=== PATIENT | female | born 1925 | race African-American/Black ===

== ENCOUNTER 2016-04-11 13:47 | Inpatient (IN) | payer OTHER, BC ==
--- NOTE | 2016-04-11 14:33 | PDOC ---
History of Present Illness <Sherif Mtz - Last Filed: 04/11/16 17:20> - History of Present Illness Initial Comments: 04/11/16 15:14 Patient is an 89 year old female with significant medical hx of dementia, HTN, HLD, COPD, atrial fibrillation (on Eliquis) who is presenting to the ED for lethargy from today. Patient was recently discharged for pneumonia and septic shock (04/02/16). She was brought in today by grandchildren because she was straying from her normal baseline. According to the family, the patient hasnt been eating, drinking and today she refused to leave the bathroom. Family members also note the patient has had increased swelling in her ankles. They report that the patient is fairly unreliable due to dementia and the patient needs to be taken care of around the clock. The patient has an appointment tomorrow with a doctor to be considered for senior living rehab. <Estelle Adler - Last Filed: 04/11/16 17:23> - General Chief Complaint: Weakness Stated Complaint: FAIL TO THRIVE Past History - Past Medical History Cardiac Disorders: Yes (deloris, GALE) COPD: Yes HTN: Yes Hypercholesterolemia: Yes Suicide Attempt (Hx): No - Surgical History Orthopedic Surgery: (foot surgery 30 years ago) - Immunization History Immunization Up to Date: Yes - Psycho/Social/Smoking Cessation Hx Anxiety: No Suicidal Ideation: No Smoking Status: No Smoking History: Former smoker Have you smoked in the past 12 months: No Number of Cigarettes Smoked Daily: 0 If you are a former smoker, when did you quit?: 1980s Information on smoking cessation initiated: No Hx Alcohol Use: No Drug/Substance Use Hx: No Substance Use Type: None <Sherif Mtz - Last Filed: 04/11/16 17:20> <Estelle Adler - Last Filed: 04/11/16 17:23> - Past Medical History Allergies/Adverse Reactions: Allergies Allergy/AdvReac Type Severity Reaction Status Date / Time pineapple AdvReac headache Verified 04/11/16 16:42 Home Medications: Ambulatory Orders Salmeterol/Fluticasone [Advair 250Mcg/50Mcg -] 1 inh PO BID 03/13/14 Apixaban [Eliquis] 2.5 mg PO BID #0 04/23/14 Acetaminophen [Tylenol .Regular Strength -] 650 mg PO Q4H PRN #0 tablet Albuterol 0.083% Nebulizer Dara [Ventolin 0.083% Nebulizer Soln -] 1 amp NEB Q4H PRN #0 amp 02/26/16 Simvastatin [Zocor -] 10 mg PO HS 03/21/16 Furosemide [Lasix -] 20 mg PO DAILY #30 tablet 04/02/16 Metoprolol Succinate [Toprol XL -] 50 mg PO BID #60 tab.sr.24h 04/02/16 Prednisone [Deltasone -] 5 mg PO ASDIR #78 tab 04/02/16 Tiotropium [place] [Spiriva] 1 inh PO DAILY #1 inh 04/02/16 Review of Systems - Review of Systems Comments:: 04/11/16 15:14 CONSTITUTIONAL: Present: decreased PO intake, lethargic Absent: fever, chills, diaphoresis HEENT: Absent: rhinorrhea, nasal congestion, throat pain, throat swelling, difficulty swallowing, mouth swelling, ear pain, eye pain, visual changes CARDIOVASCULAR: Absent: chest pain, syncope, palpitations, irregular heart rate, lightheadedness , peripheral edema RESPIRATORY: Absent: cough, shortness of breath, dyspnea with exertion, orthopnea, wheezing, stridor, hemoptysis GASTROINTESTINAL: Absent: abdominal pain, abdominal distension, nausea, vomiting, diarrhea, constipation, melena, hematochezia GENITOURINARY: Absent: dysuria, frequency, urgency, hesitancy, hematuria, flank pain, genital pain MUSCULOSKELETAL: Present: ankle swelling Absent: myalgia, arthralgia, joint swelling SKIN: Absent: rash, itching, pallor HEMATOLOGIC/IMMUNOLOGIC: Absent: easy bleeding, easy bruising, lymphadenopathy, frequent infections ENDOCRINE: Absent: unexplained weight gain, unexplained weight loss, heat intolerance, cold intolerance NEUROLOGIC: Absent: headache, focal weakness or paresthesia, dizziness, unsteady gait, seizure, mental status changes, bladder or bowel incontinence. PSYCHIATRIC: Absent: anxiety, depression, suicidal or homicidal ideation, hallucinations <Estelle Adler - Last Filed: 04/11/16 17:23> *Physical Exam - Vital Signs Last Vital Signs Temp Pulse Resp BP Pulse Ox 106 H 24 119/86 95 04/11/16 14:04 04/11/16 14:04 04/11/16 14:04 04/11/16 14:04 <Sherif Mtz - Last Filed: 04/11/16 17:20> - Vital Signs Last Vital Signs Temp Pulse Resp BP Pulse Ox 106 H 24 119/86 95 04/11/16 14:04 04/11/16 14:04 04/11/16 14:04 04/11/16 14:04 - Physical Exam Comments: 04/11/16 15:15 GENERAL: Well developed, well nourished. Dehydrated. Awake and alert. No acute distress. HEENT: Normocephalic, atraumatic. PERRLA, EOMI. No conjunctival pallor. Sclera are non- icteric. Slightly dry mucous membranes. Oropharynx is clear. NECK: Supple. Full ROM. No JVD. Carotid pulses 2+ and symmetric, without bruits. No thyromegaly. No lymphadenopathy. CARDIOVASCULAR: Regular rate and rhythm. No murmurs, rubs, or gallops. Distal pulses are 2+ and symmetric. PULMONARY: No evidence of respiratory distress. Lungs clear to auscultation bilaterally. No wheezing, rales or rhonchi. ABDOMINAL: Soft. Non-tender. Non-distended. No rebound or guarding. No organomegaly. Normoactive bowel sounds. MUSCULOSKELETAL: Normal range of motion at all joints. No bony deformities or tenderness. No CVA tenderness. EXTREMITIES: No cyanosis. No clubbing. No edema. No calf tenderness. SKIN: Warm and dry. Normal capillary refill. No rashes. No jaundice. NEUROLOGICAL: Alert, awake, dementia. Cranial nerves 2-12 intact. Normal speech. PSYCHIATRIC: Cooperative. Good eye contact. Appropriate mood and affect. <Estelle Adler - Last Filed: 04/11/16 17:23> Heart Score/ECG Review #1 04/11/16 15:37 Atrial fibrillation with rapid ventricular response at 150 bpm Pulmonary disease pattern Incomplete right bundle branch block Left anterior fascicular block Marked ST abnormality, possible lateral subendocardial injury Abnormal ECG <Estelle Adler - Last Filed: 04/11/16 17:23> ED Treatment Course - LABORATORY CBC & Chemistry Diagram: 04/11/16 14:50 01/08/17 15:20 <Sherif Mtz - Last Filed: 04/11/16 17:20> - LABORATORY CBC & Chemistry Diagram: 04/11/16 14:50 04/11/16 15:20 - RADIOLOGY Radiograph Interpretation: 04/11/16 15:38 Chest X-Ray Impression: No acute pathology. No significant change. Reported By: Ciro Correa MD - Consult/PCP Time Called: 17:00 ([facility]on will admit under Dr. Layne.) Case discussed with personal care physician: Edwin Colón <Estelle Adler - Last Filed: 04/11/16 17:23> *DC/Admit/Observation/Transfer - Discharge Dispostion Admit: Yes <Sherif Mtz - Last Filed: 04/11/16 17:20> - Attestations Scribe Attestion: 04/11/16 15:16 Documentation prepared by Estelle Adler, acting as remote medical coder for Sherif Mtz MD. <Estelle Adler - Last Filed: 04/11/16 17:23> Diagnosis at time of Disposition: Atrial fibrillation with rapid ventricular response, Dehydration, Failure to thrive in adult - Referrals Referrals: Sergo Ruvalcaba MD [Primary Care Provider] -
[2016-04-11] MEDS ORDERED: SODIUM CHLORIDE 1,000 ML IV SCH (15:00)
[2016-04-11 15:34] LABS: BASOPHIL 0.1 % (0-2.0); MCH 30.2 pg (25.7-33.7); MCHC 31.1 g/dl (32.0-36.0); MEAN PLT VOLUME 9.2 fl (7.5-11.1); NEUTROPHILS 91.2 % (42.8-82.8); PLATELET COUNT 239 K/MM3 (134-434); RDW 16.6 % (11.6-15.6); WHITE BLOOD COUNT 10.8 K/mm3 (4.0-10.0)
[2016-04-11] MEDS ORDERED: dilTIAZem HCL 50 MG/10 ML - 10 ML VIAL IVPUSH ONE (15:36)
[2016-04-11] MEDS ORDERED: dilTIAZem HCL 125 MG/25 ML - 25 ML VIAL ONE (15:52)
[2016-04-11 15:57] LABS: ALBUMIN 3.3 g/dl (3.4-5.0); BILIRUBIN,TOTAL 3.1 mg/dL (0.2-1.0); CREATININE 1.9 mg/dL (0.55-1.02); TOT PROT 6.2 g/dl (6.4-8.2)
[2016-04-11 16:00] LABS: TROPONIN I 0.05 ng/ml (0.00-0.05)
[2016-04-11] MEDS ORDERED: SODIUM CHLORIDE 500 ML IV STA ×2 (16:16→17:42)
[2016-04-11] MEDS ORDERED: ONDANSETRON 4 MG/2 ML VIAL IVPUSH ONE (16:16)
[2016-04-11] MEDS ORDERED: ONDANSETRON 4 MG/2 ML VIAL ONE ×2 (16:16→17:07)
[2016-04-11] MEDS ORDERED: SODIUM CHLORIDE 500 ML IV ONE (17:25)
[2016-04-11] MEDS ORDERED: CALCIUM GLUCONATE 10% - 1,000 MG/10 ML VIAL IVPUSH ONE (17:41)
[2016-04-11] MEDS ORDERED: CALCIUM GLUCONATE 10% - 1,000 MG/10 ML VIAL ONE (18:07)
--- NOTE | 2016-04-11 23:55 | EKG ---
Test Reason : Blood Pressure : / mmHG Vent. Rate : 150 BPM Atrial Rate : 174 BPM P-R Int : 000 ms QRS Dur : 106 ms QT Int : 252 ms P-R-T Axes : 000 -70 136 degrees QTc Int : 398 ms ATRIAL FIBRILLATION WITH RAPID VENTRICULAR RESPONSE PULMONARY DISEASE PATTERN INCOMPLETE RIGHT BUNDLE BRANCH BLOCK LEFT ANTERIOR FASCICULAR BLOCK MARKED ST ABNORMALITY, POSSIBLE LATERAL SUBENDOCARDIAL INJURY ABNORMAL ECG WHEN COMPARED WITH ECG OF 22-MAR-2016 12:14, SIGNIFICANT CHANGES HAVE OCCURRED Confirmed by ALEXI QUICK MD ([id number]) on 04/11/2016 11:54:33 PM Referred By: Confirmed By:ALEXI QUICK MD
[2016-04-12] MEDS ORDERED: DIGOXIN 0.125 MG TABLET (FP) PO ONE (00:27)
[2016-04-12 00:28] LABS: TROPONIN I 0.09 ng/ml (0.00-0.05)
[2016-04-12] MEDS ORDERED: DIGOXIN 0.125 MG TABLET (FP) ONE (00:57)
[2016-04-12] MEDS ORDERED: ALBUTEROL SO4 0.083% IH SOL 2.5 MG/3 ML VIAL.NEB. NEB PRN (01:15)
[2016-04-12] MEDS ORDERED: ACETAMINOPHEN 325 MG TABLET (FP) PO PRN (01:16)
[2016-04-12] MEDS ORDERED: METOPROLOL TARTRATE 25 MG TABLET (FP) ONE (03:52)
[2016-04-12] MEDS ORDERED: METOPROLOL SUCCINATE 50 MG TAB.SR.24H (FP) ONE (03:52)
[2016-04-12] MEDS ORDERED: METOPROLOL TARTRATE 50 MG TABLET (FP) PO ONE (04:00)
[2016-04-12] MEDS: DILTIAZEM INJECTION 125 MG in SODIUM CHLORIDE 100 ML IVPB SCH (05:50)
[2016-04-12] MEDS ORDERED: dilTIAZem HCL 125 MG/25 ML - 25 ML VIAL ONE (05:51)
[2016-04-12] MEDS ORDERED: DIGOXIN 0.5 MG/2 ML AMPUL ONE (05:55)
[2016-04-12] MEDS ORDERED: DIGOXIN 0.5 MG/2 ML AMPUL IVPUSH ONE (06:30)
[2016-04-12] MEDS ORDERED: dilTIAZem HCL 50 MG/10 ML - 10 ML VIAL IVPUSH ONE (06:30)
[2016-04-12 08:35] LABS: MCH 31.3 pg (25.7-33.7); MCHC 31.1 g/dl (32.0-36.0); MEAN CELL VOLUME 100.5 fl (80-96); MEAN PLT VOLUME 9.4 fl (7.5-11.1); NEUTROPHILS 89.8 % (42.8-82.8); PLATELET COUNT 260 K/MM3 (134-434); RDW 16.8 % (11.6-15.6); WHITE BLOOD COUNT 15.6 K/mm3 (4.0-10.0)
--- NOTE | 2016-04-12 08:42 | CONSULT ---
Cardiology Consult (text) - Consultation Consultation Note: Cardiology 89 year old female with significant medical hx of dementia, HTN, HLD, COPD, atrial fibrillation (on Eliquis) who is presenting to the ED for lethargy from today. Patient was recently discharged for pneumonia and septic shock (04/02/16) . She was brought in today by grandchildren because she was straying from her normal baseline. According to the family, the patient hasnt been eating, drinking and today she refused to leave the bathroom. Family members also note the patient has had increased swelling in her ankles. They report that the patient is fairly unreliable due to dementia and the patient needs to be taken care of around the clock. The patient has an appointment tomorrow with a doctor to be considered for [facility]. PE: vitals stable normal cardio-pulmonary exam abdomen soft no leg edema Impression: afib, RVR on cardizem 10 mg/hour stable no CHF Rec: rate control meds need to be optimized. cardiac follow-up to continue Echocardiogram TSH
[2016-04-12 08:54] LABS: INR 2.5 (0.82-1.09)
[2016-04-12 08:57] LABS: ACTIVATED PTT 25.2 SECONDS (26.9-34.4)
[2016-04-12 09:10] LABS: ALBUMIN 3.7 g/dl (3.4-5.0); BILIRUBIN,TOTAL 7.4 mg/dL (0.2-1.0); CALCIUM 9.9 mg/dL (8.5-10.1); CREATININE 2.8 mg/dL (0.55-1.02)
[2016-04-12 09:13] LABS: TROPONIN I 0.13 ng/ml (0.00-0.05)
[2016-04-12] MEDS ORDERED: DEXTROSE 50%-WATER 50 ML DISP.SYRIN ONE ×2 (09:20→10:42)
[2016-04-12] MEDS ORDERED: DEXTROSE 50%-WATER 50 ML VIAL IVPUSH ONE (09:47)
[2016-04-12] MEDS ORDERED: FUROSEMIDE 20 MG TABLET (FP) PO SCH (10:00)
[2016-04-12] MEDS ORDERED: APIXABAN 2.5 MG TABLET PO SCH (10:00)
[2016-04-12] MEDS ORDERED: METOPROLOL TARTRATE 25 MG TABLET (FP) PO SCH (10:00)
[2016-04-12] MEDS ORDERED: CEFEPIME HCL 2 GM VIAL (RESTRICTED TO ID) IVPB ONE (10:22)
[2016-04-12] MEDS ORDERED: VANCOMYCIN 1 GRAM (PRE-DOCKED) 250 ML IVPB ONE ×2 (10:22→11:02)
[2016-04-12] MEDS ORDERED: SODIUM CHLORIDE 1,000 ML IV SCH ×2 (10:30→15:30)
[2016-04-12 10:33] LABS: URINE APPEARANCE CLOUDY; URINE BILIRUBIN NEGATIVE (NEGATIVE); URINE COLOR AMBER; URINE GLUCOSE (UA) NEGATIVE (NEGATIVE); URINE KETONE NEGATIVE (NEGATIVE); URINE LEUK ESTERASE NEGATIVE (NEGATIVE); URINE NITRITE NEGATIVE (NEGATIVE); URINE UROBILINOGEN 2.0 E.U/dl E.U./dl (0.2-1.0)
--- NOTE | 2016-04-12 10:34 | HP ---
Admitting History and Physical - Primary Care Physician PCP: Sergo Ruvalcaba - Admission Chief Complaint: I don't know how I feel History of Present Illness: Ms Granado is an 89 year old female who was brought in by her daughter for altered mental status. Ms Granado is very lethargic but able to answer some questions. She says that she has not been feeling well for the past 2-3 days. She says she was having chest and abdominal pain but this has currently resolved. She does not remember having fevers but says she has been shaking. She defers further questions by saying "I don't know how I feel". Daughter was also at bedside and she says that Ms Granado was doing well after discharge when she was staying with the daughter, but recently went home where she began to worsen. She notes the patient has not seemed herself. She was more lethargic and was eating less. She was urinating once a day. She did not note the patient having specific complaints, but Ms Granado began to look very sick and she was brought in for further evaluation and treatment. Daughter does not note any sick contacts. History Source: Patient, Family Member Limitations to Obtaining History: Clinical Condition - Past Medical History Cardiovascular: Yes: AFIB, HTN, Hyperlipdemia. No: CAD, CHF Pulmonary: Yes: COPD - Past Surgical History Past Surgical History: Yes: None - Smoking History Smoking history: Former smoker Have you smoked in the past 12 months: No Aproximately how many cigarettes per day: 0 If you are a former smoker, when did you quit?: 1980s - Alcohol/Substance Use Hx Alcohol Use: No History of Substance Use: reports: None - Social History Usual Living Arrangement: Yes: Alone ADL: Family Assistance History of Recent Travel: No Home Medications - Allergies Allergies/Adverse Reactions: Allergies Allergy/AdvReac Type Severity Reaction Status Date / Time pineapple AdvReac headache Verified 04/11/16 16:42 - Home Medications Home Medications: Ambulatory Orders Salmeterol/Fluticasone [Advair 250Mcg/50Mcg -] 1 inh PO BID 03/13/14 Apixaban [Eliquis] 2.5 mg PO BID #0 04/23/14 Acetaminophen [Tylenol .Regular Strength -] 650 mg PO Q4H PRN #0 tablet Albuterol 0.083% Nebulizer Dara [Ventolin 0.083% Nebulizer Soln -] 1 amp NEB Q4H PRN #0 amp 02/26/16 Simvastatin [Zocor -] 10 mg PO HS 03/21/16 Furosemide [Lasix -] 20 mg PO DAILY #30 tablet 04/02/16 Metoprolol Succinate [Toprol XL -] 50 mg PO BID #60 tab.sr.24h 04/02/16 Prednisone [Deltasone -] 5 mg PO ASDIR #78 tab 04/02/16 Tiotropium [place] [Spiriva] 1 inh PO DAILY #1 inh 04/02/16 Family Disease History - Family Disease History Family Disease History: Other: Sister (COPD) Review of Systems Findings/Remarks: Full review of systems attempted to obtain but decreased secondary to patient's clinical condition. Physical Examination Vital Signs: Vital Signs Temperature 97.7 F 04/12/16 04:05 Pulse Rate 80 04/12/16 06:13 Respiratory Rate 18 04/12/16 06:13 Blood Pressure 117/78 04/12/16 06:13 O2 Sat by Pulse Oximetry (%) 100 04/12/16 08:25 Constitutional: Yes: Other (lethargic) Eyes: Yes: PERRL, Sclera Icterus HENT: Yes: Atraumatic, Normocephalic Cardiovascular: Yes: Pulse Irregular. No: Tachycardia, Gallop, Murmur, Rub Respiratory: Yes: On Nasal O2, Tachypnea. No: Rales, Rhonchi, Wheezes Gastrointestinal: Yes: Soft, Hypoactive Bowel Sounds. No: Distention, Tenderness Extremities: Yes: WNL Edema: No Labs: CBC, BMP 04/12/16 08:10 04/12/16 08:10 Imaging - Results Chest X-ray: Report Reviewed, Image Reviewed EKG: Image Reviewed Problem List - Problems (1) Septic shock Assessment/Plan: -patient presents with signs of septic shock -tentative diagnosis currently -checking blood and urine cultures -empiric vancomycin and rocephin, consider meningitis since with AMS -consult ID, will make aware directly -hydrate with IVF -check lactic acid -look for source Code(s): A41.9 - SEPSIS, UNSPECIFIED ORGANISM R65.21 - SEVERE SEPSIS WITH SEPTIC SHOCK (2) Atrial fibrillation with rapid ventricular response Assessment/Plan: -patient presents with RVR, has history of atrial fibrillation -cardiology consulted and following -currently on diltiazem gtt -hold anticoagulation Code(s): I48.91 - UNSPECIFIED ATRIAL FIBRILLATION (3) NAYAN (acute kidney injury) Assessment/Plan: -patient with ARF on CKD -progressively worsening -abdominal/renal ultrasound -nephrology made aware, will see urgently -hydrate with IVF currently Code(s): N17.9 - ACUTE KIDNEY FAILURE, UNSPECIFIED (4) Shock liver Assessment/Plan: -worsening -? if septic shock or episode of hypotension with rvr -hydrate with IVF to maintain blood pressure -ICU monitoring -empiric antibiotics -abdominal ultrasound Code(s): K75.9 - INFLAMMATORY LIVER DISEASE, UNSPECIFIED (5) Hyperkalemia Assessment/Plan: -worsening hyperkalemia -secondary to renal failure -nephrology consulted and will see Code(s): E87.5 - HYPERKALEMIA (6) Hypoglycemia Assessment/Plan: -with severely depressed glucose -consistent with sepsis -received amp of glucose, came up to 55 -give another amp of glucose D50 and start on D5 1/2NS Code(s): E16.2 - HYPOGLYCEMIA, UNSPECIFIED (7) Acidosis Assessment/Plan: -bicarb has acutely dropped to 16 in under 24 hours -check lactic acid -check abg -nephrology seeing, give amp of bicarb Code(s): E87.2 - ACIDOSIS (8) CHF (congestive heart failure) Assessment/Plan: -not in exacerbation and dehydrated -hold all diuretics -aggressive hydration Code(s): I50.9 - HEART FAILURE, UNSPECIFIED (9) COPD (chronic obstructive pulmonary disease) Assessment/Plan: -continue inhalers Code(s): J44.9 - CHRONIC OBSTRUCTIVE PULMONARY DISEASE, UNSPECIFIED (10) Elevated troponin Assessment/Plan: -suspect stress induced -follow up ECHO -continue to monitor Code(s): R79.89 - OTHER SPECIFIED ABNORMAL FINDINGS OF BLOOD CHEMISTRY (11) GI bleed Assessment/Plan: -place on protonix gtt -urgent GI consult -holding eliquis -? FFP or vitamin K -ICU admission -lower suspicion for varices since acute but will d/w GI about octreotide Code(s): K92.2 - GASTROINTESTINAL HEMORRHAGE, UNSPECIFIED Assessment/Plan 65 minutes spent in critical care time spent with this patient
[2016-04-12] MEDS ORDERED: DEXTROSE 5%-0.45% SALINE 1,000 ML IV SCH (10:45)
[2016-04-12] MEDS ORDERED: SODIUM CHLORIDE 1,000 ML IV STA ×3 (10:49→15:24)
--- NOTE | 2016-04-12 10:57 | CONSULT ---
Consult Consult Specialty:: Nephrology Reason for Consultation:: NAYAN and hyperkalemia - History of Present Illness Chief Complaint: brought in for altered mental status History of Present Illness: Pt is an 89 year old female with pmhx of HTN, hyperlipidemia, a-fibo n eliquis, and COPD who was brought to the ER by her family for altered mental status. She was recently treated for PNA and sepsis. She has decreased PO intake. Pt is lethargic and unable to give history. She was found to be hypoglycemic and hypothermic. I was called to evaluate her for hyperkalemia and renal failure. She is making urine. She did have an episode of bloody vomiting. - History Source History Provided By: Medical Record - Past Medical History Cardio/Vascular: Yes: AFIB, HTN, Hyperlipdemia Pulmonary: Yes: COPD - Past Surgical History Past Surgical History: Yes: None - Alcohol/Substance Use Hx Alcohol Use: No History of Substance Use: reports: None - Smoking History Smoking history: Former smoker Have you smoked in the past 12 months: No Aproximately how many cigarettes per day: 0 If you are a former smoker, when did you quit?: 1980s - Social History Usual Living Arrangement: Alone ADL: Family Assistance History of Recent Travel: No Home Medications - Allergies Allergies/Adverse Reactions: Allergies Allergy/AdvReac Type Severity Reaction Status Date / Time No Known Allergies Allergy Verified 04/12/16 11:04 - Home Medications Home Medications: Ambulatory Orders Salmeterol/Fluticasone [Advair 250Mcg/50Mcg -] 1 inh PO BID 03/13/14 Apixaban [Eliquis] 2.5 mg PO BID #0 04/23/14 Acetaminophen [Tylenol .Regular Strength -] 650 mg PO Q4H PRN #0 tablet Albuterol 0.083% Nebulizer Dara [Ventolin 0.083% Nebulizer Soln -] 1 amp NEB Q4H PRN #0 amp 02/26/16 Simvastatin [Zocor -] 10 mg PO HS 03/21/16 Furosemide [Lasix -] 20 mg PO DAILY #30 tablet 04/02/16 Metoprolol Succinate [Toprol XL -] 50 mg PO BID #60 tab.sr.24h 04/02/16 Prednisone [Deltasone -] 5 mg PO ASDIR #78 tab 04/02/16 Tiotropium [place] [Spiriva] 1 inh PO DAILY #1 inh 04/02/16 Family Disease History - Family Disease History Family Disease History: Other: Sister (COPD) Review of Systems Unable to obtain ROS, reason: pt is lethargic Physical Exam Vital Signs: Vital Signs Temperature 97.7 F 04/12/16 04:05 Pulse Rate 80 04/12/16 06:13 Respiratory Rate 18 04/12/16 06:13 Blood Pressure 117/78 04/12/16 06:13 O2 Sat by Pulse Oximetry (%) 100 04/12/16 08:25 Constitutional: Yes: Calm Eyes: Yes: Conjunctiva Clear Neck: Yes: Supple Cardiovascular: Yes: Pulse Irregular, S1, S2 Respiratory: Yes: Diminished Gastrointestinal: Yes: Soft, Other (bloody vomiting) Renal/: Yes: Lilly Present Musculoskeletal: Yes: Muscle Weakness Edema: Yes Edema: LLE: 1+, RLE: 1+ Neurological: Yes: Lethargy Labs: CBC, BMP 04/12/16 08:10 04/12/16 08:10 Laboratory Tests 03/27/16 03/28/16 03/29/16 06:32 05:50 06:30 Sodium Potassium Chloride Carbon Dioxide Anion Gap BUN Creatinine 1.1 H 1.1 H 1.1 H Creat Clearance w eGFR Random Glucose Urine Color Urine Appearance Urine pH Ur Specific [place] Urine Protein Urine Glucose (UA) Urine Ketones Urine Blood Urine Nitrite Urine Bilirubin Urine Urobilinogen 04/01/16 04/02/16 04/11/16 05:35 07:15 15:20 Sodium 140 Potassium Chloride 104 Carbon Dioxide Anion Gap BUN 59 H D Creatinine 1.5 H D 1.6 H 1.9 H Creat Clearance w eGFR Random Glucose Urine Color Urine Appearance Urine pH Ur Specific [place] Urine Protein Urine Glucose (UA) Urine Ketones Urine Blood Urine Nitrite Urine Bilirubin Urine Urobilinogen 04/12/16 04/12/16 08:10 10:00 Sodium 139 Potassium 6.2 H* D Chloride 101 Carbon Dioxide 16 L D Anion Gap 22 H BUN 71 H D Creatinine 2.8 H D Creat Clearance w eGFR 15.95 Random Glucose 28 L* D Urine Color [place] Urine Appearance Cloudy Urine pH 5.0 Ur Specific [place] 1.015 Urine Protein 2+ H Urine Glucose (UA) Negative Urine Ketones Negative Urine Blood 1+ H Urine Nitrite Negative Urine Bilirubin Negative Urine Urobilinogen 2.0 e.u/dl H Imaging - Results Chest X-ray: Report Reviewed Assessment/Plan Current Medications Generic Name Dose Route Start Last Admin Trade Name Freq PRN Reason Stop Dose Admin Aclidinium [place] 1 puff 04/12/16 10:00 Tudorza - IH BID WHITNEY Albuterol Sulfate 1 amp 04/12/16 01:15 Ventolin 0.083% Nebulizer Soln - NEB Q4H PRN SHORT OF BREATH/WHEEZING Albuterol Sulfate 1 amp 04/12/16 10:50 Ventolin 0.083% Nebulizer Soln - NEB Q1H PRN SHORT OF BREATH/WHEEZING Budesonide/Formoterol Fumarate 2 puff 04/12/16 10:00 Symbicort 80/4.5mcg - IH BID WHITNEY Sodium Chloride 1,000 mls @ 125 mls/hr 04/11/16 15:00 04/11/16 15:59 Normal Saline - IV 125 mls/hr ASDIR WHITNEY Administration Diltiazem HCl 125 mg/ Sodium 125 mls @ 10 mls/hr 04/12/16 06:30 04/12/16 10:59 Chloride IVPB 0 mg/hr TITR WHITNEY Titration Protocol 10 MG/HR Vancomycin HCl 1,000 mg/ 250 mls @ 200 mls/hr 04/12/16 10:22 Dextrose IVPB 04/12/16 11:36 ONCE ONE Pantoprazole Sodium 80 mg/ 100 mls @ 10 mls/hr 04/12/16 10:30 Sodium Chloride IVPB Q10H WHITNEY 8 MG/HR Dextrose/Sodium Chloride 1,000 mls @ 125 mls/hr 04/12/16 10:45 D5-1/2ns - IV ASDIR WHITNEY Ceftriaxone Sodium 2 gm/ 100 mls @ 200 mls/hr 04/12/16 10:45 Dextrose IVPB 04/12/16 11:14 ONCE ONE Sodium Chloride 1,000 mls @ 1,000 mls/hr 04/12/16 10:49 04/12/16 10:58 Normal Saline - IV 04/12/16 11:48 1,000 mls/hr ASDIR STA Administration Sodium Bicarbonate 50 meq 04/12/16 10:49 Sodium Bicarbonate 8.4% - IV 04/12/16 10:50 ONCE ONE Impression 1. NAYAN 2. hyperkalemia 3. sepsis with hypothremia 4. a-fib 5. GI bleed 6. metabolic acidosis - check abg and lactic acid level 7. COPD 8. hyperlipidemia Plan - will give another liter of fluid, pt has received one liter so far - will give an amp of bicarb - repeat labs after bolus - will need to volume expand the pt - pressors if no responce to saline boluses - will give albuterol neb - unable to give kayexylate secondary to GI bleed - fluids should help with hyperkalemia - pt is also hypoglycemic, start d5 after giving the amp of dextrose. Will not be able to give insulin at this point - keep on a tele monitor - check lactic acid level - check ABG - admit to ICU - check cortisol level - daughter is bringing in meds - pt was on prednisone taper, may need steroids - discussed with medical attending - prognosis guarded Dr Rogers -
[2016-04-12 10:58] LABS: URINE BLOOD 1+ (NEGATIVE); URINE PROTEIN 2+ (NEGATIVE)
[2016-04-12 11:00] LABS: URINE BACTERIA FEW /hpf (NONE SEEN); URINE HYALINE CAST 75 /lpf; URINE MUCUS RARE; URINE RBC 8 /hpf (0-3); URINE WBC 5 /hpf (3-5)
[2016-04-12] MEDS ORDERED: CEFTRIAXONE 100 ML IVPB ONE (11:02)
[2016-04-12] MEDS: SODIUM BICARBONATE 8.4% 50 MEQ/50 ML VIAL IV ONE ×2 (11:10→11:32)
[2016-04-12] MEDS ORDERED: CEFTRIAXONE 2G/100 ML IVPB ONE (11:15)
[2016-04-12] MEDS: ALBUTEROL SO4 0.083% IH SOL 2.5 MG/3 ML VIAL.NEB. NEB PRN ×2 (11:21→11:44)
[2016-04-12] MEDS ORDERED: SODIUM BICARBONATE 8.4% 50 MEQ/50 ML VIAL ONE (11:24)
[2016-04-12] MEDS ORDERED: PANTOPRAZOLE SODIUM 40 MG VIAL ONE (11:25)
[2016-04-12] MEDS: BUDESONIDE/FORMETEROL FUMARATE 80/4.5 mcg INHALER IH SCH ×3 (11:43→21:55)
--- NOTE | 2016-04-12 11:43 | CONSULT ---
Consultation: REQUESTING PROVIDER: CONSULT REQUEST: We have been asked to medically evaluate this patient for septic shock. HISTORY OF PRESENT ILLNESS: 89 year old female was brought in to the ED accompanied by her daughter after noticing change in her mental status and lethargy. A/c to her daughter, Patient was unwell since few days, has decreased oral intake, passing urine twice a day. Patient was admitted on 03/22/2016 and treated for Sepsis secondary to HCAP. On presentation in the ED, she was afebrile, BP: 108/81mmHg, HR 148bpm, progressively patients BP dropped to 73/48mmHg, Temp:93.8. Patient also had Hemetemesis. Central line was placed in the ED and transferred in the ICU. Past Medical Hx: HTN, HLD, A-fib on elliquis, COPD Allergies: NKDA Hospitalization: Multiple admissions, Last admitted for Sepsis secondary to HCAP Social Hx: Stopped smoking in . Lives at home alone, was being taken care by her daughter, grand daughter and health aid. REVIEW OF SYSTEMS: CONSTITUTIONAL: Present: loss of appetite Absent: fever, chills, diaphoresis, generalized weakness, malaise, weight change HEENT: Absent: rhinorrhea, nasal congestion, throat pain, throat swelling, difficulty swallowing, mouth swelling, ear pain, eye pain, visual changes CARDIOVASCULAR: Absent: chest pain, syncope, palpitations, irregular heart rate, lightheadedness , peripheral edema RESPIRATORY: Absent: cough, shortness of breath, dyspnea with exertion, orthopnea, wheezing, stridor, hemoptysis GASTROINTESTINAL: Absent: abdominal pain, abdominal distension, nausea, vomiting, diarrhea, constipation, melena, hematochezia GENITOURINARY: Absent: dysuria, frequency, urgency, hesitancy, hematuria, flank pain, genital pain MUSCULOSKELETAL: Absent: myalgia, arthralgia, joint swelling, back pain, neck pain SKIN: Absent: rash, itching, pallor HEMATOLOGIC/IMMUNOLOGIC: Absent: easy bleeding, easy bruising, lymphadenopathy, frequent infections ENDOCRINE: Absent: unexplained weight gain, unexplained weight loss, heat intolerance, cold intolerance NEUROLOGIC: Absent: headache, focal weakness or paresthesias, dizziness, unsteady gait, seizure, mental status changes, bladder or bowel incontinence PSYCHIATRIC: Absent: anxiety, depression, suicidal or homicidal ideation, hallucinations. PHYSICAL EXAMINATION Vital Signs - 24 hr 04/11/16 04/11/16 04/12/16 23:27 23:30 00:10 Temperature Pulse Rate Pulse Rate [ 112 H 110 H Apical] Respiratory 24 18 18 Rate Blood Pressure 109/75 123/70 [Left Arm] O2 Sat by Pulse 98 100 100 Oximetry (%) 04/12/16 04/12/16 04/12/16 03:20 03:45 04:05 Temperature 97.7 F Pulse Rate Pulse Rate [ 121 H 150 H Apical] Respiratory 19 Rate Blood Pressure 161/81 [Left Arm] O2 Sat by Pulse 100 Oximetry (%) 04/12/16 04/12/16 04/12/16 05:50 06:13 08:25 Temperature Pulse Rate 150 H Pulse Rate [ 80 Apical] Respiratory 18 Rate Blood Pressure 117/78 [Left Arm] O2 Sat by Pulse 100 100 Oximetry (%) 04/12/16 04/12/16 10:57 11:22 Temperature 93.8 F L Pulse Rate Pulse Rate [ 50 L 88 Apical] Respiratory 16 16 Rate Blood Pressure 73/48 92/55 [Left Arm] O2 Sat by Pulse 100 97 Oximetry (%) GENERAL: Patient lying in bed, Arousable and disoriented x 3. HEAD: Normal with no signs of trauma. EYES:EOM intact, no pallor or icterus. EARS, NOSE, THROAT: Ears normal, dried blood in the mouth. NECK: Supple, no JVD or mass LUNGS: Decreased breath sound on the right lung base, fine crackles on the right , occasional wheeze + HEART: Regular rate and rhythm, normal S1 and S2 without murmur. ABDOMEN: Soft, nontender, not distended, normoactive bowel sounds, no guarding, no rebound, no masses. No hepatomegaly or splenomegaly. MUSCULOSKELETAL: Normal range of motion at all joints. No bony deformities or tenderness. No CVA tenderness. UPPER EXTREMITIES: 2+ pulses, warm, well-perfused. No cyanosis. No clubbing. No peripheral edema. LOWER EXTREMITIES: 2+ pulses, warm, well-perfused. No calf tenderness. B/L pitting edema NEUROLOGICAL: Cranial nerves II-XII intact. Normal speech. Normal gait. PSYCHIATRIC: Cooperative. Good eye contact. Appropriate mood and affect. SKIN: Warm, dry scaly skin over lower extremities, normal turgor, no rashes or lesions noted. Laboratory Results - last 24 hr 04/11/16 04/12/16 04/12/16 23:41 08:10 08:10 WBC 15.6 H D RBC 4.82 Hgb 15.1 D Hct 48.5 H MCV 100.5 H MCHC 31.1 L RDW 16.8 H Plt Count 260 MPV 9.4 Neutrophils % 89.8 H Lymphocytes % 3.4 L D Monocytes % 6.8 Eosinophils % 0.0 Basophils % 0.0 INR 2.50 H D PTT (Actin FS) 25.2 L Sodium Potassium Chloride Carbon Dioxide Anion Gap BUN Creatinine Creat Clearance w eGFR Random Glucose Calcium Total Bilirubin AST ALT Alkaline Phosphatase Creatine Kinase 79 Troponin I 0.09 H Total Protein Albumin Urine Color Urine Appearance Urine pH Ur Specific [place] Urine Protein Urine Glucose (UA) Urine Ketones Urine Blood Urine Nitrite Urine Bilirubin Urine Urobilinogen Ur Leukocyte Esterase Urine RBC Urine WBC Ur Epithelial Cells Urine Bacteria Hyaline Casts Urine Mucus 04/12/16 04/12/16 08:10 10:00 WBC RBC Hgb Hct MCV MCHC RDW Plt Count MPV Neutrophils % Lymphocytes % Monocytes % Eosinophils % Basophils % INR PTT (Actin FS) Sodium 139 Potassium 6.2 H* D Chloride 101 Carbon Dioxide 16 L D Anion Gap 22 H BUN 71 H D Creatinine 2.8 H D Creat Clearance w eGFR 15.95 Random Glucose 28 L* D Calcium 9.9 Total Bilirubin 7.4 H D AST 931 H D ALT 864 H D Alkaline Phosphatase 373 H D Creatine Kinase 98 Troponin I 0.13 H Total Protein 7.0 Albumin 3.7 Urine Color [place] Urine Appearance Cloudy Urine pH 5.0 Ur Specific [place] 1.015 Urine Protein 2+ H Urine Glucose (UA) Negative Urine Ketones Negative Urine Blood 1+ H Urine Nitrite Negative Urine Bilirubin Negative Urine Urobilinogen 2.0 e.u/dl H Ur Leukocyte Esterase Negative Urine RBC 8 Urine WBC 5 Ur Epithelial Cells Rare Urine Bacteria Few Hyaline Casts 75 Urine Mucus Rare Active Medications Generic Name Dose Route Start Last Admin Trade Name Freq PRN Reason Stop Dose Admin Aclidinium Townsend 1 puff 04/12/16 10:00 Tudorza - IH BID WHITNEY Albuterol Sulfate 1 amp 04/12/16 01:15 Ventolin 0.083% Nebulizer Soln - NEB Q4H PRN SHORT OF BREATH/WHEEZING Albuterol Sulfate 1 amp 04/12/16 10:50 04/12/16 11:21 Ventolin 0.083% Nebulizer Soln - NEB 1 amp Q1H PRN Administration SHORT OF BREATH/WHEEZING Budesonide/Formoterol Fumarate 2 puff 04/12/16 10:00 Symbicort 80/4.5mcg - IH BID WHITNEY Sodium Chloride 1,000 mls @ 125 mls/hr 04/11/16 15:00 04/11/16 15:59 Normal Saline - IV 125 mls/hr ASDIR WHITNEY Administration Diltiazem HCl 125 mg/ Sodium 125 mls @ 10 mls/hr 04/12/16 06:30 04/12/16 10:59 Chloride IVPB 0 mg/hr TITR WHITNEY Titration Protocol 10 MG/HR Pantoprazole Sodium 80 mg/ 100 mls @ 10 mls/hr 04/12/16 11:30 Sodium Chloride IVPB Q10H WHITNEY 8 MG/HR Ceftriaxone Sodium 100 mls @ 200 mls/hr 04/12/16 11:15 04/12/16 11:10 Rocephin 2gm Ivpb (Pre-Docked) IVPB 04/12/16 11:44 200 mls/hr ONCE ONE Administration Sodium Chloride 1,000 mls @ 1,000 mls/hr 04/12/16 10:49 04/12/16 10:58 Normal Saline - IV 04/12/16 11:48 1,000 mls/hr ASDIR STA Administration Underlying problems: 89 year old female with significant PMH of HTN, HLD, A-fib on elliquis, COPD was brought in to the ED accompanied by her daughter after noticing change in her mental status and lethargy. ASSESSMENT 1. Sepsis unknown source. 2. Multiorgan failure 3. Acute kidney injury with Hyperkalemia 4. Hematemesis 5. Hypoglycemia 6. CHF 7. COPD 8. Increased Troponins 9. GI bleed Plan:- # Sepsis unknown source Differential diagnosis: Meningitis, aspiration pneumonia vs effusion Less likely cholecystitis since USG abdomen is negative Received one dose of Ceftriaxone and Vancomycin in the ED Empiric treatment with Ceftriaxone and Zosyn. Would consider to get CT head, LP, ammonia levels, U. tox # Multiorgan failure- Shock liver, Acute Kidney Injury Transaminitis most likely due to shock liver Avoid hepatotoxic drugs Avoid Nephrotoxic drugs Rest as per primary. Illness, Investigation and Plan of care explained to the patients daughter. She verbalized understanding. Case seen and discussed with Dr. Mcdonough Critical care time 35minutes. <Pat Jin - Last Filed: 04/12/16 18:29> Consultation: REQUESTING PROVIDER: CONSULT REQUEST: We have been asked to medically evaluate this patient for ( specify). HISTORY OF PRESENT ILLNESS: REVIEW OF SYSTEMS: CONSTITUTIONAL: Absent: fever, chills, diaphoresis, generalized weakness, malaise, loss of appetite, weight change HEENT: Absent: rhinorrhea, nasal congestion, throat pain, throat swelling, difficulty swallowing, mouth swelling, ear pain, eye pain, visual changes CARDIOVASCULAR: Absent: chest pain, syncope, palpitations, irregular heart rate, lightheadedness , peripheral edema RESPIRATORY: Absent: cough, shortness of breath, dyspnea with exertion, orthopnea, wheezing, stridor, hemoptysis GASTROINTESTINAL: Absent: abdominal pain, abdominal distension, nausea, vomiting, diarrhea, constipation, melena, hematochezia GENITOURINARY: Absent: dysuria, frequency, urgency, hesitancy, hematuria, flank pain, genital pain MUSCULOSKELETAL: Absent: myalgia, arthralgia, joint swelling, back pain, neck pain SKIN: Absent: rash, itching, pallor HEMATOLOGIC/IMMUNOLOGIC: Absent: easy bleeding, easy bruising, lymphadenopathy, frequent infections ENDOCRINE: Absent: unexplained weight gain, unexplained weight loss, heat intolerance, cold intolerance NEUROLOGIC: Absent: headache, focal weakness or paresthesias, dizziness, unsteady gait, seizure, mental status changes, bladder or bowel incontinence PSYCHIATRIC: Absent: anxiety, depression, suicidal or homicidal ideation, hallucinations. PHYSICAL EXAMINATION Vital Signs - 24 hr 04/12/16 04/12/16 04/12/16 12:44 13:00 13:14 Temperature 92.5 F L 92.9 F L Pulse Rate 60 Pulse Rate [ 88 72 Apical] Respiratory 16 18 18 Rate Blood Pressure 118/70 Blood Pressure 130/60 108/62 [Left Arm] O2 Sat by Pulse 97 97 97 Oximetry (%) 04/12/16 04/12/16 04/12/16 14:00 20:00 22:00 Temperature 92.7 F L 97.9 F 97.8 F Pulse Rate 64 67 72 Pulse Rate [ Apical] Respiratory 18 16 18 Rate Blood Pressure 118/70 114/61 121/95 Blood Pressure [Left Arm] O2 Sat by Pulse 97 Oximetry (%) 04/12/16 04/13/16 04/13/16 23:00 00:00 02:00 Temperature 97.6 F 98 F Pulse Rate 76 77 73 Pulse Rate [ Apical] Respiratory 14 16 15 Rate Blood Pressure 116/64 115/65 109/66 Blood Pressure [Left Arm] O2 Sat by Pulse Oximetry (%) 04/13/16 04/13/16 04/13/16 04:00 06:00 08:00 Temperature 98.6 F 98.2 F Pulse Rate 72 74 106 H Pulse Rate [ Apical] Respiratory 16 18 17 Rate Blood Pressure 107/68 133/90 135/92 Blood Pressure [Left Arm] O2 Sat by Pulse Oximetry (%) 04/13/16 04/13/16 04/13/16 09:00 10:00 12:00 Temperature 98.1 F Pulse Rate 113 H 102 H Pulse Rate [ Apical] Respiratory 17 17 16 Rate Blood Pressure 135/79 128/81 Blood Pressure [Left Arm] O2 Sat by Pulse 99 Oximetry (%) GENERAL: Awake, alert, and fully oriented, in no acute distress. HEAD: Normal with no signs of trauma. EYES: Pupils equal, round and reactive to light, extraocular movements intact, sclera anicteric, conjunctiva clear. No lid lag. EARS, NOSE, THROAT: Ears normal, nares patent, oropharynx clear without exudates. Moist mucous membranes. NECK: Normal range of motion, supple without lymphadenopathy, JVD, or masses. LUNGS: Breath sounds equal, clear to auscultation bilaterally. No wheezes, and no crackles. No accessory muscle use. HEART: Regular rate and rhythm, normal S1 and S2 without murmur, rub or gallop. ABDOMEN: Soft, nontender, not distended, normoactive bowel sounds, no guarding, no rebound, no masses. No hepatomegaly or splenomegaly. MUSCULOSKELETAL: Normal range of motion at all joints. No bony deformities or tenderness. No CVA tenderness. UPPER EXTREMITIES: 2+ pulses, warm, well-perfused. No cyanosis. No clubbing. Cap refill <2 seconds. No peripheral edema. LOWER EXTREMITIES: 2+ pulses, warm, well-perfused. No calf tenderness. No peripheral edema. NEUROLOGICAL: Cranial nerves II-XII intact. Normal speech. Normal gait. PSYCHIATRIC: Cooperative. Good eye contact. Appropriate mood and affect. SKIN: Warm, dry, normal turgor, no rashes or lesions noted. Laboratory Results - last 24 hr 04/12/16 04/12/16 04/12/16 10:30 10:36 12:00 WBC RBC Hgb Hct MCV MCHC RDW Plt Count MPV Neutrophils % Lymphocytes % Monocytes % Eosinophils % Basophils % INR PTT (Actin FS) Sodium Potassium Chloride Carbon Dioxide Anion Gap BUN Creatinine Creat Clearance w eGFR POC Glucometer < 50 51.85448 Random Glucose Lactic Acid Calcium Phosphorus Magnesium Total Bilirubin Direct Bilirubin AST ALT Alkaline Phosphatase Ammonia Creatine Kinase Troponin I Total Protein Albumin Cortisol AM Sample 71.7 Random Vancomycin Digoxin Opiates Screen Methadone Screen Barbiturate Screen Phencyclidine Screen Ur Amphetamines Screen MDMA (Ecstasy) Screen Benzodiazepines Screen Cocaine Screen U Marijuana (THC) Screen 04/12/16 04/12/16 04/12/16 12:57 14:00 14:00 WBC 16.4 H RBC 3.57 L D Hgb 11.2 D Hct 36.4 D MCV 102.0 H MCHC 30.7 L RDW 16.9 H Plt Count 177 D MPV 9.2 Neutrophils % Lymphocytes % Monocytes % Eosinophils % Basophils % INR PTT (Actin FS) Sodium 145 Potassium 5.1 Chloride 107 Carbon Dioxide 13 L Anion Gap 25 H BUN 63 H Creatinine 2.6 H Creat Clearance w eGFR POC Glucometer 149.11613 Random Glucose 232 H D Lactic Acid Calcium 7.8 L D Phosphorus Magnesium Total Bilirubin Direct Bilirubin AST ALT Alkaline Phosphatase Ammonia Creatine Kinase 94 Troponin I 0.20 H Total Protein Albumin Cortisol AM Sample Random Vancomycin Digoxin Opiates Screen Methadone Screen Barbiturate Screen Phencyclidine Screen Ur Amphetamines Screen MDMA (Ecstasy) Screen Benzodiazepines Screen Cocaine Screen U Marijuana (THC) Screen 04/12/16 04/12/16 04/12/16 14:25 14:25 15:15 WBC RBC Hgb Hct MCV MCHC RDW Plt Count MPV Neutrophils % Lymphocytes % Monocytes % Eosinophils % Basophils % INR PTT (Actin FS) Sodium Potassium Chloride Carbon Dioxide Anion Gap BUN Creatinine Creat Clearance w eGFR POC Glucometer 202.18924 Random Glucose Lactic Acid 14.879 H* Calcium Phosphorus Magnesium Total Bilirubin Direct Bilirubin AST ALT Alkaline Phosphatase Ammonia < 11 L Creatine Kinase Troponin I Total Protein Albumin Cortisol AM Sample Random Vancomycin Digoxin Opiates Screen Methadone Screen Barbiturate Screen Phencyclidine Screen Ur Amphetamines Screen MDMA (Ecstasy) Screen Benzodiazepines Screen Cocaine Screen U Marijuana (THC) Screen 04/12/16 04/12/16 04/12/16 17:00 18:00 18:00 WBC 22.5 H D RBC 3.89 Hgb 11.7 Hct 39.6 MCV 101.7 H MCHC 29.4 L RDW 17.1 H Plt Count 207 MPV 9.8 Neutrophils % Lymphocytes % Monocytes % Eosinophils % Basophils % INR PTT (Actin FS) Sodium 143 Potassium 5.3 H Chloride 107 Carbon Dioxide 13 L Anion Gap 23 H BUN 67 H Creatinine 2.7 H Creat Clearance w eGFR 16.63 POC Glucometer Random Glucose 164 H D Lactic Acid Calcium 7.9 L Phosphorus Magnesium Total Bilirubin 5.0 H D Direct Bilirubin AST 1246 H ALT 977 H Alkaline Phosphatase 241 H D Ammonia Creatine Kinase Troponin I Total Protein 4.8 L D Albumin 2.6 L D Cortisol AM Sample Random Vancomycin Digoxin Opiates Screen Negative Methadone Screen Negative Barbiturate Screen Negative Phencyclidine Screen Negative Ur Amphetamines Screen Negative MDMA (Ecstasy) Screen Negative Benzodiazepines Screen Negative Cocaine Screen Negative U Marijuana (THC) Screen Negative 04/13/16 04/13/16 04/13/16 05:00 05:00 05:00 WBC 18.5 H RBC 3.63 Hgb 10.9 Hct 35.1 MCV 96.7 H MCHC 31.2 L RDW 16.3 H Plt Count 190 MPV 9.5 Neutrophils % 95.0 H Lymphocytes % 1.6 L D Monocytes % 3.0 L Eosinophils % 0.0 Basophils % 0.4 D INR PTT (Actin FS) Sodium 145 145 Potassium 4.5 4.5 Chloride 108 H 109 H Carbon Dioxide 25 D 25 Anion Gap 12 11 BUN 66 H 70 H Creatinine 2.4 H 2.5 H Creat Clearance w eGFR 18.18 POC Glucometer Random Glucose 169 H 163 H Lactic Acid Calcium 8.1 L 8.1 L Phosphorus 5.1 H D Magnesium 2.1 Total Bilirubin 2.5 H D 2.4 H Direct Bilirubin 2.1 H AST 1267 H 1255 H ALT 1059 H 1022 H Alkaline Phosphatase 189 H D 186 H Ammonia Creatine Kinase Troponin I Total Protein 4.9 L 4.8 L Albumin 2.7 L 2.6 L Cortisol AM Sample Random Vancomycin 11.876 Digoxin 2.1797 H Opiates Screen Methadone Screen Barbiturate Screen Phencyclidine Screen Ur Amphetamines Screen MDMA (Ecstasy) Screen Benzodiazepines Screen Cocaine Screen U Marijuana (THC) Screen 04/13/16 04/13/16 05:00 05:00 WBC RBC Hgb Hct MCV MCHC RDW Plt Count MPV Neutrophils % Lymphocytes % Monocytes % Eosinophils % Basophils % INR 3.25 H PTT (Actin FS) 30.4 Sodium Potassium Chloride Carbon Dioxide Anion Gap BUN Creatinine Creat Clearance w eGFR POC Glucometer Random Glucose Lactic Acid 3.647 H* Calcium Phosphorus Magnesium Total Bilirubin Direct Bilirubin AST ALT Alkaline Phosphatase [place]monia Creatine Kinase Troponin I Total Protein Albumin Cortisol AM Sample Random Vancomycin Digoxin Opiates Screen Methadone Screen Barbiturate Screen Phencyclidine Screen Ur Amphetamines Screen MDMA (Ecstasy) Screen Benzodiazepines Screen Cocaine Screen U Marijuana (THC) Screen Active Medications Generic Name Dose Route Start Last Admin Trade Name Freq PRN Reason Stop Dose Admin Aclidinium [place] 1 puff 04/12/16 10:00 04/13/16 10:27 Tudorza - IH 1 puff BID WHITNEY Administration Albuterol Sulfate 1 amp 04/12/16 10:50 04/12/16 11:44 Ventolin 0.083% Nebulizer Soln - NEB 1 amp Q1H PRN Administration SHORT OF BREATH/WHEEZING Budesonide/Formoterol Fumarate 2 puff 04/12/16 10:00 04/13/16 10:27 Symbicort 80/4.5mcg - IH 2 puff BID WHITNEY Administration Piperacillin Sod/Tazobactam Sod 50 mls @ 100 mls/hr 04/12/16 18:00 04/13/16 10: 28 Zosyn 2.25gm Ivpb (Pre-Docked) IVPB 100 mls/hr Q8H-IV WHITNEY Administration Pantoprazole Sodium 100 mls @ 200 mls/hr 04/13/16 11:15 Protonix 40mg Ivpb (Pre-Docked) IVPB BID WHITNEY Metoprolol Tartrate 12.5 mg 04/13/16 14:00 Lopressor - PO TID WHITNEY ASSESSMENT/PLAN: Dispo: We will continue to follow the patient. Thank you for this consultative opportunity. Sepsis/ Septic Shock source not clear Multiorgan failure Hepatorenal dysfunction Possible shock liver Await c/s Empiric zosyn + stat dose vancomycin Discussed with family at bedside Critical care time 35min <Sherif Mcdonough - Last Filed: 04/13/16 12:35> Visit type - Emergency Visit Emergency Visit: Yes ED Registration Date: 04/11/16 Care time: The patient presented to the Emergency Department on the above date and was hospitalized for further evaluation of their emergent condition. - New Patient This patient is new to me today: Yes Date on this admission: 04/12/16 - Critical Care Critical Care patient: Yes Total Critical Care Time (in minutes): 35 Critical Care Statement: The care of this patient involved high complexity decision making to prevent further life threatening deterioration of the patient 's condition and/or to evalute & treat vital organ system(s) failure or risk of failure. <Pat Jin - Last Filed: 04/12/16 18:29>
[2016-04-12] MEDS: ACLIDINIUM BROMIDE 400 MCG/INH AERO.POWD IH SCH ×3 (11:44→21:56)
[2016-04-12 11:47] LABS: ARTERIAL BLD GAS O2 SATURATION 98.8 % (90-98.9); ARTERIAL BLOOD GAS BASE EXCESS -12.2 meq/l (-2-2)
[2016-04-12 11:49] LABS: ALLENS TEST POSITIVE; ART PUNCT SITE RIGHT BRACHIAL; LPM/O2% 2LPM; PT. ON O2? YES; TYPE OF O2 NASAL O2
[2016-04-12 11:53] LABS: ARTERIAL BLOOD GAS pH 7.28 (7.35-7.45)
[2016-04-12] MEDS ORDERED: SODIUM CHLORIDE 1,000 ML IV ONE (12:00)
--- NOTE | 2016-04-12 12:08 | CONSULT ---
Consult Consult Specialty:: Gastroenterology Referred by:: Dr Layne Reason for Consultation:: Hematemesis and liver failure - History of Present Illness Chief Complaint: Weakness at home following recent discahrge for sepsis History of Present Illness: 89 W brought in by family c/o lethargy, weakness and refusal to eat for the past few days. Today she apparently refused to leave the bathroom. She has OMS. She was recently hospitalized for sepsis but her blood and urine cultures were unrevealing. Today she is noted to be jaundiced and became hypoglycemic. When given oral intake she developed hematemesis. She has been noted to have transient LFT abnormalitieis in the past and screening for viral hepatitis was unremarkable. She also has VALERIE, episodes of hypotension, renal failure with hyperkalemia and is on Eliquis. Her sonogram reveals no biliary duct dilation or stones. - History Source History Provided By: Family Member - Past Medical History PROJECT ADMIN: Yes: Dementia Cardio/Vascular: Yes: AFIB, HTN, Hyperlipdemia Pulmonary: Yes: COPD Gastrointestinal: Yes: Diverticulosis Renal/: Yes: Renal Calculi - Past Surgical History Past Surgical History: Yes: None - Alcohol/Substance Use Hx Alcohol Use: No History of Substance Use: reports: None - Smoking History Smoking history: Former smoker Have you smoked in the past 12 months: No Aproximately how many cigarettes per day: 0 If you are a former smoker, when did you quit?: 1980s - Social History Usual Living Arrangement: With Child ADL: Family Assistance History of Recent Travel: No Home Medications - Allergies Allergies/Adverse Reactions: Allergies Allergy/AdvReac Type Severity Reaction Status Date / Time No Known Allergies Allergy Verified 04/12/16 11:04 - Home Medications Home Medications: Ambulatory Orders Salmeterol/Fluticasone [Advair 250Mcg/50Mcg -] 1 inh PO BID 03/13/14 Apixaban [Eliquis] 2.5 mg PO BID #0 04/23/14 Acetaminophen [Tylenol .Regular Strength -] 650 mg PO Q4H PRN #0 tablet Albuterol 0.083% Nebulizer Dara [Ventolin 0.083% Nebulizer Soln -] 1 amp NEB Q4H PRN #0 amp 02/26/16 Simvastatin [Zocor -] 10 mg PO HS 03/21/16 Furosemide [Lasix -] 20 mg PO DAILY #30 tablet 04/02/16 Metoprolol Succinate [Toprol XL -] 50 mg PO BID #60 tab.sr.24h 04/02/16 Prednisone [Deltasone -] 5 mg PO ASDIR #78 tab 04/02/16 Tiotropium [place] [Spiriva] 1 inh PO DAILY #1 inh 04/02/16 Family Disease History - Family Disease History Family History: Unable to Obtain (dementia) Family Disease History: Other: Sister (COPD) Review of Systems Unable to obtain ROS, reason: due to dementia Physical Exam-GI Vital Signs: Vital Signs Temperature 93.8 F L 04/12/16 10:57 Pulse Rate 90 04/12/16 11:56 Respiratory Rate 16 04/12/16 11:56 Blood Pressure 129/84 04/12/16 11:56 O2 Sat by Pulse Oximetry (%) 97 04/12/16 11:56 CBC, BMP 04/12/16 08:10 04/12/16 08:10 CBC,CMP WBC 15.6 K/mm3 (4.0-10.0) H D 04/12/16 08:10 RBC 4.82 M/mm3 (3.60-5.2) 04/12/16 08:10 Hgb 15.1 GM/dL (10.7-15.3) D 04/12/16 08:10 Hct 48.5 % (32.4-45.2) H 04/12/16 08:10 MCV 100.5 fl (80-96) H 04/12/16 08:10 MCHC 31.1 g/dl (32.0-36.0) L 04/12/16 08:10 RDW 16.8 % (11.6-15.6) H 04/12/16 08:10 Plt Count 260 K/MM3 (134-434) 04/12/16 08:10 MPV 9.4 fl (7.5-11.1) 04/12/16 08:10 Neutrophils % 89.8 % (42.8-82.8) H 04/12/16 08:10 Lymphocytes % 3.4 % (8-40) L D 04/12/16 08:10 Monocytes % 6.8 % (3.8-10.2) 04/12/16 08:10 Eosinophils % 0.0 % (0-4.5) 04/12/16 08:10 Basophils % 0.0 % (0-2.0) 04/12/16 08:10 Sodium 139 mmol/L (136-145) 04/12/16 08:10 Potassium 6.2 mmol/L (3.5-5.1) H* D 04/12/16 08:10 Chloride 101 mmol/L (98-107) 04/12/16 08:10 Carbon Dioxide 16 mmol/L (21-32) L D 04/12/16 08:10 Anion Gap 22 (8-16) H 04/12/16 08:10 BUN 71 mg/dL (7-18) H D 04/12/16 08:10 Creatinine 2.8 mg/dL (0.55-1.02) H D 04/12/16 08:10 Creat Clearance w eGFR 15.95 (>60) 04/12/16 08:10 Random Glucose 28 mg/dL (74-106) L* D 04/12/16 08:10 Lactic Acid 15.305 mmol/L (0.4-2.0) H* 04/12/16 10:45 Calcium 9.9 mg/dL (8.5-10.1) 04/12/16 08:10 Total Bilirubin 7.4 mg/dL (0.2-1.0) H D 04/12/16 08:10 AST 931 U/L (15-37) H D 04/12/16 08:10 ALT 864 U/L (12-78) H D 04/12/16 08:10 Alkaline Phosphatase 373 U/L (45-117) H D 04/12/16 08:10 Creatine Kinase 98 IU/L (26-192) 04/12/16 08:10 Troponin I 0.13 ng/ml (0.00-0.05) H 04/12/16 08:10 Total Protein 7.0 g/dl (6.4-8.2) 04/12/16 08:10 Albumin 3.7 g/dl (3.4-5.0) 04/12/16 08:10 Current Medications Generic Name Dose Route Start Last Admin Trade Name Freq PRN Reason Stop Dose Admin Aclidinium [place] 1 puff 04/12/16 10:00 04/12/16 11:44 Tudorza - IH 1 puff BID WHITNEY Administration Albuterol Sulfate 1 amp 04/12/16 10:50 04/12/16 11:44 Ventolin 0.083% Nebulizer Soln - NEB 1 amp Q1H PRN Administration SHORT OF BREATH/WHEEZING Budesonide/Formoterol Fumarate 2 puff 04/12/16 10:00 04/12/16 11:43 Symbicort 80/4.5mcg - IH 2 puff BID WHITNEY Administration Sodium Chloride 1,000 mls @ 125 mls/hr 04/11/16 15:00 04/11/16 15:59 Normal Saline - IV 125 mls/hr ASDIR WHITNEY Administration Diltiazem HCl 125 mg/ Sodium 125 mls @ 10 mls/hr 04/12/16 06:30 04/12/16 10:59 Chloride IVPB 0 mg/hr TITR WHITNEY Titration Protocol 10 MG/HR Pantoprazole Sodium 80 mg/ 100 mls @ 10 mls/hr 04/12/16 11:30 Sodium Chloride IVPB Q10H WHITNEY 8 MG/HR Sodium Chloride 1,000 mls @ 1,000 mls/hr 04/12/16 12:00 04/12/16 12:00 Normal Saline - IV 04/12/16 12:59 1,000 mls/hr ASDIR ONE Administration Labs: CBC, BMP 04/12/16 08:10 04/12/16 08:10 INR, PTT INR 2.50 (0.82-1.09) H D 04/12/16 08:10 Assessment/Plan I was not able to examine the patient as she was having CVP line placed in ER. The formal GI consultation will be done by my coworker Dr. Euceda. I spoke with her daughter Ms. Walters I informed her that her mother has GI bleeding in the setting of liver failure which I believe is due to shock liver. We discussed various interventions including endoscopy. I made her aware of the grave prognosis. She would like to invoke DNR status. I directed her to the ER staff who was still caring for [place].
--- NOTE | 2016-04-12 12:44 | PROC ---
Central Line Insertion Indication: CVP Monitoring, Poor Venous Access, Sepsis Risks and Benefits Explained: Yes Consent on Chart: No (emergency ) Central Line: Triple Lumen Catheter Anesthesia: 1% Lidocaine Sterile Technique: Yes Ultrasound Guided Assistance: Yes Position: Right Internal Jugular Post Insertion: Yes: Bilateral Breath Sounds Sterile Dressing Applied: Yes
[2016-04-12 12:49] LABS: CHLORIDE,RANDOM URINE < 10 MMOL/L; SODIUM,RANDOM URINE 11 MMOL/L
[2016-04-12 14:08] LABS: MCH 31.3 pg (25.7-33.7); MCHC 30.7 g/dl (32.0-36.0); MEAN PLT VOLUME 9.2 fl (7.5-11.1); PLATELET COUNT 177 K/MM3 (134-434); RDW 16.9 % (11.6-15.6); WHITE BLOOD COUNT 16.4 K/mm3 (4.0-10.0)
--- NOTE | 2016-04-12 14:24 | CONSULT ---
Consult Consult Specialty:: GI Referred by:: Dr. Jean Pierre Layne Reason for Consultation:: Liver Failure - History of Present Illness Chief Complaint: History per chart and family History of Present Illness: 89 W brought in by family c/o lethargy, weakness and refusal to eat for the past few days. Today she apparently refused to leave the bathroom. She has OMS. She was recently hospitalized for sepsis @ [facility] treatment of PNA but her blood and urine cultures were unrevealing. The family does not recall her being on oral antibiotics at home after the discharge. In the ER today, she was noted to be jaundiced and hypoglycemic. When given oral intake she developed hematemesis which her daughter described as dark contents mixed with red. She has been noted to have transient LFT abnormalitieis in the past and screening for viral hepatitis was unremarkable as was an abdominal US. She also had VALERIE, episodes of hypotension, is hypothermic with temp 92.3 during examination and noted to be in renal failure with hyperkalemia. Her sonogram reveals no biliary duct dilation or stones. She is maintained on eliquis for her a. fib. - History Source History Provided By: Family Member, Medical Record - Past Medical History WORKFORCE CONSULTANT: Yes: Dementia Cardio/Vascular: Yes: AFIB, HTN, Hyperlipdemia Pulmonary: Yes: COPD Gastrointestinal: Yes: Diverticulosis Renal/: Yes: Renal Calculi - Past Surgical History Past Surgical History: Yes: None - Alcohol/Substance Use Hx Alcohol Use: No History of Substance Use: reports: None - Smoking History Smoking history: Former smoker Have you smoked in the past 12 months: No Aproximately how many cigarettes per day: 0 If you are a former smoker, when did you quit?: 1980s - Social History Usual Living Arrangement: With Child ADL: Family Assistance Place of : [facility] History of Recent Travel: No Home Medications - Allergies Allergies/Adverse Reactions: Allergies Allergy/AdvReac Type Severity Reaction Status Date / Time No Known Allergies Allergy Verified 04/12/16 11:04 - Home Medications Home Medications: Ambulatory Orders Salmeterol/Fluticasone [Advair 250Mcg/50Mcg -] 1 inh PO BID 03/13/14 Apixaban [Eliquis] 2.5 mg PO BID #0 04/23/14 Acetaminophen [Tylenol .Regular Strength -] 650 mg PO Q4H PRN #0 tablet Albuterol 0.083% Nebulizer Dara [Ventolin 0.083% Nebulizer Soln -] 1 amp NEB Q4H PRN #0 amp 02/26/16 Simvastatin [Zocor -] 10 mg PO HS 03/21/16 Furosemide [Lasix -] 20 mg PO DAILY #30 tablet 04/02/16 Metoprolol Succinate [Toprol XL -] 50 mg PO BID #60 tab.sr.24h 04/02/16 Prednisone [Deltasone -] 5 mg PO ASDIR #78 tab 04/02/16 Tiotropium [place] [Spiriva] 1 inh PO DAILY #1 inh 04/02/16 Family Disease History - Family Disease History Family Disease History: Other: Sister (COPD) Review of Systems - Review of Systems Constitutional: reports: Chills, Loss of Appetite, Weakness. denies: Fever Cardiovascular: denies: Chest Pain Gastrointestinal: reports: Vomiting. denies: Abdominal Pain Physical Exam-GI Vital Signs: Vital Signs Temperature 92.9 F L 04/12/16 13:14 Pulse Rate 72 04/12/16 13:14 Respiratory Rate 18 04/12/16 13:14 Blood Pressure 108/62 04/12/16 13:14 O2 Sat by Pulse Oximetry (%) 97 04/12/16 13:14 Constitutional: Yes: Calm Eyes: Yes: Sclera Icterus Cardiovascular: Yes: Pulse Irregular Respiratory: Yes: Diminished (at bases b/l. Poor insp. effort) Gastrointestinal Inspection: No: Distention, Scars ...Auscultate: Yes: Normoactive Bowel Sounds ...Palpate: No: Tenderness Edema: No (No LE Edema) Neurological: Yes: Alert Labs: CBC, BMP 04/12/16 14:00 INR, PTT INR 2.50 (0.82-1.09) H D 04/12/16 08:10 Hepatic Panel Total Bilirubin 7.4 mg/dL (0.2-1.0) H D 04/12/16 08:10 AST 931 U/L (15-37) H D 04/12/16 08:10 ALT 864 U/L (12-78) H D 04/12/16 08:10 Alkaline Phosphatase 373 U/L (45-117) H D 01/09/17 08:10 Albumin 3.7 g/dl (3.4-5.0) 04/12/16 08:10 Laboratory Tests 04/11/16 04/11/16 04/12/16 15:20 23:41 08:10 Sodium 139 Potassium 6.2 H* D Chloride 101 Carbon Dioxide 16 L D Anion Gap 22 H BUN 71 H D Creatinine 2.8 H D Troponin I 0.05 0.09 H 0.13 H Imaging - Results Ultrasound: Report Reviewed Problem List - Problems (1) Liver failure Assessment/Plan: Without abdominal pain and no US findings that would be suggestive of a high grade biliary obstruction Multiorgan failure in setting of hypotension:I Ischemic hepatopathy would need to be considered higher in the differential Continue supportive measures Hepatitis A/B/C serologies Code(s): K72.90 - HEPATIC FAILURE, UNSPECIFIED WITHOUT COMA (2) GI bleed Assessment/Plan: Currently no overt GI bleeding and suspect that coagulopathy occurring in the setting of liver dysfunction Stop eliquis Monitor and supporive measures PPI Code(s): K92.2 - GASTROINTESTINAL HEMORRHAGE, UNSPECIFIED (3) Palliative care status Assessment/Plan: After having discussion with Ms. Granado's family, they seemed interested in pursuing conservative meaaures and comfort care if necessary. A palliative care evaluation would be reasonable to discuss things with both the patient and her family. Her daughter and niece are Ms. Granado's health care proxies and states that Ms. Granado has a DNR/DNI wishes on advanced directives, which they brought with them. I have placed a consult Code(s): Z51.5 - ENCOUNTER FOR PALLIATIVE CARE
--- NOTE | 2016-04-12 14:26 | PN ---
Teaching Attending Note Name of Resident: Brendan Amador ATTENDING PHYSICIAN STATEMENT I saw and evaluated the patient. I reviewed the resident's note and discussed the case with the resident. I agree with the resident's findings and plan as documented. SUBJECTIVE: 89 F, with listed medical history. Admitted via the ER due to AMS and poor oral intake for the past few days. Patient has a baseline history of dementia so the history is mostly acquired from the medical record. She is lethargic but answers questions. Reports generalized weakness and fatigue. Oriented to person and that she is in a hospital. Noted to be hypotensive in the ER with minimal UOP. Emergent R IJ TLC was inserted under direct US guidance due to a lack of venous access. Intake & Output 04/09/16 04/10/16 04/11/16 04/12/16 23:59 23:59 23:59 23:59 Output Total 50 Balance -50 Weight 120 lb Last Vital Signs Temp Pulse Resp BP Pulse Ox 92.9 F L 72 18 108/62 97 04/12/16 13:14 04/12/16 13:14 04/12/16 13:14 04/12/16 13:14 04/12/16 13:14 Active Medications Aclidinium [place] (Tudorza -) 1 puff IH BID WHITNEY Last Admin: 04/12/16 11:44 Dose: 1 puff Albuterol Sulfate (Ventolin 0.083% Nebulizer Soln -) 1 amp NEB Q1H PRN PRN Reason: SHORT OF BREATH/WHEEZING Last Admin: 04/12/16 11:44 Dose: 1 amp Budesonide/Formoterol Fumarate (Symbicort 80/4.5mcg -) 2 puff IH BID WHITNEY Last Admin: 04/12/16 11:43 Dose: 2 puff Sodium Chloride (Normal Saline -) 1,000 mls @ 125 mls/hr IV ASDIR WHITNEY Last Admin: 04/11/16 15:59 Dose: 125 mls/hr Diltiazem HCl 125 mg/ Sodium (Chloride) 125 mls @ 10 mls/hr IVPB TITR WHITNEY; 10 MG/HR PRN Reason: Protocol Last Titration: 04/12/16 10:59 Dose: 0 mg/hr Pantoprazole Sodium 80 mg/ (Sodium Chloride) 100 mls @ 10 mls/hr IVPB Q10H WHITNEY PRN Reason: 8 MG/HR Piperacillin Sod/Tazobactam Sod (Zosyn 3.375gm Ivpb (Pre-Docked)) 3.375 gm IVPB NOW ONE Stop: 04/12/16 14:31 Constitutional: Lethargic but arousable Eyes: Yes: PERRL, Sclera Icterus HENT: Yes: Atraumatic, Normocephalic Cardiovascular: Yes: Pulse Irregular. No: Tachycardia, Gallop, Murmur, Rub Respiratory: Yes: On Nasal O2, Tachypnea. No: Rales, Rhonchi, Wheezes Gastrointestinal: Yes: Soft, (+) Bowel Sounds. No: Distention, Tenderness Extremities: Yes: WNL Edema: No Labs: Laboratory Results - last 24 hr 04/11/16 04/11/16 04/11/16 12:15 14:50 15:20 WBC 10.8 H RBC 4.54 Hgb 13.7 D Hct 44.1 D MCV 97.0 H MCHC 31.1 L RDW 16.6 H Plt Count 239 D MPV 9.2 Neutrophils % 91.2 H Lymphocytes % 4.7 L D Monocytes % 4.0 Eosinophils % 0.0 Basophils % 0.1 INR PTT (Actin FS) Puncture Site ABG pH ABG pCO2 at Pt Temp ABG pO2 at Pt Temp ABG HCO3 ABG O2 Sat (Measured) ABG O2 Content ABG Base Excess Kenny Test O2 Delivery Device Oxygen Flow Rate PEEP Sodium 140 Potassium 5.1 Chloride 104 Carbon Dioxide 24 D Anion Gap 12 BUN 59 H D Creatinine 1.9 H Creat Clearance w eGFR 24.95 POC Glucometer Random Glucose 113 H Lactic Acid Calcium 9.0 Total Bilirubin 3.1 H D AST 193 H D ALT 242 H D Alkaline Phosphatase 298 H D Creatine Kinase 48 Troponin I 0.05 Total Protein 6.2 L Albumin 3.3 L D Urine Color Urine Appearance Urine pH Ur Specific [place] Urine Protein Urine Glucose (UA) Urine Ketones Urine Blood Urine Nitrite Urine Bilirubin Urine Urobilinogen Ur Leukocyte Esterase Urine RBC Urine WBC Ur Epithelial Cells Urine Bacteria Hyaline Casts Urine Mucus Ur Random Sodium 11 Ur Random Potassium 60.6 Ur Random Chloride < 10 Urine Creatinine 131.0 Blood Type Antibody Screen 04/11/16 04/12/16 04/12/16 23:41 08:10 08:10 WBC 15.6 H D RBC 4.82 Hgb 15.1 D Hct 48.5 H MCV 100.5 H MCHC 31.1 L RDW 16.8 H Plt Count 260 MPV 9.4 Neutrophils % 89.8 H Lymphocytes % 3.4 L D Monocytes % 6.8 Eosinophils % 0.0 Basophils % 0.0 INR 2.50 H D PTT (Actin FS) 25.2 L Puncture Site ABG pH ABG pCO2 at Pt Temp ABG pO2 at Pt Temp ABG HCO3 ABG O2 Sat (Measured) ABG O2 Content ABG Base Excess Kenny Test O2 Delivery Device Oxygen Flow Rate PEEP Sodium Potassium Chloride Carbon Dioxide Anion Gap BUN Creatinine Creat Clearance w eGFR POC Glucometer Random Glucose Lactic Acid Calcium Total Bilirubin AST ALT Alkaline Phosphatase Creatine Kinase 79 Troponin I 0.09 H Total Protein Albumin Urine Color Urine Appearance Urine pH Ur Specific [place] Urine Protein Urine Glucose (UA) Urine Ketones Urine Blood Urine Nitrite Urine Bilirubin Urine Urobilinogen Ur Leukocyte Esterase Urine RBC Urine WBC Ur Epithelial Cells Urine Bacteria Hyaline Casts Urine Mucus Ur Random Sodium Ur Random Potassium Ur Random Chloride Urine Creatinine Blood Type Antibody Screen 04/12/16 04/12/16 04/12/16 08:10 10:00 10:45 WBC RBC Hgb Hct MCV MCHC RDW Plt Count MPV Neutrophils % Lymphocytes % Monocytes % Eosinophils % Basophils % INR PTT (Actin FS) Puncture Site ABG pH ABG pCO2 at Pt Temp ABG pO2 at Pt Temp ABG HCO3 ABG O2 Sat (Measured) ABG O2 Content ABG Base Excess Kenny Test O2 Delivery Device Oxygen Flow Rate PEEP Sodium 139 Potassium 6.2 H* D Chloride 101 Carbon Dioxide 16 L D Anion Gap 22 H BUN 71 H D Creatinine 2.8 H D Creat Clearance w eGFR 15.95 POC Glucometer Random Glucose 28 L* D Lactic Acid 15.305 H* Calcium 9.9 Total Bilirubin 7.4 H D AST 931 H D ALT 864 H D Alkaline Phosphatase 373 H D Creatine Kinase 98 Troponin I 0.13 H Total Protein 7.0 Albumin 3.7 Urine Color [place] Urine Appearance Cloudy Urine pH 5.0 Ur Specific [place] 1.015 Urine Protein 2+ H Urine Glucose (UA) Negative Urine Ketones Negative Urine Blood 1+ H Urine Nitrite Negative Urine Bilirubin Negative Urine Urobilinogen 2.0 e.u/dl H Ur Leukocyte Esterase Negative Urine RBC 8 Urine WBC 5 Ur Epithelial Cells Rare Urine Bacteria Few Hyaline Casts 75 Urine Mucus Rare Ur Random Sodium Ur Random Potassium Ur Random Chloride Urine Creatinine Blood Type Antibody Screen 04/12/16 04/12/16 04/12/16 10:45 11:00 12:57 WBC RBC Hgb Hct MCV MCHC RDW Plt Count MPV Neutrophils % Lymphocytes % Monocytes % Eosinophils % Basophils % INR PTT (Actin FS) Puncture Site Right brachial ABG pH 7.28 L D ABG pCO2 at Pt Temp 28.3 L D ABG pO2 at Pt Temp 144.0 H D ABG HCO3 13.0 L* ABG O2 Sat (Measured) 98.8 ABG O2 Content 14.9 L ABG Base Excess -12.2 L* Kenny Test Positive O2 Delivery Device Nasal o2 Oxygen Flow Rate 2lpm PEEP 0.0 Sodium Potassium Chloride Carbon Dioxide Anion Gap BUN Creatinine Creat Clearance w eGFR POC Glucometer 149.91995 Random Glucose Lactic Acid Calcium Total Bilirubin AST ALT Alkaline Phosphatase Creatine Kinase Troponin I Total Protein Albumin Urine Color Urine Appearance Urine pH Ur Specific [place] Urine Protein Urine Glucose (UA) Urine Ketones Urine Blood Urine Nitrite Urine Bilirubin Urine Urobilinogen Ur Leukocyte Esterase Urine RBC Urine WBC Ur Epithelial Cells Urine Bacteria Hyaline Casts Urine Mucus Ur Random Sodium Ur Random Potassium Ur Random Chloride Urine Creatinine Blood Type O POSITIVE Antibody Screen Negative 04/12/16 14:00 WBC 16.4 H RBC 3.57 L D Hgb 11.2 D Hct 36.4 D MCV 102.0 H MCHC 30.7 L RDW 16.9 H Plt Count 177 D MPV 9.2 Neutrophils % Lymphocytes % Monocytes % Eosinophils % Basophils % INR PTT (Actin FS) Puncture Site ABG pH ABG pCO2 at Pt Temp ABG pO2 at Pt Temp ABG HCO3 ABG O2 Sat (Measured) ABG O2 Content ABG Base Excess Kenny Test O2 Delivery Device Oxygen Flow Rate PEEP Sodium Potassium Chloride Carbon Dioxide Anion Gap BUN Creatinine Creat Clearance w eGFR POC Glucometer Random Glucose Lactic Acid Calcium Total Bilirubin AST ALT Alkaline Phosphatase Creatine Kinase Troponin I Total Protein Albumin Urine Color Urine Appearance Urine pH Ur Specific [place] Urine Protein Urine Glucose (UA) Urine Ketones Urine Blood Urine Nitrite Urine Bilirubin Urine Urobilinogen Ur Leukocyte Esterase Urine RBC Urine WBC Ur Epithelial Cells Urine Bacteria Hyaline Casts Urine Mucus Ur Random Sodium Ur Random Potassium Ur Random Chloride Urine Creatinine Blood Type Antibody Screen Problem List - Problems (1) Septic shock Assessment/Plan: Code(s): A41.9 - SEPSIS, UNSPECIFIED ORGANISM R65.21 - SEVERE SEPSIS WITH SEPTIC SHOCK (2) Atrial fibrillation with rapid ventricular response Assessment/Plan: Code(s): I48.91 - UNSPECIFIED ATRIAL FIBRILLATION (3) NAYAN (acute kidney injury) Assessment/Plan: Code(s): N17.9 - ACUTE KIDNEY FAILURE, UNSPECIFIED (4) Shock liver Assessment/Plan: Code(s): K75.9 - INFLAMMATORY LIVER DISEASE, UNSPECIFIED (5) Hyperkalemia Assessment/Plan: Code(s): E87.5 - HYPERKALEMIA (6) Hypoglycemia Assessment/Plan: Code(s): E16.2 - HYPOGLYCEMIA, UNSPECIFIED (7) Acidosis Assessment/Plan: Code(s): E87.2 - ACIDOSIS (8) CHF (congestive heart failure) Assessment/Plan: Code(s): I50.9 - HEART FAILURE, UNSPECIFIED (9) COPD (chronic obstructive pulmonary disease) Assessment/Plan: Code(s): J44.9 - CHRONIC OBSTRUCTIVE PULMONARY DISEASE, UNSPECIFIED (10) Elevated troponin Assessment/Plan: Code(s): R79.89 - OTHER SPECIFIED ABNORMAL FINDINGS OF BLOOD CHEMISTRY (11) GI bleed Assessment/Plan: Code(s): K92.2 - GASTROINTESTINAL HEMORRHAGE, UNSPECIFIED Assessment/Plan TLC inserted Check CVP IVF resuscitation O2 as needed Singh-culture ID evaluation Trend lactic acid levels Strict I&O Follow CBC Renal evaluation ICU monitoring Thank you. Dr Davila CCTime 35"
[2016-04-12] MEDS ORDERED: PIPERACILLIN/TAZOB 3.375 GM/50 ML PRE-DOCKED IVPB ONE (14:30)
[2016-04-12 14:34] LABS: CALCIUM 7.8 mg/dL (8.5-10.1); CREATININE 2.6 mg/dL (0.55-1.02)
[2016-04-12 14:36] LABS: TROPONIN I 0.2 ng/ml (0.00-0.05)
--- NOTE | 2016-04-12 15:11 | PN ---
Progress Note (short form) - Note Progress Note: Laboratory Tests 04/12/16 14:00 Sodium 145 Potassium 5.1 Chloride 107 Carbon Dioxide 13 L Anion Gap 25 H BUN 63 H Creatinine 2.6 H Laboratory Tests 04/12/16 10:45 Lactic Acid 15.305 H* Renal Follow Up - potassium is improved and renal function is starting to improve - lactic acid is elevated, follow repeat - pt remains acidotic, give bicarb - discussed with ICU resident
--- NOTE | 2016-04-12 15:14 | CONSULT ---
Consult Consult Specialty:: Pulm/Critical care Referred by:: Xi Reason for Consultation:: ICU care/Severe sepsis - History of Present Illness Chief Complaint: AMS History of Present Illness: 89F who was brought in by her daughter for altered mental status. She states that she has not been feeling well for the past few days. Denies fevers but complains of chills. Also complained of ABD and chest pain in the past few day which has resolved and is currently asymptomatic. Recently discharged for a hospitalization for pneumonia. Daughter states her mom deteriorated after leaving the hospital. She notes the patient has not seemed herself. She was more lethargic and was eating less. She was urinating once a day. She did not note the patient having specific complaints. Noted to have an elevated WBC count and a lactic acid of 15. patient with severe sepsis source unknown at this time UA and CXR. Patient also noted to have coffee ground emesis which was present at home per the daughter. - History Source History Provided By: Patient, Family Member, Medical Record Limitations to Obtaining History: Dementia - Past Medical History QUESTIONED DOCUMENTS EXAMINER: Yes: Dementia Cardio/Vascular: Yes: AFIB, HTN, Hyperlipdemia Pulmonary: Yes: COPD Gastrointestinal: Yes: Diverticulosis Renal/: Yes: Renal Calculi - Past Surgical History Past Surgical History: Yes: None - Alcohol/Substance Use Hx Alcohol Use: No History of Substance Use: reports: None - Smoking History Smoking history: Former smoker Have you smoked in the past 12 months: No Aproximately how many cigarettes per day: 0 If you are a former smoker, when did you quit?: 1980s - Social History Usual Living Arrangement: With Child ADL: Family Assistance History of Recent Travel: No Home Medications - Allergies Allergies/Adverse Reactions: Allergies Allergy/AdvReac Type Severity Reaction Status Date / Time No Known Allergies Allergy Verified 04/12/16 11:04 - Home Medications Home Medications: Ambulatory Orders Salmeterol/Fluticasone [Advair 250Mcg/50Mcg -] 1 inh PO BID 03/13/14 Apixaban [Eliquis] 2.5 mg PO BID #0 04/23/14 Acetaminophen [Tylenol .Regular Strength -] 650 mg PO Q4H PRN #0 tablet Albuterol 0.083% Nebulizer Dara [Ventolin 0.083% Nebulizer Soln -] 1 amp NEB Q4H PRN #0 amp 02/26/16 Simvastatin [Zocor -] 10 mg PO HS 03/21/16 Furosemide [Lasix -] 20 mg PO DAILY #30 tablet 04/02/16 Metoprolol Succinate [Toprol XL -] 50 mg PO BID #60 tab.sr.24h 04/02/16 Prednisone [Deltasone -] 5 mg PO ASDIR #78 tab 04/02/16 Tiotropium [place] [Spiriva] 1 inh PO DAILY #1 inh 04/02/16 Family Disease History - Family Disease History Family Disease History: Other: Sister (COPD) Review of Systems Unable to obtain ROS, reason: Altered Physical Exam Vital Signs: Vital Signs Temperature 92.7 F L 04/12/16 14:00 Pulse Rate 64 04/12/16 14:00 Respiratory Rate 18 04/12/16 14:00 Blood Pressure 118/70 04/12/16 14:00 O2 Sat by Pulse Oximetry (%) 97 04/12/16 13:14 Constitutional: Yes: Anxious Eyes: Yes: Sclera Icterus HENT: Yes: Atraumatic Neck: Yes: Supple Cardiovascular: Yes: Pulse Irregular Respiratory: Yes: Other (diminished breath sounds mostly at bases) Gastrointestinal: Yes: Soft Edema: No Labs: CBC, BMP 04/12/16 14:00 04/12/16 14:00 Imaging - Results Chest X-ray: Report Reviewed, Image Reviewed Ultrasound: Report Reviewed Assessment/Plan 89F with multiple medical problems presents to the hospital with 2-3 days of altered mental status and poor oral intake found to have elevated lactic acid metabolic acidosis and severe sepsis. Patient also with GI bleeding. Severe sepsis: source unknown but strongly suspected UA clean CXR clear ID consult ABx flores culture trend lactic acid Central line CVP monitoring Fluid boluses ECHO GI bleed on protonix gtt f/u GI consult stop eliquis hold FFP for now as eliquis will not be reversed Afib RVR resolved for now cardiology consult appreciated d off diltiazem gtt hold anticoagulation NAYAN on CKD f/u US f/u renal consult IVF hydration Shock liver possible shock liver from hypotension/Afib f/u Liver trend LFTs GI consult Hypoglycemia D50 PRN may need D5% metabolic Acidosis still getting worse Nephrology gave 1AMP bicarb and bicarb gtt recheck BMP CHF Needs hydration at this time not clinically in CHF exacerbation COPD: Bronchodilators FEN: Bicarb gtt hyperkalemia resolved trend BMP NPO for now PPx: no DVT PPx bleeding protonix gtt PT consult when acute issues resolved
[2016-04-12] MEDS ORDERED: SODIUM BICARBONATE 8.4% - 100 ML ONE (15:31)
[2016-04-12] MEDS: SODIUM BICARBONATE 8.4% - 75 MEQ in SODIUM CHLORIDE 0.45% 1,000 ML IVPB SCH (16:26)
[2016-04-12 17:07] VITALS: BMI 25.9
--- NOTE | 2016-04-12 17:17 | EKG ---
Test Reason : Blood Pressure : / mmHG Vent. Rate : 071 BPM Atrial Rate : 084 BPM P-R Int : 000 ms QRS Dur : 124 ms QT Int : 440 ms P-R-T Axes : 000 -74 079 degrees QTc Int : 478 ms ATRIAL FIBRILLATION LEFT AXIS DEVIATION RIGHT BUNDLE BRANCH BLOCK ABNORMAL ECG WHEN COMPARED WITH ECG OF 11-APR-2016 15:34, VENT. RATE HAS DECREASED Confirmed by DOUG BOONE MD ([id number]) on 04/12/2016 5:16:36 PM Referred By: PINEDA LOCKHART Confirmed By:DUOG BOONE MD
[2016-04-12] MEDS: PANTOPRAZOLE SODIUM 80 MG in SODIUM CHLORIDE 100 ML IVPB SCH (18:47)
[2016-04-12] MEDS: PIPERACILLIN/TAZOB 2.25 GM 50 ML IVPB SCH (18:48)
[2016-04-12 19:18] LABS: MCHC 29.4 g/dl (32.0-36.0); MEAN CELL VOLUME 101.7 fl (80-96); MEAN PLT VOLUME 9.8 fl (7.5-11.1); PLATELET COUNT 207 K/MM3 (134-434); RDW 17.1 % (11.6-15.6); WHITE BLOOD COUNT 22.5 K/mm3 (4.0-10.0)
[2016-04-12 20:05] LABS: ALBUMIN 2.6 g/dl (3.4-5.0); CALCIUM 7.9 mg/dL (8.5-10.1); CREATININE 2.7 mg/dL (0.55-1.02)
[2016-04-12 20:11] LABS: TOT PROT 4.8 g/dl (6.4-8.2)
[2016-04-12 21:01] LABS: URINE MARIJUANA THC NEGATIVE ng/ml (CUTOFF=50)
[2016-04-12] MEDS ORDERED: ATORVASTATIN CA 10 MG TABLET (FP) PO SCH (22:00)
[2016-04-13] MEDS: SODIUM BICARBONATE 8.4% - 75 MEQ in SODIUM CHLORIDE 0.45% 1,000 ML IVPB SCH (01:00)
[2016-04-13] MEDS: PIPERACILLIN/TAZOB 2.25 GM 50 ML IVPB SCH ×3 (01:13→18:17)
[2016-04-13] MEDS: PANTOPRAZOLE SODIUM 80 MG in SODIUM CHLORIDE 100 ML IVPB SCH ×2 (04:00→06:50)
[2016-04-13 06:11] LABS: BASOPHIL 0.4 % (0-2.0); MCH 30.1 pg (25.7-33.7); MCHC 31.2 g/dl (32.0-36.0); MEAN CELL VOLUME 96.7 fl (80-96); MEAN PLT VOLUME 9.5 fl (7.5-11.1); PLATELET COUNT 190 K/MM3 (134-434); RDW 16.3 % (11.6-15.6); WHITE BLOOD COUNT 18.5 K/mm3 (4.0-10.0)
[2016-04-13 06:22] LABS: INR 3.25 (0.82-1.09); PROTHROMBIN TIME (PATIENT) 36.6 SEC (9.98-11.88)
[2016-04-13 06:25] LABS: ACTIVATED PTT 30.4 SECONDS (26.9-34.4)
[2016-04-13 06:26] LABS: ALBUMIN 2.6 g/dl (3.4-5.0); CALCIUM 8.1 mg/dL (8.5-10.1); CREATININE 2.5 mg/dL (0.55-1.02)
[2016-04-13 06:29] LABS: ALBUMIN 2.7 g/dl (3.4-5.0); CALCIUM 8.1 mg/dL (8.5-10.1); MAGNESIUM 2.1 mg/dL (1.8-2.4)
[2016-04-13 06:32] LABS: BILIRUBIN,TOTAL 2.4 mg/dL (0.2-1.0); TOT PROT 4.8 g/dl (6.4-8.2)
[2016-04-13 06:38] LABS: BILIRUBIN,DIRECT 2.1 mg/dL (0.0-0.2); BILIRUBIN,TOTAL 2.5 mg/dL (0.2-1.0); CREATININE 2.4 mg/dL (0.55-1.02); PHOSPHOROUS 5.1 mg/dL (2.5-4.9); TOT PROT 4.9 g/dl (6.4-8.2)
[2016-04-13] MEDS: DILTIAZEM INJECTION 125 MG in SODIUM CHLORIDE 100 ML IVPB SCH (06:50)
--- NOTE | 2016-04-13 09:46 | PN ---
Progress Note (short form) - Note Progress Note: CC: sepsis S: Blood pressure improving. No discomfort today, no cp, palps, dizziness, sob. Per nursing CVP 12-14 Current Medications Aclidinium [place] (Tudorza -) 1 puff IH BID WHITNEY Last Admin: 04/12/16 21:56 Dose: Not Given Albuterol Sulfate (Ventolin 0.083% Nebulizer Soln -) 1 amp NEB Q1H PRN PRN Reason: SHORT OF BREATH/WHEEZING Last Admin: 04/12/16 11:44 Dose: 1 amp Budesonide/Formoterol Fumarate (Symbicort 80/4.5mcg -) 2 puff IH BID WHITNEY Last Admin: 04/12/16 21:55 Dose: Not Given Diltiazem HCl 125 mg/ Sodium (Chloride) 125 mls @ 10 mls/hr IVPB TITR WHITNEY; 10 MG/HR PRN Reason: Protocol (ON HOLD) Last Admin: 04/13/16 06:50 Dose: Not Given Pantoprazole Sodium 80 mg/ (Sodium Chloride) 100 mls @ 10 mls/hr IVPB Q10H WHITNEY PRN Reason: 8 MG/HR Last Admin: 04/13/16 06:50 Dose: Not Given Piperacillin Sod/Tazobactam Sod (Zosyn 2.25gm Ivpb (Pre-Docked)) 50 mls @ 100 mls/hr IVPB Q8H-IV WHITNEY Last Admin: 04/13/16 01:13 Dose: 100 mls/hr Sodium Bicarbonate 75 meq/ (Sodium Chloride) 1,075 mls @ 100 mls/hr IVPB Q10H WHITNEY Last Admin: 04/13/16 01:00 Dose: 100 mls/hr Vital Signs Period Temp Pulse Resp BP Sys/Ravi Pulse Ox Last 24 Hr 92.5 F-98.6 F 50-106 14-18 73-135/48-95 97-100 Intake & Output 04/11/16 04/12/16 04/13/16 04/14/16 07:59 07:59 07:59 07:59 Intake Total 4569 Output Total 470 Balance 4099 Weight 120 lb 139 lb 4 oz Constitutional: NAD, on Nasal cannula Eyes: No: Sclera Icterus Respiratory: Yes: bibasilar dullness, weak eff Gastrointestinal: Yes: Normal Bowel Sounds. No: Distention, Hepatomegaly, Palpable Mass, Tenderness Cardiovascular: Yes: Pulse Irregular JVD: yes vs. prominent v wave Heart Sounds: Yes: S1, S2. No: Gallop Murmur: 2/6 Systolic Murmur at LSB Extremities: No: Cold, Cyanosis Edema: trace dependent edema of thigh and sacrum. Integumentary: No: Jaundice diaphoresis Neurological: Yes: Alert, Oriented (x3) Psychiatric: No: Agitated CBC, BMP 04/13/16 05:00 04/13/16 05:00 Laboratory Tests 04/12/16 04/12/16 04/13/16 14:25 18:00 05:00 INR Creatinine 2.7 H Lactic Acid 14.879 H* Magnesium 2.1 Total Bilirubin 2.5 H D Direct Bilirubin 2.1 H AST 1267 H ALT 1059 H Alkaline Phosphatase 189 H D Albumin 04/13/16 04/13/16 04/13/16 05:00 05:00 05:00 INR 3.25 H Creatinine Lactic Acid 3.647 H* Magnesium Total Bilirubin Direct Bilirubin AST ALT Alkaline Phosphatase Albumin 2.6 L EKG 04/11: afib with RVR, [address]/T wave abnromalities difficult to interpret due to baseline artifact. EKG 04/12: afib. LAD. RBBB. Anterior T wave abnormalities. tele: Overall rate controlled afib. Rates trending up to 100's-110's off diltiazem drip. CXR: No acute infiltrates, but by my review has increased lung markings suggestive of chronic pulmonary disease and blunting of costophrenic angles. head CT: No acute pathology echo 04/12/16: Nl lv/rv, mod GINA. 1+ MAC, mild-mod MR. Severe TR. RVSP 40-50. echo 02/2016: nl lv, rv mod-sev dil, mild-mod dec rv fcn, severe kim, mod mr, dilated ivc, sev tr, mild phtn Echo 2013: nl LV/RV; mod MR/TR; mod pHTN (40-50) MPI 2012: no ischemia, nl EF C 2008 (false + mpi): mild, diffuse dz 89 yo female with afib/flutter, ? MAT, severe copd on chronic steroids, pulm HTN , Mod MR, HTN, venous insufficiency, vertigo here with sepsis c/b GIB, shock liver, NAYAN with hyperkalemia. sepsis - Ongoing IVF resuscitation. BP improving. rapid Afib/flutter (? PSVT prior)/MAT -06/2014 with rapid AF/AFL/MAT requiring uptitration of metopr to 100 bid plus digoxin, then 12/18 incr to 150 bid in office for rapid HRs. On past admits, HR also improved with management of underlying pulmonary disease. Pt has deferred AVN ablation with PPM previously. At risk for amio given advanced copd/pulm HTN - Initially RVR in setting of sepsis. Initiated on diltiazem drip with improved HR control - 04/13: In the past cardizem has worsened LFT abnormalities. Currently diltiazem drip on hold, and rate reasonably controlled given clinical status. Will add PRN IV metoprolol. Start PO when possible (previously tolerated metoprolol, would start low dose short acting metoprolol tartrate TID and uptitrate). Add on digoxin level to am labs to assess for toxicity (s/p digoxin load yesterday). -on AC (CHADS 2)--eliquis 2.5 bid for age and borderline wt/renal fxn, plus excessive gingival bleeding on higher dose. Currently on hold due to possible GIB and elevated INR 3.25. Resume heparin when INR < 1.8 if and when deemed safe from GI perspective. (would not resume eliquis if Cr > 2.5 or gfr <25) -prior med intolerances: Multaq--sig stomach upset, ? elevated LFTs (though atypical, slightly delayed timing) cardizem--hi LFTs; RV dysfunction - recent echo from February with RV dilation and decreased RV function. (In setting of acute pulmonary disease). - likely developing cor pulmonale--O2 and pulm tx per their recs - currently tolerating volume resuscitation. Would taper off IVF now that bp and acidosis improved. Con't to follow CVP and monitor need for diuresis. presumed cad: -doubt sx's due to rapid AF, at the time of CP HR's were in 90s. Troponins continued to trend down and repeat ekg without ischemic changes. suspect ongoing CP is related to PNA +/- incr'd muscle work of breathing - On last admission, peak troponin 0.2, no ischemic changes on ekg, CP symptoms resolved with treatment of pna. At the time, not a candidate for persantine nuclear stress test (severe copd) or dobutamine (uncontrolled atrial arrhythmias)-- so plan was to consider regadeneson nuclear as outpt if no active wheezing at that time. Troponin here again documented up to 0.2 with nl CK in setting of sepsis. Con't same management with consideration of outpatient ischemic eval as mentioned if prognosis improves. - No asa b/c of GIB. No statin b/c of acute liver injury. copd: -pulm following NAYAN on CKD: - improving with IVF. pulm HTN (mild, moderate): -? 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 Hyperlipidemia -holding statin as above. Hypertension -home regimen hydral 50 tid, toprol 100 bid, Holding while hypotensive. chronic venous ins'y: -was on lasix 20 qd at home, holding while needing resuscitation for sepsis/ hypotension. cct: 35 min
[2016-04-13] MEDS: ACLIDINIUM BROMIDE 400 MCG/INH AERO.POWD IH SCH ×2 (10:27→21:19)
[2016-04-13] MEDS: BUDESONIDE/FORMETEROL FUMARATE 80/4.5 mcg INHALER IH SCH ×2 (10:27→21:19)
--- NOTE | 2016-04-13 10:36 | PN ---
Progress Note, Physician Chief Complaint: Ms Granado says she is feeling better today. Says she is thirsty and wants fruit juice. No cp, sob, n/v. Still lethargic but much improved - Current Medication List Current Medications: Active Medications Aclidinium [place] (Tudorza -) 1 puff IH BID WHITNEY Last Admin: 04/13/16 10:27 Dose: 1 puff Albuterol Sulfate (Ventolin 0.083% Nebulizer Soln -) 1 amp NEB Q1H PRN PRN Reason: SHORT OF BREATH/WHEEZING Last Admin: 04/12/16 11:44 Dose: 1 amp Budesonide/Formoterol Fumarate (Symbicort 80/4.5mcg -) 2 puff IH BID WHITNEY Last Admin: 04/13/16 10:27 Dose: 2 puff Diltiazem HCl 125 mg/ Sodium (Chloride) 125 mls @ 10 mls/hr IVPB TITR WHITNEY; 10 MG/HR PRN Reason: Protocol Last Admin: 04/13/16 06:50 Dose: Not Given Pantoprazole Sodium 80 mg/ (Sodium Chloride) 100 mls @ 10 mls/hr IVPB Q10H WHITNEY PRN Reason: 8 MG/HR Last Admin: 04/13/16 06:50 Dose: Not Given Piperacillin Sod/Tazobactam Sod (Zosyn 2.25gm Ivpb (Pre-Docked)) 50 mls @ 100 mls/hr IVPB Q8H-IV WHITNEY Last Admin: 04/13/16 10:28 Dose: 100 mls/hr Sodium Bicarbonate 75 meq/ (Sodium Chloride) 1,075 mls @ 100 mls/hr IVPB Q10H WHITNEY Last Admin: 04/13/16 01:00 Dose: 100 mls/hr - Objective Vital Signs: Vital Signs Temperature 98.2 F 04/13/16 08:00 Pulse Rate 106 H 04/13/16 08:00 Respiratory Rate 17 04/13/16 09:00 Blood Pressure 135/92 04/13/16 08:00 O2 Sat by Pulse Oximetry (%) 99 04/13/16 09:00 Constitutional: Yes: No Distress, Calm, Other (lethargic, but much improved) Cardiovascular: Yes: Tachycardia, Pulse Irregular. No: Gallop, Murmur, Rub Respiratory: Yes: Regular, CTA Bilaterally. No: Rales, Rhonchi, Wheezes Gastrointestinal: Yes: Normal Bowel Sounds, Soft. No: Distention, Tenderness Extremities: Yes: WNL Edema: No Labs: CBC, BMP 04/13/16 05:00 04/13/16 05:00 INR, PTT INR 3.25 (0.82-1.09) H 04/13/16 05:00 Problem List - Problems (1) Septic shock Code(s): A41.9 - SEPSIS, UNSPECIFIED ORGANISM R65.21 - SEVERE SEPSIS WITH SEPTIC SHOCK (2) Atrial fibrillation with rapid ventricular response Code(s): I48.91 - UNSPECIFIED ATRIAL FIBRILLATION (3) NAYAN (acute kidney injury) Code(s): N17.9 - ACUTE KIDNEY FAILURE, UNSPECIFIED (4) Shock liver Code(s): K75.9 - INFLAMMATORY LIVER DISEASE, UNSPECIFIED (5) Hyperkalemia Code(s): E87.5 - HYPERKALEMIA (6) Hypoglycemia Code(s): E16.2 - HYPOGLYCEMIA, UNSPECIFIED (7) Acidosis Code(s): E87.2 - ACIDOSIS (8) CHF (congestive heart failure) Code(s): I50.9 - HEART FAILURE, UNSPECIFIED (9) COPD (chronic obstructive pulmonary disease) Code(s): J44.9 - CHRONIC OBSTRUCTIVE PULMONARY DISEASE, UNSPECIFIED (10) Elevated troponin Code(s): R79.89 - OTHER SPECIFIED ABNORMAL FINDINGS OF BLOOD CHEMISTRY (11) GI bleed Code(s): K92.2 - GASTROINTESTINAL HEMORRHAGE, UNSPECIFIED Assessment/Plan (1) Septic shock Assessment/Plan: -presentation most consistent with septic shock, however source unclear -much improved -continue empiric antibiotics per ID -continue IVF -lactic acid and leukocytosis improved -hypothermia resolved Code(s): A41.9 - SEPSIS, UNSPECIFIED ORGANISM R65.21 - SEVERE SEPSIS WITH SEPTIC SHOCK (2) Atrial fibrillation with rapid ventricular response Assessment/Plan: -appreciate cardiology assistance -continue diltiazem gtt currently -holding anticoagulation Code(s): I48.91 - UNSPECIFIED ATRIAL FIBRILLATION (3) NAYAN (acute kidney injury) Assessment/Plan: -nephrology following -continue IVF -? when can change from bicarb gtt to NS, defer to nephrology Code(s): N17.9 - ACUTE KIDNEY FAILURE, UNSPECIFIED (4) Shock liver Assessment/Plan: -appreciate GI assistance -continue treatment of sepsis -improving Code(s): K75.9 - INFLAMMATORY LIVER DISEASE, UNSPECIFIED (5) Hyperkalemia Assessment/Plan: -resolved Code(s): E87.5 - HYPERKALEMIA (6) Hypoglycemia Assessment/Plan: -resolved, bicarb is a D5W gtt -continue to monitor Code(s): E16.2 - HYPOGLYCEMIA, UNSPECIFIED (7) Acidosis Assessment/Plan: -lactic acid decreasing -bicarb normalized -continue bicarb gtt currently, nephrology to see and change IVF if appropriate Code(s): E87.2 - ACIDOSIS (8) CHF (congestive heart failure) Assessment/Plan: -not in exacerbation and dehydrated -hold all diuretics -continue hydration Code(s): I50.9 - HEART FAILURE, UNSPECIFIED (9) COPD (chronic obstructive pulmonary disease) Assessment/Plan: -continue inhalers Code(s): J44.9 - CHRONIC OBSTRUCTIVE PULMONARY DISEASE, UNSPECIFIED (10) Elevated troponin Assessment/Plan: -suspect stress induced -ECHO reviewed -cardiology following Code(s): R79.89 - OTHER SPECIFIED ABNORMAL FINDINGS OF BLOOD CHEMISTRY (11) GI bleed Assessment/Plan: -continue protonix gtt per GI -received FFP -still with high INR secondary to shock liver -resolved currently, ? gastritis -GI to see and decide if endoscopy is appropriate Code(s): K92.2 - GASTROINTESTINAL HEMORRHAGE, UNSPECIFIED Assessment/Plan 35 minutes spent in critical care time spent with this patient
--- NOTE | 2016-04-13 10:40 | PN ---
Physical Exam: SUBJECTIVE: Patient seen and examined OBJECTIVE: Vital Signs Period Temp Pulse Resp BP Sys/Ravi Pulse Ox Last 24 Hr 92.5 F-98.6 F 50-106 14-18 73-135/48-95 97-100 GENERAL: The patient is awake, alert, and fully oriented, in no acute distress. HEAD: Normal with no signs of trauma. EYES: PERRL, extraocular movements intact, sclera anicteric, conjunctiva clear. No ptosis. ENT: Ears normal, nares patent, oropharynx clear without exudates, moist mucous membranes. NECK: Trachea midline, full range of motion, supple. LUNGS: Breath sounds equal, clear to auscultation bilaterally, no wheezes, no crackles, no accessory muscle use. HEART: Regular rate and rhythm, S1, S2 without murmur, rub or gallop. ABDOMEN: Soft, nontender, nondistended, normoactive bowel sounds, no guarding, no rebound, no hepatosplenomegaly, no masses. EXTREMITIES: 2+ pulses, warm, well-perfused, no edema. NEUROLOGICAL: Cranial nerves II through XII grossly intact. Normal speech, gait not observed. PSYCH: Normal mood, normal affect. SKIN: Warm, dry, normal turgor, no rashes or lesions noted Laboratory Results - last 24 hr 04/12/16 04/12/16 04/12/16 10:00 10:30 10:36 WBC RBC Hgb Hct MCV MCHC RDW Plt Count MPV Neutrophils % Lymphocytes % Monocytes % Eosinophils % Basophils % INR PTT (Actin FS) Puncture Site ABG pH ABG pCO2 at Pt Temp ABG pO2 at Pt Temp ABG HCO3 ABG O2 Sat (Measured) ABG O2 Content ABG Base Excess Kenny Test O2 Delivery Device Oxygen Flow Rate PEEP Sodium Potassium Chloride Carbon Dioxide Anion Gap BUN Creatinine Creat Clearance w eGFR POC Glucometer < 50 51.10144 Random Glucose Lactic Acid Calcium Phosphorus Magnesium Total Bilirubin Direct Bilirubin AST ALT Alkaline Phosphatase Ammonia Creatine Kinase Troponin I Total Protein Albumin Cortisol AM Sample Urine Color Zoë Urine Appearance Cloudy Urine pH 5.0 Ur Specific [place] 1.015 Urine Protein 2+ H Urine Glucose (UA) Negative Urine Ketones Negative Urine Blood 1+ H Urine Nitrite Negative Urine Bilirubin Negative Urine Urobilinogen 2.0 e.u/dl H Ur Leukocyte Esterase Negative Urine RBC 8 Urine WBC 5 Ur Epithelial Cells Rare Urine Bacteria Few Hyaline Casts 75 Urine Mucus Rare Random Vancomycin Opiates Screen Methadone Screen Barbiturate Screen Phencyclidine Screen Ur Amphetamines Screen MDMA (Ecstasy) Screen Benzodiazepines Screen Cocaine Screen U Marijuana (THC) Screen Blood Type Antibody Screen 04/12/16 04/12/16 04/12/16 10:45 10:45 11:00 WBC RBC Hgb Hct MCV MCHC RDW Plt Count MPV Neutrophils % Lymphocytes % Monocytes % Eosinophils % Basophils % INR PTT (Actin FS) Puncture Site Right brachial ABG pH 7.28 L D ABG pCO2 at Pt Temp 28.3 L D ABG pO2 at Pt Temp 144.0 H D ABG HCO3 13.0 L* ABG O2 Sat (Measured) 98.8 ABG O2 Content 14.9 L ABG Base Excess -12.2 L* Kenny Test Positive O2 Delivery Device Nasal o2 Oxygen Flow Rate 2lpm PEEP 0.0 Sodium Potassium Chloride Carbon Dioxide Anion Gap BUN Creatinine Creat Clearance w eGFR POC Glucometer Random Glucose Lactic Acid 15.305 H* Calcium Phosphorus Magnesium Total Bilirubin Direct Bilirubin AST ALT Alkaline Phosphatase Ammonia Creatine Kinase Troponin I Total Protein Albumin Cortisol AM Sample Urine Color Urine Appearance Urine pH Ur Specific [place] Urine Protein Urine Glucose (UA) Urine Ketones Urine Blood Urine Nitrite Urine Bilirubin Urine Urobilinogen Ur Leukocyte Esterase Urine RBC Urine WBC Ur Epithelial Cells Urine Bacteria Hyaline Casts Urine Mucus Random Vancomycin Opiates Screen Methadone Screen Barbiturate Screen Phencyclidine Screen Ur Amphetamines Screen MDMA (Ecstasy) Screen Benzodiazepines Screen Cocaine Screen U Marijuana (THC) Screen Blood Type O POSITIVE Antibody Screen Negative 04/12/16 04/12/16 04/12/16 12:00 12:57 14:00 WBC 16.4 H RBC 3.57 L D Hgb 11.2 D Hct 36.4 D MCV 102.0 H MCHC 30.7 L RDW 16.9 H Plt Count 177 D MPV 9.2 Neutrophils % Lymphocytes % Monocytes % Eosinophils % Basophils % INR PTT (Actin FS) Puncture Site ABG pH ABG pCO2 at Pt Temp ABG pO2 at Pt Temp ABG HCO3 ABG O2 Sat (Measured) ABG O2 Content ABG Base Excess Kenny Test O2 Delivery Device Oxygen Flow Rate PEEP Sodium Potassium Chloride Carbon Dioxide Anion Gap BUN Creatinine Creat Clearance w eGFR POC Glucometer 149.79150 Random Glucose Lactic Acid Calcium Phosphorus Magnesium Total Bilirubin Direct Bilirubin AST ALT Alkaline Phosphatase Ammonia Creatine Kinase Troponin I Total Protein Albumin Cortisol AM Sample 71.7 Urine Color Urine Appearance Urine pH Ur Specific [place] Urine Protein Urine Glucose (UA) Urine Ketones Urine Blood Urine Nitrite Urine Bilirubin Urine Urobilinogen Ur Leukocyte Esterase Urine RBC Urine WBC Ur Epithelial Cells Urine Bacteria Hyaline Casts Urine Mucus Random Vancomycin Opiates Screen Methadone Screen Barbiturate Screen Phencyclidine Screen Ur Amphetamines Screen MDMA (Ecstasy) Screen Benzodiazepines Screen Cocaine Screen U Marijuana (THC) Screen Blood Type Antibody Screen 04/12/16 04/12/16 04/12/16 14:00 14:25 14:25 WBC RBC Hgb Hct MCV MCHC RDW Plt Count MPV Neutrophils % Lymphocytes % Monocytes % Eosinophils % Basophils % INR PTT (Actin FS) Puncture Site ABG pH ABG pCO2 at Pt Temp ABG pO2 at Pt Temp ABG HCO3 ABG O2 Sat (Measured) ABG O2 Content ABG Base Excess Kenny Test O2 Delivery Device Oxygen Flow Rate PEEP Sodium 145 Potassium 5.1 Chloride 107 Carbon Dioxide 13 L Anion Gap 25 H BUN 63 H Creatinine 2.6 H Creat Clearance w eGFR POC Glucometer Random Glucose 232 H D Lactic Acid 14.879 H* Calcium 7.8 L D Phosphorus Magnesium Total Bilirubin Direct Bilirubin AST ALT Alkaline Phosphatase Ammonia < 11 L Creatine Kinase 94 Troponin I 0.20 H Total Protein Albumin Cortisol AM Sample Urine Color Urine Appearance Urine pH Ur Specific [place] Urine Protein Urine Glucose (UA) Urine Ketones Urine Blood Urine Nitrite Urine Bilirubin Urine Urobilinogen Ur Leukocyte Esterase Urine RBC Urine WBC Ur Epithelial Cells Urine Bacteria Hyaline Casts Urine Mucus Random Vancomycin Opiates Screen Methadone Screen Barbiturate Screen Phencyclidine Screen Ur Amphetamines Screen MDMA (Ecstasy) Screen Benzodiazepines Screen Cocaine Screen U Marijuana (THC) Screen Blood Type Antibody Screen 04/12/16 04/12/16 04/12/16 15:15 17:00 18:00 WBC 22.5 H D RBC 3.89 Hgb 11.7 Hct 39.6 MCV 101.7 H MCHC 29.4 L RDW 17.1 H Plt Count 207 MPV 9.8 Neutrophils % Lymphocytes % Monocytes % Eosinophils % Basophils % INR PTT (Actin FS) Puncture Site ABG pH ABG pCO2 at Pt Temp ABG pO2 at Pt Temp ABG HCO3 ABG O2 Sat (Measured) ABG O2 Content ABG Base Excess Kenny Test O2 Delivery Device Oxygen Flow Rate PEEP Sodium Potassium Chloride Carbon Dioxide Anion Gap BUN Creatinine Creat Clearance w eGFR POC Glucometer 202.64011 Random Glucose Lactic Acid Calcium Phosphorus Magnesium Total Bilirubin Direct Bilirubin AST ALT Alkaline Phosphatase Ammonia Creatine Kinase Troponin I Total Protein Albumin Cortisol AM Sample Urine Color Urine Appearance Urine pH Ur Specific [place] Urine Protein Urine Glucose (UA) Urine Ketones Urine Blood Urine Nitrite Urine Bilirubin Urine Urobilinogen Ur Leukocyte Esterase Urine RBC Urine WBC Ur Epithelial Cells Urine Bacteria Hyaline Casts Urine Mucus Random Vancomycin Opiates Screen Negative Methadone Screen Negative Barbiturate Screen Negative Phencyclidine Screen Negative Ur Amphetamines Screen Negative MDMA (Ecstasy) Screen Negative Benzodiazepines Screen Negative Cocaine Screen Negative U Marijuana (THC) Screen Negative Blood Type Antibody Screen 04/12/16 04/13/16 04/13/16 18:00 05:00 05:00 WBC 18.5 H RBC 3.63 Hgb 10.9 Hct 35.1 MCV 96.7 H MCHC 31.2 L RDW 16.3 H Plt Count 190 MPV 9.5 Neutrophils % 95.0 H Lymphocytes % 1.6 L D Monocytes % 3.0 L Eosinophils % 0.0 Basophils % 0.4 D INR PTT (Actin FS) Puncture Site ABG pH ABG pCO2 at Pt Temp ABG pO2 at Pt Temp ABG HCO3 ABG O2 Sat (Measured) ABG O2 Content ABG Base Excess Kenny Test O2 Delivery Device Oxygen Flow Rate PEEP Sodium 143 145 Potassium 5.3 H 4.5 Chloride 107 108 H Carbon Dioxide 13 L 25 D Anion Gap 23 H 12 BUN 67 H 66 H Creatinine 2.7 H 2.4 H Creat Clearance w eGFR 16.63 POC Glucometer Random Glucose 164 H D 169 H Lactic Acid Calcium 7.9 L 8.1 L Phosphorus 5.1 H D Magnesium 2.1 Total Bilirubin 5.0 H D 2.5 H D Direct Bilirubin 2.1 H AST 1246 H 1267 H ALT 977 H 1059 H Alkaline Phosphatase 241 H D 189 H D Ammonia Creatine Kinase Troponin I Total Protein 4.8 L D 4.9 L Albumin 2.6 L D 2.7 L Cortisol AM Sample Urine Color Urine Appearance Urine pH Ur Specific [place] Urine Protein Urine Glucose (UA) Urine Ketones Urine Blood Urine Nitrite Urine Bilirubin Urine Urobilinogen Ur Leukocyte Esterase Urine RBC Urine WBC Ur Epithelial Cells Urine Bacteria Hyaline Casts Urine Mucus Random Vancomycin Opiates Screen Methadone Screen Barbiturate Screen Phencyclidine Screen Ur Amphetamines Screen MDMA (Ecstasy) Screen Benzodiazepines Screen Cocaine Screen U Marijuana (THC) Screen Blood Type Antibody Screen 04/13/16 04/13/16 04/13/16 05:00 05:00 05:00 WBC RBC Hgb Hct MCV MCHC RDW Plt Count MPV Neutrophils % Lymphocytes % Monocytes % Eosinophils % Basophils % INR 3.25 H PTT (Actin FS) 30.4 Puncture Site ABG pH ABG pCO2 at Pt Temp ABG pO2 at Pt Temp ABG HCO3 ABG O2 Sat (Measured) ABG O2 Content ABG Base Excess Kenny Test O2 Delivery Device Oxygen Flow Rate PEEP Sodium 145 Potassium 4.5 Chloride 109 H Carbon Dioxide 25 Anion Gap 11 BUN 70 H Creatinine 2.5 H Creat Clearance w eGFR 18.18 POC Glucometer Random Glucose 163 H Lactic Acid 3.647 H* Calcium 8.1 L Phosphorus Magnesium Total Bilirubin 2.4 H Direct Bilirubin AST 1255 H ALT 1022 H Alkaline Phosphatase 186 H Ammonia Creatine Kinase Troponin I Total Protein 4.8 L Albumin 2.6 L Cortisol AM Sample Urine Color Urine Appearance Urine pH Ur Specific [place] Urine Protein Urine Glucose (UA) Urine Ketones Urine Blood Urine Nitrite Urine Bilirubin Urine Urobilinogen Ur Leukocyte Esterase Urine RBC Urine WBC Ur Epithelial Cells Urine Bacteria Hyaline Casts Urine Mucus Random Vancomycin 11.876 Opiates Screen Methadone Screen Barbiturate Screen Phencyclidine Screen Ur Amphetamines Screen MDMA (Ecstasy) Screen Benzodiazepines Screen Cocaine Screen U Marijuana (THC) Screen Blood Type Antibody Screen Active Medications Generic Name Dose Route Start Last Admin Trade Name Freq PRN Reason Stop Dose Admin Aclidinium [place] 1 puff 04/12/16 10:00 04/13/16 10:27 Tudorza - I[facility] 1 puff BID WH[facility] Administration Albuterol Sulfate 1 amp 04/12/16 10:50 04/12/16 11:44 Ventolin 0.083% Nebulizer Soln - NEB 1 amp Q1H PRN Administration SHORT OF BREATH/WHEEZING Budesonide/Formoterol Fumarate 2 puff 04/12/16 10:00 04/13/16 10:27 Symbicort 80/4.5mcg - IH 2 puff BID WHITNEY Administration Diltiazem HCl 125 mg/ Sodium 125 mls @ 10 mls/hr 04/12/16 06:30 04/13/16 06:50 Chloride IVPB Not Given TITR WHITNEY Protocol 10 MG/HR Pantoprazole Sodium 80 mg/ 100 mls @ 10 mls/hr 04/12/16 11:30 04/13/16 06:50 Sodium Chloride IVPB Not Given Q10H WHITNEY 8 MG/HR Piperacillin Sod/Tazobactam Sod 50 mls @ 100 mls/hr 04/12/16 18:00 04/13/16 10: 28 Zosyn 2.25gm Ivpb (Pre-Docked) IVPB 100 mls/hr Q8H-IV WHITNEY Administration Sodium Bicarbonate 75 meq/ 1,075 mls @ 100 mls/hr 04/12/16 16:00 04/13/16 01:00 Sodium Chloride IVPB 100 mls/hr Q10H WHITNEY Administration ASSESSMENT/PLAN:
[2016-04-13] MEDS ORDERED: SODIUM CHLORIDE 1,000 ML IV SCH (11:00)
[2016-04-13 11:05] LABS: DIGOXIN LEVEL 2.1797 ng/ml (0.8-2.0)
[2016-04-13] MEDS: PANTOPRAZOLE SODIUM 100 ML IVPB SCH ×2 (12:00→21:18)
--- NOTE | 2016-04-13 12:06 | PN ---
Teaching Attending Note Name of Resident: Brendan Amador ATTENDING PHYSICIAN STATEMENT I saw and evaluated the patient. I reviewed the resident's note and discussed the case with the resident. I agree with the resident's findings and plan as documented. SUBJECTIVE: Patient seen and examined in the ICU. Slightly more awake and conversant today , but remains confused. No pressors. Denies CP or SOB. Reports that she is thirsty. Intake & Output 04/10/16 04/11/16 04/12/16 04/13/16 23:59 23:59 23:59 23:59 Intake Total 3100 1801 Output Total 170 300 Balance 2930 1501 Weight 120 lb 141 lb 9.6 oz 139 lb 4 oz Last Vital Signs Temp Pulse Resp BP Pulse Ox 98.2 F 106 H 17 135/92 99 04/13/16 08:00 04/13/16 08:00 04/13/16 09:00 04/13/16 08:00 04/13/16 09:00 Active Medications Aclidinium [place] (Tudorza -) 1 puff [facility] Last Admin: 04/13/16 10:27 Dose: 1 puff Albuterol Sulfate (Ventolin 0.083% Nebulizer Soln -) 1 amp NEB Q1H PRN PRN Reason: SHORT OF BREATH/WHEEZING Last Admin: 04/12/16 11:44 Dose: 1 amp Budesonide/Formoterol Fumarate (Symbicort 80/4.5mcg -) 2 puff [facility] Last Admin: 04/13/16 10:27 Dose: 2 puff Piperacillin Sod/Tazobactam Sod (Zosyn 2.25gm Ivpb (Pre-Docked)) 50 mls @ 100 mls/hr IVPB Q8H-IV WHITNEY Last Admin: 04/13/16 10:28 Dose: 100 mls/hr Pantoprazole Sodium (Protonix 40mg Ivpb (Pre-Docked)) 100 mls @ 200 mls/hr IVPB BID [facility] Metoprolol Tartrate (Lopressor -) 12.5 mg PO TID [facility] Constitutional: Awake, mildly confused Eyes: Yes: PERRL, Sclera Icterus HENT: Yes: Atraumatic, Normocephalic Cardiovascular: Yes: Pulse Irregular. No: Tachycardia, Gallop, Murmur, Rub Respiratory: Yes: On Nasal O2, Tachypnea. No: Rales, Rhonchi, Wheezes Gastrointestinal: Yes: Soft, (+) Bowel Sounds. No: Distention, Tenderness Extremities: Yes: WNL Edema: No Labs: Laboratory Results - last 24 hr 04/11/16 04/12/16 04/12/16 12:15 10:30 10:36 WBC RBC Hgb Hct MCV MCHC RDW Plt Count MPV Neutrophils % Lymphocytes % Monocytes % Eosinophils % Basophils % INR PTT (Actin FS) Sodium Potassium Chloride Carbon Dioxide Anion Gap BUN Creatinine Creat Clearance w eGFR POC Glucometer < 50 51.11666 Random Glucose Lactic Acid Calcium Phosphorus Magnesium Total Bilirubin Direct Bilirubin AST ALT Alkaline Phosphatase Ammonia Creatine Kinase Troponin I Total Protein Albumin Cortisol AM Sample Ur Random Sodium 11 Ur Random Potassium 60.6 Ur Random Chloride < 10 Urine Creatinine 131.0 Random Vancomycin Digoxin Opiates Screen Methadone Screen Barbiturate Screen Phencyclidine Screen Ur Amphetamines Screen MDMA (Ecstasy) Screen Benzodiazepines Screen Cocaine Screen U Marijuana (THC) Screen Blood Type Antibody Screen 04/12/16 04/12/16 04/12/16 10:45 12:00 12:57 WBC RBC Hgb Hct MCV MCHC RDW Plt Count MPV Neutrophils % Lymphocytes % Monocytes % Eosinophils % Basophils % INR PTT (Actin FS) Sodium Potassium Chloride Carbon Dioxide Anion Gap BUN Creatinine Creat Clearance w eGFR POC Glucometer 149.28807 Random Glucose Lactic Acid Calcium Phosphorus Magnesium Total Bilirubin Direct Bilirubin AST ALT Alkaline Phosphatase Ammonia Creatine Kinase Troponin I Total Protein Albumin Cortisol AM Sample 71.7 Ur Random Sodium Ur Random Potassium Ur Random Chloride Urine Creatinine Random Vancomycin Digoxin Opiates Screen Methadone Screen Barbiturate Screen Phencyclidine Screen Ur Amphetamines Screen MDMA (Ecstasy) Screen Benzodiazepines Screen Cocaine Screen U Marijuana (THC) Screen Blood Type O POSITIVE Antibody Screen Negative 04/12/16 04/12/16 04/12/16 14:00 14:00 14:25 WBC 16.4 H RBC 3.57 L D Hgb 11.2 D Hct 36.4 D MCV 102.0 H MCHC 30.7 L RDW 16.9 H Plt Count 177 D MPV 9.2 Neutrophils % Lymphocytes % Monocytes % Eosinophils % Basophils % INR PTT (Actin FS) Sodium 145 Potassium 5.1 Chloride 107 Carbon Dioxide 13 L Anion Gap 25 H BUN 63 H Creatinine 2.6 H Creat Clearance w eGFR POC Glucometer Random Glucose 232 H D Lactic Acid Calcium 7.8 L D Phosphorus Magnesium Total Bilirubin Direct Bilirubin AST ALT Alkaline Phosphatase Ammonia < 11 L Creatine Kinase 94 Troponin I 0.20 H Total Protein Albumin Cortisol AM Sample Ur Random Sodium Ur Random Potassium Ur Random Chloride Urine Creatinine Random Vancomycin Digoxin Opiates Screen Methadone Screen Barbiturate Screen Phencyclidine Screen Ur Amphetamines Screen MDMA (Ecstasy) Screen Benzodiazepines Screen Cocaine Screen U Marijuana (THC) Screen Blood Type Antibody Screen 04/12/16 04/12/16 04/12/16 14:25 15:15 17:00 WBC RBC Hgb Hct MCV MCHC RDW Plt Count MPV Neutrophils % Lymphocytes % Monocytes % Eosinophils % Basophils % INR PTT (Actin FS) Sodium Potassium Chloride Carbon Dioxide Anion Gap BUN Creatinine Creat Clearance w eGFR POC Glucometer 202.86291 Random Glucose Lactic Acid 14.879 H* Calcium Phosphorus Magnesium Total Bilirubin Direct Bilirubin AST ALT Alkaline Phosphatase Ammonia Creatine Kinase Troponin I Total Protein Albumin Cortisol AM Sample Ur Random Sodium Ur Random Potassium Ur Random Chloride Urine Creatinine Random Vancomycin Digoxin Opiates Screen Negative Methadone Screen Negative Barbiturate Screen Negative Phencyclidine Screen Negative Ur Amphetamines Screen Negative MDMA (Ecstasy) Screen Negative Benzodiazepines Screen Negative Cocaine Screen Negative U Marijuana (THC) Screen Negative Blood Type Antibody Screen 04/12/16 04/12/16 04/13/16 18:00 18:00 05:00 WBC 22.5 H D 18.5 H RBC 3.89 3.63 Hgb 11.7 10.9 Hct 39.6 35.1 MCV 101.7 H 96.7 H MCHC 29.4 L 31.2 L RDW 17.1 H 16.3 H Plt Count 207 190 MPV 9.8 9.5 Neutrophils % 95.0 H Lymphocytes % 1.6 L D Monocytes % 3.0 L Eosinophils % 0.0 Basophils % 0.4 D INR PTT (Actin FS) Sodium 143 Potassium 5.3 H Chloride 107 Carbon Dioxide 13 L Anion Gap 23 H BUN 67 H Creatinine 2.7 H Creat Clearance w eGFR 16.63 POC Glucometer Random Glucose 164 H D Lactic Acid Calcium 7.9 L Phosphorus Magnesium Total Bilirubin 5.0 H D Direct Bilirubin AST 1246 H ALT 977 H Alkaline Phosphatase 241 H D Ammonia Creatine Kinase Troponin I Total Protein 4.8 L D Albumin 2.6 L D Cortisol AM Sample Ur Random Sodium Ur Random Potassium Ur Random Chloride Urine Creatinine Random Vancomycin Digoxin Opiates Screen Methadone Screen Barbiturate Screen Phencyclidine Screen Ur Amphetamines Screen MDMA (Ecstasy) Screen Benzodiazepines Screen Cocaine Screen U Marijuana (THC) Screen Blood Type Antibody Screen 04/13/16 04/13/16 04/13/16 05:00 05:00 05:00 WBC RBC Hgb Hct MCV MCHC RDW Plt Count MPV Neutrophils % Lymphocytes % Monocytes % Eosinophils % Basophils % INR PTT (Actin FS) Sodium 145 145 Potassium 4.5 4.5 Chloride 108 H 109 H Carbon Dioxide 25 D 25 Anion Gap 12 11 BUN 66 H 70 H Creatinine 2.4 H 2.5 H Creat Clearance w eGFR 18.18 POC Glucometer Random Glucose 169 H 163 H Lactic Acid 3.647 H* Calcium 8.1 L 8.1 L Phosphorus 5.1 H D Magnesium 2.1 Total Bilirubin 2.5 H D 2.4 H Direct Bilirubin 2.1 H AST 1267 H 1255 H ALT 1059 H 1022 H Alkaline Phosphatase 189 H D 186 H Ammonia Creatine Kinase Troponin I Total Protein 4.9 L 4.8 L Albumin 2.7 L 2.6 L Cortisol AM Sample Ur Random Sodium Ur Random Potassium Ur Random Chloride Urine Creatinine Random Vancomycin 11.876 Digoxin 2.1797 H Opiates Screen Methadone Screen Barbiturate Screen Phencyclidine Screen Ur Amphetamines Screen MDMA (Ecstasy) Screen Benzodiazepines Screen Cocaine Screen U Marijuana (THC) Screen Blood Type Antibody Screen 04/13/16 05:00 WBC RBC Hgb Hct MCV MCHC RDW Plt Count MPV Neutrophils % Lymphocytes % Monocytes % Eosinophils % Basophils % INR 3.25 H PTT (Actin FS) 30.4 Sodium Potassium Chloride Carbon Dioxide Anion Gap BUN Creatinine Creat Clearance w eGFR POC Glucometer Random Glucose Lactic Acid Calcium Phosphorus Magnesium Total Bilirubin Direct Bilirubin AST ALT Alkaline Phosphatase Ammonia Creatine Kinase Troponin I Total Protein Albumin Cortisol AM Sample Ur Random Sodium Ur Random Potassium Ur Random Chloride Urine Creatinine Random Vancomycin Digoxin Opiates Screen Methadone Screen Barbiturate Screen Phencyclidine Screen Ur Amphetamines Screen MDMA (Ecstasy) Screen Benzodiazepines Screen Cocaine Screen U Marijuana (THC) Screen Blood Type Antibody Screen Problem List - Problems (1) Septic shock Assessment/Plan: Code(s): A41.9 - SEPSIS, UNSPECIFIED ORGANISM R65.21 - SEVERE SEPSIS WITH SEPTIC SHOCK (2) Atrial fibrillation with rapid ventricular response Assessment/Plan: Code(s): I48.91 - UNSPECIFIED ATRIAL FIBRILLATION (3) NAYAN (acute kidney injury) Assessment/Plan: Code(s): N17.9 - ACUTE KIDNEY FAILURE, UNSPECIFIED (4) Shock liver Assessment/Plan: Code(s): K75.9 - INFLAMMATORY LIVER DISEASE, UNSPECIFIED (5) Hyperkalemia Assessment/Plan: Code(s): E87.5 - HYPERKALEMIA (6) Hypoglycemia Assessment/Plan: Code(s): E16.2 - HYPOGLYCEMIA, UNSPECIFIED (7) Acidosis Assessment/Plan: Code(s): E87.2 - ACIDOSIS (8) CHF (congestive heart failure) Assessment/Plan: Code(s): I50.9 - HEART FAILURE, UNSPECIFIED (9) COPD (chronic obstructive pulmonary disease) Assessment/Plan: Code(s): J44.9 - CHRONIC OBSTRUCTIVE PULMONARY DISEASE, UNSPECIFIED (10) Elevated troponin Assessment/Plan: Code(s): R79.89 - OTHER SPECIFIED ABNORMAL FINDINGS OF BLOOD CHEMISTRY (11) GI bleed Assessment/Plan: Code(s): K92.2 - GASTROINTESTINAL HEMORRHAGE, UNSPECIFIED Assessment/Plan Continue ABX per ID Decrease/minimize IVF O2 as needed Strict I&O Follow CBC Normal transfusion thresholds PO as tolerated Dr Davila CCTime 35"
--- NOTE | 2016-04-13 12:22 | PN ---
Teaching Attending Note Name of Resident: Pat Jin ATTENDING PHYSICIAN STATEMENT I saw and evaluated the patient. I reviewed the resident's note and discussed the case with the resident. I agree with the resident's findings and plan as documented. SUBJECTIVE: More awake and responsive but confused. Thinks she is in [place] Offers no complaints Temps improved- now normothermic BP improved Cultures thusfar negative LFTs remain elevated OBJECTIVE: Afebrile cor S1S2 decreased BS bilaterally abdomen soft, non tender + edema ASSESSMENT AND PLAN: Altered mental status- improved CT head (-) , tox screen (-) Sepsis / Septic shock source not clear Doubt primary ORDER PROCESSING SPECIALIST infection Hepatic dysfunction possible shock liver Renal failure Leukocytosis Await c/s Continue empiric zosyn Critical care time 35min
--- NOTE | 2016-04-13 13:09 | PN ---
GI Progress Note Subjective: Clinically improving per critical care team Ms. Granado denies any focal complaints - Objective Vital Signs: Vital Signs Temperature 98.1 F 04/13/16 10:00 Pulse Rate 102 H 04/13/16 12:00 Respiratory Rate 16 04/13/16 12:00 Blood Pressure 128/81 04/13/16 12:00 O2 Sat by Pulse Oximetry (%) 99 04/13/16 09:00 Constitutional: Calm Eyes: No: Sclera Icterus Cardiovascular: Yes: Tachycardia, Pulse Irregular Respiratory: Yes: Diminished (at bases with poor inspiratory effort) Gastrointestinal Inspection: No: Distention ...Auscultate: Yes: Normoactive Bowel Sounds ...Palpate: No: Hepatomegaly, Splenomegaly, Tenderness Edema: No (No LE edema) Neurological: Yes: Alert (somewhat lethargic at times), Asterixis (unable to cooperate) Labs: CBC, BMP 04/13/16 05:00 04/13/16 05:00 INR, PTT INR 3.25 (0.82-1.09) H 04/13/16 05:00 Problem List - Problems (1) Liver failure Assessment/Plan: Mixed hepatocellular/cholestatic pattern of injury 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
--- NOTE | 2016-04-13 13:17 | PN ---
Progress Note, Physician History of Present Illness: Pt seen and examined at bedside. She is more awake and interactive today. - Current Medication List Current Medications: Active Medications Aclidinium [place] (Tudorza -) 1 puff IH BID [facility] Last Admin: 04/13/16 10:27 Dose: 1 puff Albuterol Sulfate (Ventolin 0.083% Nebulizer Soln -) 1 amp NEB Q1H PRN PRN Reason: SHORT OF BREATH/WHEEZING Last Admin: 04/12/16 11:44 Dose: 1 amp Budesonide/Formoterol Fumarate (Symbicort 80/4.5mcg -) 2 puff IH BID WHITNEY Last Admin: 04/13/16 10:27 Dose: 2 puff Piperacillin Sod/Tazobactam Sod (Zosyn 2.25gm Ivpb (Pre-Docked)) 50 mls @ 100 mls/hr IVPB Q8H-IV WHITNEY Last Admin: 04/13/16 10:28 Dose: 100 mls/hr Pantoprazole Sodium (Protonix 40mg Ivpb (Pre-Docked)) 100 mls @ 200 mls/hr IVPB BID [facility] Metoprolol Tartrate (Lopressor -) 12.5 mg PO TID [facility] - Objective Vital Signs: Vital Signs Temperature 98.1 F 04/13/16 10:00 Pulse Rate 102 H 04/13/16 12:00 Respiratory Rate 16 04/13/16 12:00 Blood Pressure 128/81 04/13/16 12:00 O2 Sat by Pulse Oximetry (%) 99 04/13/16 09:00 Constitutional: Yes: Calm Eyes: Yes: Conjunctiva Clear HENT: Yes: Atraumatic Neck: Yes: Supple Cardiovascular: Yes: S1, S2 Respiratory: Yes: On Nasal O2 Gastrointestinal: Yes: Soft Genitourinary: Yes: Lilly Present Edema: Yes Edema: LLE: 1+, RLE: 1+ Neurological: Yes: Oriented Labs: CBC, BMP 04/13/16 05:00 04/13/16 05:00 INR, PTT INR 3.25 (0.82-1.09) H 04/13/16 05:00 - ....Imaging Chest X-ray: Report Reviewed Assessment/Plan Current Medications Generic Name Dose Route Start Last Admin Trade Name Freq PRN Reason Stop Dose Admin Aclidinium [place] 1 puff 04/12/16 10:00 04/13/16 10:27 Tudorza - IH 1 puff BID WHITNEY Administration Albuterol Sulfate 1 amp 04/12/16 10:50 04/12/16 11:44 Ventolin 0.083% Nebulizer Soln - NEB 1 amp Q1H PRN Administration SHORT OF BREATH/WHEEZING Budesonide/Formoterol Fumarate 2 puff 04/12/16 10:00 04/13/16 10:27 Symbicort 80/4.5mcg - IH 2 puff BID WHITNEY Administration Piperacillin Sod/Tazobactam Sod 50 mls @ 100 mls/hr 04/12/16 18:00 04/13/16 10: 28 Zosyn 2.25gm Ivpb (Pre-Docked) IVPB 100 mls/hr Q8H-IV WH[facility]NEY Administration Pantoprazole Sodium 100 mls @ 200 mls/hr 04/13/16 11:15 Protonix 40mg Ivpb (Pre-Docked) IVPB BID WHITNEY Metoprolol Tartrate 12.5 mg 04/13/16 14:00 Lopressor - PO TID WHITNEY Laboratory Tests 04/11/16 04/12/16 04/12/16 12:15 12:00 14:25 Lactic Acid 14.879 H* Cortisol AM Sample 71.7 Ur Random Sodium 11 04/13/16 05:00 Lactic Acid 3.647 H* Cortisol AM Sample Ur Random Sodium Impression 1. NAYAN 2. hyperkalemia 3. sepsis with hypothremia 4. a-fib 5. GI bleed 6. metabolic acidosis - check abg and lactic acid level 7. COPD 8. hyperlipidemia Plan - acidosis is improving - lactic acid level improved - monitor urine ouput - can switch fluids to 1/2ns - monitor blood pressure - potassium level is improved - discussed with medical attending - monitor hg Dr Rogers -
--- NOTE | 2016-04-13 14:09 | PN ---
Progress Note, Physician History of Present Illness: Doing well clinically improved no pressor requirement - Current Medication List Current Medications: Active Medications Aclidinium [place] (Tudorza -) 1 puff IH BID [facility] Last Admin: 04/13/16 10:27 Dose: 1 puff Albuterol Sulfate (Ventolin 0.083% Nebulizer Soln -) 1 amp NEB Q1H PRN PRN Reason: SHORT OF BREATH/WHEEZING Last Admin: 04/12/16 11:44 Dose: 1 amp Budesonide/Formoterol Fumarate (Symbicort 80/4.5mcg -) 2 puff IH BID [facility] Last Admin: 04/13/16 10:27 Dose: 2 puff Piperacillin Sod/Tazobactam Sod (Zosyn 2.25gm Ivpb (Pre-Docked)) 50 mls @ 100 mls/hr IVPB Q8H-IV [facility] Last Admin: 04/13/16 10:28 Dose: 100 mls/hr Pantoprazole Sodium (Protonix 40mg Ivpb (Pre-Docked)) 100 mls @ 200 mls/hr IVPB BID [facility] Metoprolol Tartrate (Lopressor -) 12.5 mg PO TID [facility] - Objective Vital Signs: Vital Signs Temperature 98.1 F 04/13/16 10:00 Pulse Rate 102 H 04/13/16 12:00 Respiratory Rate 16 04/13/16 12:00 Blood Pressure 128/81 04/13/16 12:00 O2 Sat by Pulse Oximetry (%) 99 04/13/16 09:00 Constitutional: Yes: alert awake Eyes: No: Sclera Icterus HENT: Yes: Atraumatic Neck: Yes: Supple Cardiovascular: Yes: Pulse Irregular Respiratory: Yes: Other (diminished breath sounds mostly at bases) Gastrointestinal: Yes: Soft Edema: No Labs: CBC, BMP 04/13/16 05:00 04/13/16 05:00 INR, PTT INR 3.25 (0.82-1.09) H 04/13/16 05:00 Assessment/Plan 89F with multiple medical problems presents to the hospital with 2-3 days of altered mental status and poor oral intake found to have elevated lactic acid metabolic acidosis and severe sepsis. Patient also with GI bleeding. Severe sepsis: source unknown but strongly suspected UA clean CXR clear ID consult appreciated ABx flores culture Negative so far trend lactic acid improving significantly Central line day 2 CVP monitoring ECHO reviewed GI bleed - got FFP overnight stop protonix gtt change to 40mg IVP BID f/u GI consult-recs noted advance to CLD hold eliquis Afib RVR resolved for now cardiology consult appreciated hold anticoagulation Started oon metoprolol 12.5mg po TID NAYAN on CKD renal consult appreciated Shock liver possible shock liver from hypotension/Afib Liver US noted f/u doppler liver trend LFTs GI consult appreciated INR elevated metabolic Acidosis-resolved Stop bicarb gtt CHF Needs hydration at this time not clinically in CHF exacerbation COPD: Bronchodilators FEN: stop IVF no electrolyte issues CLD PPx: no DVT PPx bleeding protonix gtt PT consult
[2016-04-13] MEDS: METOPROLOL TARTRATE 25 MG TABLET (FP) PO SCH ×2 (14:29→21:18)
[2016-04-14] MEDS: PIPERACILLIN/TAZOB 2.25 GM 50 ML IVPB SCH ×3 (01:27→18:03)
[2016-04-14] MEDS: METOPROLOL TARTRATE 25 MG TABLET (FP) PO SCH ×3 (05:36→22:11)
[2016-04-14 06:23] LABS: MCH 29.7 pg (25.7-33.7); MCHC 30.9 g/dl (32.0-36.0); MEAN CELL VOLUME 96.2 fl (80-96); MEAN PLT VOLUME 9.3 fl (7.5-11.1); PLATELET COUNT 160 K/MM3 (134-434); WHITE BLOOD COUNT 15.4 K/mm3 (4.0-10.0)
[2016-04-14 06:32] LABS: INR 2.23 (0.82-1.09); PROTHROMBIN TIME (PATIENT) 24.9 SEC (9.98-11.88)
[2016-04-14 07:13] LABS: ALBUMIN 2.3 g/dl (3.4-5.0); BILIRUBIN,DIRECT 1.4 mg/dL (0.0-0.2)
[2016-04-14 07:15] LABS: TOT PROT 4.4 g/dl (6.4-8.2)
[2016-04-14] MEDS: PANTOPRAZOLE SODIUM 100 ML IVPB SCH (09:41)
[2016-04-14] MEDS ORDERED: PT OWN MED DRAWER 7, Y5N ONE ×2 (10:07→22:00)
[2016-04-14] MEDS: BUDESONIDE/FORMETEROL FUMARATE 80/4.5 mcg INHALER IH SCH ×2 (10:08→22:11)
[2016-04-14] MEDS: ACLIDINIUM BROMIDE 400 MCG/INH AERO.POWD IH SCH (10:08)
--- NOTE | 2016-04-14 10:17 | PN ---
Teaching Attending Note Name of Resident: Pat Jin ATTENDING PHYSICIAN STATEMENT I saw and evaluated the patient. I reviewed the resident's note and discussed the case with the resident. I agree with the resident's findings and plan as documented. SUBJECTIVE: no complaints quite alert reports having had abdominal pain that is now resolved OBJECTIVE: Vital Signs Period Temp Pulse Resp BP Sys/Ravi Pulse Ox Last 24 Hr 97.1 F-98.7 F 96-106 12-17 108-131/67-90 99 cor-rrr lungs clear abd soft,nt ext no edema CBC, BMP 04/14/16 05:15 04/14/16 05:15 Laboratory Tests 04/14/16 05:15 Total Bilirubin 2.0 H Direct Bilirubin 1.4 H D AST 592 H D ALT 732 H D Alkaline Phosphatase 161 H Microbiology 04/12/16 10:51 Blood - Peripheral Venous Blood Culture - Preliminary NO GROWTH OBTAINED AFTER 24 HOURS, INCUBATION TO CONTINUE FOR 4 DAYS. 04/12/16 10:45 Blood - Peripheral Venous Blood Culture - Preliminary NO GROWTH OBTAINED AFTER 24 HOURS, INCUBATION TO CONTINUE FOR 4 DAYS. 04/12/16 10:00 Urine - Urine Clean Catch Urine Culture - Final NO GROWTH OBTAINED ASSESSMENT AND PLAN: sepsis- abnl lfts- unclear source continue zosyn cultures negative
--- NOTE | 2016-04-14 10:50 | PN ---
Physical Exam: SUBJECTIVE: Patient seen and examined at bed side this morning. Says feels better. She mentioned that she had severe abdominal pain on presentation but now it resolved. OBJECTIVE: Vital Signs Period Temp Pulse Resp BP Sys/Ravi Pulse Ox Last 24 Hr 97.1 F-98.7 F 96-108 12-17 108-131/67-90 99-99 GENERAL: The patient is awake, alert, and confused, said she was in [facility], in no acute distress. HEAD: Normal with no signs of trauma. EYES:EOM intact, no pallor or icterus. EARS, NOSE, THROAT: Ears normal. NECK: Supple, no JVD or mass LUNGS: Decreased breath sound on the right lung base, fine crackles at the bases , no wheeze. HEART: Regular rate and rhythm, normal S1 and S2 without murmur. ABDOMEN: Soft, nontender, not distended, normoactive bowel sounds, no guarding, no rebound, no masses. No hepatomegaly or splenomegaly. MUSCULOSKELETAL: Normal range of motion at all joints. No bony deformities or tenderness. No CVA tenderness. UPPER EXTREMITIES: 2+ pulses, warm, well-perfused. No cyanosis. No clubbing. No peripheral edema. LOWER EXTREMITIES: 2+ pulses, warm, well-perfused. No calf tenderness. B/L pitting edema NEUROLOGICAL: Cranial nerves II-XII intact. Normal speech. Normal gait. PSYCHIATRIC: Cooperative. Good eye contact. Appropriate mood and affect. SKIN: Warm, dry scaly skin over lower extremities, normal turgor, no rashes or lesions noted. Laboratory Results - last 24 hr 04/13/16 04/13/16 04/14/16 05:00 05:00 05:15 WBC RBC Hgb Hct MCV MCHC RDW Plt Count MPV INR 2.23 H D Sodium Potassium Chloride Carbon Dioxide Anion Gap BUN Creatinine Random Glucose Lactic Acid Calcium Total Bilirubin Direct Bilirubin AST ALT Alkaline Phosphatase Total Protein Albumin Digoxin 2.1797 H Hepatitis A Ab Total Positive Hep Bs Antigen Negative Hep Bs Antibody Non reactive Hep B Core Total Ab Negative Hepatitis C Antibody 0.1 04/14/16 04/14/16 04/14/16 05:15 05:15 05:15 WBC 15.4 H RBC 3.50 L Hgb 10.4 L Hct 33.6 MCV 96.2 H MCHC 30.9 L RDW 16.0 H Plt Count 160 MPV 9.3 INR Sodium Potassium Chloride Carbon Dioxide Anion Gap BUN Creatinine Random Glucose Lactic Acid 1.289 Calcium Total Bilirubin Direct Bilirubin AST ALT Alkaline Phosphatase Total Protein Albumin Digoxin 1.7119 Hepatitis A Ab Total Hep Bs Antigen Hep Bs Antibody Hep B Core Total Ab Hepatitis C Antibody 04/14/16 05:15 WBC RBC Hgb Hct MCV MCHC RDW Plt Count MPV INR Sodium 149 H Potassium 3.6 Chloride 109 H Carbon Dioxide 30 Anion Gap 10 BUN 58 H Creatinine 2.0 H Random Glucose 115 H D Lactic Acid Calcium 8.0 L Total Bilirubin 2.0 H Direct Bilirubin 1.4 H D AST 592 H D ALT 732 H D Alkaline Phosphatase 161 H Total Protein 4.4 L Albumin 2.3 L Digoxin Hepatitis A Ab Total Hep Bs Antigen Hep Bs Antibody Hep B Core Total Ab Hepatitis C Antibody Active Medications Generic Name Dose Route Start Last Admin Trade Name Freq PRN Reason Stop Dose Admin Aclidinium [place] 1 puff 04/12/16 10:00 04/14/16 10:08 Tudorza - IH 1 puff BID WH[facility]NEY Administration Albuterol Sulfate 1 amp 04/12/16 10:50 04/12/16 11:44 Ventolin 0.083% Nebulizer Soln - NEB 1 amp Q1H PRN Administration SHORT OF BREATH/WHEEZING Budesonide/Formoterol Fumarate 2 puff 04/12/16 10:00 04/14/16 10:08 Symbicort 80/4.5mcg - IH 2 puff BID WH[facility]NEY Administration Piperacillin Sod/Tazobactam Sod 50 mls @ 100 mls/hr 04/12/16 18:00 04/14/16 09: 43 Zosyn 2.25gm Ivpb (Pre-Docked) IVPB 100 mls/hr Q8H-IV WH[facility]NEY Administration Pantoprazole Sodium 100 mls @ 200 mls/hr 04/13/16 11:15 04/14/16 09:41 Protonix 40mg Ivpb (Pre-Docked) IVPB 200 mls/hr BID WH[facility]NEY Administration Metoprolol Tartrate 12.5 mg 04/13/16 14:00 04/14/16 05:36 Lopressor - PO 12.5 mg TID WHITNEY Administration Underlying problems: 89 year old female with significant PMH of HTN, HLD, A-fib on elliquis, COPD was brought in to the ED accompanied by her daughter after noticing change in her mental status and lethargy. ASSESSMENT 1. Sepsis unknown source. 2. Multiorgan failure 3. Acute kidney injury with Hyperkalemia 4. Hematemesis 5. Hypoglycemia 6. CHF 7. COPD 8. Increased Troponins 9. GI bleed Plan:- # Sepsis unknown source Differential diagnosis: Meningitis, aspiration pneumonia vs effusion Less likely cholecystitis since USG abdomen is negative Received one dose of Ceftriaxone and Vancomycin in the ED Stefan 04/12/2016 to be continued Ceftriaxone stopped LP not done Lactic acid trending down Urine/ Blood culture No growth # Multiorgan failure- Shock liver, Acute Kidney Injury Transaminitis most likely due to shock liver now trending down. Avoid hepatotoxic drugs Avoid Nephrotoxic drugs Rest as per primary. Illness, Investigation and Plan of care explained to the patients daughter on admission. She verbalized understanding. Case seen and discussed with Dr. Steel. Critical care time 35minutes. Visit type - Emergency Visit Emergency Visit: Yes ED Registration Date: 04/11/16 Care time: The patient presented to the Emergency Department on the above date and was hospitalized for further evaluation of their emergent condition. - New Patient This patient is new to me today: No - Critical Care Critical Care patient: Yes Total Critical Care Time (in minutes): 35 Critical Care Statement: The care of this patient involved high complexity decision making to prevent further life threatening deterioration of the patient 's condition and/or to evalute & treat vital organ system(s) failure or risk of failure.
--- NOTE | 2016-04-14 10:50 | PN ---
Progress Note, Physician Chief Complaint: Ms Granado says she is feeling much better today. Says she is not having stomach pain currently. No shortness of breath or chest pain. States drinking a lot of fluids. - Current Medication List Current Medications: Active Medications Aclidinium [place] (Tudorza -) 1 puff IH BID [facility] Last Admin: 04/14/16 10:08 Dose: 1 puff Albuterol Sulfate (Ventolin 0.083% Nebulizer Soln -) 1 amp NEB Q1H PRN PRN Reason: SHORT OF BREATH/WHEEZING Last Admin: 04/12/16 11:44 Dose: 1 amp Budesonide/Formoterol Fumarate (Symbicort 80/4.5mcg -) 2 puff IH BID [facility] Last Admin: 04/14/16 10:08 Dose: 2 puff Piperacillin Sod/Tazobactam Sod (Zosyn 2.25gm Ivpb (Pre-Docked)) 50 mls @ 100 mls/hr IVPB Q8H-IV [facility] Last Admin: 04/14/16 09:43 Dose: 100 mls/hr Pantoprazole Sodium (Protonix 40mg Ivpb (Pre-Docked)) 100 mls @ 200 mls/hr IVPB BID [facility] Last Admin: 04/14/16 09:41 Dose: 200 mls/hr Metoprolol Tartrate (Lopressor -) 12.5 mg PO TID [facility] Last Admin: 04/14/16 05:36 Dose: 12.5 mg - Objective Vital Signs: Vital Signs Temperature 97.3 F L 04/14/16 10:00 Pulse Rate 108 H 04/14/16 10:00 Respiratory Rate 16 04/14/16 10:00 Blood Pressure 117/71 04/14/16 10:00 O2 Sat by Pulse Oximetry (%) 99 04/14/16 09:00 Constitutional: Yes: No Distress, Calm, Other (slightly lethargic but much improved) Cardiovascular: Yes: Pulse Irregular. No: Tachycardia, Gallop, Murmur, Rub Respiratory: Yes: Regular, CTA Bilaterally. No: Rales, Rhonchi, Wheezes Gastrointestinal: Yes: Normal Bowel Sounds, Soft. No: Distention, Tenderness Extremities: Yes: WNL Edema: No Labs: CBC, BMP 04/14/16 05:15 04/14/16 05:15 INR, PTT INR 2.23 (0.82-1.09) H D 04/14/16 05:15 Problem List - Problems (1) Septic shock Code(s): A41.9 - SEPSIS, UNSPECIFIED ORGANISM R65.21 - SEVERE SEPSIS WITH SEPTIC SHOCK (2) Atrial fibrillation with rapid ventricular response Code(s): I48.91 - UNSPECIFIED ATRIAL FIBRILLATION (3) NAYAN (acute kidney injury) Code(s): N17.9 - ACUTE KIDNEY FAILURE, UNSPECIFIED (4) Shock liver Code(s): K75.9 - INFLAMMATORY LIVER DISEASE, UNSPECIFIED (5) Hyperkalemia Code(s): E87.5 - HYPERKALEMIA (6) Hypoglycemia Code(s): E16.2 - HYPOGLYCEMIA, UNSPECIFIED (7) Acidosis Code(s): E87.2 - ACIDOSIS (8) CHF (congestive heart failure) Code(s): I50.9 - HEART FAILURE, UNSPECIFIED (9) COPD (chronic obstructive pulmonary disease) Code(s): J44.9 - CHRONIC OBSTRUCTIVE PULMONARY DISEASE, UNSPECIFIED (10) Elevated troponin Code(s): R79.89 - OTHER SPECIFIED ABNORMAL FINDINGS OF BLOOD CHEMISTRY (11) GI bleed Code(s): K92.2 - GASTROINTESTINAL HEMORRHAGE, UNSPECIFIED Assessment/Plan (1) Septic shock Assessment/Plan: -resolved -unclear source -? transient ischemic colitis since had abdominal pain prior to admission -continue empiric antibiotics per ID -IVF stopped Code(s): A41.9 - SEPSIS, UNSPECIFIED ORGANISM R65.21 - SEVERE SEPSIS WITH SEPTIC SHOCK (2) Atrial fibrillation with rapid ventricular response Assessment/Plan: -appreciate cardiology assistance -rate controlled with diltiazem -holding anticoagulation secondary to auto anticoagulated and with GI bleed on admission Code(s): I48.91 - UNSPECIFIED ATRIAL FIBRILLATION (3) NAYAN (acute kidney injury) Assessment/Plan: -continues to improve -almost at baseline -currently off IVF but drinking -monitor -nephrology continues to follow Code(s): N17.9 - ACUTE KIDNEY FAILURE, UNSPECIFIED (4) Shock liver Assessment/Plan: -much improved -appreciate GI assistance -ultrasound with dopplers flows reviewed -hepatitis A antibody positive, but otherwise hepatitis panel negative Code(s): K75.9 - INFLAMMATORY LIVER DISEASE, UNSPECIFIED (5) Hyperkalemia Assessment/Plan: -resolved Code(s): E87.5 - HYPERKALEMIA (6) Hypoglycemia Assessment/Plan: -resolved -continue diet per GI Code(s): E16.2 - HYPOGLYCEMIA, UNSPECIFIED (7) Acidosis Assessment/Plan: -resolved Code(s): E87.2 - ACIDOSIS (8) CHF (congestive heart failure) Assessment/Plan: -not in exacerbation and dehydrated -hold all diuretics -continue hydration Code(s): I50.9 - HEART FAILURE, UNSPECIFIED (9) COPD (chronic obstructive pulmonary disease) Assessment/Plan: -continue inhalers Code(s): J44.9 - CHRONIC OBSTRUCTIVE PULMONARY DISEASE, UNSPECIFIED (10) Elevated troponin Assessment/Plan: -stress induced -ECHO reviewed -cardiology following Code(s): R79.89 - OTHER SPECIFIED ABNORMAL FINDINGS OF BLOOD CHEMISTRY (11) GI bleed Assessment/Plan: -continue protonix gtt per GI, defer decrease to GI -received FFP -INR improving -tolerating diet, possible advancement per GI recommendations Code(s): K92.2 - GASTROINTESTINAL HEMORRHAGE, UNSPECIFIED Assessment/Plan 35 minutes spent in critical care time spent with this patient
--- NOTE | 2016-04-14 11:03 | PN ---
Progress Note, Physician History of Present Illness: Pt seen and examined at bedside. She is awake and more alert than yesterday. She says she feels better today. - Current Medication List Current Medications: Active Medications Aclidinium [place] (Tudorza -) 1 puff IH BID [facility] Last Admin: 04/14/16 10:08 Dose: 1 puff Albuterol Sulfate (Ventolin 0.083% Nebulizer Soln -) 1 amp NEB Q1H PRN PRN Reason: SHORT OF BREATH/WHEEZING Last Admin: 04/12/16 11:44 Dose: 1 amp Budesonide/Formoterol Fumarate (Symbicort 80/4.5mcg -) 2 puff IH BID [facility] Last Admin: 04/14/16 10:08 Dose: 2 puff Piperacillin Sod/Tazobactam Sod (Zosyn 2.25gm Ivpb (Pre-Docked)) 50 mls @ 100 mls/hr IVPB Q8H-IV [facility] Last Admin: 04/14/16 09:43 Dose: 100 mls/hr Pantoprazole Sodium (Protonix 40mg Ivpb (Pre-Docked)) 100 mls @ 200 mls/hr IVPB BID [facility] Last Admin: 04/14/16 09:41 Dose: 200 mls/hr Metoprolol Tartrate (Lopressor -) 12.5 mg PO TID [facility] Last Admin: 04/14/16 05:36 Dose: 12.5 mg - Objective Vital Signs: Vital Signs Temperature 97.3 F L 04/14/16 10:00 Pulse Rate 108 H 04/14/16 10:00 Respiratory Rate 16 04/14/16 10:00 Blood Pressure 117/71 04/14/16 10:00 O2 Sat by Pulse Oximetry (%) 99 04/14/16 09:00 Constitutional: Yes: Calm Eyes: Yes: Conjunctiva Clear HENT: Yes: Atraumatic Cardiovascular: Yes: S1, S2 Respiratory: Yes: On Nasal O2 Gastrointestinal: Yes: Soft Genitourinary: Yes: Lilly Present Musculoskeletal: Yes: Muscle Weakness Edema: Yes Edema: LLE: 1+, RLE: 1+ Neurological: Yes: Oriented Psychiatric: Yes: Oriented Labs: CBC, BMP 04/14/16 05:15 04/14/16 05:15 INR, PTT INR 2.23 (0.82-1.09) H D 04/14/16 05:15 Assessment/Plan Current Medications Generic Name Dose Route Start Last Admin Trade Name Freq PRN Reason Stop Dose Admin Aclidinium [place] 1 puff 04/12/16 10:00 04/14/16 10:08 Tudorza - IH 1 puff BID WHITNEY Administration Albuterol Sulfate 1 amp 04/12/16 10:50 04/12/16 11:44 Ventolin 0.083% Nebulizer Soln - NEB 1 amp Q1H PRN Administration SHORT OF BREATH/WHEEZING Budesonide/Formoterol Fumarate 2 puff 04/12/16 10:00 04/14/16 10:08 Symbicort 80/4.5mcg - IH 2 puff BID WHITNEY Administration Piperacillin Sod/Tazobactam Sod 50 mls @ 100 mls/hr 04/12/16 18:00 04/14/16 09: 43 Zosyn 2.25gm Ivpb (Pre-Docked) IVPB 100 mls/hr Q8H-IV [facility]NEY Administration Pantoprazole Sodium 100 mls @ 200 mls/hr 04/13/16 11:15 04/14/16 09:41 Protonix 40mg Ivpb (Pre-Docked) IVPB 200 mls/hr BID WHITNEY Administration Metoprolol Tartrate 12.5 mg 04/13/16 14:00 04/14/16 05:36 Lopressor - PO 12.5 mg TID WHITNEY Administration Impression 1. NAYAN 2. hyperkalemia 3. sepsis with hypothremia 4. a-fib 5. GI bleed 6. metabolic acidosis - check abg and lactic acid level 7. COPD 8. hyperlipidemia Plan - renal function is improving - acidosis is improving - will change fluids to a hypotonic solution - PO intake remains poor - repeat labs in am - bp is improving - pt clinically appears better today - monitor hg Dr Rogers -
[2016-04-14] MEDS: SODIUM CHLORIDE 0.45% 1,000 ML IV SCH (11:11)
--- NOTE | 2016-04-14 11:43 | PN ---
Progress Note (short form) - Note Progress Note: S: no cp, palps, dizziness, sob. feeling a little better today o: Vital Signs Period Temp Pulse Resp BP Sys/Ravi Pulse Ox Last 24 Hr 97.1 F-98.7 F 96-108 03-20 108-131/67-90 99-99 Vital Signs Temp 97.3 F L 04/14/16 10:00 Pulse 108 H 04/14/16 10:00 Resp 16 04/14/16 10:00 BP 117/71 04/14/16 10:00 Pulse Ox 99 04/14/16 09:00 Intake & Output 04/13/16 04/13/16 04/14/16 11:59 23:59 11:59 Intake Total 1801 330 200 Output Total 300 780 400 Balance 1501 -450 -200 Weight 139 lb 4 oz 140 lb 3 oz Intake: IV 1402 Normal Saline - 1,000 ml 42 @ 42 mls/hr IV ASDIR WHITNEY Rx#:[id number] 1/2NS 1000 ML+75 MEQ 1200 NAHCO3 PROTONIX DRIP 160 IVPB 100 150 150 Oral 0 180 50 Fresh Frozen Plasma 299 Output: Urine 300 780 400 Lilly 300 780 400 Other: Voiding Method Indwelling Catheter Indwelling Catheter Indwelling Catheter Weight Measurement Method Built in [facility] Built in [facility] Constitutional: NAD, on Nasal cannula Eyes: No: Sclera Icterus Respiratory: Yes: bibasilar dullness, weak eff Gastrointestinal: Yes: Normal Bowel Sounds. No: Distention, Hepatomegaly, Palpable Mass, Tenderness Cardiovascular: Yes: Pulse Irregular JVD: no Heart Sounds: Yes: S1, S2. No: Gallop Murmur: 2/6 Systolic Murmur at LSB Extremities: No: Cold, Cyanosis Edema: trace le edema bl Integumentary: No: Jaundice diaphoresis Neurological: Yes: Alert, Oriented (x3) Psychiatric: No: Agitated Laboratory Last Values WBC 15.4 K/mm3 (4.0-10.0) H 04/14/16 05:15 RBC 3.50 M/mm3 (3.60-5.2) L 04/14/16 05:15 Hgb 10.4 GM/dL (10.7-15.3) L 04/14/16 05:15 Hct 33.6 % (32.4-45.2) 04/14/16 05:15 MCV 96.2 fl (80-96) H 04/14/16 05:15 MCHC 30.9 g/dl (32.0-36.0) L 04/14/16 05:15 RDW 16.0 % (11.6-15.6) H 04/14/16 05:15 Plt Count 160 K/MM3 (134-434) 04/14/16 05:15 MPV 9.3 fl (7.5-11.1) 04/14/16 05:15 Neutrophils % 95.0 % (42.8-82.8) H 04/13/16 05:00 Lymphocytes % 1.6 % (8-40) L D 04/13/16 05:00 Monocytes % 3.0 % (3.8-10.2) L 04/13/16 05:00 Eosinophils % 0.0 % (0-4.5) 04/13/16 05:00 Basophils % 0.4 % (0-2.0) D 04/13/16 05:00 INR 2.23 (0.82-1.09) H D 04/14/16 05:15 PTT (Actin FS) 30.4 SECONDS (26.9-34.4) 04/13/16 05:00 Puncture Site Right brachial 04/12/16 11:00 ABG pH 7.28 (7.35-7.45) L D 04/12/16 11:00 ABG pCO2 at Pt Temp 28.3 mmHg (35-45) L D 04/12/16 11:00 ABG pO2 at Pt Temp 144.0 mmHg (68-100) H D 04/12/16 11:00 ABG HCO3 13.0 meq/L (22-26) L* 04/12/16 11:00 ABG O2 Sat (Measured) 98.8 % (90-98.9) 04/12/16 11:00 ABG O2 Content 14.9 % vol (15-22) L 04/12/16 11:00 ABG Base Excess -12.2 meq/l (-2-2) L* 04/12/16 11:00 Kenny Test Positive 04/12/16 11:00 O2 Delivery Device Nasal o2 04/12/16 11:00 Oxygen Flow Rate 2lpm 04/12/16 11:00 PEEP 0.0 cmH2O 04/12/16 11:00 Sodium 149 mmol/L (136-145) H 04/14/16 05:15 Potassium 3.6 mmol/L (3.5-5.1) 04/14/16 05:15 Chloride 109 mmol/L (98-107) H 04/14/16 05:15 Carbon Dioxide 30 mmol/L (21-32) 04/14/16 05:15 Anion Gap 10 (8-16) 04/14/16 05:15 BUN 58 mg/dL (7-18) H 04/14/16 05:15 Creatinine 2.0 mg/dL (0.55-1.02) H 04/14/16 05:15 Creat Clearance w eGFR 18.18 (>60) 04/13/16 05:00 POC Glucometer 202.27594 UNITS (()) 04/12/16 15:15 Random Glucose 115 mg/dL (74-106) H D 04/14/16 05:15 Lactic Acid 1.289 mmol/L (0.4-2.0) 04/14/16 05:15 Calcium 8.0 mg/dL (8.5-10.1) L 04/14/16 05:15 Phosphorus 5.1 mg/dL (2.5-4.9) H D 04/13/16 05:00 Magnesium 2.1 mg/dL (1.8-2.4) 04/13/16 05:00 Total Bilirubin 2.0 mg/dL (0.2-1.0) H 04/14/16 05:15 Direct Bilirubin 1.4 mg/dL (0.0-0.2) H D 04/14/16 05:15 AST 592 U/L (15-37) H D 04/14/16 05:15 ALT 732 U/L (12-78) H D 04/14/16 05:15 Alkaline Phosphatase 161 U/L (45-117) H 04/14/16 05:15 Ammonia < 11 umol/L (11-32) L 04/12/16 14:25 Creatine Kinase 94 IU/L (26-192) 04/12/16 14:00 Troponin I 0.20 ng/ml (0.00-0.05) H 04/12/16 14:00 Total Protein 4.4 g/dl (6.4-8.2) L 04/14/16 05:15 Albumin 2.3 g/dl (3.4-5.0) L 04/14/16 05:15 Cortisol AM Sample 71.7 ug/dL (.) 04/12/16 12:00 Urine Color Zoë 04/12/16 10:00 Urine Appearance Cloudy 04/12/16 10:00 Urine pH 5.0 (5.0-8.0) 04/12/16 10:00 Ur Specific [place] 1.015 (1.001-1.035) 04/12/16 10:00 Urine Protein 2+ (NEGATIVE) H 04/12/16 10:00 Urine Glucose (UA) Negative (NEGATIVE) 04/12/16 10:00 Urine Ketones Negative (NEGATIVE) 04/12/16 10:00 Urine Blood 1+ (NEGATIVE) H 04/12/16 10:00 Urine Nitrite Negative (NEGATIVE) 04/12/16 10:00 Urine Bilirubin Negative (NEGATIVE) 04/12/16 10:00 Urine Urobilinogen 2.0 e.u/dl E.U./dl (0.2-1.0) H 04/12/16 10:00 Ur Leukocyte Esterase Negative (NEGATIVE) 04/12/16 10:00 Urine RBC 8 /hpf (0-3) 04/12/16 10:00 Urine WBC 5 /hpf (3-5) 04/12/16 10:00 Ur Epithelial Cells Rare /hpf (FEW) 04/12/16 10:00 Urine Bacteria Few /hpf (NONE SEEN) 04/12/16 10:00 Hyaline Casts 75 /lpf 04/12/16 10:00 Urine Mucus Rare 04/12/16 10:00 Ur Random Sodium 11 MMOL/L 04/11/16 12:15 Ur Random Potassium 60.6 MMOL/L 04/11/16 12:15 Ur Random Chloride < 10 MMOL/L 04/11/16 12:15 Urine Creatinine 131.0 mg/dL 04/11/16 12:15 Random Vancomycin 11.876 ug/ml 04/13/16 05:00 Digoxin 1.7119 ng/ml (0.8-2.0) 04/14/16 05:15 Opiates Screen Negative ng/ml (IPRVQQ=166) 04/12/16 17:00 Methadone Screen Negative ng/ml (HCXXIS=140) 04/12/16 17:00 Barbiturate Screen Negative ng/ml (KVVYPF=518) 04/12/16 17:00 Phencyclidine Screen Negative ng/ml (CUTOFF=25) 04/12/16 17:00 Ur Amphetamines Screen Negative ng/ml (PJOWIQ=542) 04/12/16 17:00 MDMA (Ecstasy) Screen Negative ng/ml (VJSLCR=151) 04/12/16 17:00 Benzodiazepines Screen Negative ng/ml (LYZIDW=269) 04/12/16 17:00 Cocaine Screen Negative ng/ml (QYSSXQ=712) 04/12/16 17:00 U Marijuana (THC) Screen Negative ng/ml (CUTOFF=50) 04/12/16 17:00 Hepatitis A Ab Total Positive 04/13/16 05:00 Hep Bs Antigen Negative 04/13/16 05:00 Hep Bs Antibody Non reactive 04/13/16 05:00 Hep B Core Total Ab Negative 04/13/16 05:00 Hepatitis C Antibody 0.1 s/co ratio (0.0-0.9) 04/13/16 05:00 Blood Type O POSITIVE 04/12/16 10:45 Antibody Screen Negative 04/12/16 10:45 EKG 04/11: afib with RVR, [address]/T wave abnromalities difficult to interpret due to baseline artifact. EKG 04/12: afib. LAD. RBBB. Anterior T wave abnormalities. tele: afib, rate 100s-120s CXR: No acute infiltrates, but by my review has increased lung markings suggestive of chronic pulmonary disease and blunting of costophrenic angles. head CT: No acute pathology echo 04/12/16: Nl lv/rv, mod GINA. 1+ MAC, mild-mod MR. Severe TR. RVSP 40-50. echo 02/2016: nl lv, rv mod-sev dil, mild-mod dec rv fcn, severe kim, mod mr, dilated ivc, sev tr, mild phtn Echo 2013: nl LV/RV; mod MR/TR; mod pHTN (40-50) MPI 2012: no ischemia, nl EF C 2008 (false + mpi): mild, diffuse dz est cct 33 mins a/p: 89 yo female with afib/flutter, ? MAT, severe copd on chronic steroids, pulm HTN, Mod MR, HTN, venous insufficiency, vertigo here with sepsis c/b GIB, shock liver, NAYAN with hyperkalemia. sepsis - BP improving with ivfs and abx - source unclear presently, cont abx per ID rapid Afib/flutter (possible PSVT prior)/MAT -06/2014 with rapid AF/AFL/MAT requiring uptitration of metopr to 100 bid plus digoxin, then 12/18 incr to 150 bid in office for rapid HRs. On past admits, HR also improved with management of underlying pulmonary disease. Pt has deferred AVN ablation with PPM previously. At risk for amio given advanced copd/pulm HTN - Initially RVR in setting of sepsis. Initiated on diltiazem drip with improved HR control - 04/13: In the past cardizem has worsened LFT abnormalities. Currently diltiazem drip on hold, and rate reasonably controlled given clinical status. Will add PRN IV metoprolol. Start PO when possible (previously tolerated metoprolol, would start low dose short acting metoprolol tartrate TID and uptitrate). -04/14: bp improving so now on po bb. rate improved on tele, cont same bb and titrate up as bp allows -on AC (CHADS 2)--eliquis 2.5 bid for age and borderline wt/renal fxn, plus excessive gingival bleeding on higher dose. Currently on hold due to possible GIB. Resume heparin when INR < 1.8 if and when deemed safe from GI perspective. -prior med intolerances: Multaq--sig stomach upset, ? elevated LFTs (though atypical, slightly delayed timing) cardizem--hi LFTs; RV dysfunction - recent echo from February with RV dilation and decreased RV function. (In setting of acute pulmonary disease). - likely developing cor pulmonale--O2 and pulm tx per their recs - currently tolerating volume resuscitation. Con't to follow CVP and monitor need for diuresis, so far no gross vol overload. presumed cad: -doubt sx's due to rapid AF, at the time of CP HR's were in 90s. Troponins continued to trend down and repeat ekg without ischemic changes. suspect ongoing CP is related to PNA +/- incr'd muscle work of breathing - On last admission, peak troponin 0.2, no ischemic changes on ekg, CP symptoms resolved with treatment of pna. At the time, not a candidate for persantine nuclear stress test (severe copd) or dobutamine (uncontrolled atrial arrhythmias)-- so plan was to consider regadeneson nuclear as outpt if no active wheezing at that time. Troponin here again documented up to 0.2 with nl CK in setting of sepsis. Con't same management with consideration of outpatient ischemic eval as mentioned if prognosis improves. - No asa b/c of GIB. No statin b/c of acute liver injury. copd: -pulm following NAYAN on CKD: - improving with IVF. pulm HTN (mild, moderate): -? 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 elevated lfts: -likely due to septic shock, lfts improving with ivfs/abx Hyperlipidemia -holding statin as above due to elevated lfts Hypertension -home regimen hydral 50 tid, toprol 100 bid, Holding while hypotensive. chronic venous ins'y: -was on lasix 20 qd at home, holding while needing resuscitation for sepsis/ hypotension.
[2016-04-14] MEDS ORDERED: ALBUTEROL SO4 0.083% IH SOL 2.5 MG/3 ML VIAL.NEB. NEB PRN (11:59)
--- NOTE | 2016-04-14 12:17 | PN ---
Teaching Attending Note Name of Resident: Brendan Amador ATTENDING PHYSICIAN STATEMENT I saw and evaluated the patient. I reviewed the resident's note and discussed the case with the resident. I agree with the resident's findings and plan as documented. SUBJECTIVE: Pt seen and examined in the ICU. No fevers recorded. BP stable. Denies cough, abdominal pain, diarrhea, dysuria. OBJECTIVE: Last Vital Signs Temp Pulse Resp BP Pulse Ox 97.3 F L 108 H 16 117/71 99 04/14/16 10:00 04/14/16 10:00 04/14/16 10:00 04/14/16 10:00 04/14/16 09:00 Intake & Output 04/11/16 04/12/16 04/13/16 04/14/16 23:59 23:59 23:59 23:59 Intake Total 3100 2131 200 Output Total 170 1080 400 Balance 2930 1051 -200 Weight 120 lb 141 lb 9.6 oz 139 lb 4 oz 140 lb 3 oz Gen: NAD at rest Heart: tachycardic, irregular Lung: scattered basilar rhonchi Abd: soft, nontender Ext: + edema CBC, BMP 04/14/16 05:15 04/14/16 05:15 Active Medications Albuterol Sulfate (Ventolin 0.083% Nebulizer Soln -) 1 amp NEB Q4H PRN PRN Reason: SHORT OF BREATH/WHEEZING Albuterol/Ipratropium (Duoneb -) 1 amp NEB QIDR WHITNEY Budesonide/Formoterol Fumarate (Symbicort 80/4.5mcg -) 2 puff IH BID WHITNEY Last Admin: 04/14/16 10:08 Dose: 2 puff Piperacillin Sod/Tazobactam Sod (Zosyn 2.25gm Ivpb (Pre-Docked)) 50 mls @ 100 mls/hr IVPB Q8H-IV WHITNEY Last Admin: 04/14/16 09:43 Dose: 100 mls/hr Sodium Chloride (1/2 Normal Saline) 1,000 mls @ 75 mls/hr IV ASDIR WHITNEY Last Admin: 04/14/16 11:11 Dose: 75 mls/hr Pantoprazole Sodium (Protonix 40mg Ivpb (Pre-Docked)) 100 mls @ 200 mls/hr IVPB DAILY [facility] Metoprolol Tartrate (Lopressor -) 12.5 mg PO TID [facility] Last Admin: 04/14/16 05:36 Dose: 12.5 mg ASSESSMENT AND PLAN: Septic Shock of unclear etiology r/o Pneumonia Atrial Fibrillation with RVR Acute on Chronic Renal Failure Lactic Acidosis Elevated LFTs likely ischemic injury +Troponins r/o GI Bleed Hypernatremia COPD - continue empiric antibiotics - IVF, increase free water - monitor urine output, creatinine - lactic acidosis resolving - PO as tolerated - aspiration precautions - inhaled bronchodilators - protonix - monitor H/H - DVT/GI prophylaxis - can monitor on telemetry
[2016-04-14] MEDS: ALBUTEROL SO4 2.5/IPRATROPIUM 0.5 INH SOL 3 ML VIAL.NEB. NEB SCH ×2 (13:30→18:19)
--- NOTE | 2016-04-14 14:08 | PN ---
Progress Note, Physician History of Present Illness: patient seen and examined no events overnight HD stable HR better controlled - Current Medication List Current Medications: Active Medications Albuterol Sulfate (Ventolin 0.083% Nebulizer Soln -) 1 amp NEB Q4H PRN PRN Reason: SHORT OF BREATH/WHEEZING Albuterol/Ipratropium (Duoneb -) 1 amp NEB QIDR [facility] Last Admin: 04/14/16 13:30 Dose: 1 amp Budesonide/Formoterol Fumarate (Symbicort 80/4.5mcg -) 2 puff IH BID [facility] Last Admin: 04/14/16 10:08 Dose: 2 puff Piperacillin Sod/Tazobactam Sod (Zosyn 2.25gm Ivpb (Pre-Docked)) 50 mls @ 100 mls/hr IVPB Q8H-IV [facility] Last Admin: 04/14/16 09:43 Dose: 100 mls/hr Sodium Chloride (1/2 Normal Saline) 1,000 mls @ 75 mls/hr IV ASDIR [facility] Last Admin: 04/14/16 11:11 Dose: 75 mls/hr Pantoprazole Sodium (Protonix 40mg Ivpb (Pre-Docked)) 100 mls @ 200 mls/hr IVPB DAILY [facility] Metoprolol Tartrate (Lopressor -) 12.5 mg PO TID [facility] Last Admin: 04/14/16 05:36 Dose: 12.5 mg - Objective Vital Signs: Vital Signs Temperature 97.3 F L 04/14/16 10:00 Pulse Rate 79 04/14/16 13:25 Respiratory Rate 16 04/14/16 12:00 Blood Pressure 133/96 04/14/16 12:00 O2 Sat by Pulse Oximetry (%) 99 04/14/16 13:25 Constitutional: Yes: alert awake Eyes: No: Sclera Icterus HENT: Yes: Atraumatic Neck: Yes: Supple Cardiovascular: Yes: Pulse Irregular no murmurs Respiratory: Yes: Other (diminished breath sounds mostly at bases otherwise clear to auscultation) Gastrointestinal: Yes: Soft Edema: No Labs: CBC, BMP 04/14/16 05:15 04/14/16 05:15 INR, PTT INR 2.23 (0.82-1.09) H D 04/14/16 05:15 Assessment/Plan 89F with multiple medical problems presents to the hospital with 2-3 days of altered mental status and poor oral intake found to have elevated lactic acid metabolic acidosis and severe sepsis. Patient also with GI bleeding. Severe sepsis: source unknown but strongly suspected UA clean CXR clear ID consult appreciated ABx cultures Negative so far [facility] day 3 ECHO reviewed GI bleed - got FFP overnight stop protonix gtt change to 40mg IVP BID f/u GI consult-recs noted advance to reg diet hold eliquis for now Afib RVR resolved for now improved on metoprolol cardiology consult appreciated hold anticoagulation continue metoprolol 12.5mg po TID titrate up as BP tolerates NAYAN on CKD renal consult appreciated improved Shock liver -improved possible shock liver from hypotension/Afib Liver US noted f/u doppler liver trend LFTs-significantly improved GI consult appreciated INR elevated metabolic Acidosis-resolved Stop bicarb gtt CHF not clinically in CHF exacerbation COPD: Bronchodilators FEN: off IVF replete potassium for hypokalemia sodium controlled diet PPx: no DVT PPx bleeding PO protonix PT consult transfer to telemetry
[2016-04-15] MEDS: ALBUTEROL SO4 2.5/IPRATROPIUM 0.5 INH SOL 3 ML VIAL.NEB. NEB SCH ×5 (00:02→23:10)
[2016-04-15 00:07] LABS: HEP B SURFACE AB Non Reactive (.)
[2016-04-15] MEDS: PIPERACILLIN/TAZOB 2.25 GM 50 ML IVPB SCH ×3 (04:00→17:21)
[2016-04-15] MEDS: METOPROLOL TARTRATE 25 MG TABLET (FP) PO SCH ×2 (06:29→14:15)
[2016-04-15 07:41] LABS: MCHC 31.9 g/dl (32.0-36.0); MEAN CELL VOLUME 97.2 fl (80-96); MEAN PLT VOLUME 8.8 fl (7.5-11.1); PLATELET COUNT 124 K/MM3 (134-434); RDW 16.4 % (11.6-15.6); WHITE BLOOD COUNT 11.5 K/mm3 (4.0-10.0)
[2016-04-15 08:23] LABS: ALBUMIN 2.2 g/dl (3.4-5.0)
[2016-04-15 08:35] LABS: BILIRUBIN,TOTAL 1.5 mg/dL (0.2-1.0); CALCIUM 7.7 mg/dL (8.5-10.1); CREATININE 1.6 mg/dL (0.55-1.02); TOT PROT 4.4 g/dl (6.4-8.2)
[2016-04-15] MEDS: PANTOPRAZOLE SODIUM 100 ML IVPB SCH (10:05)
[2016-04-15] MEDS: BUDESONIDE/FORMETEROL FUMARATE 80/4.5 mcg INHALER IH SCH ×2 (10:06→21:06)
--- NOTE | 2016-04-15 10:17 | PN ---
Progress Note (short form) - Note Progress Note: S: no cp, palps, dizziness, sob. feeling better today o: Vital Signs Period Temp Pulse Resp BP Sys/Ravi Pulse Ox Last 24 Hr 97.4 F-97.8 F 79-118 16-22 123-154/86-99 97-99 Constitutional: NAD, on Nasal cannula Eyes: No: Sclera Icterus Respiratory: Yes: bibasilar dullness, weak eff Gastrointestinal: Yes: Normal Bowel Sounds. No: Distention, Hepatomegaly, Palpable Mass, Tenderness Cardiovascular: Yes: Pulse Irregular JVD: no Heart Sounds: Yes: S1, S2. No: Gallop Murmur: 2/6 Systolic Murmur at LSB Extremities: No: Cold, Cyanosis Edema: trace le edema bl Integumentary: No: Jaundice diaphoresis Neurological: Yes: Alert, Oriented (x3) Psychiatric: No: Agitated Current Medications Generic Name Dose Route Start Last Admin Trade Name Freq PRN Reason Stop Dose Admin Albuterol Sulfate 1 amp 04/14/16 11:59 Ventolin 0.083% Nebulizer Soln - NEB Q4H PRN SHORT OF BREATH/WHEEZING Albuterol/Ipratropium 1 amp 04/14/16 12:00 04/15/16 06:35 Duoneb - NEB Not Given QIDR WHITNEY Budesonide/Formoterol Fumarate 2 puff 04/12/16 10:00 04/15/16 10:06 Symbicort 80/4.5mcg - IH 2 puff BID WHITNEY Administration Piperacillin Sod/Tazobactam Sod 50 mls @ 100 mls/hr 04/12/16 18:00 04/15/16 10: 05 Zosyn 2.25gm Ivpb (Pre-Docked) IVPB 100 mls/hr Q8H-IV WHITNEY Administration Sodium Chloride 1,000 mls @ 75 mls/hr 04/14/16 11:15 04/14/16 11:11 1/2 Normal Saline IV 75 mls/hr ASDIR WHITNEY Administration Pantoprazole Sodium 100 mls @ 200 mls/hr 04/15/16 10:00 04/15/16 10:05 Protonix 40mg Ivpb (Pre-Docked) IVPB 200 mls/hr DAILY WHITNEY Administration Metoprolol Succinate 50 mg 04/15/16 22:00 Toprol Xl - PO BID WHITNEY Metoprolol Tartrate 12.5 mg 04/13/16 14:00 04/15/16 06:29 Lopressor - PO 04/15/16 18:00 12.5 mg TID WHITNEY Administration CBC, BMP 04/15/16 05:35 04/15/16 05:35 EKG 04/11: afib with RVR, [address]/T wave abnromalities difficult to interpret due to baseline artifact. EKG 04/12: afib. LAD. RBBB. Anterior T wave abnormalities. tele: afib, rate 100s-120s head CT: No acute pathology echo 04/12/16: Nl lv/rv, mod GINA. 1+ MAC, mild-mod MR. Severe TR. RVSP 40-50. echo 02/2016: nl lv, rv mod-sev dil, mild-mod dec rv fcn, severe kim, mod mr, dilated ivc, sev tr, mild phtn Echo 2013: nl LV/RV; mod MR/TR; mod pHTN (40-50) MPI 2012: no ischemia, nl EF C 2008 (false + mpi): mild, diffuse dz a/p: 89 yo female with afib/flutter, ? MAT, severe copd on chronic steroids, pulm HTN, Mod MR, HTN, venous insufficiency, vertigo here with sepsis c/b GIB, shock liver, NAYAN with hyperkalemia. sepsis, resolving: - BP improved with ivfs and abx - source unclear presently, cont abx per ID rapid Afib/flutter (possible PSVT prior)/MAT -06/2014 with rapid AF/AFL/MAT requiring uptitration of metopr to 100 bid plus digoxin, then 12/18 incr to 150 bid in office for rapid HRs. On past admits, HR also improved with management of underlying pulmonary disease. Pt has deferred AVN ablation with PPM previously. At risk for amio given advanced copd/pulm HTN - Initially RVR in setting of sepsis. Initiated on diltiazem drip with improved HR control - 04/13: In the past cardizem has worsened LFT abnormalities. Currently diltiazem drip on hold, and rate reasonably controlled given clinical status. Will add PRN IV metoprolol. Start PO when possible (previously tolerated metoprolol, would start low dose short acting metoprolol tartrate TID and uptitrate). -04/14: bp improving so now on po bb. rate improved on tele, cont same bb and titrate up as bp allows -04/15: bp improved now so will change back to home dose toprol 50 bid which has controlled HR in past -on AC (CHADS 2)--eliquis 2.5 bid for age and borderline wt/renal fxn, plus excessive gingival bleeding on higher dose. Currently on hold due to possible GIB. Resume eliquis if ok from GI perspective. -prior med intolerances: Multaq--sig stomach upset, ? elevated LFTs (though atypical, slightly delayed timing) cardizem--hi LFTs; RV dysfunction - recent echo from February with RV dilation and decreased RV function. (In setting of acute pulmonary disease). - likely developing cor pulmonale--O2 and pulm tx per their recs - currently tolerating volume resuscitation. Con't to follow CVP and monitor need for diuresis, so far no gross vol overload. presumed cad: -doubt sx's due to rapid AF, at the time of CP HR's were in 90s. Troponins continued to trend down and repeat ekg without ischemic changes. suspect ongoing CP is related to PNA +/- incr'd muscle work of breathing - On last admission, peak troponin 0.2, no ischemic changes on ekg, CP symptoms resolved with treatment of pna. At the time, not a candidate for persantine nuclear stress test (severe copd) or dobutamine (uncontrolled atrial arrhythmias)-- so plan was to consider regadeneson nuclear as outpt if no active wheezing at that time. Troponin here again documented up to 0.2 with nl CK in setting of sepsis. Con't same management with consideration of outpatient ischemic eval as mentioned if prognosis improves. - No asa b/c of GIB. No statin b/c of acute liver injury. copd: -pulm following NAYAN on CKD: - improving with IVF. pulm HTN (mild, moderate): -? 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 elevated lfts: -likely due to septic shock, lfts improving with ivfs/abx Hyperlipidemia -holding statin as above due to elevated lfts Hypertension -stable, cont bb for now chronic venous ins'y: -was on lasix 20 qd at home, holding while needing resuscitation for sepsis/ hypotension.
--- NOTE | 2016-04-15 11:09 | EKG ---
Test Reason : Blood Pressure : / mmHG Vent. Rate : 140 BPM Atrial Rate : 147 BPM P-R Int : 000 ms QRS Dur : 126 ms QT Int : 346 ms P-R-T Axes : 000 -79 073 degrees QTc Int : 528 ms ATRIAL FIBRILLATION WITH RAPID VENTRICULAR RESPONSE LEFT AXIS DEVIATION RIGHT BUNDLE BRANCH BLOCK ABNORMAL ECG WHEN COMPARED WITH ECG OF 11-APR-2016 15:34, RIGHT BUNDLE BRANCH BLOCK HAS REPLACED INCOMPLETE RIGHT BUNDLE BRANCH BLOCK Confirmed by ABDELRAHMAN MARTIN, ALEXI ([id number]) on 04/15/2016 11:08:57 AM Referred By: Confirmed By:ALEXI QUICK MD
--- NOTE | 2016-04-15 12:53 | PN ---
Progress Note, Physician Chief Complaint: Ms Granado says she is feeling well today. Denies cp, sob, n/v. - Current Medication List Current Medications: Active Medications Albuterol Sulfate (Ventolin 0.083% Nebulizer Soln -) 1 amp NEB Q4H PRN PRN Reason: SHORT OF BREATH/WHEEZING Albuterol/Ipratropium (Duoneb -) 1 amp NEB QIDR COUNTS INCLUDE 234 BEDS AT THE [facility] Last Admin: 04/15/16 11:53 Dose: 1 amp Budesonide/Formoterol Fumarate (Symbicort 80/4.5mcg -) 2 puff IH BID COUNTS INCLUDE 234 BEDS AT THE [facility] Last Admin: 04/15/16 10:06 Dose: 2 puff Piperacillin Sod/Tazobactam Sod (Zosyn 2.25gm Ivpb (Pre-Docked)) 50 mls @ 100 mls/hr IVPB Q8H-IV COUNTS INCLUDE 234 BEDS AT THE [facility] Last Admin: 04/15/16 10:05 Dose: 100 mls/hr Sodium Chloride (1/2 Normal Saline) 1,000 mls @ 75 mls/hr IV ASDIR COUNTS INCLUDE 234 BEDS AT THE [facility] Last Admin: 04/14/16 11:11 Dose: 75 mls/hr Pantoprazole Sodium (Protonix 40mg Ivpb (Pre-Docked)) 100 mls @ 200 mls/hr IVPB DAILY COUNTS INCLUDE 234 BEDS AT THE [facility] Last Admin: 04/15/16 10:05 Dose: 200 mls/hr Metoprolol Succinate (Toprol Xl -) 50 mg PO BID COUNTS INCLUDE 234 BEDS AT THE [facility] Metoprolol Tartrate (Lopressor -) 12.5 mg PO TID COUNTS INCLUDE 234 BEDS AT THE [facility] Stop: 04/15/16 18:00 Last Admin: 04/15/16 06:29 Dose: 12.5 mg - Objective Vital Signs: Vital Signs Temperature 97.8 F 04/15/16 10:00 Pulse Rate 106 H 04/15/16 10:00 Respiratory Rate 18 04/15/16 10:00 Blood Pressure 131/89 04/15/16 10:00 O2 Sat by Pulse Oximetry (%) 97 04/14/16 21:00 Constitutional: Yes: Well Nourished, No Distress, Calm Cardiovascular: Yes: Pulse Irregular. No: Gallop, Murmur, Rub Respiratory: Yes: Regular, CTA Bilaterally. No: Rales, Rhonchi, Wheezes Gastrointestinal: Yes: Normal Bowel Sounds, Soft. No: Distention, Tenderness Extremities: Yes: WNL Edema: No Labs: CBC, BMP 04/15/16 05:35 04/15/16 05:35 INR, PTT INR 2.23 (0.82-1.09) H D 04/14/16 05:15 Problem List - Problems (1) Septic shock Code(s): A41.9 - SEPSIS, UNSPECIFIED ORGANISM R65.21 - SEVERE SEPSIS WITH SEPTIC SHOCK (2) Atrial fibrillation with rapid ventricular response Code(s): I48.91 - UNSPECIFIED ATRIAL FIBRILLATION (3) NAYAN (acute kidney injury) Code(s): N17.9 - ACUTE KIDNEY FAILURE, UNSPECIFIED (4) Shock liver Code(s): K75.9 - INFLAMMATORY LIVER DISEASE, UNSPECIFIED (5) Hyperkalemia Code(s): E87.5 - HYPERKALEMIA (6) Hypoglycemia Code(s): E16.2 - HYPOGLYCEMIA, UNSPECIFIED (7) Acidosis Code(s): E87.2 - ACIDOSIS (8) CHF (congestive heart failure) Code(s): I50.9 - HEART FAILURE, UNSPECIFIED (9) COPD (chronic obstructive pulmonary disease) Code(s): J44.9 - CHRONIC OBSTRUCTIVE PULMONARY DISEASE, UNSPECIFIED (10) Elevated troponin Code(s): R79.89 - OTHER SPECIFIED ABNORMAL FINDINGS OF BLOOD CHEMISTRY (11) GI bleed Code(s): K92.2 - GASTROINTESTINAL HEMORRHAGE, UNSPECIFIED Assessment/Plan (1) Septic shock Assessment/Plan: -resolved -unclear source -continue empiric antibiotics per ID Code(s): A41.9 - SEPSIS, UNSPECIFIED ORGANISM R65.21 - SEVERE SEPSIS WITH SEPTIC SHOCK (2) Atrial fibrillation with rapid ventricular response Assessment/Plan: -appreciate cardiology assistance -cardiology changed to outpatient toprol -holding anticoagulation secondary to auto anticoagulated and with GI bleed on admission -follow INR Code(s): I48.91 - UNSPECIFIED ATRIAL FIBRILLATION (3) NAYAN (acute kidney injury) Assessment/Plan: -much improved -at baseline -monitor -nephrology continues to follow Code(s): N17.9 - ACUTE KIDNEY FAILURE, UNSPECIFIED (4) Shock liver Assessment/Plan: -continues to improve with supportive care -GI following Code(s): K75.9 - INFLAMMATORY LIVER DISEASE, UNSPECIFIED (5) Hyperkalemia Assessment/Plan: -resolved Code(s): E87.5 - HYPERKALEMIA (6) Hypoglycemia Assessment/Plan: -resolved Code(s): E16.2 - HYPOGLYCEMIA, UNSPECIFIED (7) Acidosis Assessment/Plan: -resolved Code(s): E87.2 - ACIDOSIS (8) CHF (congestive heart failure) Assessment/Plan: -not in exacerbation and dehydrated -hold all diuretics -continue hydration -restart diuretics when safe Code(s): I50.9 - HEART FAILURE, UNSPECIFIED (9) COPD (chronic obstructive pulmonary disease) Assessment/Plan: -continue inhalers Code(s): J44.9 - CHRONIC OBSTRUCTIVE PULMONARY DISEASE, UNSPECIFIED (10) Elevated troponin Assessment/Plan: -stress induced -ECHO reviewed -cardiology following Code(s): R79.89 - OTHER SPECIFIED ABNORMAL FINDINGS OF BLOOD CHEMISTRY (11) GI bleed Assessment/Plan: -continue protonix gtt per GI, defer decrease to GI -INR improving -on regular diet Code(s): K92.2 - GASTROINTESTINAL HEMORRHAGE, UNSPECIFIED
--- NOTE | 2016-04-15 12:57 | PN ---
Progress Note, Physician History of Present Illness: Pt seen and examined at bedside. She is more awake and alert today. She denies shortness of breath. - Current Medication List Current Medications: Active Medications Albuterol Sulfate (Ventolin 0.083% Nebulizer Soln -) 1 amp NEB Q4H PRN PRN Reason: SHORT OF BREATH/WHEEZING Albuterol/Ipratropium (Duoneb -) 1 amp NEB QIDR [facility] Last Admin: 04/15/16 11:53 Dose: 1 amp Budesonide/Formoterol Fumarate (Symbicort 80/4.5mcg -) 2 puff IH BID [facility] Last Admin: 04/15/16 10:06 Dose: 2 puff Piperacillin Sod/Tazobactam Sod (Zosyn 2.25gm Ivpb (Pre-Docked)) 50 mls @ 100 mls/hr IVPB Q8H-IV [facility] Last Admin: 04/15/16 10:05 Dose: 100 mls/hr Sodium Chloride (1/2 Normal Saline) 1,000 mls @ 75 mls/hr IV ASDIR [facility] Last Admin: 04/14/16 11:11 Dose: 75 mls/hr Pantoprazole Sodium (Protonix 40mg Ivpb (Pre-Docked)) 100 mls @ 200 mls/hr IVPB DAILY [facility] Last Admin: 04/15/16 10:05 Dose: 200 mls/hr Metoprolol Succinate (Toprol Xl -) 50 mg PO BID [facility] Metoprolol Tartrate (Lopressor -) 12.5 mg PO TID [facility] Stop: 04/15/16 18:00 Last Admin: 04/15/16 06:29 Dose: 12.5 mg - Objective Vital Signs: Vital Signs Temperature 97.8 F 04/15/16 10:00 Pulse Rate 106 H 04/15/16 10:00 Respiratory Rate 18 04/15/16 10:00 Blood Pressure 131/89 04/15/16 10:00 O2 Sat by Pulse Oximetry (%) 97 04/14/16 21:00 Constitutional: Yes: Calm Eyes: Yes: Conjunctiva Clear HENT: Yes: Atraumatic Cardiovascular: Yes: S1, S2 Respiratory: Yes: On Nasal O2 Gastrointestinal: Yes: Soft Genitourinary: Yes: Lilly Present Musculoskeletal: Yes: Muscle Weakness Edema: Yes Edema: LLE: 2+, RLE: 2+ Neurological: Yes: Oriented Psychiatric: Yes: Oriented Labs: CBC, BMP 04/15/16 05:35 04/15/16 05:35 INR, PTT INR 2.23 (0.82-1.09) H D 04/14/16 05:15 Assessment/Plan Current Medications Generic Name Dose Route Start Last Admin Trade Name Freq PRN Reason Stop Dose Admin Albuterol Sulfate 1 amp 04/14/16 11:59 Ventolin 0.083% Nebulizer Soln - NEB Q4H PRN SHORT OF BREATH/WHEEZING Albuterol/Ipratropium 1 amp 04/14/16 12:00 04/15/16 11:53 Duoneb - NEB 1 amp QIDR [facility] Administration Budesonide/Formoterol Fumarate 2 puff 04/12/16 10:00 04/15/16 10:06 Symbicort 80/4.5mcg - IH 2 puff BID [facility] Administration Piperacillin Sod/Tazobactam Sod 50 mls @ 100 mls/hr 04/12/16 18:00 04/15/16 10: 05 Zosyn 2.25gm Ivpb (Pre-Docked) IVPB 100 mls/hr Q8H-IV [facility] Administration Sodium Chloride 1,000 mls @ 75 mls/hr 04/14/16 11:15 04/14/16 11:11 1/2 Normal Saline IV 75 mls/hr ASDIR [facility] Administration Pantoprazole Sodium 100 mls @ 200 mls/hr 04/15/16 10:00 04/15/16 10:05 Protonix 40mg Ivpb (Pre-Docked) IVPB 200 mls/hr DAILY [facility] Administration Metoprolol Succinate 50 mg 04/15/16 22:00 Toprol Xl - PO BID [facility] Metoprolol Tartrate 12.5 mg 04/13/16 14:00 04/15/16 06:29 Lopressor - PO 04/15/16 18:00 12.5 mg TID [facility] Administration Impression 1. NAYAN 2. hyperkalemia 3. sepsis with hypothremia 4. a-fib 5. GI bleed 6. metabolic acidosis - check abg and lactic acid level 7. COPD 8. hyperlipidemia 9. hypernatremia Plan - mental status is improved - will change fluids to d5w with potassium - encourage PO intake - repeat labs in am - cont current meds - PO intake remains poor - repeat labs in am - bp is improving - monitor hg Dr Rogers -
--- NOTE | 2016-04-15 13:20 | PN ---
GI Progress Note Subjective: Patient awake Denies abdominal pain Somewhat somnolent - Objective Vital Signs: Vital Signs Temperature 97.8 F 04/15/16 10:00 Pulse Rate 106 H 04/15/16 10:00 Respiratory Rate 18 04/15/16 10:00 Blood Pressure 131/89 04/15/16 10:00 O2 Sat by Pulse Oximetry (%) 98 04/15/16 09:00 Constitutional: Calm Eyes: Yes: Sclera Icterus Cardiovascular: Yes: Tachycardia, Pulse Irregular Respiratory: Yes: Diminished (at bases, poor inspiratory effort) Gastrointestinal Inspection: No: Distention ...Auscultate: Yes: Normoactive Bowel Sounds ...Palpate: No: Tenderness Edema: Yes (trace b/l LE) Neurological: Yes: Alert, Oriented (x person) Labs: CBC, BMP 04/15/16 05:35 04/15/16 05:35 INR, PTT INR 2.23 (0.82-1.09) H D 04/14/16 05:15 Hepatic Panel Total Bilirubin 1.5 mg/dL (0.2-1.0) H D 04/15/16 05:35 Direct Bilirubin 1.4 mg/dL (0.0-0.2) H D 04/14/16 05:15 AST 333 U/L (15-37) H D 04/15/16 05:35 ALT 559 U/L (12-78) H D 04/15/16 05:35 Alkaline Phosphatase 183 U/L (45-117) H 04/15/16 05:35 Albumin 2.2 g/dl (3.4-5.0) L 04/15/16 05:35 Laboratory Tests 04/13/16 05:00 Hepatitis A IgM Ab Negative Hepatitis A Ab Total Positive H Hep Bs Antigen Negative Hep Bs Antibody Non reactive Hep B Core Total Ab Negative Hepatitis C Antibody 0.1 - ....Imaging Ultrasound: Other (Doppler: No evidence of PVT) Problem List - Problems (1) Liver failure Assessment/Plan: Mixed hepatocellular/cholestatic pattern of injury suspected to be secondary to ischemic hepatopathy. Improving liver chemistries / coagulopathy Monitor coags Monitor LFTs Supportive measures Clear liquids Aspiration precautions Non contrast mri/mrcp of the abdomen could be obtained to further evaluate hepatobiliary anatomy if Ms. Granado can cooperate Code(s): K72.90 - HEPATIC FAILURE, UNSPECIFIED WITHOUT COMA Qualifiers: Liver failure chronicity: acute
--- NOTE | 2016-04-15 13:57 | PN ---
Progress Note (short form) - Note Progress Note: PULMONARY Denies shortness of breath or chest pain. Mental status improved. Last Vital Signs Temp Pulse Resp BP Pulse Ox 97.8 F 106 H 18 131/89 98 04/15/16 10:00 04/15/16 10:00 04/15/16 10:00 04/15/16 10:00 04/15/16 09:00 Gen: NAD at rest Heart: RRR Lung: decreased breath sounds at the bases Abd: soft, nontender Ext: no edema CBC, BMP 04/15/16 05:35 04/15/16 05:35 Active Medications Albuterol Sulfate (Ventolin 0.083% Nebulizer Soln -) 1 amp NEB Q4H PRN PRN Reason: SHORT OF BREATH/WHEEZING Albuterol/Ipratropium (Duoneb -) 1 amp NEB QIDR [facility] Last Admin: 04/15/16 11:53 Dose: 1 amp Budesonide/Formoterol Fumarate (Symbicort 80/4.5mcg -) 2 puff IH BID [facility] Last Admin: 04/15/16 10:06 Dose: 2 puff Piperacillin Sod/Tazobactam Sod (Zosyn 2.25gm Ivpb (Pre-Docked)) 50 mls @ 100 mls/hr IVPB Q8H-IV [facility] Last Admin: 04/15/16 10:05 Dose: 100 mls/hr Pantoprazole Sodium (Protonix 40mg Ivpb (Pre-Docked)) 100 mls @ 200 mls/hr IVPB DAILY [facility] Last Admin: 04/15/16 10:05 Dose: 200 mls/hr Potassium Chloride 10 meq/ (Dextrose) 1,005 mls @ 55 mls/hr IVPB Q18H [facility] Metoprolol Succinate (Toprol Xl -) 50 mg PO BID [facility] Metoprolol Tartrate (Lopressor -) 12.5 mg PO TID [facility] Stop: 04/15/16 18:00 Last Admin: 04/15/16 06:29 Dose: 12.5 mg A/P Septic Shock of unclear etiology r/o Pneumonia Atrial Fibrillation with RVR Acute on Chronic Renal Failure Lactic Acidosis Elevated LFTs likely ischemic injury +Troponins r/o GI Bleed Hypernatremia COPD - continue empiric antibiotics - IVF, increase free water - monitor urine output, creatinine - PO as tolerated - aspiration precautions - inhaled bronchodilators - protonix - monitor H/H - DVT/GI prophylaxis
[2016-04-15] MEDS ORDERED: POTASSIUM CHLORIDE 10 MEQ in DEXTROSE 5%-WATER - 1,000 ML IVPB SCH (14:00)
--- NOTE | 2016-04-15 15:48 | PN ---
Physical Exam: SUBJECTIVE: Patient seen and examined at bed side this morning. Says feels better. No complaints. Denies fever, headache, chest pain, palpitations, cough, sob, abdominal pain, nausea or vomiting. OBJECTIVE: Vital Signs Period Temp Pulse Resp BP Sys/Ravi Pulse Ox Last 24 Hr 97.4 F-97.8 F 96-118 18-22 123-154/87-99 97-98 GENERAL: The patient is awake, alert, and oriented x 3, in no acute distress. HEAD: Normal with no signs of trauma. EYES:EOM intact, no pallor or icterus. EARS, NOSE, THROAT: Ears normal. NECK: Supple, no JVD or mass LUNGS: Decreased breath sound on the right lung base, fine crackles at the bases , no wheeze. HEART: Regular rate and rhythm, normal S1 and S2 without murmur. ABDOMEN: Soft, nontender, not distended, normoactive bowel sounds, no guarding, no rebound, no masses. No hepatomegaly or splenomegaly. MUSCULOSKELETAL: Normal range of motion at all joints. No bony deformities or tenderness. No CVA tenderness. UPPER EXTREMITIES: 2+ pulses, warm, well-perfused. No cyanosis. No clubbing. No peripheral edema. LOWER EXTREMITIES: 2+ pulses, warm, well-perfused. No calf tenderness. B/L pitting edema NEUROLOGICAL: Cranial nerves II-XII intact. Normal speech. Gait not observed. PSYCHIATRIC: Cooperative. Good eye contact. Appropriate mood and affect. SKIN: Warm, dry scaly skin over lower extremities, normal turgor, no rashes or lesions noted. Laboratory Results - last 24 hr 04/13/16 04/15/16 04/15/16 05:00 05:35 05:35 WBC 11.5 H RBC 3.52 L Hgb 10.9 Hct 34.2 MCV 97.2 H MCHC 31.9 L RDW 16.4 H Plt Count 124 L D MPV 8.8 Sodium 147 H Potassium 3.4 L Chloride 108 H Carbon Dioxide 31 Anion Gap 8 BUN 45 H D Creatinine 1.6 H Creat Clearance w eGFR 30.42 Random Glucose 129 H Calcium 7.7 L Total Bilirubin 1.5 H D AST 333 H D ALT 559 H D Alkaline Phosphatase 183 H Total Protein 4.4 L Albumin 2.2 L Hepatitis A IgM Ab Negative Hepatitis A Ab Total Positive H Hep Bs Antigen Negative Hep Bs Antibody Non reactive Hep B Core Total Ab Negative Active Medications Generic Name Dose Route Start Last Admin Trade Name Freq PRN Reason Stop Dose Admin Albuterol Sulfate 1 amp 04/14/16 11:59 Ventolin 0.083% Nebulizer Soln - NEB Q4H PRN SHORT OF BREATH/WHEEZING Albuterol/Ipratropium 1 amp 04/14/16 12:00 04/15/16 11:53 Duoneb - NEB 1 amp QIDR [facility] Administration Budesonide/Formoterol Fumarate 2 puff 04/12/16 10:00 04/15/16 10:06 Symbicort 80/4.5mcg - IH 2 puff BID [facility] Administration Piperacillin Sod/Tazobactam Sod 50 mls @ 100 mls/hr 04/12/16 18:00 04/15/16 10: 05 Zosyn 2.25gm Ivpb (Pre-Docked) IVPB 100 mls/hr Q8H-IV [facility] Administration Pantoprazole Sodium 100 mls @ 200 mls/hr 04/15/16 10:00 04/15/16 10:05 Protonix 40mg Ivpb (Pre-Docked) IVPB 200 mls/hr DAILY [facility] Administration Potassium Chloride 10 meq/ 1,005 mls @ 55 mls/hr 04/15/16 14:00 Dextrose IVPB Q18H [facility] Metoprolol Succinate 50 mg 04/15/16 22:00 Toprol Xl - PO BID [facility] Metoprolol Tartrate 12.5 mg 04/13/16 14:00 04/15/16 14:15 Lopressor - PO 04/15/16 18:00 12.5 mg TID [facility] Administration Underlying problems: 89 year old female with significant PMH of HTN, HLD, A-fib on elliquis, COPD was brought in to the ED accompanied by her daughter after noticing change in her mental status and lethargy. ASSESSMENT 1. Sepsis unknown source. 2. Multiorgan failure 3. Acute kidney injury with Hyperkalemia 4. Hematemesis 5. Hypoglycemia 6. CHF 7. COPD 8. Increased Troponins 9. GI bleed 10. Hypokalemia Plan:- # Sepsis unknown source Differential diagnosis:Aspiration pneumonia vs effusion Less likely meningitis, afebrile since more than 24 hours, no meningeal signs. Less likely cholecystitis since USG abdomen is negative Received one dose of Ceftriaxone and Vancomycin in the ED Stefan 04/12/2016 to be continued Ceftriaxone stopped LP not done Lactic acid trending down Urine/ Blood culture No growth # Multiorgan failure- Shock liver, Acute Kidney Injury- Improving Transaminitis most likely due to shock liver now trending down. Avoid hepatotoxic drugs Avoid Nephrotoxic drugs Rest as per primary. Illness, Investigation and Plan of care explained to the patients daughter on admission. She verbalized understanding. Case seen and discussed with Dr. Mcdonough. Thank you for the consultative opportunity. Visit type - Emergency Visit Emergency Visit: Yes ED Registration Date: 04/11/16 Care time: The patient presented to the Emergency Department on the above date and was hospitalized for further evaluation of their emergent condition. - New Patient This patient is new to me today: No - Critical Care Critical Care patient: No
--- NOTE | 2016-04-15 19:39 | PN ---
Teaching Attending Note Name of Resident: Pat Jin ATTENDING PHYSICIAN STATEMENT I saw and evaluated the patient. I reviewed the resident's note and discussed the case with the resident. I agree with the resident's findings and plan as documented. SUBJECTIVE: OBJECTIVE: ASSESSMENT AND PLAN: Sepsis improved Toxic metabolic encephalopathy- improved Leukocytosis improved Elevated LFTs improving Continue zosyn additional 48h
[2016-04-15] MEDS: SODIUM CHLORIDE 0.45% 1,000 ML IV SCH (19:52)
[2016-04-15] MEDS ORDERED: PT OWN MED DRAWER 7, Y5N ONE (20:58)
[2016-04-15] MEDS: METOPROLOL SUCCINATE 50 MG TAB.SR.24H (FP) PO SCH (21:06)
[2016-04-16] MEDS: PIPERACILLIN/TAZOB 2.25 GM 50 ML IVPB SCH ×3 (03:00→17:00)
[2016-04-16] MEDS: ALBUTEROL SO4 2.5/IPRATROPIUM 0.5 INH SOL 3 ML VIAL.NEB. NEB SCH ×4 (06:24→23:05)
[2016-04-16 07:01] LABS: BASOPHIL 0.4 % (0-2.0); EOSINOPHIL 0.6 % (0-4.5); MCH 31.1 pg (25.7-33.7); MEAN CELL VOLUME 97.2 fl (80-96); NEUTROPHILS 86.2 % (42.8-82.8); PLATELET COUNT 108 K/MM3 (134-434); RDW 16.3 % (11.6-15.6); WHITE BLOOD COUNT 9.9 K/mm3 (4.0-10.0)
[2016-04-16 07:32] LABS: INR 1.37 (0.82-1.09); PROTHROMBIN TIME (PATIENT) 15.2 SEC (9.98-11.88)
[2016-04-16 07:48] LABS: ALBUMIN 2.3 g/dl (3.4-5.0); CALCIUM 7.8 mg/dL (8.5-10.1)
[2016-04-16 07:51] LABS: BILIRUBIN,DIRECT 0.9 mg/dL (0.0-0.2); BILIRUBIN,TOTAL 1.3 mg/dL (0.2-1.0); CREATININE 1.4 mg/dL (0.55-1.02); PHOSPHOROUS 2.4 mg/dL (2.5-4.9); TOT PROT 4.5 g/dl (6.4-8.2)
[2016-04-16] MEDS: METOPROLOL SUCCINATE 50 MG TAB.SR.24H (FP) PO SCH (09:19)
[2016-04-16] MEDS: PANTOPRAZOLE SODIUM 100 ML IVPB SCH (09:19)
[2016-04-16] MEDS: BUDESONIDE/FORMETEROL FUMARATE 80/4.5 mcg INHALER IH SCH ×2 (09:19→22:07)
--- NOTE | 2016-04-16 11:37 | PN ---
Progress Note (short form) - Note Progress Note: S: no cp, palps, dizziness, sob. feeling better again today o: Vital Signs Period Temp Pulse Resp BP Sys/Ravi Pulse Ox Last 24 Hr 96.4 F-98.3 F 79-112 18-20 120-143/58-92 98-99 Constitutional: NAD, on Nasal cannula Eyes: No: Sclera Icterus Respiratory: Yes: bibasilar dullness, weak eff Gastrointestinal: Yes: Normal Bowel Sounds. No: Distention, Hepatomegaly, Palpable Mass, Tenderness Cardiovascular: Yes: Pulse Irregular JVD: no Heart Sounds: Yes: S1, S2. No: Gallop Murmur: 2/6 Systolic Murmur at LSB Extremities: No: Cold, Cyanosis Edema: trace le edema bl Integumentary: No: Jaundice diaphoresis Neurological: Yes: Alert, Oriented (x3) Psychiatric: No: Agitated Current Medications Generic Name Dose Route Start Last Admin Trade Name Freq PRN Reason Stop Dose Admin Albuterol Sulfate 1 amp 04/14/16 11:59 Ventolin 0.083% Nebulizer Soln - NEB Q4H PRN SHORT OF BREATH/WHEEZING Albuterol/Ipratropium 1 amp 04/14/16 12:00 04/16/16 06:24 Duoneb - NEB 1 amp QIDR [facility] Administration Budesonide/Formoterol Fumarate 2 puff 04/12/16 10:00 04/16/16 09:19 Symbicort 80/4.5mcg - IH 2 puff BID [facility] Administration Piperacillin Sod/Tazobactam Sod 50 mls @ 100 mls/hr 04/12/16 18:00 04/16/16 09: 19 Zosyn 2.25gm Ivpb (Pre-Docked) IVPB 100 mls/hr Q8H-IV [facility] Administration Pantoprazole Sodium 100 mls @ 200 mls/hr 04/15/16 10:00 04/16/16 09:19 Protonix 40mg Ivpb (Pre-Docked) IVPB 200 mls/hr DAILY [facility] Administration Potassium Chloride 10 meq/ 1,005 mls @ 55 mls/hr 04/15/16 14:00 04/15/16 15:00 Dextrose IVPB 55 mls/hr Q18H [facility] Administration Metoprolol Succinate 100 mg 04/16/16 11:34 Toprol Xl - PO BID [facility] CBC, BMP 04/16/16 06:00 04/16/16 06:00 EKG 04/11: afib with RVR, [address]/T wave abnromalities difficult to interpret due to baseline artifact. EKG 04/12: afib. LAD. RBBB. Anterior T wave abnormalities. tele: afib, rate 100s-120s head CT: No acute pathology echo 04/12/16: Nl lv/rv, mod GINA. 1+ MAC, mild-mod MR. Severe TR. RVSP 40-50. echo 02/2016: nl lv, rv mod-sev dil, mild-mod dec rv fcn, severe kim, mod mr, dilated ivc, sev tr, mild phtn Echo 2013: nl LV/RV; mod MR/TR; mod pHTN (40-50) MPI 2012: no ischemia, nl EF LHC 2008 (false + mpi): mild, diffuse dz a/p: 89 yo female with afib/flutter, ? MAT, severe copd on chronic steroids, pulm HTN, Mod MR, HTN, venous insufficiency, vertigo here with sepsis c/b GIB, shock liver, NAYAN with hyperkalemia. sepsis, resolving: - BP improved with ivfs and abx - source unclear presently, cont abx per ID rapid Afib/flutter (possible PSVT prior)/MAT -06/2014 with rapid AF/AFL/MAT requiring uptitration of metopr to 100 bid plus digoxin, then 12/18 incr to 150 bid in office for rapid HRs. On past admits, HR also improved with management of underlying pulmonary disease. Pt has deferred AVN ablation with PPM previously. At risk for amio given advanced copd/pulm HTN - Initially RVR in setting of sepsis. Initiated on diltiazem drip with improved HR control - 04/13: In the past cardizem has worsened LFT abnormalities. Currently diltiazem drip on hold, and rate reasonably controlled given clinical status. Will add PRN IV metoprolol. Start PO when possible (previously tolerated metoprolol, would start low dose short acting metoprolol tartrate TID and uptitrate). -04/14: bp improving so now on po bb. rate improved on tele, cont same bb and titrate up as bp allows -04/15: bp improved now so will change back to home toprol which has controlled HR in past -04/16: still with rvr at times, will increase toprol to 100 bid -on AC (CHADS 2)--eliquis 2.5 bid for age and borderline wt/renal fxn, plus excessive gingival bleeding on higher dose. Currently has been on hold due to possible GIB. Hgb stable and GI notes not mentioning further testing planned so would resume eliquis if no procedures planned. -prior med intolerances: Multaq--sig stomach upset, ? elevated LFTs (though atypical, slightly delayed timing) cardizem--hi LFTs; RV dysfunction - recent echo from February with RV dilation and decreased RV function. (In setting of acute pulmonary disease). - likely developing cor pulmonale--O2 and pulm tx per their recs - currently tolerating volume resuscitation. Con't to follow CVP and monitor need for diuresis, so far no gross vol overload. presumed cad: -doubt sx's due to rapid AF, at the time of CP HR's were in 90s. Troponins continued to trend down and repeat ekg without ischemic changes. suspect ongoing CP is related to PNA +/- incr'd muscle work of breathing - On last admission, peak troponin 0.2, no ischemic changes on ekg, CP symptoms resolved with treatment of pna. At the time, not a candidate for persantine nuclear stress test (severe copd) or dobutamine (uncontrolled atrial arrhythmias)-- so plan was to consider regadeneson nuclear as outpt if no active wheezing at that time. Troponin here again documented up to 0.2 with nl CK in setting of sepsis. Con't same management with consideration of outpatient ischemic eval as mentioned if prognosis improves. - No asa b/c of GIB. No statin b/c of acute liver injury. copd: -pulm following NAYAN on CKD: - improving with IVF. pulm HTN (mild, moderate): -? 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 elevated lfts: -likely due to septic shock, lfts improving with ivfs/abx Hyperlipidemia -holding statin as above due to elevated lfts Hypertension -stable, cont bb for now chronic venous ins'y: -was on lasix 20 qd at home, holding while needing resuscitation for sepsis/ hypotension.
[2016-04-16] MEDS ORDERED: METOPROLOL SUCCINATE 50 MG TAB.SR.24H (FP) PO ONE (12:15)
[2016-04-16] MEDS: guaiFENesin 600 MG TABLET.ER (FP) PO SCH ×2 (12:16→22:07)
--- NOTE | 2016-04-16 12:26 | PN ---
Progress Note, Physician Chief Complaint: Ms Granado says she feels like she did yesterday. No cp, sob, n/v. Still feel tired. Todays complains of coughing and difficulty swallowing. - Current Medication List Current Medications: Active Medications Albuterol Sulfate (Ventolin 0.083% Nebulizer Soln -) 1 amp NEB Q4H PRN PRN Reason: SHORT OF BREATH/WHEEZING Albuterol/Ipratropium (Duoneb -) 1 amp NEB QIDR [facility] Last Admin: 04/16/16 06:24 Dose: 1 amp Budesonide/Formoterol Fumarate (Symbicort 80/4.5mcg -) 2 puff IH BID [facility] Last Admin: 04/16/16 09:19 Dose: 2 puff Guaifenesin (Mucinex -) 1,200 mg PO BID [facility] Last Admin: 04/16/16 12:16 Dose: 1,200 mg Piperacillin Sod/Tazobactam Sod (Zosyn 2.25gm Ivpb (Pre-Docked)) 50 mls @ 100 mls/hr IVPB Q8H-IV [facility] Last Admin: 04/16/16 09:19 Dose: 100 mls/hr Potassium Chloride 10 meq/ (Dextrose) 1,005 mls @ 55 mls/hr IVPB Q18H [facility] Last Admin: 04/15/16 15:00 Dose: 55 mls/hr Metoprolol Succinate (Toprol Xl -) 100 mg PO BID [facility] Nystatin (Nystatin Oral Suspension -) 500,000 units PO Q6HPO [facility] - Objective Vital Signs: Vital Signs Temperature 98.3 F 04/16/16 10:00 Pulse Rate 104 H 04/16/16 10:45 Respiratory Rate 20 04/16/16 10:00 Blood Pressure 134/82 04/16/16 10:00 O2 Sat by Pulse Oximetry (%) 98 04/16/16 10:45 Constitutional: Yes: Well Nourished, No Distress, Calm HENT: Yes: Thrush Cardiovascular: Yes: Pulse Irregular. No: Tachycardia, Gallop, Murmur, Rub Respiratory: Yes: Regular, CTA Bilaterally. No: Rales, Rhonchi, Wheezes Gastrointestinal: Yes: Normal Bowel Sounds, Soft. No: Distention, Tenderness Extremities: Yes: WNL Edema: No Labs: CBC, BMP 04/16/16 06:00 04/16/16 06:00 INR, PTT INR 1.37 (0.82-1.09) H D 04/16/16 06:00 Problem List - Problems (1) Septic shock Code(s): A41.9 - SEPSIS, UNSPECIFIED ORGANISM R65.21 - SEVERE SEPSIS WITH SEPTIC SHOCK (2) Atrial fibrillation with rapid ventricular response Code(s): I48.91 - UNSPECIFIED ATRIAL FIBRILLATION (3) NAAYN (acute kidney injury) Code(s): N17.9 - ACUTE KIDNEY FAILURE, UNSPECIFIED (4) Shock liver Code(s): K75.9 - INFLAMMATORY LIVER DISEASE, UNSPECIFIED (5) Hyperkalemia Code(s): E87.5 - HYPERKALEMIA (6) Hypoglycemia Code(s): E16.2 - HYPOGLYCEMIA, UNSPECIFIED (7) Acidosis Code(s): E87.2 - ACIDOSIS (8) CHF (congestive heart failure) Code(s): I50.9 - HEART FAILURE, UNSPECIFIED (9) COPD (chronic obstructive pulmonary disease) Code(s): J44.9 - CHRONIC OBSTRUCTIVE PULMONARY DISEASE, UNSPECIFIED (10) Elevated troponin Code(s): R79.89 - OTHER SPECIFIED ABNORMAL FINDINGS OF BLOOD CHEMISTRY (11) GI bleed Code(s): K92.2 - GASTROINTESTINAL HEMORRHAGE, UNSPECIFIED Assessment/Plan (1) Septic shock Assessment/Plan: -resolved -unclear source -continue empiric antibiotics per ID Code(s): A41.9 - SEPSIS, UNSPECIFIED ORGANISM R65.21 - SEVERE SEPSIS WITH SEPTIC SHOCK (2) Atrial fibrillation with rapid ventricular response Assessment/Plan: -appreciate cardiology assistance -continue toprol -holding anticoagulation secondary to auto anticoagulated and with GI bleed on admission, restart per GI recommendations -follow INR Code(s): I48.91 - UNSPECIFIED ATRIAL FIBRILLATION (3) NAYAN (acute kidney injury) Assessment/Plan: -resolved -continue IVF per nephrology Code(s): N17.9 - ACUTE KIDNEY FAILURE, UNSPECIFIED (4) Shock liver Assessment/Plan: -continues to improve with supportive care -GI following Code(s): K75.9 - INFLAMMATORY LIVER DISEASE, UNSPECIFIED (5) Hyperkalemia Assessment/Plan: -resolved Code(s): E87.5 - HYPERKALEMIA (6) Hypoglycemia Assessment/Plan: -resolved Code(s): E16.2 - HYPOGLYCEMIA, UNSPECIFIED (7) Acidosis Assessment/Plan: -resolved Code(s): E87.2 - ACIDOSIS (8) CHF (congestive heart failure) Assessment/Plan: -not in exacerbation and dehydrated -hold all diuretics -continue hydration -restart diuretics when safe Code(s): I50.9 - HEART FAILURE, UNSPECIFIED (9) COPD (chronic obstructive pulmonary disease) Assessment/Plan: -continue inhalers Code(s): J44.9 - CHRONIC OBSTRUCTIVE PULMONARY DISEASE, UNSPECIFIED (10) Elevated troponin Assessment/Plan: -stress induced -ECHO reviewed -cardiology following Code(s): R79.89 - OTHER SPECIFIED ABNORMAL FINDINGS OF BLOOD CHEMISTRY (11) GI bleed Assessment/Plan: -change to oral protonix -continue diet Code(s): K92.2 - GASTROINTESTINAL HEMORRHAGE, UNSPECIFIED (12) Thrush -start nystatin swish and swallow -will also add mucinex for expactoration, however suspect this feeling is secondary to thrush
--- NOTE | 2016-04-16 13:15 | PN ---
Progress Note (short form) - Note Progress Note: PULMONARY COUGHING DARK SPUTUM VSS/AFEBRILE ALERT/ORIENTED ANICTERIC DISTANT B/L BREATH SOUNDS S1S2 IRREGULAR BS+ NO EDEMA LABS/MICRO/MEDS/IMAGING NOTES REVIEWED Septic Shock of unclear etiology ? Pneumonia Atrial Fibrillation with RVR Acute on Chronic Renal Failure Lactic Acidosis Elevated LFTs likely ischemic injury +Troponins r/o GI Bleed Hypernatremia COPD - continue empiric antibiotics - IVF, increase free water - monitor urine output, creatinine - PO as tolerated - aspiration precautions - inhaled bronchodilators - protonix - monitor H/H - DVT/GI prophylaxis Chau BERNAL MD
[2016-04-16] MEDS: PANTOPRAZOLE 40 MG TABLET (FP) PO SCH (14:23)
[2016-04-16] MEDS: NYSTATIN 500,000 UNITS/5 ML SUSPENSION PO SCH (17:00)
--- NOTE | 2016-04-16 17:36 | PN ---
Progress Note, Physician History of Present Illness: Pt seen and examined at bedside. She is yet more awake and alert. She complains of fatigue. - Current Medication List Current Medications: Active Medications Albuterol Sulfate (Ventolin 0.083% Nebulizer Soln -) 1 amp NEB Q4H PRN PRN Reason: SHORT OF BREATH/WHEEZING Albuterol/Ipratropium (Duoneb -) 1 amp NEB QIDR [facility] Last Admin: 04/16/16 11:05 Dose: 1 amp Budesonide/Formoterol Fumarate (Symbicort 80/4.5mcg -) 2 puff IH BID [facility] Last Admin: 04/16/16 09:19 Dose: 2 puff Guaifenesin (Mucinex -) 1,200 mg PO BID [facility] Last Admin: 04/16/16 12:16 Dose: 1,200 mg Piperacillin Sod/Tazobactam Sod (Zosyn 2.25gm Ivpb (Pre-Docked)) 50 mls @ 100 mls/hr IVPB Q8H-IV [facility] Last Admin: 04/16/16 17:00 Dose: 100 mls/hr Potassium Chloride 10 meq/ (Dextrose) 1,005 mls @ 55 mls/hr IVPB Q18H [facility] Last Admin: 04/15/16 15:00 Dose: 55 mls/hr Metoprolol Succinate (Toprol Xl -) 100 mg PO BID [facility] Nystatin (Nystatin Oral Suspension -) 500,000 units PO Q6HPO [facility] Last Admin: 04/16/16 17:00 Dose: 500,000 units Pantoprazole Sodium (Protonix -) 40 mg PO DAILY [facility] Last Admin: 04/16/16 14:23 Dose: Not Given - Objective Vital Signs: Vital Signs Temperature 98 F 04/16/16 14:56 Pulse Rate 104 H 04/16/16 14:56 Respiratory Rate 20 04/16/16 14:56 Blood Pressure 131/83 04/16/16 14:56 O2 Sat by Pulse Oximetry (%) 98 04/16/16 10:45 Constitutional: Yes: Calm Eyes: Yes: Conjunctiva Clear HENT: Yes: Atraumatic Neck: Yes: Supple Cardiovascular: Yes: S1, S2 Respiratory: Yes: CTA Bilaterally, On Nasal O2 Gastrointestinal: Yes: Soft Genitourinary: Yes: Lilly Present Musculoskeletal: Yes: Muscle Weakness Edema: Yes Edema: LLE: 2+, RLE: 2+ Neurological: Yes: Oriented Psychiatric: Yes: Oriented Labs: CBC, BMP 04/16/16 06:00 04/16/16 06:00 INR, PTT INR 1.37 (0.82-1.09) H D 04/16/16 06:00 Assessment/Plan Current Medications Generic Name Dose Route Start Last Admin Trade Name Freq PRN Reason Stop Dose Admin Albuterol Sulfate 1 amp 04/14/16 11:59 Ventolin 0.083% Nebulizer Soln - NEB Q4H PRN SHORT OF BREATH/WHEEZING Albuterol/Ipratropium 1 amp 04/14/16 12:00 04/16/16 11:05 Duoneb - NEB 1 amp QIDR [facility] Administration Budesonide/Formoterol Fumarate 2 puff 04/12/16 10:00 04/16/16 09:19 Symbicort 80/4.5mcg - IH 2 puff BID [facility] Administration Guaifenesin 1,200 mg 04/16/16 12:15 04/16/16 12:16 Mucinex - PO 1,200 mg BID [facility] Administration Piperacillin Sod/Tazobactam Sod 50 mls @ 100 mls/hr 04/12/16 18:00 04/16/16 17: 00 Zosyn 2.25gm Ivpb (Pre-Docked) IVPB 100 mls/hr Q8H-IV [facility] Administration Potassium Chloride 10 meq/ 1,005 mls @ 55 mls/hr 04/15/16 14:00 04/15/16 15:00 Dextrose IVPB 55 mls/hr Q18H [facility] Administration Metoprolol Succinate 100 mg 04/16/16 22:00 Toprol Xl - PO BID [facility] Nystatin 500,000 units 04/16/16 18:00 04/16/16 17:00 Nystatin Oral Suspension - PO 500,000 units Q6HPO [facility] Administration Pantoprazole Sodium 40 mg 04/16/16 12:30 04/16/16 14:23 Protonix - PO Not Given DAILY [facility] Impression 1. NAYAN 2. hyperkalemia 3. sepsis with hypothremia 4. a-fib 5. GI bleed 6. metabolic acidosis - check abg and lactic acid level 7. COPD 8. hyperlipidemia 9. hypernatremia Plan - renal function is stabilizing - will hold fluids as she is developing edema - repeat labs in am - cont current meds - encourage PO intake - bp is improving - monitor hg Dr Rogers -
[2016-04-16] MEDS: METOPROLOL SUCCINATE 100 MG TAB.SR.24H (FP) PO SCH (22:07)
[2016-04-17] MEDS: NYSTATIN 500,000 UNITS/5 ML SUSPENSION PO SCH ×4 (00:37→17:15)
[2016-04-17] MEDS: PIPERACILLIN/TAZOB 2.25 GM 50 ML IVPB SCH ×2 (02:49→09:16)
[2016-04-17] MEDS: ALBUTEROL SO4 2.5/IPRATROPIUM 0.5 INH SOL 3 ML VIAL.NEB. NEB SCH ×4 (06:10→23:13)
[2016-04-17] MEDS: guaiFENesin 600 MG TABLET.ER (FP) PO SCH ×2 (09:15→21:35)
[2016-04-17] MEDS: PANTOPRAZOLE 40 MG TABLET (FP) PO SCH (09:15)
[2016-04-17] MEDS: BUDESONIDE/FORMETEROL FUMARATE 80/4.5 mcg INHALER IH SCH ×2 (09:16→21:40)
[2016-04-17] MEDS: METOPROLOL SUCCINATE 100 MG TAB.SR.24H (FP) PO SCH ×2 (09:16→21:35)
[2016-04-17 10:54] LABS: ALBUMIN 2.4 g/dl (3.4-5.0); BILIRUBIN,DIRECT 0.8 mg/dL (0.0-0.2); BILIRUBIN,TOTAL 1.5 mg/dL (0.2-1.0); CREATININE 1.1 mg/dL (0.55-1.02); MAGNESIUM 2.1 mg/dL (1.8-2.4); PHOSPHOROUS 2.6 mg/dL (2.5-4.9); TOT PROT 5.1 g/dl (6.4-8.2)
--- NOTE | 2016-04-17 11:39 | PN ---
Progress Note, Physician Chief Complaint: Ms Granado says she is feeling tired and weak. States coughing is improved today. No cp or sob. No n/v. - Current Medication List Current Medications: Active Medications Albuterol Sulfate (Ventolin 0.083% Nebulizer Soln -) 1 amp NEB Q4H PRN PRN Reason: SHORT OF BREATH/WHEEZING Albuterol/Ipratropium (Duoneb -) 1 amp NEB QIDR [facility] Last Admin: 04/17/16 06:10 Dose: 1 amp Budesonide/Formoterol Fumarate (Symbicort 80/4.5mcg -) 2 puff IH BID [facility] Last Admin: 04/17/16 09:16 Dose: 2 puff Guaifenesin (Mucinex -) 1,200 mg PO BID [facility] Last Admin: 04/17/16 09:15 Dose: 1,200 mg Piperacillin Sod/Tazobactam Sod (Zosyn 2.25gm Ivpb (Pre-Docked)) 50 mls @ 100 mls/hr IVPB Q8H-IV [facility] Last Admin: 04/17/16 09:16 Dose: 100 mls/hr Metoprolol Succinate (Toprol Xl -) 100 mg PO BID [facility] Last Admin: 04/17/16 09:16 Dose: 100 mg Nystatin (Nystatin Oral Suspension -) 500,000 units PO Q6HPO [facility] Last Admin: 04/17/16 07:04 Dose: 500,000 units Pantoprazole Sodium (Protonix -) 40 mg PO DAILY [facility] Last Admin: 04/17/16 09:15 Dose: 40 mg - Objective Vital Signs: Vital Signs Temperature 98.0 F 04/17/16 10:00 Pulse Rate 105 H 04/17/16 10:00 Respiratory Rate 20 04/17/16 10:00 Blood Pressure 132/93 04/17/16 10:00 O2 Sat by Pulse Oximetry (%) 98 04/17/16 10:00 Constitutional: Yes: Well Nourished, No Distress, Calm Cardiovascular: Yes: Pulse Irregular. No: Gallop, Murmur, Rub Respiratory: Yes: Regular, CTA Bilaterally. No: Rales, Rhonchi, Wheezes Gastrointestinal: Yes: Normal Bowel Sounds, Soft. No: Distention, Tenderness Extremities: Yes: WNL Edema: No Labs: CBC, BMP 04/17/16 05:35 INR, PTT INR 1.37 (0.82-1.09) H D 04/16/16 06:00 Problem List - Problems (1) Septic shock Code(s): A41.9 - SEPSIS, UNSPECIFIED ORGANISM R65.21 - SEVERE SEPSIS WITH SEPTIC SHOCK (2) Atrial fibrillation with rapid ventricular response Code(s): I48.91 - UNSPECIFIED ATRIAL FIBRILLATION (3) NAYAN (acute kidney injury) Code(s): N17.9 - ACUTE KIDNEY FAILURE, UNSPECIFIED (4) Shock liver Code(s): K75.9 - INFLAMMATORY LIVER DISEASE, UNSPECIFIED (5) Hyperkalemia Code(s): E87.5 - HYPERKALEMIA (6) Hypoglycemia Code(s): E16.2 - HYPOGLYCEMIA, UNSPECIFIED (7) Acidosis Code(s): E87.2 - ACIDOSIS (8) CHF (congestive heart failure) Code(s): I50.9 - HEART FAILURE, UNSPECIFIED (9) COPD (chronic obstructive pulmonary disease) Code(s): J44.9 - CHRONIC OBSTRUCTIVE PULMONARY DISEASE, UNSPECIFIED (10) Elevated troponin Code(s): R79.89 - OTHER SPECIFIED ABNORMAL FINDINGS OF BLOOD CHEMISTRY (11) GI bleed Code(s): K92.2 - GASTROINTESTINAL HEMORRHAGE, UNSPECIFIED Assessment/Plan (1) Septic shock Assessment/Plan: -resolved -unclear source -trial off of antibiotics Code(s): A41.9 - SEPSIS, UNSPECIFIED ORGANISM R65.21 - SEVERE SEPSIS WITH SEPTIC SHOCK (2) Atrial fibrillation with rapid ventricular response Assessment/Plan: -appreciate cardiology assistance -continue toprol -holding anticoagulation secondary to auto anticoagulated and with GI bleed on admission, restart per GI recommendations -follow INR Code(s): I48.91 - UNSPECIFIED ATRIAL FIBRILLATION (3) NAYAN (acute kidney injury) Assessment/Plan: -resolved -below baseline -IVF stopped by nephrology Code(s): N17.9 - ACUTE KIDNEY FAILURE, UNSPECIFIED (4) Shock liver Assessment/Plan: -continues to improve with supportive care -GI following Code(s): K75.9 - INFLAMMATORY LIVER DISEASE, UNSPECIFIED (5) Hyperkalemia Assessment/Plan: -resolved Code(s): E87.5 - HYPERKALEMIA (6) Hypoglycemia Assessment/Plan: -resolved Code(s): E16.2 - HYPOGLYCEMIA, UNSPECIFIED (7) Acidosis Assessment/Plan: -resolved Code(s): E87.2 - ACIDOSIS (8) CHF (congestive heart failure) Assessment/Plan: -not in exacerbation and dehydrated -hold all diuretics -continue hydration -restart diuretics when safe Code(s): I50.9 - HEART FAILURE, UNSPECIFIED (9) COPD (chronic obstructive pulmonary disease) Assessment/Plan: -continue inhalers Code(s): J44.9 - CHRONIC OBSTRUCTIVE PULMONARY DISEASE, UNSPECIFIED (10) Elevated troponin Assessment/Plan: -stress induced -ECHO reviewed -cardiology following Code(s): R79.89 - OTHER SPECIFIED ABNORMAL FINDINGS OF BLOOD CHEMISTRY (11) GI bleed Assessment/Plan: -change to oral protonix -continue diet Code(s): K92.2 - GASTROINTESTINAL HEMORRHAGE, UNSPECIFIED (12) Thrush -nystatin day 2
--- NOTE | 2016-04-17 11:39 | PN ---
GI Progress Note Subjective: GI NOte: Remarkable recovery from shock liver and ATN. Sitting up and eating. Denies abdominal pain. LFTs continue to improve,. Jaundice resolved. - Objective Vital Signs: Vital Signs Temperature 98.0 F 04/17/16 10:00 Pulse Rate 105 H 04/17/16 10:00 Respiratory Rate 20 04/17/16 10:00 Blood Pressure 132/93 04/17/16 10:00 O2 Sat by Pulse Oximetry (%) 98 04/17/16 10:00 CBC,CMP WBC 9.9 K/mm3 (4.0-10.0) 04/16/16 06:00 RBC 3.50 M/mm3 (3.60-5.2) L 04/16/16 06:00 Hgb 10.9 GM/dL (10.7-15.3) 04/16/16 06:00 Hct 34.1 % (32.4-45.2) 04/16/16 06:00 MCV 97.2 fl (80-96) H 04/16/16 06:00 MCHC 32.0 g/dl (32.0-36.0) 04/16/16 06:00 RDW 16.3 % (11.6-15.6) H 04/16/16 06:00 Plt Count 108 K/MM3 (134-434) L 04/16/16 06:00 MPV 9.0 fl (7.5-11.1) 04/16/16 06:00 Neutrophils % 86.2 % (42.8-82.8) H 04/16/16 06:00 Lymphocytes % 6.0 % (8-40) L D 04/16/16 06:00 Monocytes % 6.8 % (3.8-10.2) D 04/16/16 06:00 Eosinophils % 0.6 % (0-4.5) D 04/16/16 06:00 Basophils % 0.4 % (0-2.0) 04/16/16 06:00 Sodium 143 mmol/L (136-145) 04/17/16 05:35 Potassium 3.8 mmol/L (3.5-5.1) 04/17/16 05:35 Chloride 107 mmol/L (98-107) 04/17/16 05:35 Carbon Dioxide 24 mmol/L (21-32) D 04/17/16 05:35 Anion Gap 12 (8-16) 04/17/16 05:35 BUN 31 mg/dL (7-18) H 04/17/16 05:35 Creatinine 1.1 mg/dL (0.55-1.02) H D 04/17/16 05:35 Creat Clearance w eGFR 30.42 (>60) 04/15/16 05:35 POC Glucometer 202.45292 UNITS (()) 04/12/16 15:15 Random Glucose 91 mg/dL (74-106) D 04/17/16 05:35 Lactic Acid 1.289 mmol/L (0.4-2.0) 04/14/16 05:15 Calcium 8.0 mg/dL (8.5-10.1) L 04/17/16 05:35 Phosphorus 2.6 mg/dL (2.5-4.9) 04/17/16 05:35 Magnesium 2.1 mg/dL (1.8-2.4) 04/17/16 05:35 Total Bilirubin 1.5 mg/dL (0.2-1.0) H 04/17/16 05:35 Direct Bilirubin 0.8 mg/dL (0.0-0.2) H 04/17/16 05:35 AST 130 U/L (15-37) H D 04/17/16 05:35 ALT 352 U/L (12-78) H 04/17/16 05:35 Alkaline Phosphatase 247 U/L (45-117) H 04/17/16 05:35 Ammonia < 11 umol/L (11-32) L 04/12/16 14:25 Creatine Kinase 94 IU/L (26-192) 04/12/16 14:00 Troponin I 0.20 ng/ml (0.00-0.05) H 04/12/16 14:00 Total Protein 5.1 g/dl (6.4-8.2) L 04/17/16 05:35 Albumin 2.4 g/dl (3.4-5.0) L 04/17/16 05:35 Cortisol AM Sample 71.7 ug/dL (.) 04/12/16 12:00 Constitutional: Calm Eyes: Yes: Conjunctiva Clear ...Auscultate: Yes: Normoactive Bowel Sounds ...Palpate: Yes: Soft, Other (nontender) Labs: CBC, BMP 04/17/16 05:35 INR, PTT INR 1.37 (0.82-1.09) H D 04/16/16 06:00 Assessment/Plan Recovering from shock liver. Anticipate normalization of LFTs with time. Discussed case with Dr Layne.
--- NOTE | 2016-04-17 11:53 | PN ---
Progress Note, Physician History of Present Illness: Awake, mildly confused Offers no complaints No c/o chest pain/ dyspnea Afebrile WBC down Cultures no growth - Current Medication List Current Medications: Active Medications Albuterol Sulfate (Ventolin 0.083% Nebulizer Soln -) 1 amp NEB Q4H PRN PRN Reason: SHORT OF BREATH/WHEEZING Albuterol/Ipratropium (Duoneb -) 1 amp NEB QIDR [facility] Last Admin: 04/17/16 11:40 Dose: 1 amp Budesonide/Formoterol Fumarate (Symbicort 80/4.5mcg -) 2 puff IH BID [facility] Last Admin: 04/17/16 09:16 Dose: 2 puff Guaifenesin (Mucinex -) 1,200 mg PO BID [facility] Last Admin: 04/17/16 09:15 Dose: 1,200 mg Piperacillin Sod/Tazobactam Sod (Zosyn 2.25gm Ivpb (Pre-Docked)) 50 mls @ 100 mls/hr IVPB Q8H-IV [facility] Last Admin: 04/17/16 09:16 Dose: 100 mls/hr Metoprolol Succinate (Toprol Xl -) 100 mg PO BID [facility] Last Admin: 04/17/16 09:16 Dose: 100 mg Nystatin (Nystatin Oral Suspension -) 500,000 units PO Q6HPO [facility] Last Admin: 04/17/16 07:04 Dose: 500,000 units Pantoprazole Sodium (Protonix -) 40 mg PO DAILY [facility] Last Admin: 04/17/16 09:15 Dose: 40 mg - Objective Vital Signs: Vital Signs Temperature 98.0 F 04/17/16 10:00 Pulse Rate 90 04/17/16 11:40 Respiratory Rate 20 04/17/16 10:00 Blood Pressure 132/93 04/17/16 10:00 O2 Sat by Pulse Oximetry (%) 98 04/17/16 11:40 Constitutional: Yes: No Distress Eyes: Yes: Conjunctiva Clear Cardiovascular: Yes: Regular Rate and Rhythm Respiratory: Yes: Diminished Gastrointestinal: Yes: Normal Bowel Sounds, Soft. No: Tenderness Edema: Yes Labs: CBC, BMP 04/17/16 05:35 INR, PTT INR 1.37 (0.82-1.09) H D 04/16/16 06:00 Assessment/Plan S/P sepsis- resolved Toxic-metabolic encephalopathy Leukocytosis- resolved Azotemia- improved Day #6 Zosyn Will D/C antibiotics,observe
--- NOTE | 2016-04-17 12:10 | PN ---
Progress Note (short form) - Note Progress Note: PULMONARY COUGHING DARK SPUTUM VSS/AFEBRILE ALERT/ORIENTED ANICTERIC DISTANT B/L BREATH SOUNDS S1S2 IRREGULAR BS+ NO EDEMA LABS/MICRO/MEDS/IMAGING NOTES REVIEWED Septic Shock of unclear etiology ? Pneumonia Atrial Fibrillation with RVR Acute on Chronic Renal Failure Lactic Acidosis Elevated LFTs likely ischemic injury +Troponins r/o GI Bleed Hypernatremia COPD - empiric antibiotics will be discontinued as per ID - monitor urine output, creatinine - PO as tolerated - aspiration precautions - inhaled bronchodilators - protonix - monitor H/H - DVT/GI prophylaxis Chau BERNAL MD
--- NOTE | 2016-04-17 13:01 | PN ---
Progress Note, Physician History of Present Illness: No complaitns Tele: Afib to 120 - Current Medication List Current Medications: Active Medications Albuterol Sulfate (Ventolin 0.083% Nebulizer Soln -) 1 amp NEB Q4H PRN PRN Reason: SHORT OF BREATH/WHEEZING Albuterol/Ipratropium (Duoneb -) 1 amp NEB QIDR [facility] Last Admin: 04/17/16 11:40 Dose: 1 amp Budesonide/Formoterol Fumarate (Symbicort 80/4.5mcg -) 2 puff IH BID [facility] Last Admin: 04/17/16 09:16 Dose: 2 puff Guaifenesin (Mucinex -) 1,200 mg PO BID [facility] Last Admin: 04/17/16 09:15 Dose: 1,200 mg Metoprolol Succinate (Toprol Xl -) 100 mg PO BID [facility] Last Admin: 04/17/16 09:16 Dose: 100 mg Nystatin (Nystatin Oral Suspension -) 500,000 units PO Q6HPO [facility] Last Admin: 04/17/16 11:55 Dose: 500,000 units Pantoprazole Sodium (Protonix -) 40 mg PO DAILY [facility] Last Admin: 04/17/16 09:15 Dose: 40 mg - Objective Vital Signs: Vital Signs Temperature 98.0 F 04/17/16 10:00 Pulse Rate 90 04/17/16 11:40 Respiratory Rate 20 04/17/16 10:00 Blood Pressure 132/93 04/17/16 10:00 O2 Sat by Pulse Oximetry (%) 98 04/17/16 11:40 Constitutional: Yes: No Distress Eyes: Yes: WNL HENT: Yes: WNL Neck: Yes: WNL Cardiovascular: Yes: WNL Respiratory: Yes: WNL Gastrointestinal: Yes: WNL Musculoskeletal: Yes: WNL Extremities: Yes: WNL Edema: LLE: Trace, RLE: Trace Labs: CBC, BMP 04/17/16 05:35 INR, PTT INR 1.37 (0.82-1.09) H D 04/16/16 06:00 Assessment/Plan a/p: 89 yo female with afib/flutter, ? MAT, severe copd on chronic steroids, pulm HTN, Mod MR, HTN, venous insufficiency, vertigo here with sepsis c/b GIB, shock liver, NAYAN with hyperkalemia. sepsis, resolving: - BP improved with ivfs and abx - source unclear presently, cont abx per ID rapid Afib/flutter (possible PSVT prior)/MAT -06/2014 with rapid AF/AFL/MAT requiring uptitration of metopr to 100 bid plus digoxin, then 12/18 incr to 150 bid in office for rapid HRs. On past admits, HR also improved with management of underlying pulmonary disease. Pt has deferred AVN ablation with PPM previously. At risk for amio given advanced copd/pulm HTN - Initially RVR in setting of sepsis. Initiated on diltiazem drip with improved HR control - 04/13: In the past cardizem has worsened LFT abnormalities. Currently diltiazem drip on hold, and rate reasonably controlled given clinical status. Will add PRN IV metoprolol. Start PO when possible (previously tolerated metoprolol, would start low dose short acting metoprolol tartrate TID and uptitrate). -04/14: bp improving so now on po bb. rate improved on tele, cont same bb and titrate up as bp allows -04/15: bp improved now so will change back to home toprol which has controlled HR in past -04/16: still with rvr at times, will increase toprol to 100 bid -on AC (CHADS 2)--eliquis 2.5 bid for age and borderline wt/renal fxn, plus excessive gingival bleeding on higher dose. Currently has been on hold due to possible GIB. Hgb stable and GI notes not mentioning further testing planned so would resume eliquis if no procedures planned. -prior med intolerances: Multaq--sig stomach upset, ? elevated LFTs (though atypical, slightly delayed timing) cardizem--hi LFTs; RV dysfunction - recent echo from February with RV dilation and decreased RV function. (In setting of acute pulmonary disease). - likely developing cor pulmonale--O2 and pulm tx per their recs - currently tolerating volume resuscitation. Con't to follow CVP and monitor need for diuresis, so far no gross vol overload. presumed cad: -doubt sx's due to rapid AF, at the time of CP HR's were in 90s. Troponins continued to trend down and repeat ekg without ischemic changes. suspect ongoing CP is related to PNA +/- incr'd muscle work of breathing - On last admission, peak troponin 0.2, no ischemic changes on ekg, CP symptoms resolved with treatment of pna. At the time, not a candidate for persantine nuclear stress test (severe copd) or dobutamine (uncontrolled atrial arrhythmias)-- so plan was to consider regadeneson nuclear as outpt if no active wheezing at that time. Troponin here again documented up to 0.2 with nl CK in setting of sepsis. Con't same management with consideration of outpatient ischemic eval as mentioned if prognosis improves. - No asa b/c of GIB. No statin b/c of acute liver injury. copd: -pulm following NAYAN on CKD: - improving with IVF. pulm HTN (mild, moderate): -? 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 elevated lfts: -likely due to septic shock, lfts improving with ivfs/abx Hyperlipidemia -holding statin as above due to elevated lfts
[2016-04-17 13:13] LABS: BASOPHIL 0.3 % (0-2.0); EOSINOPHIL 0.8 % (0-4.5); MCH 30.8 pg (25.7-33.7); MEAN CELL VOLUME 96.4 fl (80-96); MEAN PLT VOLUME 9.3 fl (7.5-11.1); NEUTROPHILS 84.9 % (42.8-82.8); PLATELET COUNT 109 K/MM3 (134-434); RDW 16.5 % (11.6-15.6); WHITE BLOOD COUNT 11.1 K/mm3 (4.0-10.0)
--- NOTE | 2016-04-17 14:54 | PN ---
Progress Note, Physician History of Present Illness: Pt seen and examined at bedside. She is awake and alert. She denies shortness of breath. - Current Medication List Current Medications: Active Medications Albuterol Sulfate (Ventolin 0.083% Nebulizer Soln -) 1 amp NEB Q4H PRN PRN Reason: SHORT OF BREATH/WHEEZING Albuterol/Ipratropium (Duoneb -) 1 amp NEB QIDR [facility] Last Admin: 04/17/16 11:40 Dose: 1 amp Budesonide/Formoterol Fumarate (Symbicort 80/4.5mcg -) 2 puff IH BID [facility] Last Admin: 04/17/16 09:16 Dose: 2 puff Guaifenesin (Mucinex -) 1,200 mg PO BID [facility] Last Admin: 04/17/16 09:15 Dose: 1,200 mg Metoprolol Succinate (Toprol Xl -) 100 mg PO BID [facility] Last Admin: 04/17/16 09:16 Dose: 100 mg Nystatin (Nystatin Oral Suspension -) 500,000 units PO Q6HPO [facility] Last Admin: 04/17/16 11:55 Dose: 500,000 units Pantoprazole Sodium (Protonix -) 40 mg PO DAILY [facility] Last Admin: 04/17/16 09:15 Dose: 40 mg - Objective Vital Signs: Vital Signs Temperature 98.0 F 04/17/16 10:00 Pulse Rate 115 H 04/17/16 14:00 Respiratory Rate 20 04/17/16 14:00 Blood Pressure 123/89 04/17/16 14:00 O2 Sat by Pulse Oximetry (%) 98 04/17/16 11:40 Constitutional: Yes: Calm Eyes: Yes: Conjunctiva Clear Cardiovascular: Yes: S1, S2 Respiratory: Yes: On Nasal O2 Gastrointestinal: Yes: Soft Genitourinary: Yes: Bravo Present Musculoskeletal: Yes: Muscle Weakness Edema: Yes Edema: LLE: 1+, RLE: 1+ Neurological: Yes: Oriented Psychiatric: Yes: Oriented Labs: CBC, BMP 04/17/16 05:35 04/17/16 05:35 INR, PTT INR 1.37 (0.82-1.09) H D 04/16/16 06:00 Assessment/Plan Current Medications Generic Name Dose Route Start Last Admin Trade Name Freq PRN Reason Stop Dose Admin Albuterol Sulfate 1 amp 04/14/16 11:59 Ventolin 0.083% Nebulizer Soln - NEB Q4H PRN SHORT OF BREATH/WHEEZING Albuterol/Ipratropium 1 amp 04/14/16 12:00 04/17/16 11:40 Duoneb - NEB 1 amp QIDR [facility]NEY Administration Budesonide/Formoterol Fumarate 2 puff 04/12/16 10:00 04/17/16 09:16 Symbicort 80/4.5mcg - IH 2 puff BID [facility]NEY Administration Guaifenesin 1,200 mg 04/16/16 12:15 04/17/16 09:15 Mucinex - PO 1,200 mg BID [facility]NEY Administration Metoprolol Succinate 100 mg 04/16/16 22:00 04/17/16 09:16 Toprol Xl - PO 100 mg BID [facility] Administration Nystatin 500,000 units 04/16/16 18:00 04/17/16 11:55 Nystatin Oral Suspension - PO 500,000 units Q6HPO [facility] Administration Pantoprazole Sodium 40 mg 04/16/16 12:30 04/17/16 09:15 Protonix - PO 40 mg DAILY [facility] Administration Impression 1. NAYAN 2. hyperkalemia 3. sepsis with hypothremia 4. a-fib 5. GI bleed 6. metabolic acidosis - check abg and lactic acid level 7. COPD 8. hyperlipidemia 9. hypernatremia Plan - renal function continues to improve - pt is doing well off of fluids - can d/c bravo catheter - lower extremity edema is improving - encourage PO intake - cont current meds - bp is improving - monitor hg - check labs in am Dr Rogers -
[2016-04-17] MEDS ORDERED: PT OWN MED DRAWER 7, Y5N ONE (21:39)
[2016-04-18] MEDS: NYSTATIN 500,000 UNITS/5 ML SUSPENSION PO SCH ×4 (00:51→17:13)
[2016-04-18] MEDS: ALBUTEROL SO4 2.5/IPRATROPIUM 0.5 INH SOL 3 ML VIAL.NEB. NEB SCH ×4 (06:40→23:49)
[2016-04-18 07:58] LABS: BASOPHIL 0.1 % (0-2.0); MCH 31.1 pg (25.7-33.7); MCHC 32.1 g/dl (32.0-36.0); MEAN CELL VOLUME 96.8 fl (80-96); MEAN PLT VOLUME 9.4 fl (7.5-11.1); NEUTROPHILS 85.8 % (42.8-82.8); PLATELET COUNT 114 K/MM3 (134-434); RDW 16.4 % (11.6-15.6); WHITE BLOOD COUNT 11.7 K/mm3 (4.0-10.0)
[2016-04-18 08:21] LABS: CALCIUM 8.3 mg/dL (8.5-10.1); CREATININE 1.4 mg/dL (0.55-1.02); MAGNESIUM 2.2 mg/dL (1.8-2.4); PHOSPHOROUS 3.3 mg/dL (2.5-4.9)
[2016-04-18 08:23] LABS: ALBUMIN 2.4 g/dl (3.4-5.0); BILIRUBIN,DIRECT 0.7 mg/dL (0.0-0.2); BILIRUBIN,TOTAL 1.3 mg/dL (0.2-1.0); TOT PROT 5.4 g/dl (6.4-8.2)
[2016-04-18] MEDS ORDERED: PT OWN MED DRAWER 7, Y5N ONE (08:43)
[2016-04-18] MEDS: METOPROLOL SUCCINATE 100 MG TAB.SR.24H (FP) PO SCH ×2 (09:11→21:55)
[2016-04-18] MEDS: guaiFENesin 600 MG TABLET.ER (FP) PO SCH ×2 (09:11→21:54)
[2016-04-18] MEDS: PANTOPRAZOLE 40 MG TABLET (FP) PO SCH (09:11)
[2016-04-18] MEDS: BUDESONIDE/FORMETEROL FUMARATE 80/4.5 mcg INHALER IH SCH ×2 (09:12→21:56)
--- NOTE | 2016-04-18 11:29 | PN ---
Progress Note, Physician Chief Complaint: No events No complaints Tele: Afib at 110/min - Current Medication List Current Medications: Active Medications Albuterol Sulfate (Ventolin 0.083% Nebulizer Soln -) 1 amp NEB Q4H PRN PRN Reason: SHORT OF BREATH/WHEEZING Albuterol/Ipratropium (Duoneb -) 1 amp NEB QIDR [facility] Last Admin: 04/18/16 06:40 Dose: 1 amp Budesonide/Formoterol Fumarate (Symbicort 80/4.5mcg -) 2 puff IH BID [facility] Last Admin: 04/18/16 09:12 Dose: 2 puff Guaifenesin (Mucinex -) 1,200 mg PO BID [facility] Last Admin: 04/18/16 09:11 Dose: 1,200 mg Metoprolol Succinate (Toprol Xl -) 100 mg PO BID [facility] Last Admin: 04/18/16 09:11 Dose: 100 mg Nystatin (Nystatin Oral Suspension -) 500,000 units PO Q6HPO [facility] Last Admin: 04/18/16 05:37 Dose: 500,000 units Pantoprazole Sodium (Protonix -) 40 mg PO DAILY [facility] Last Admin: 04/18/16 09:11 Dose: 40 mg - Objective Vital Signs: Vital Signs Temperature 98.3 F 04/18/16 10:00 Pulse Rate 108 H 04/18/16 10:00 Respiratory Rate 18 04/18/16 10:00 Blood Pressure 117/62 04/18/16 10:00 O2 Sat by Pulse Oximetry (%) 97 04/18/16 09:00 Constitutional: Yes: No Distress Eyes: Yes: WNL HENT: Yes: WNL Neck: Yes: WNL Cardiovascular: Yes: Pulse Irregular Respiratory: Yes: WNL Gastrointestinal: Yes: WNL Extremities: Yes: WNL Edema: No Labs: CBC, BMP 04/18/16 06:20 04/18/16 06:20 INR, PTT INR 1.37 (0.82-1.09) H D 04/16/16 06:00 Assessment/Plan a/p: 89 yo female with afib/flutter, ? MAT, severe copd on chronic steroids, pulm HTN, Mod MR, HTN, venous insufficiency, vertigo here with sepsis c/b GIB, shock liver, NAYAN with hyperkalemia. sepsis, resolving: - BP improved with ivfs and abx - source unclear presently, cont abx per ID rapid Afib/flutter (possible PSVT prior)/MAT -06/2014 with rapid AF/AFL/MAT requiring uptitration of metopr to 100 bid plus digoxin, then 12/18 incr to 150 bid in office for rapid HRs. On past admits, HR also improved with management of underlying pulmonary disease. Pt has deferred AVN ablation with PPM previously. At risk for amio given advanced copd/pulm HTN - Initially RVR in setting of sepsis. Initiated on diltiazem drip with improved HR control - 04/13: In the past cardizem has worsened LFT abnormalities. Currently diltiazem drip on hold, and rate reasonably controlled given clinical status. Will add PRN IV metoprolol. Start PO when possible (previously tolerated metoprolol, would start low dose short acting metoprolol tartrate TID and uptitrate). -04/14: bp improving so now on po bb. rate improved on tele, cont same bb and titrate up as bp allows -04/15: bp improved now so will change back to home toprol which has controlled HR in past -04/16: still with rvr at times, will increase toprol to 100 bid -on AC (CHADS 2)--eliquis 2.5 bid for age and borderline wt/renal fxn, plus excessive gingival bleeding on higher dose. Currently has been on hold due to possible GIB. Hgb stable and GI notes not mentioning further testing planned so would resume eliquis if no procedures planned. -prior med intolerances: Multaq--sig stomach upset, ? elevated LFTs (though atypical, slightly delayed timing) cardizem--hi LFTs; RV dysfunction - recent echo from February with RV dilation and decreased RV function. (In setting of acute pulmonary disease). - likely developing cor pulmonale--O2 and pulm tx per their recs - currently tolerating volume resuscitation. Con't to follow CVP and monitor need for diuresis, so far no gross vol overload. presumed cad: -doubt sx's due to rapid AF, at the time of CP HR's were in 90s. Troponins continued to trend down and repeat ekg without ischemic changes. suspect ongoing CP is related to PNA +/- incr'd muscle work of breathing - On last admission, peak troponin 0.2, no ischemic changes on ekg, CP symptoms resolved with treatment of pna. At the time, not a candidate for persantine nuclear stress test (severe copd) or dobutamine (uncontrolled atrial arrhythmias)-- so plan was to consider regadeneson nuclear as outpt if no active wheezing at that time. Troponin here again documented up to 0.2 with nl CK in setting of sepsis. Con't same management with consideration of outpatient ischemic eval as mentioned if prognosis improves. - No asa b/c of GIB. No statin b/c of acute liver injury. copd: -pulm following NAYAN on CKD: - improving with IVF. pulm HTN (mild, moderate): -? 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 elevated lfts: -likely due to septic shock, lfts improving with ivfs/abx Hyperlipidemia -holding statin as above due to elevated lfts
--- NOTE | 2016-04-18 12:48 | PN ---
Progress Note, Physician Chief Complaint: Ms Granado continues to complain of weakness and fatigue. No cp, sob, n/v - Current Medication List Current Medications: Active Medications Albuterol Sulfate (Ventolin 0.083% Nebulizer Soln -) 1 amp NEB Q4H PRN PRN Reason: SHORT OF BREATH/WHEEZING Albuterol/Ipratropium (Duoneb -) 1 amp NEB QIDR [facility] Last Admin: 04/18/16 06:40 Dose: 1 amp Budesonide/Formoterol Fumarate (Symbicort 80/4.5mcg -) 2 puff IH BID [facility] Last Admin: 04/18/16 09:12 Dose: 2 puff Guaifenesin (Mucinex -) 1,200 mg PO BID [facility] Last Admin: 04/18/16 09:11 Dose: 1,200 mg Metoprolol Succinate (Toprol Xl -) 100 mg PO BID [facility] Last Admin: 04/18/16 09:11 Dose: 100 mg Nystatin (Nystatin Oral Suspension -) 500,000 units PO Q6HPO [facility] Last Admin: 04/18/16 05:37 Dose: 500,000 units Pantoprazole Sodium (Protonix -) 40 mg PO DAILY [facility] Last Admin: 04/18/16 09:11 Dose: 40 mg - Objective Vital Signs: Vital Signs Temperature 98.3 F 04/18/16 10:00 Pulse Rate 108 H 04/18/16 10:00 Respiratory Rate 18 04/18/16 10:00 Blood Pressure 117/62 04/18/16 10:00 O2 Sat by Pulse Oximetry (%) 97 04/18/16 09:00 Constitutional: Yes: Well Nourished, No Distress, Calm Cardiovascular: Yes: Regular Rate and Rhythm. No: Gallop, Murmur, Rub Respiratory: Yes: Regular, CTA Bilaterally. No: Rales, Rhonchi, Wheezes Gastrointestinal: Yes: Normal Bowel Sounds, Soft. No: Distention, Tenderness Extremities: Yes: WNL Edema: No Labs: CBC, BMP 04/18/16 06:20 04/18/16 06:20 INR, PTT INR 1.37 (0.82-1.09) H D 04/16/16 06:00 Problem List - Problems (1) Septic shock Code(s): A41.9 - SEPSIS, UNSPECIFIED ORGANISM R65.21 - SEVERE SEPSIS WITH SEPTIC SHOCK (2) Atrial fibrillation with rapid ventricular response Code(s): I48.91 - UNSPECIFIED ATRIAL FIBRILLATION (3) NAYAN (acute kidney injury) Code(s): N17.9 - ACUTE KIDNEY FAILURE, UNSPECIFIED (4) Shock liver Code(s): K75.9 - INFLAMMATORY LIVER DISEASE, UNSPECIFIED (5) Hyperkalemia Code(s): E87.5 - HYPERKALEMIA (6) Hypoglycemia Code(s): E16.2 - HYPOGLYCEMIA, UNSPECIFIED (7) Acidosis Code(s): E87.2 - ACIDOSIS (8) CHF (congestive heart failure) Code(s): I50.9 - HEART FAILURE, UNSPECIFIED (9) COPD (chronic obstructive pulmonary disease) Code(s): J44.9 - CHRONIC OBSTRUCTIVE PULMONARY DISEASE, UNSPECIFIED (10) Elevated troponin Code(s): R79.89 - OTHER SPECIFIED ABNORMAL FINDINGS OF BLOOD CHEMISTRY (11) GI bleed Code(s): K92.2 - GASTROINTESTINAL HEMORRHAGE, UNSPECIFIED Assessment/Plan (1) Septic shock Assessment/Plan: -resolved -unclear source -continue to monitor off antibiotics Code(s): A41.9 - SEPSIS, UNSPECIFIED ORGANISM R65.21 - SEVERE SEPSIS WITH SEPTIC SHOCK (2) Atrial fibrillation with rapid ventricular response Assessment/Plan: -appreciate cardiology assistance -continue toprol -holding anticoagulation secondary to auto anticoagulated and with GI bleed on admission, restart per GI recommendations Code(s): I48.91 - UNSPECIFIED ATRIAL FIBRILLATION (3) NAYAN (acute kidney injury) Assessment/Plan: -resolved -nephrology following Code(s): N17.9 - ACUTE KIDNEY FAILURE, UNSPECIFIED (4) Shock liver Assessment/Plan: -continues to improve with supportive care -GI following Code(s): K75.9 - INFLAMMATORY LIVER DISEASE, UNSPECIFIED (5) Hyperkalemia Assessment/Plan: -resolved Code(s): E87.5 - HYPERKALEMIA (6) Hypoglycemia Assessment/Plan: -resolved Code(s): E16.2 - HYPOGLYCEMIA, UNSPECIFIED (7) Acidosis Assessment/Plan: -resolved Code(s): E87.2 - ACIDOSIS (8) CHF (congestive heart failure) Assessment/Plan: -not in exacerbation -hold all diuretics -restart diuretics when safe per cardiology Code(s): I50.9 - HEART FAILURE, UNSPECIFIED (9) COPD (chronic obstructive pulmonary disease) Assessment/Plan: -continue inhalers Code(s): J44.9 - CHRONIC OBSTRUCTIVE PULMONARY DISEASE, UNSPECIFIED (10) Elevated troponin Assessment/Plan: -stress induced -ECHO reviewed -cardiology following Code(s): R79.89 - OTHER SPECIFIED ABNORMAL FINDINGS OF BLOOD CHEMISTRY (11) GI bleed Assessment/Plan: -oral protonix -continue diet Code(s): K92.2 - GASTROINTESTINAL HEMORRHAGE, UNSPECIFIED (12) Thrush -continue nystatin
--- NOTE | 2016-04-18 15:34 | PN ---
Progress Note, Physician History of Present Illness: Pt seen and examined at bedside. She is sleepy today. She has poor PO intake. - Current Medication List Current Medications: Active Medications Albuterol Sulfate (Ventolin 0.083% Nebulizer Soln -) 1 amp NEB Q4H PRN PRN Reason: SHORT OF BREATH/WHEEZING Albuterol/Ipratropium (Duoneb -) 1 amp NEB QIDR [facility] Last Admin: 04/18/16 12:49 Dose: 1 amp Budesonide/Formoterol Fumarate (Symbicort 80/4.5mcg -) 2 puff IH BID [facility] Last Admin: 04/18/16 09:12 Dose: 2 puff Guaifenesin (Mucinex -) 1,200 mg PO BID [facility] Last Admin: 04/18/16 09:11 Dose: 1,200 mg Metoprolol Succinate (Toprol Xl -) 100 mg PO BID [facility] Last Admin: 04/18/16 09:11 Dose: 100 mg Nystatin (Nystatin Oral Suspension -) 500,000 units PO Q6HPO [facility] Last Admin: 04/18/16 12:14 Dose: 500,000 units Pantoprazole Sodium (Protonix -) 40 mg PO DAILY [facility] Last Admin: 04/18/16 09:11 Dose: 40 mg - Objective Vital Signs: Vital Signs Temperature 98.3 F 04/18/16 10:00 Pulse Rate 110 H 04/18/16 14:00 Respiratory Rate 18 04/18/16 14:00 Blood Pressure 124/96 04/18/16 14:00 O2 Sat by Pulse Oximetry (%) 97 04/18/16 09:00 Constitutional: Yes: Calm Eyes: Yes: Conjunctiva Clear HENT: Yes: Atraumatic Cardiovascular: Yes: S1, S2 Respiratory: Yes: CTA Bilaterally, On Nasal O2 Gastrointestinal: Yes: Soft Genitourinary: Yes: Incontinence Musculoskeletal: Yes: Muscle Weakness Extremities: Yes: WNL Edema: Yes Edema: LLE: Trace, RLE: Trace Neurological: Yes: Oriented Psychiatric: Yes: Oriented Labs: CBC, BMP 04/18/16 06:20 04/18/16 06:20 INR, PTT INR 1.37 (0.82-1.09) H D 04/16/16 06:00 Assessment/Plan Current Medications Generic Name Dose Route Start Last Admin Trade Name Freq PRN Reason Stop Dose Admin Albuterol Sulfate 1 amp 04/14/16 11:59 Ventolin 0.083% Nebulizer Soln - NEB Q4H PRN SHORT OF BREATH/WHEEZING Albuterol/Ipratropium 1 amp 04/14/16 12:00 04/18/16 12:49 Duoneb - NEB 1 amp QIDR [facility] Administration Budesonide/Formoterol Fumarate 2 puff 04/12/16 10:00 04/18/16 09:12 Symbicort 80/4.5mcg - IH 2 puff BID [facility] Administration Guaifenesin 1,200 mg 04/16/16 12:15 04/18/16 09:11 Mucinex - PO 1,200 mg BID [facility] Administration Metoprolol Succinate 100 mg 04/16/16 22:00 04/18/16 09:11 Toprol Xl - PO 100 mg BID [facility] Administration Nystatin 500,000 units 04/16/16 18:00 04/18/16 12:14 Nystatin Oral Suspension - PO 500,000 units Q6HPO [facility] Administration Pantoprazole Sodium 40 mg 04/16/16 12:30 04/18/16 09:11 Protonix - PO 40 mg DAILY [facility] Administration Impression 1. NAYAN 2. hyperkalemia 3. sepsis with hypothremia 4. a-fib 5. GI bleed 6. metabolic acidosis - check abg and lactic acid level 7. COPD 8. hyperlipidemia 9. hypernatremia 10. failure to thrive Plan - will restart fluids as she is not eating - repeat labs in am - improved lower extremity edema - monitor BP - cont current meds - creatinine is higher and sodium is trending up Dr Rogers -
[2016-04-18] MEDS ORDERED: DEXTROSE 5%-WATER - 1,000 ML with POTASSIUM CHLORIDE 10 MEQ IV SCH (15:45)
[2016-04-19] MEDS: ALBUTEROL SO4 2.5/IPRATROPIUM 0.5 INH SOL 3 ML VIAL.NEB. NEB SCH ×3 (06:40→18:00)
[2016-04-19 07:44] LABS: BASOPHIL 0.2 % (0-2.0); EOSINOPHIL 1.2 % (0-4.5); MCH 31.5 pg (25.7-33.7); MCHC 32.6 g/dl (32.0-36.0); MEAN CELL VOLUME 96.4 fl (80-96); MEAN PLT VOLUME 8.8 fl (7.5-11.1); NEUTROPHILS 83.7 % (42.8-82.8); PLATELET COUNT 106 K/MM3 (134-434); RDW 16.2 % (11.6-15.6); WHITE BLOOD COUNT 10.2 K/mm3 (4.0-10.0)
[2016-04-19 08:17] LABS: ALBUMIN 2.3 g/dl (3.4-5.0); CALCIUM 8.2 mg/dL (8.5-10.1); MAGNESIUM 2.1 mg/dL (1.8-2.4); PHOSPHOROUS 3.4 mg/dL (2.5-4.9)
[2016-04-19 08:20] LABS: BILIRUBIN,TOTAL 1.1 mg/dL (0.2-1.0); CREATININE 1.4 mg/dL (0.55-1.02); TOT PROT 5.1 g/dl (6.4-8.2)
[2016-04-19] MEDS: METOPROLOL SUCCINATE 100 MG TAB.SR.24H (FP) PO SCH ×2 (09:01→23:38)
[2016-04-19] MEDS: guaiFENesin 600 MG TABLET.ER (FP) PO SCH ×2 (09:01→23:39)
[2016-04-19] MEDS: PANTOPRAZOLE 40 MG TABLET (FP) PO SCH (09:01)
[2016-04-19] MEDS: BUDESONIDE/FORMETEROL FUMARATE 80/4.5 mcg INHALER IH SCH ×2 (09:02→23:45)
--- NOTE | 2016-04-19 10:38 | PN ---
Progress Note, Physician History of Present Illness: PULMONARY ALERT,-RESP DISTRESS,-CP,+COUGH - Current Medication List Current Medications: Active Medications Albuterol Sulfate (Ventolin 0.083% Nebulizer Soln -) 1 amp NEB Q4H PRN PRN Reason: SHORT OF BREATH/WHEEZING Albuterol/Ipratropium (Duoneb -) 1 amp NEB QIDR [facility] Last Admin: 04/19/16 06:40 Dose: 1 amp Budesonide/Formoterol Fumarate (Symbicort 80/4.5mcg -) 2 puff IH BID [facility] Last Admin: 04/19/16 09:02 Dose: 2 puff Guaifenesin (Mucinex -) 1,200 mg PO BID [facility] Last Admin: 04/19/16 09:01 Dose: 1,200 mg Potassium Chloride 10 meq/ (Dextrose) 1,005 mls @ 42 mls/hr IV .[id number] [facility] Last Admin: 04/18/16 17:14 Dose: 42 mls/hr Metoprolol Succinate (Toprol Xl -) 100 mg PO BID [facility] Last Admin: 04/19/16 09:01 Dose: 100 mg Nystatin (Nystatin Oral Suspension -) 500,000 units PO Q6HPO [facility] Last Admin: 04/18/16 17:13 Dose: 500,000 units Pantoprazole Sodium (Protonix -) 40 mg PO DAILY [facility] Last Admin: 04/19/16 09:01 Dose: 40 mg - Objective Vital Signs: Vital Signs Temperature 97.2 F L 04/19/16 05:51 Pulse Rate 110 H 04/19/16 05:51 Respiratory Rate 19 04/19/16 05:51 Blood Pressure 156/89 04/19/16 05:51 O2 Sat by Pulse Oximetry (%) 97 04/19/16 09:00 Constitutional: Yes: Well Nourished, Calm Eyes: Yes: WNL HENT: Yes: WNL Neck: Yes: WNL Cardiovascular: Yes: Pulse Irregular, S1, S2 Respiratory: Yes: Rales (BIBASILAR CRACKLES) Gastrointestinal: Yes: Normal Bowel Sounds, Soft Extremities: Yes: WNL Edema: No Labs: CBC, BMP 04/19/16 05:35 04/19/16 05:35 INR, PTT INR 1.37 (0.82-1.09) H D 04/16/16 06:00 Assessment/Plan s/p Septic Shock of unclear etiology ? Pneumonia Atrial Fibrillation with RVR Acute on Chronic Renal Failure improving Lactic Acidosis Elevated LFTs likely ischemic injury improving +Troponins r/o GI Bleed Hypernatremia improved COPD - monitor urine output, creatinine - aspiration precautions - inhaled bronchodilators - protonix - monitor H/H,LFTS - DVT/GI prophylaxis DR MENDOZA
[2016-04-19] MEDS: NYSTATIN 500,000 UNITS/5 ML SUSPENSION PO SCH ×3 (11:25→23:38)
--- NOTE | 2016-04-19 12:15 | PN ---
Progress Note, Physician History of Present Illness: No events Tele: Afib at 100/min - Current Medication List Current Medications: Active Medications Albuterol/Ipratropium (Duoneb -) 1 amp NEB [facility]IDR [facility] Last Admin: 04/19/16 11:23 Dose: 1 amp Budesonide/Formoterol Fumarate (Symbicort 80/4.5mcg -) 2 puff IH BID [facility] Last Admin: 04/19/16 09:02 Dose: 2 puff Guaifenesin (Mucinex -) 1,200 mg PO BID [facility] Last Admin: 04/19/16 09:01 Dose: 1,200 mg Potassium Chloride 10 meq/ (Dextrose) 1,005 mls @ 42 mls/hr IV .[id number] [facility] Last Admin: 04/18/16 17:14 Dose: 42 mls/hr Metoprolol Succinate (Toprol Xl -) 100 mg PO BID [facility] Last Admin: 04/19/16 09:01 Dose: 100 mg Nystatin (Nystatin Oral Suspension -) 500,000 units PO Q6HPO [facility] Last Admin: 04/19/16 11:25 Dose: 500,000 units Pantoprazole Sodium (Protonix -) 40 mg PO DAILY [facility] Last Admin: 04/19/16 09:01 Dose: 40 mg - Objective Vital Signs: Vital Signs Temperature 97.2 F L 04/19/16 05:51 Pulse Rate 84 04/19/16 11:23 Respiratory Rate 19 04/19/16 05:51 Blood Pressure 156/89 04/19/16 05:51 O2 Sat by Pulse Oximetry (%) 94 L 04/19/16 11:23 Constitutional: Yes: No Distress Eyes: Yes: WNL HENT: Yes: WNL, Pharyngeal Erythema Cardiovascular: Yes: Pulse Irregular Respiratory: Yes: WNL Gastrointestinal: Yes: WNL Musculoskeletal: Yes: WNL Edema: No Labs: CBC, BMP 04/19/16 05:35 04/19/16 05:35 INR, PTT INR 1.37 (0.82-1.09) H D 04/16/16 06:00 Assessment/Plan a/p: 89 yo female with afib/flutter, ? MAT, severe copd on chronic steroids, pulm HTN, Mod MR, HTN, venous insufficiency, vertigo here with sepsis c/b GIB, shock liver, NAYAN with hyperkalemia. sepsis, resolving: - BP improved with ivfs and abx - source unclear presently, cont abx per ID rapid Afib/flutter (possible PSVT prior)/MAT toprol to 100 bid -on AC (CHADS 2)--eliquis 2.5 bid for age and borderline wt/renal fxn, plus excessive gingival bleeding on higher dose. -Hgb stable and no further testing planned so will resume eliquis at 2.5mg BID presumed cad: - No asa b/c of GIB. No statin b/c of acute liver injury. - improving with IVF. pulm HTN (mild, moderate): -? 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 elevated lfts: -likely due to septic shock, lfts improving with ivfs/abx Hyperlipidemia -holding statin as above due to elevated lfts
--- NOTE | 2016-04-19 13:55 | PN ---
Progress Note, Physician Chief Complaint: Ms Granado continues to complain of weakness and fatigue. No cp, sob, n/v. Says she feels better sitting in chair and wants to leave the hospital soon. - Current Medication List Current Medications: Active Medications Albuterol/Ipratropium (Duoneb -) 1 amp NEB QIDR [facility] Last Admin: 04/19/16 11:23 Dose: 1 amp Budesonide/Formoterol Fumarate (Symbicort 80/4.5mcg -) 2 puff IH BID [facility] Last Admin: 04/19/16 09:02 Dose: 2 puff Guaifenesin (Mucinex -) 1,200 mg PO BID [facility] Last Admin: 04/19/16 09:01 Dose: 1,200 mg Potassium Chloride 10 meq/ (Dextrose) 1,005 mls @ 42 mls/hr IV .[id number] [facility] Last Admin: 04/18/16 17:14 Dose: 42 mls/hr Metoprolol Succinate (Toprol Xl -) 100 mg PO BID [facility] Last Admin: 04/19/16 09:01 Dose: 100 mg Nystatin (Nystatin Oral Suspension -) 500,000 units PO Q6HPO [facility] Last Admin: 04/19/16 11:25 Dose: 500,000 units Pantoprazole Sodium (Protonix -) 40 mg PO DAILY [facility] Last Admin: 04/19/16 09:01 Dose: 40 mg - Objective Vital Signs: Vital Signs Temperature 97.2 F L 04/19/16 05:51 Pulse Rate 84 04/19/16 11:23 Respiratory Rate 19 04/19/16 05:51 Blood Pressure 156/89 04/19/16 05:51 O2 Sat by Pulse Oximetry (%) 94 L 04/19/16 11:23 Constitutional: Yes: Well Nourished, No Distress, Calm Cardiovascular: Yes: Pulse Irregular. No: Gallop, Murmur, Rub Respiratory: Yes: Regular, CTA Bilaterally. No: Rales, Rhonchi, Wheezes Gastrointestinal: Yes: Normal Bowel Sounds, Soft. No: Distention, Tenderness Extremities: Yes: WNL Edema: Yes Edema: LLE: 1+, RLE: 1+ Labs: CBC, BMP 04/19/16 05:35 04/19/16 05:35 INR, PTT INR 1.37 (0.82-1.09) H D 04/16/16 06:00 Problem List - Problems (1) Septic shock Code(s): A41.9 - SEPSIS, UNSPECIFIED ORGANISM R65.21 - SEVERE SEPSIS WITH SEPTIC SHOCK (2) Atrial fibrillation with rapid ventricular response Code(s): I48.91 - UNSPECIFIED ATRIAL FIBRILLATION (3) NAYAN (acute kidney injury) Code(s): N17.9 - ACUTE KIDNEY FAILURE, UNSPECIFIED (4) Shock liver Code(s): K75.9 - INFLAMMATORY LIVER DISEASE, UNSPECIFIED (5) Hyperkalemia Code(s): E87.5 - HYPERKALEMIA (6) Hypoglycemia Code(s): E16.2 - HYPOGLYCEMIA, UNSPECIFIED (7) Acidosis Code(s): E87.2 - ACIDOSIS (8) CHF (congestive heart failure) Code(s): I50.9 - HEART FAILURE, UNSPECIFIED (9) COPD (chronic obstructive pulmonary disease) Code(s): J44.9 - CHRONIC OBSTRUCTIVE PULMONARY DISEASE, UNSPECIFIED (10) Elevated troponin Code(s): R79.89 - OTHER SPECIFIED ABNORMAL FINDINGS OF BLOOD CHEMISTRY (11) GI bleed Code(s): K92.2 - GASTROINTESTINAL HEMORRHAGE, UNSPECIFIED Assessment/Plan (1) Septic shock Assessment/Plan: -resolved -unclear source -doing well off antibiotics Code(s): A41.9 - SEPSIS, UNSPECIFIED ORGANISM R65.21 - SEVERE SEPSIS WITH SEPTIC SHOCK (2) Atrial fibrillation with rapid ventricular response Assessment/Plan: -appreciate cardiology assistance -continue toprol -eliqius restarted Code(s): I48.91 - UNSPECIFIED ATRIAL FIBRILLATION (3) NAYAN (acute kidney injury) Assessment/Plan: -resolved -nephrology following Code(s): N17.9 - ACUTE KIDNEY FAILURE, UNSPECIFIED (4) Shock liver Assessment/Plan: -continues to improve with supportive care -GI following Code(s): K75.9 - INFLAMMATORY LIVER DISEASE, UNSPECIFIED (5) Hyperkalemia Assessment/Plan: -resolved Code(s): E87.5 - HYPERKALEMIA (6) Hypoglycemia Assessment/Plan: -resolved Code(s): E16.2 - HYPOGLYCEMIA, UNSPECIFIED (7) Acidosis Assessment/Plan: -resolved Code(s): E87.2 - ACIDOSIS (8) CHF (congestive heart failure) Assessment/Plan: -not in exacerbation -hold all diuretics -restart diuretics when safe per cardiology Code(s): I50.9 - HEART FAILURE, UNSPECIFIED (9) COPD (chronic obstructive pulmonary disease) Assessment/Plan: -continue inhalers Code(s): J44.9 - CHRONIC OBSTRUCTIVE PULMONARY DISEASE, UNSPECIFIED (10) Elevated troponin Assessment/Plan: -stress induced -ECHO reviewed -cardiology following Code(s): R79.89 - OTHER SPECIFIED ABNORMAL FINDINGS OF BLOOD CHEMISTRY (11) GI bleed Assessment/Plan: -oral protonix -continue diet Code(s): K92.2 - GASTROINTESTINAL HEMORRHAGE, UNSPECIFIED (12) Thrush -continue nystatin day 4 Dispo -spoke with daughter who is health care proxy -stated patient needs to go to SNF which I agree with -however patient says she does not want to go, will d/w Dr Ruvalcaba as daughter says possible dementia
[2016-04-19] MEDS ORDERED: DEXTROSE 5%-WATER - 1,000 ML with POTASSIUM CHLORIDE 10 MEQ IV SCH (14:44)
--- NOTE | 2016-04-19 14:44 | PN ---
Progress Note, Physician History of Present Illness: Pt seen and examined at bedside. She is out of bed to chair today. She denies shortness of breath. She does have poor appetite and poor PO intake. - Current Medication List Current Medications: Active Medications Albuterol/Ipratropium (Duoneb -) 1 amp NEB QIDR [facility] Last Admin: 04/19/16 11:23 Dose: 1 amp Budesonide/Formoterol Fumarate (Symbicort 80/4.5mcg -) 2 puff IH BID [facility] Last Admin: 04/19/16 09:02 Dose: 2 puff Guaifenesin (Mucinex -) 1,200 mg PO BID [facility] Last Admin: 04/19/16 09:01 Dose: 1,200 mg Potassium Chloride 10 meq/ (Dextrose) 1,005 mls @ 42 mls/hr IV .[id number] [facility] Last Admin: 04/18/16 17:14 Dose: 42 mls/hr Metoprolol Succinate (Toprol Xl -) 100 mg PO BID [facility] Last Admin: 04/19/16 09:01 Dose: 100 mg Nystatin (Nystatin Oral Suspension -) 500,000 units PO Q6HPO [facility] Last Admin: 04/19/16 11:25 Dose: 500,000 units Pantoprazole Sodium (Protonix -) 40 mg PO DAILY [facility] Last Admin: 04/19/16 09:01 Dose: 40 mg - Objective Vital Signs: Vital Signs Temperature 97.2 F L 04/19/16 05:51 Pulse Rate 84 04/19/16 11:23 Respiratory Rate 19 04/19/16 05:51 Blood Pressure 156/89 04/19/16 05:51 O2 Sat by Pulse Oximetry (%) 94 L 04/19/16 11:23 Constitutional: Yes: Calm Eyes: Yes: Conjunctiva Clear HENT: Yes: Atraumatic Neck: Yes: Supple Cardiovascular: Yes: S1, S2 Respiratory: Yes: On Nasal O2 Gastrointestinal: Yes: Soft Genitourinary: Yes: Incontinence Musculoskeletal: Yes: WNL Edema: Yes Edema: LLE: Trace, RLE: Trace Neurological: Yes: Oriented Psychiatric: Yes: Oriented Labs: CBC, BMP 04/19/16 05:35 04/19/16 05:35 INR, PTT INR 1.37 (0.82-1.09) H D 04/16/16 06:00 Assessment/Plan Current Medications Generic Name Dose Route Start Last Admin Trade Name Carolyne PRN Reason Stop Dose Admin Albuterol/Ipratropium 1 amp 04/14/16 12:00 04/19/16 11:23 Duoneb - NEB 1 amp QIDR [facility] Administration Budesonide/Formoterol Fumarate 2 puff 04/12/16 10:00 04/19/16 09:02 Symbicort 80/4.5mcg - IH 2 puff BID [facility] Administration Guaifenesin 1,200 mg 04/16/16 12:15 04/19/16 09:01 Mucinex - PO 1,200 mg BID [facility] Administration Potassium Chloride 10 meq/ 1,005 mls @ 42 mls/hr 04/18/16 15:45 04/18/16 17:14 Dextrose IV 42 mls/hr .[id number] [facility] Administration Metoprolol Succinate 100 mg 04/16/16 22:00 04/19/16 09:01 Toprol Xl - PO 100 mg BID [facility] Administration Nystatin 500,000 units 04/16/16 18:00 04/19/16 11:25 Nystatin Oral Suspension - PO 500,000 units Q6HPO [facility] Administration Pantoprazole Sodium 40 mg 04/16/16 12:30 04/19/16 09:01 Protonix - PO 40 mg DAILY [facility] Administration Impression 1. NAYAN 2. hyperkalemia 3. sepsis with hypothremia 4. a-fib 5. GI bleed 6. metabolic acidosis - check abg and lactic acid level 7. COPD 8. hyperlipidemia 9. hypernatremia 10. failure to thrive Plan - will decrease rate of fluids - pt still has poor PO intake - repeat labs in am - pt/rehab - sodium is improved today - cont current meds Dr Rogers -
[2016-04-19] MEDS: POTASSIUM CHLORIDE 10 MEQ in DEXTROSE 5%-WATER - 1,000 ML IVPB SCH (16:12)
[2016-04-20] MEDS: NYSTATIN 500,000 UNITS/5 ML SUSPENSION PO SCH ×4 (00:30→17:15)
[2016-04-20] MEDS: ALBUTEROL SO4 2.5/IPRATROPIUM 0.5 INH SOL 3 ML VIAL.NEB. NEB SCH ×5 (06:00→23:24)
[2016-04-20 08:21] LABS: CALCIUM 8.2 mg/dL (8.5-10.1)
[2016-04-20 08:25] LABS: CREATININE 1.5 mg/dL (0.55-1.02); MAGNESIUM 2.1 mg/dL (1.8-2.4); PHOSPHOROUS 3.3 mg/dL (2.5-4.9)
[2016-04-20] MEDS: guaiFENesin 600 MG TABLET.ER (FP) PO SCH ×2 (09:15→22:00)
[2016-04-20] MEDS: METOPROLOL SUCCINATE 100 MG TAB.SR.24H (FP) PO SCH ×2 (09:17→22:00)
[2016-04-20] MEDS: BUDESONIDE/FORMETEROL FUMARATE 80/4.5 mcg INHALER IH SCH ×2 (09:17→22:01)
[2016-04-20] MEDS: PANTOPRAZOLE 40 MG TABLET (FP) PO SCH (09:17)
[2016-04-20 09:47] LABS: BASOPHIL 0.6 % (0-2.0); EOSINOPHIL 1.6 % (0-4.5); MCH 31.8 pg (25.7-33.7); MCHC 32.4 g/dl (32.0-36.0); MEAN CELL VOLUME 97.9 fl (80-96); MEAN PLT VOLUME 9.3 fl (7.5-11.1); NEUTROPHILS 80.2 % (42.8-82.8); PLATELET COUNT 115 K/MM3 (134-434); RDW 16.4 % (11.6-15.6); WHITE BLOOD COUNT 9.8 K/mm3 (4.0-10.0)
--- NOTE | 2016-04-20 11:31 | PN ---
Progress Note, Physician History of Present Illness: pulmoanery alert,weak ,-resp distress - Current Medication List Current Medications: Active Medications Albuterol/Ipratropium (Duoneb -) 1 amp NEB QIDR [facility] Last Admin: 04/20/16 06:00 Dose: 1 amp Apixaban (Eliquis -) 2.5 mg PO BID [facility] Budesonide/Formoterol Fumarate (Symbicort 80/4.5mcg -) 2 puff IH BID [facility] Last Admin: 04/20/16 09:17 Dose: 2 puff Guaifenesin (Mucinex -) 1,200 mg PO BID [facility] Last Admin: 04/20/16 09:15 Dose: 1,200 mg Potassium Chloride 10 meq/ (Dextrose) 1,005 mls @ 30 mls/hr IVPB Q33H [facility] Last Admin: 04/19/16 16:12 Dose: 30 mls/hr Metoprolol Succinate (Toprol Xl -) 100 mg PO BID [facility] Last Admin: 04/20/16 09:17 Dose: 100 mg Nystatin (Nystatin Oral Suspension -) 500,000 units PO Q6HPO [facility] Last Admin: 04/20/16 06:18 Dose: 500,000 units Pantoprazole Sodium (Protonix -) 40 mg PO DAILY [facility] Last Admin: 04/20/16 09:17 Dose: 40 mg - Objective Vital Signs: Vital Signs Temperature 98.1 F 04/20/16 06:00 Pulse Rate 116 H 04/20/16 06:00 Respiratory Rate 20 04/20/16 06:00 Blood Pressure 123/94 04/20/16 06:00 O2 Sat by Pulse Oximetry (%) 95 04/20/16 09:00 Constitutional: Yes: Well Nourished, Calm Eyes: Yes: WNL HENT: Yes: WNL Neck: Yes: WNL Cardiovascular: Yes: Pulse Irregular, S1, S2 Respiratory: Yes: Diminished Gastrointestinal: Yes: WNL Extremities: Yes: WNL Edema: Yes Labs: CBC, BMP 04/20/16 05:35 04/20/16 05:35 INR, PTT INR 1.37 (0.82-1.09) H D 04/16/16 06:00 Assessment/Plan s/p Septic Shock of unclear etiology ? Pneumonia Atrial Fibrillation with RVR Acute on Chronic Renal Failure improving Lactic Acidosis Elevated LFTs likely ischemic injury improving +Troponins r/o GI Bleed Hypernatremia improved COPD - monitor urine output, creatinine - aspiration precautions - inhaled bronchodilators - protonix - monitor H/H,LFTS - DVT/GI prophylaxis DR MENDOZA
--- NOTE | 2016-04-20 11:52 | PN ---
Progress Note (short form) - Note Progress Note: CC: sepsis S: No sob, palps, cp, dizziness. + LE edema. Current Medications Albuterol/Ipratropium (Duoneb -) 1 amp NEB QIDR [facility] Last Admin: 04/20/16 06:00 Dose: 1 amp Apixaban (Eliquis -) 2.5 mg PO BID [facility] Budesonide/Formoterol Fumarate (Symbicort 80/4.5mcg -) 2 puff IH BID [facility] Last Admin: 04/20/16 09:17 Dose: 2 puff Guaifenesin (Mucinex -) 1,200 mg PO BID [facility] Last Admin: 04/20/16 09:15 Dose: 1,200 mg Potassium Chloride 10 meq/ (Dextrose) 1,005 mls @ 30 mls/hr IVPB Q33H [facility] Last Admin: 04/19/16 16:12 Dose: 30 mls/hr Metoprolol Succinate (Toprol Xl -) 100 mg PO BID [facility] Last Admin: 04/20/16 09:17 Dose: 100 mg Nystatin (Nystatin Oral Suspension -) 500,000 units PO Q6HPO [facility] Last Admin: 04/20/16 06:18 Dose: 500,000 units Pantoprazole Sodium (Protonix -) 40 mg PO DAILY [facility] Last Admin: 04/20/16 09:17 Dose: 40 mg Vital Signs - 24 hr 04/19/16 04/19/16 04/19/16 14:18 18:00 21:00 Temperature 97.6 F 97.2 F L Pulse Rate 104 H 98 H Respiratory 20 19 Rate Blood Pressure 146/78 145/85 O2 Sat by Pulse 95 Oximetry (%) 04/19/16 04/20/16 04/20/16 22:00 02:00 06:00 Temperature 97.8 F 97 F L 98.1 F Pulse Rate 110 H 100 H 116 H Respiratory 20 20 20 Rate Blood Pressure 132/78 124/89 123/94 O2 Sat by Pulse Oximetry (%) 04/20/16 09:00 Temperature Pulse Rate Respiratory Rate Blood Pressure O2 Sat by Pulse 95 Oximetry (%) Intake & Output 04/18/16 04/19/16 04/20/16 04/21/16 07:59 07:59 07:59 07:59 Intake Total 1129 624 Output Total 1000 Balance 129 624 Constitutional: Yes: No Distress Eyes: Yes: WNL HENT: Yes: WNL, Pharyngeal Erythema Cardiovascular: Yes: Pulse Irregular Respiratory: Yes: bibasilar dullness Gastrointestinal: Yes: WNL Musculoskeletal: Yes: WNL Edema: 1+ Labs: CBC, BMP 04/20/16 05:35 04/20/16 05:35 Laboratory Tests 04/13/16 04/20/16 05:00 05:35 INR 3.25 H Magnesium 2.1 Tele: Afib at 110's. EKG 04/11: afib with RVR, [address]/T wave abnromalities difficult to interpret due to baseline artifact. EKG 04/12: afib. LAD. RBBB. Anterior T wave abnormalities. echo 04/12/16: Nl lv/rv, mod GINA. 1+ MAC, mild-mod MR. Severe TR. RVSP 40-50. echo 02/2016: nl lv, rv mod-sev dil, mild-mod dec rv fcn, severe kim, mod mr, dilated ivc, sev tr, mild phtn Echo 2013: nl LV/RV; mod MR/TR; mod pHTN (40-50) MPI 2012: no ischemia, nl EF LHC 2008 (false + mpi): mild, diffuse dz Assessment/Plan a/p: 89 yo female with afib/flutter, ? MAT, severe copd on chronic steroids, pulm HTN, Mod MR, HTN, venous insufficiency, vertigo here with sepsis c/b GIB, shock liver, NAYAN with hyperkalemia. sepsis, resolving: - BP improved with ivfs and abx - source unclear presently, cont abx per ID - now with evidence of volume overload. effusions on cXR 04/19 Will give trial of lasix 40 mg IV x 1. rapid Afib/flutter (possible PSVT prior)/MAT - toprol to 100 bid, still with suboptimal rates. Ongoing management of pulmonary disease, diuresis as mentioned above. If still suboptimal tomorrow, may need to uptitrate regimen. -on AC (CHADS 2)--eliquis 2.5 bid for age and borderline wt/renal fxn, plus excessive gingival bleeding on higher dose. -Hgb stable and no further testing planned so resumed eliquis at 2.5mg BID presumed cad: - No asa b/c of GIB and on AC. No statin b/c of acute liver injury. pulm HTN (mild, moderate): -? 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 elevated lfts: -likely due to septic shock, lfts improving with ivfs/abx Hyperlipidemia -holding statin as above due to elevated lfts COPD, per pulm
--- NOTE | 2016-04-20 12:25 | PN ---
Progress Note, Physician History of Present Illness: Pt seen and examined at bedside. She is awake and alert. She has poor oral intake. She denies shortness of breath however is not ambulatory. - Current Medication List Current Medications: Active Medications Albuterol/Ipratropium (Duoneb -) 1 amp NEB QIDR [facility] Last Admin: 04/20/16 12:15 Dose: 1 amp Apixaban (Eliquis -) 2.5 mg PO BID [facility] Budesonide/Formoterol Fumarate (Symbicort 80/4.5mcg -) 2 puff IH BID [facility] Last Admin: 04/20/16 09:17 Dose: 2 puff Furosemide (Lasix Injection -) 40 mg IVPUSH ONCE ONE Stop: 04/20/16 11:57 Guaifenesin (Mucinex -) 1,200 mg PO BID [facility] Last Admin: 04/20/16 09:15 Dose: 1,200 mg Potassium Chloride 10 meq/ (Dextrose) 1,005 mls @ 30 mls/hr IVPB Q33H [facility] Last Admin: 04/19/16 16:12 Dose: 30 mls/hr Metoprolol Succinate (Toprol Xl -) 100 mg PO BID [facility] Last Admin: 04/20/16 09:17 Dose: 100 mg Nystatin (Nystatin Oral Suspension -) 500,000 units PO Q6HPO [facility] Last Admin: 04/20/16 06:18 Dose: 500,000 units Pantoprazole Sodium (Protonix -) 40 mg PO DAILY [facility] Last Admin: 04/20/16 09:17 Dose: 40 mg - Objective Vital Signs: Vital Signs Temperature 98.1 F 04/20/16 06:00 Pulse Rate 116 H 04/20/16 06:00 Respiratory Rate 20 04/20/16 06:00 Blood Pressure 123/94 04/20/16 06:00 O2 Sat by Pulse Oximetry (%) 95 04/20/16 09:00 Constitutional: Yes: Calm Eyes: Yes: Conjunctiva Clear HENT: Yes: Atraumatic Neck: Yes: Supple Cardiovascular: Yes: S1, S2 Respiratory: Yes: On Nasal O2 Gastrointestinal: Yes: Soft Genitourinary: Yes: Incontinence Musculoskeletal: Yes: Muscle Weakness Edema: Yes Edema: LLE: 1+, RLE: 1+ Neurological: Yes: Oriented Psychiatric: Yes: Oriented Labs: CBC, BMP 04/20/16 05:35 04/20/16 05:35 INR, PTT INR 1.37 (0.82-1.09) H D 04/16/16 06:00 Assessment/Plan Current Medications Generic Name Dose Route Start Last Admin Trade Name Freq PRN Reason Stop Dose Admin Albuterol/Ipratropium 1 amp 04/14/16 12:00 04/20/16 12:15 Duoneb - NEB 1 amp QIDR [facility] Administration Apixaban 2.5 mg 04/20/16 22:00 Eliquis - PO BID [facility] Budesonide/Formoterol Fumarate 2 puff 04/12/16 10:00 04/20/16 09:17 Symbicort 80/4.5mcg - IH 2 puff BID [facility] Administration Furosemide 40 mg 04/20/16 11:56 Lasix Injection - IVPUSH 04/20/16 11:57 ONCE ONE Guaifenesin 1,200 mg 04/16/16 12:15 04/20/16 09:15 Mucinex - PO 1,200 mg BID [facility] Administration Potassium Chloride 10 meq/ 1,005 mls @ 30 mls/hr 04/19/16 15:40 04/19/16 16:12 Dextrose IVPB 30 mls/hr Q33H [facility] Administration Metoprolol Succinate 100 mg 04/16/16 22:00 04/20/16 09:17 Toprol Xl - PO 100 mg BID [facility] Administration Nystatin 500,000 units 04/16/16 18:00 04/20/16 06:18 Nystatin Oral Suspension - PO 500,000 units Q6HPO [facility] Administration Pantoprazole Sodium 40 mg 04/16/16 12:30 04/20/16 09:17 Protonix - PO 40 mg DAILY [facility] Administration Impression 1. NAYAN 2. hyperkalemia 3. sepsis with hypothremia 4. a-fib 5. GI bleed 6. metabolic acidosis - check abg and lactic acid level 7. COPD 8. hyperlipidemia 9. hypernatremia 10. failure to thrive Plan - monitor renal function - encourage PO intake - repeat labs in am - pt/rehab - sodium is improved today - cardio input appreciated - cont current meds Dr Rogers -
[2016-04-20] MEDS ORDERED: FUROSEMIDE 40 MG/4 ML INJECTABLE VIAL IVPUSH ONE (14:00)
--- NOTE | 2016-04-20 15:05 | PN ---
Progress Note, Physician Chief Complaint: Ms Graando says she is weak but otherwise without complaint. No cp, sob, n/v. - Current Medication List Current Medications: Active Medications Albuterol/Ipratropium (Duoneb -) 1 amp NEB QIDR [facility] Last Admin: 04/20/16 12:15 Dose: 1 amp Apixaban (Eliquis -) 2.5 mg PO BID [facility] Budesonide/Formoterol Fumarate (Symbicort 80/4.5mcg -) 2 puff IH BID [facility] Last Admin: 04/20/16 09:17 Dose: 2 puff Guaifenesin (Mucinex -) 1,200 mg PO BID [facility] Last Admin: 04/20/16 09:15 Dose: 1,200 mg Potassium Chloride 10 meq/ (Dextrose) 1,005 mls @ 30 mls/hr IVPB Q33H [facility] Last Admin: 04/19/16 16:12 Dose: 30 mls/hr Metoprolol Succinate (Toprol Xl -) 100 mg PO BID [facility] Last Admin: 04/20/16 09:17 Dose: 100 mg Nystatin (Nystatin Oral Suspension -) 500,000 units PO Q6HPO [facility] Last Admin: 04/20/16 12:41 Dose: 500,000 units Pantoprazole Sodium (Protonix -) 40 mg PO DAILY [facility] Last Admin: 04/20/16 09:17 Dose: 40 mg - Objective Vital Signs: Vital Signs Temperature 98.1 F 04/20/16 06:00 Pulse Rate 116 H 04/20/16 06:00 Respiratory Rate 20 04/20/16 06:00 Blood Pressure 123/94 04/20/16 06:00 O2 Sat by Pulse Oximetry (%) 95 04/20/16 09:00 Constitutional: Yes: No Distress, Calm Cardiovascular: Yes: Pulse Irregular. No: Tachycardia, Gallop, Murmur, Rub Respiratory: Yes: Regular, CTA Bilaterally. No: Rales, Rhonchi, Wheezes Gastrointestinal: Yes: Normal Bowel Sounds, Soft. No: Distention, Tenderness Extremities: Yes: WNL Edema: Yes Edema: LLE: 2+, RLE: 2+ Labs: CBC, BMP 04/20/16 05:35 04/20/16 05:35 INR, PTT INR 1.37 (0.82-1.09) H D 04/16/16 06:00 Problem List - Problems (1) Septic shock Code(s): A41.9 - SEPSIS, UNSPECIFIED ORGANISM R65.21 - SEVERE SEPSIS WITH SEPTIC SHOCK (2) Atrial fibrillation with rapid ventricular response Code(s): I48.91 - UNSPECIFIED ATRIAL FIBRILLATION (3) NAYAN (acute kidney injury) Code(s): N17.9 - ACUTE KIDNEY FAILURE, UNSPECIFIED (4) Shock liver Code(s): K75.9 - INFLAMMATORY LIVER DISEASE, UNSPECIFIED (5) Hyperkalemia Code(s): E87.5 - HYPERKALEMIA (6) Hypoglycemia Code(s): E16.2 - HYPOGLYCEMIA, UNSPECIFIED (7) Acidosis Code(s): E87.2 - ACIDOSIS (8) CHF (congestive heart failure) Code(s): I50.9 - HEART FAILURE, UNSPECIFIED (9) COPD (chronic obstructive pulmonary disease) Code(s): J44.9 - CHRONIC OBSTRUCTIVE PULMONARY DISEASE, UNSPECIFIED (10) Elevated troponin Code(s): R79.89 - OTHER SPECIFIED ABNORMAL FINDINGS OF BLOOD CHEMISTRY (11) GI bleed Code(s): K92.2 - GASTROINTESTINAL HEMORRHAGE, UNSPECIFIED Assessment/Plan (1) Septic shock Assessment/Plan: -resolved -unclear source -doing well off antibiotics Code(s): A41.9 - SEPSIS, UNSPECIFIED ORGANISM R65.21 - SEVERE SEPSIS WITH SEPTIC SHOCK (2) Atrial fibrillation with rapid ventricular response Assessment/Plan: -appreciate cardiology assistance -continue toprol -eliqius restarted today Code(s): I48.91 - UNSPECIFIED ATRIAL FIBRILLATION (3) NAYAN (acute kidney injury) Assessment/Plan: -resolved -nephrology following Code(s): N17.9 - ACUTE KIDNEY FAILURE, UNSPECIFIED (4) Shock liver Assessment/Plan: -continues to improve with supportive care -GI following Code(s): K75.9 - INFLAMMATORY LIVER DISEASE, UNSPECIFIED (5) Hyperkalemia Assessment/Plan: -resolved Code(s): E87.5 - HYPERKALEMIA (6) Hypoglycemia Assessment/Plan: -resolved Code(s): E16.2 - HYPOGLYCEMIA, UNSPECIFIED (7) Acidosis Assessment/Plan: -resolved Code(s): E87.2 - ACIDOSIS (8) CHF (congestive heart failure) Assessment/Plan: -patient with BLE edema -given lasix 40mg IV x1 -monitor, will continue D5 per nephrology currently Code(s): I50.9 - HEART FAILURE, UNSPECIFIED (9) COPD (chronic obstructive pulmonary disease) Assessment/Plan: -continue inhalers Code(s): J44.9 - CHRONIC OBSTRUCTIVE PULMONARY DISEASE, UNSPECIFIED (10) Elevated troponin Assessment/Plan: -stress induced -ECHO reviewed -cardiology following Code(s): R79.89 - OTHER SPECIFIED ABNORMAL FINDINGS OF BLOOD CHEMISTRY (11) GI bleed Assessment/Plan: -oral protonix -continue diet Code(s): K92.2 - GASTROINTESTINAL HEMORRHAGE, UNSPECIFIED (12) Thrush -continue nystatin day 5 Dispo -plan for discharge to SNF -approximately 48 hours, patient is currently being diuresed
[2016-04-20] MEDS: APIXABAN 2.5 MG TABLET PO SCH (22:00)
[2016-04-21] MEDS: NYSTATIN 500,000 UNITS/5 ML SUSPENSION PO SCH ×4 (03:59→18:17)
[2016-04-21] MEDS: POTASSIUM CHLORIDE 10 MEQ in DEXTROSE 5%-WATER - 1,000 ML IVPB SCH (04:00)
[2016-04-21] MEDS: ALBUTEROL SO4 2.5/IPRATROPIUM 0.5 INH SOL 3 ML VIAL.NEB. NEB SCH ×3 (06:20→18:50)
[2016-04-21 07:19] LABS: BASOPHIL 0.1 % (0-2.0); EOSINOPHIL 1.5 % (0-4.5); MCH 31.5 pg (25.7-33.7); MCHC 32.5 g/dl (32.0-36.0); MEAN PLT VOLUME 8.8 fl (7.5-11.1); NEUTROPHILS 80.5 % (42.8-82.8); PLATELET COUNT 108 K/MM3 (134-434); RDW 16.3 % (11.6-15.6); WHITE BLOOD COUNT 8.4 K/mm3 (4.0-10.0)
[2016-04-21 07:42] LABS: ALBUMIN 2.3 g/dl (3.4-5.0)
[2016-04-21 07:47] LABS: BILIRUBIN,TOTAL 1.1 mg/dL (0.2-1.0); CALCIUM 8.3 mg/dL (8.5-10.1); CREATININE 1.5 mg/dL (0.55-1.02); PHOSPHOROUS 3.3 mg/dL (2.5-4.9); TOT PROT 5.2 g/dl (6.4-8.2)
[2016-04-21] MEDS: guaiFENesin 600 MG TABLET.ER (FP) PO SCH ×2 (09:59→21:44)
[2016-04-21] MEDS: METOPROLOL SUCCINATE 100 MG TAB.SR.24H (FP) PO SCH ×2 (09:59→21:44)
[2016-04-21] MEDS: PANTOPRAZOLE 40 MG TABLET (FP) PO SCH (09:59)
[2016-04-21] MEDS: BUDESONIDE/FORMETEROL FUMARATE 80/4.5 mcg INHALER IH SCH ×2 (09:59→22:46)
[2016-04-21] MEDS: APIXABAN 2.5 MG TABLET PO SCH ×2 (09:59→21:43)
--- NOTE | 2016-04-21 11:08 | PN ---
Progress Note, Physician History of Present Illness: pulmonary alert,weak,-resp distress - Current Medication List Current Medications: Active Medications Albuterol/Ipratropium (Duoneb -) 1 amp NEB QIDR [facility] Last Admin: 04/21/16 06:20 Dose: 1 amp Apixaban (Eliquis -) 2.5 mg PO BID [facility] Last Admin: 04/21/16 09:59 Dose: 2.5 mg Budesonide/Formoterol Fumarate (Symbicort 80/4.5mcg -) 2 puff IH BID [facility] Last Admin: 04/21/16 09:59 Dose: 2 puff Guaifenesin (Mucinex -) 1,200 mg PO BID [facility] Last Admin: 04/21/16 09:59 Dose: 1,200 mg Potassium Chloride 10 meq/ (Dextrose) 1,005 mls @ 30 mls/hr IVPB Q33H [facility] Last Admin: 04/21/16 04:00 Dose: 30 mls/hr Metoprolol Succinate (Toprol Xl -) 100 mg PO BID [facility] Last Admin: 04/21/16 09:59 Dose: 100 mg Nystatin (Nystatin Oral Suspension -) 500,000 units PO Q6HPO [facility] Last Admin: 04/21/16 06:44 Dose: 500,000 units Pantoprazole Sodium (Protonix -) 40 mg PO DAILY [facility] Last Admin: 04/21/16 09:59 Dose: 40 mg - Objective Vital Signs: Vital Signs Temperature 98.2 F 04/21/16 09:05 Pulse Rate 110 H 04/21/16 09:05 Respiratory Rate 18 04/21/16 09:05 Blood Pressure 130/89 04/21/16 09:05 O2 Sat by Pulse Oximetry (%) 95 04/20/16 21:00 Constitutional: Yes: Well Nourished, Calm Eyes: Yes: WNL HENT: Yes: WNL Neck: Yes: WNL Cardiovascular: Yes: Pulse Irregular, S1, S2 Respiratory: Yes: Diminished Gastrointestinal: Yes: Normal Bowel Sounds, Soft Extremities: Yes: WNL Edema: Yes Labs: CBC, BMP 04/21/16 05:35 04/21/16 05:35 INR, PTT INR 1.37 (0.82-1.09) H D 04/16/16 06:00 Assessment/Plan s/p Septic Shock of unclear etiology ? Pneumonia Atrial Fibrillation with RVR Acute on Chronic Renal Failure improving Lactic Acidosis Elevated LFTs likely ischemic injury improving +Troponins r/o GI Bleed Hypernatremia improved COPD - monitor urine output, creatinine - aspiration precautions - inhaled bronchodilators - protonix - monitor H/H,LFTS - DVT/GI prophylaxis - anticoagulation - PT DR MENDOZA
[2016-04-21] MEDS ORDERED: FUROSEMIDE 40 MG/4 ML INJECTABLE VIAL IVPUSH ONE (11:32)
--- NOTE | 2016-04-21 11:36 | PN ---
Progress Note (short form) - Note Progress Note: S: no cp, palps, dizziness, sob. o: Vital Signs Period Temp Pulse Resp BP Sys/Ravi Pulse Ox Last 24 Hr 97.1 F-98.2 F 96-121 18-22 109-130/70-93 95 Constitutional: NAD, on Nasal cannula Eyes: No: Sclera Icterus Respiratory: Yes: bibasilar dullness, weak eff Gastrointestinal: Yes: Normal Bowel Sounds. No: Distention, Hepatomegaly, Palpable Mass, Tenderness Cardiovascular: Yes: Pulse Irregular JVD: no Heart Sounds: Yes: S1, S2. No: Gallop Murmur: 2/6 Systolic Murmur at LSB Extremities: No: Cold, Cyanosis Edema: 1+ le edema bl Integumentary: No: Jaundice diaphoresis Neurological: Yes: Alert, Oriented (x3) Psychiatric: No: Agitated Current Medications Generic Name Dose Route Start Last Admin Trade Name Freq PRN Reason Stop Dose Admin Albuterol/Ipratropium 1 amp 04/14/16 12:00 04/21/16 11:23 Duoneb - NEB 1 amp QIDR [facility]NEY Administration Apixaban 2.5 mg 04/20/16 22:00 04/21/16 09:59 Eliquis - PO 2.5 mg BID WHITNEY Administration Budesonide/Formoterol Fumarate 2 puff 04/12/16 10:00 04/21/16 09:59 Symbicort 80/4.5mcg - IH 2 puff BID WH[facility]NEY Administration Furosemide 40 mg 04/21/16 11:32 Lasix Injection - IVPUSH 04/21/16 11:33 ONCE ONE Guaifenesin 1,200 mg 04/16/16 12:15 04/21/16 09:59 Mucinex - PO 1,200 mg BID [facility] Administration Potassium Chloride 10 meq/ 1,005 mls @ 30 mls/hr 04/19/16 15:40 04/21/16 04:00 Dextrose IVPB 30 mls/hr Q33H [facility]NEY Administration Metoprolol Succinate 100 mg 04/16/16 22:00 04/21/16 09:59 Toprol Xl - PO 100 mg BID [facility] Administration Nystatin 500,000 units 04/16/16 18:00 04/21/16 06:44 Nystatin Oral Suspension - PO 500,000 units Q6HPO [facility] Administration Pantoprazole Sodium 40 mg 04/16/16 12:30 04/21/16 09:59 Protonix - PO 40 mg DAILY [facility] Administration CBC, BMP 04/21/16 05:35 04/21/16 05:35 EKG 04/11: afib with RVR, [address]/T wave abnromalities difficult to interpret due to baseline artifact. EKG 04/12: afib. LAD. RBBB. Anterior T wave abnormalities. tele: afib, rate 100s head CT: No acute pathology echo 04/12/16: Nl lv/rv, mod GINA. 1+ MAC, mild-mod MR. Severe TR. RVSP 40-50. echo 02/2016: nl lv, rv mod-sev dil, mild-mod dec rv fcn, severe kim, mod mr, dilated ivc, sev tr, mild phtn Echo 2013: nl LV/RV; mod MR/TR; mod pHTN (40-50) MPI 2012: no ischemia, nl EF LHC 2008 (false + mpi): mild, diffuse dz a/p: 89 yo female with afib/flutter, ? MAT, severe copd on chronic steroids, pulm HTN, Mod MR, HTN, venous insufficiency, vertigo here with sepsis c/b GIB, shock liver, NAYAN with hyperkalemia. sepsis, resolving: - BP improved with ivfs and abx - cont abx per ID rapid Afib/flutter (possible PSVT prior)/MAT -VR in low 100s, cont toprol 100 bid for now, if rate still fast tomorrow will increase toprol to 150 bid -on AC (CHADS 2)--eliquis 2.5 bid for age and borderline wt/renal fxn, plus excessive gingival bleeding on higher dose. presumed cad: - No asa b/c of GIB and on AC. No statin b/c of acute liver injury. pulm HTN (mild, moderate): -? 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 elevated lfts: -likely due to septic shock, lfts improving with ivfs/abx Hyperlipidemia -holding statin as above due to elevated lfts chronic venous ins'y: -was on lasix 20 qd at home, held here while needing resuscitation for sepsis/ hypotension. now that sepsis/low bp resolved she is starting to have le edema again. Will give lasix 40 iv again today and reassess tomorrow.
--- NOTE | 2016-04-21 12:10 | PN ---
Progress Note, Physician History of Present Illness: Pt seen and examined at bedside. She is awake and alert. She complains of lower extremity edema. - Current Medication List Current Medications: Active Medications Albuterol/Ipratropium (Duoneb -) 1 amp NEB QIDR [facility] Last Admin: 04/21/16 11:23 Dose: 1 amp Apixaban (Eliquis -) 2.5 mg PO BID [facility] Last Admin: 04/21/16 09:59 Dose: 2.5 mg Budesonide/Formoterol Fumarate (Symbicort 80/4.5mcg -) 2 puff IH BID [facility] Last Admin: 04/21/16 09:59 Dose: 2 puff Guaifenesin (Mucinex -) 1,200 mg PO BID [facility] Last Admin: 04/21/16 09:59 Dose: 1,200 mg Potassium Chloride 10 meq/ (Dextrose) 1,005 mls @ 30 mls/hr IVPB Q33H [facility] Last Admin: 04/21/16 04:00 Dose: 30 mls/hr Metoprolol Succinate (Toprol Xl -) 100 mg PO BID [facility] Last Admin: 04/21/16 09:59 Dose: 100 mg Nystatin (Nystatin Oral Suspension -) 500,000 units PO Q6HPO [facility] Last Admin: 04/21/16 06:44 Dose: 500,000 units Pantoprazole Sodium (Protonix -) 40 mg PO DAILY [facility] Last Admin: 04/21/16 09:59 Dose: 40 mg - Objective Vital Signs: Vital Signs Temperature 98.2 F 04/21/16 09:05 Pulse Rate 110 H 04/21/16 09:05 Respiratory Rate 18 04/21/16 09:05 Blood Pressure 130/89 04/21/16 09:05 O2 Sat by Pulse Oximetry (%) 95 04/20/16 21:00 Constitutional: Yes: Calm Eyes: Yes: Conjunctiva Clear HENT: Yes: Atraumatic Neck: Yes: Supple Cardiovascular: Yes: S1, S2 Respiratory: Yes: On Nasal O2 Gastrointestinal: Yes: Normal Bowel Sounds, Soft Genitourinary: Yes: Incontinence Musculoskeletal: Yes: Muscle Weakness Edema: Yes Edema: LLE: 2+, RLE: 2+ Neurological: Yes: Oriented Psychiatric: Yes: Oriented Labs: CBC, BMP 04/21/16 05:35 04/21/16 05:35 INR, PTT INR 1.37 (0.82-1.09) H D 04/16/16 06:00 Assessment/Plan Current Medications Generic Name Dose Route Start Last Admin Trade Name Carolyne PRN Reason Stop Dose Admin Albuterol/Ipratropium 1 amp 04/14/16 12:00 04/21/16 11:23 Duoneb - NEB 1 amp QIDR [facility] Administration Apixaban 2.5 mg 04/20/16 22:00 04/21/16 09:59 Eliquis - PO 2.5 mg BID [facility] Administration Budesonide/Formoterol Fumarate 2 puff 04/12/16 10:00 04/21/16 09:59 Symbicort 80/4.5mcg - IH 2 puff BID [facility] Administration Guaifenesin 1,200 mg 04/16/16 12:15 04/21/16 09:59 Mucinex - PO 1,200 mg BID [facility] Administration Potassium Chloride 10 meq/ 1,005 mls @ 30 mls/hr 04/19/16 15:40 04/21/16 04:00 Dextrose IVPB 30 mls/hr Q33H [facility] Administration Metoprolol Succinate 100 mg 04/16/16 22:00 04/21/16 09:59 Toprol Xl - PO 100 mg BID [facility] Administration Nystatin 500,000 units 04/16/16 18:00 04/21/16 06:44 Nystatin Oral Suspension - PO 500,000 units Q6HPO [facility] Administration Pantoprazole Sodium 40 mg 04/16/16 12:30 04/21/16 09:59 Protonix - PO 40 mg DAILY [facility] Administration Impression 1. NAYAN 2. hyperkalemia 3. sepsis with hypothremia 4. a-fib 5. GI bleed 6. metabolic acidosis - check abg and lactic acid level 7. COPD 8. hyperlipidemia 9. hypernatremia 10. failure to thrive Plan - will stop fluids - encourage PO intake - will recommend a more gentle diuresis - repeat labs in am - pt/rehab - sodium is improved today - cardio input appreciated - cont current meds - will follow Dr Rogers -
--- NOTE | 2016-04-21 12:57 | PN ---
Progress Note, Physician Chief Complaint: Ms Granado is without complaint. No cp, sob, n/v. - Current Medication List Current Medications: Active Medications Albuterol/Ipratropium (Duoneb -) 1 amp NEB QIDR [facility] Last Admin: 04/21/16 11:23 Dose: 1 amp Apixaban (Eliquis -) 2.5 mg PO BID [facility] Last Admin: 04/21/16 09:59 Dose: 2.5 mg Budesonide/Formoterol Fumarate (Symbicort 80/4.5mcg -) 2 puff IH BID [facility] Last Admin: 04/21/16 09:59 Dose: 2 puff Guaifenesin (Mucinex -) 1,200 mg PO BID [facility] Last Admin: 04/21/16 09:59 Dose: 1,200 mg Potassium Chloride 10 meq/ (Dextrose) 1,005 mls @ 30 mls/hr IVPB Q33H [facility] Last Admin: 04/21/16 04:00 Dose: 30 mls/hr Metoprolol Succinate (Toprol Xl -) 100 mg PO BID [facility] Last Admin: 04/21/16 09:59 Dose: 100 mg Nystatin (Nystatin Oral Suspension -) 500,000 units PO Q6HPO [facility] Last Admin: 04/21/16 06:44 Dose: 500,000 units Pantoprazole Sodium (Protonix -) 40 mg PO DAILY [facility] Last Admin: 04/21/16 09:59 Dose: 40 mg - Objective Vital Signs: Vital Signs Temperature 98.2 F 04/21/16 09:05 Pulse Rate 110 H 04/21/16 09:05 Respiratory Rate 18 04/21/16 09:05 Blood Pressure 130/89 04/21/16 09:05 O2 Sat by Pulse Oximetry (%) 95 04/20/16 21:00 Constitutional: Yes: Well Nourished, No Distress, Calm Cardiovascular: Yes: Regular Rate and Rhythm. No: Gallop, Murmur, Rub Respiratory: Yes: Regular, CTA Bilaterally. No: Rales, Rhonchi, Wheezes Gastrointestinal: Yes: Normal Bowel Sounds, Soft. No: Distention, Tenderness Extremities: Yes: WNL Edema: Yes Edema: LLE: 2+, RLE: 2+ Labs: CBC, BMP 04/21/16 05:35 04/21/16 05:35 INR, PTT INR 1.37 (0.82-1.09) H D 04/16/16 06:00 Problem List - Problems (1) Septic shock Code(s): A41.9 - SEPSIS, UNSPECIFIED ORGANISM R65.21 - SEVERE SEPSIS WITH SEPTIC SHOCK (2) Atrial fibrillation with rapid ventricular response Code(s): I48.91 - UNSPECIFIED ATRIAL FIBRILLATION (3) NAYAN (acute kidney injury) Code(s): N17.9 - ACUTE KIDNEY FAILURE, UNSPECIFIED (4) Shock liver Code(s): K75.9 - INFLAMMATORY LIVER DISEASE, UNSPECIFIED (5) Hyperkalemia Code(s): E87.5 - HYPERKALEMIA (6) Hypoglycemia Code(s): E16.2 - HYPOGLYCEMIA, UNSPECIFIED (7) Acidosis Code(s): E87.2 - ACIDOSIS (8) CHF (congestive heart failure) Code(s): I50.9 - HEART FAILURE, UNSPECIFIED (9) COPD (chronic obstructive pulmonary disease) Code(s): J44.9 - CHRONIC OBSTRUCTIVE PULMONARY DISEASE, UNSPECIFIED (10) Elevated troponin Code(s): R79.89 - OTHER SPECIFIED ABNORMAL FINDINGS OF BLOOD CHEMISTRY (11) GI bleed Code(s): K92.2 - GASTROINTESTINAL HEMORRHAGE, UNSPECIFIED Assessment/Plan (1) Septic shock Assessment/Plan: -resolved -unclear source -doing well off antibiotics Code(s): A41.9 - SEPSIS, UNSPECIFIED ORGANISM R65.21 - SEVERE SEPSIS WITH SEPTIC SHOCK (2) Atrial fibrillation with rapid ventricular response Assessment/Plan: -appreciate cardiology assistance -continue toprol -eliquis restarted Code(s): I48.91 - UNSPECIFIED ATRIAL FIBRILLATION (3) NAYAN (acute kidney injury) Assessment/Plan: -resolved -nephrology following Code(s): N17.9 - ACUTE KIDNEY FAILURE, UNSPECIFIED (4) Shock liver Assessment/Plan: -continues to improve with supportive care -GI following and MRI ordered Code(s): K75.9 - INFLAMMATORY LIVER DISEASE, UNSPECIFIED (5) Hyperkalemia Assessment/Plan: -resolved Code(s): E87.5 - HYPERKALEMIA (6) Hypoglycemia Assessment/Plan: -resolved Code(s): E16.2 - HYPOGLYCEMIA, UNSPECIFIED (7) Acidosis Assessment/Plan: -resolved Code(s): E87.2 - ACIDOSIS (8) CHF (congestive heart failure) Assessment/Plan: -patient with BLE edema -continue diuresis per cardiology -will stop IVF Code(s): I50.9 - HEART FAILURE, UNSPECIFIED (9) COPD (chronic obstructive pulmonary disease) Assessment/Plan: -continue inhalers Code(s): J44.9 - CHRONIC OBSTRUCTIVE PULMONARY DISEASE, UNSPECIFIED (10) Elevated troponin Assessment/Plan: -stress induced -ECHO reviewed -cardiology following Code(s): R79.89 - OTHER SPECIFIED ABNORMAL FINDINGS OF BLOOD CHEMISTRY (11) GI bleed Assessment/Plan: -oral protonix -continue diet Code(s): K92.2 - GASTROINTESTINAL HEMORRHAGE, UNSPECIFIED (12) Thrush -continue nystatin day 6
[2016-04-22] MEDS: NYSTATIN 500,000 UNITS/5 ML SUSPENSION PO SCH ×4 (00:05→17:15)
[2016-04-22] MEDS: ALBUTEROL SO4 2.5/IPRATROPIUM 0.5 INH SOL 3 ML VIAL.NEB. NEB SCH ×5 (00:18→23:15)
[2016-04-22 07:26] LABS: BASOPHIL 0.7 % (0-2.0); EOSINOPHIL 1.6 % (0-4.5); MCH 31.8 pg (25.7-33.7); MCHC 33.1 g/dl (32.0-36.0); MEAN CELL VOLUME 95.9 fl (80-96); MEAN PLT VOLUME 9.3 fl (7.5-11.1); NEUTROPHILS 75.6 % (42.8-82.8); PLATELET COUNT 129 K/MM3 (134-434); RDW 16.1 % (11.6-15.6); WHITE BLOOD COUNT 7.3 K/mm3 (4.0-10.0)
[2016-04-22 08:12] LABS: ALBUMIN 2.4 g/dl (3.4-5.0); BILIRUBIN,TOTAL 1.3 mg/dL (0.2-1.0); CALCIUM 8.6 mg/dL (8.5-10.1); CREATININE 1.6 mg/dL (0.55-1.02); PHOSPHOROUS 3.8 mg/dL (2.5-4.9); TOT PROT 5.2 g/dl (6.4-8.2)
[2016-04-22] MEDS: METOPROLOL SUCCINATE 100 MG TAB.SR.24H (FP) PO SCH ×2 (09:44→21:38)
[2016-04-22] MEDS: guaiFENesin 600 MG TABLET.ER (FP) PO SCH ×2 (09:44→21:38)
[2016-04-22] MEDS: APIXABAN 2.5 MG TABLET PO SCH ×2 (09:44→21:36)
[2016-04-22] MEDS: PANTOPRAZOLE 40 MG TABLET (FP) PO SCH (09:44)
[2016-04-22] MEDS ORDERED: METOPROLOL SUCCINATE 100 MG TAB.SR.24H (FP) PO SCH (09:49)
[2016-04-22] MEDS ORDERED: METOPROLOL SUCCINATE 50 MG TAB.SR.24H (FP) PO ONE (10:30)
--- NOTE | 2016-04-22 10:34 | PN ---
Progress Note (short form) - Note Progress Note: S: no cp, palps, dizziness, sob. o: Vital Signs Period Temp Pulse Resp BP Sys/Ravi Pulse Ox Last 24 Hr 97.3 F-98.0 F 98-104 18-20 109-130/66-90 96 Constitutional: NAD, on Nasal cannula Eyes: No: Sclera Icterus Respiratory: Yes: bibasilar dullness, weak eff Gastrointestinal: Yes: Normal Bowel Sounds. No: Distention, Hepatomegaly, Palpable Mass, Tenderness Cardiovascular: Yes: Pulse Irregular JVD: no Heart Sounds: Yes: S1, S2. No: Gallop Murmur: 2/6 Systolic Murmur at LSB Extremities: No: Cold, Cyanosis Edema: trace le edema bl Integumentary: No: Jaundice diaphoresis Neurological: Yes: Alert, Oriented (x3) Psychiatric: No: Agitated Current Medications Generic Name Dose Route Start Last Admin Trade Name Freq PRN Reason Stop Dose Admin Albuterol/Ipratropium 1 amp 04/14/16 12:00 04/22/16 07:02 Duoneb - NEB 1 amp QIDR [facility]NEY Administration Apixaban 2.5 mg 04/20/16 22:00 04/22/16 09:44 Eliquis - PO 2.5 mg BID [facility] Administration Budesonide/Formoterol Fumarate 2 puff 04/12/16 10:00 04/21/16 22:46 Symbicort 80/4.5mcg - IH 2 puff BID [facility] Administration Furosemide 20 mg 04/22/16 10:00 Lasix - PO DAILY [facility] Guaifenesin 1,200 mg 04/16/16 12:15 04/22/16 09:44 Mucinex - PO 1,200 mg BID [facility] Administration Metoprolol Succinate 150 mg 04/22/16 22:00 Toprol Xl - PO BID [facility] Nystatin 500,000 units 04/16/16 18:00 04/22/16 06:45 Nystatin Oral Suspension - PO Not Given Q6HPO [facility] Pantoprazole Sodium 40 mg 04/16/16 12:30 04/22/16 09:44 Protonix - PO 40 mg DAILY [facility] Administration CBC, BMP 04/22/16 05:35 04/22/16 05:35 EKG 04/11: afib with RVR, [address]/T wave abnromalities difficult to interpret due to baseline artifact. EKG 04/12: afib. LAD. RBBB. Anterior T wave abnormalities. tele: afib, rate 100s head CT: No acute pathology echo 04/12/16: Nl lv/rv, mod GINA. 1+ MAC, mild-mod MR. Severe TR. RVSP 40-50. echo 02/2016: nl lv, rv mod-sev dil, mild-mod dec rv fcn, severe kim, mod mr, dilated ivc, sev tr, mild phtn Echo 2013: nl LV/RV; mod MR/TR; mod pHTN (40-50) MPI 2012: no ischemia, nl EF LHC 2008 (false + mpi): mild, diffuse dz a/p: 89 yo female with afib/flutter, ? MAT, severe copd on chronic steroids, pulm HTN, Mod MR, HTN, venous insufficiency, vertigo here with sepsis c/b GIB, shock liver, NAYAN with hyperkalemia. sepsis: -resolved rapid Afib/flutter (possible PSVT prior)/MAT -VR in low 100s, will increase toprol to 150 bid for slightly better rate control -on AC (CHADS 2)--eliquis 2.5 bid for age and borderline wt/renal fxn, plus excessive gingival bleeding on higher dose. presumed cad: - No asa b/c of GIB and on AC. No statin b/c of acute liver injury. pulm HTN (mild, moderate): -? 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 elevated lfts: -likely due to septic shock, lfts improving with ivfs/abx Hyperlipidemia -holding statin as above due to elevated lfts chronic venous ins'y: -will resume prior po lasix 20 qd now
--- NOTE | 2016-04-22 10:47 | PN ---
Progress Note, Physician History of Present Illness: pulmonary alert,weak,dyspnea improved - Current Medication List Current Medications: Active Medications Albuterol/Ipratropium (Duoneb -) 1 amp NEB QIDR [facility] Last Admin: 04/22/16 07:02 Dose: 1 amp Apixaban (Eliquis -) 2.5 mg PO BID [facility] Last Admin: 04/22/16 09:44 Dose: 2.5 mg Budesonide/Formoterol Fumarate (Symbicort 80/4.5mcg -) 2 puff IH BID [facility] Last Admin: 04/21/16 22:46 Dose: 2 puff Furosemide (Lasix -) 20 mg PO DAILY [facility] Guaifenesin (Mucinex -) 1,200 mg PO BID [facility] Last Admin: 04/22/16 09:44 Dose: 1,200 mg Metoprolol Succinate (Toprol Xl -) 150 mg PO BID [facility] Nystatin (Nystatin Oral Suspension -) 500,000 units PO Q6HPO [facility] Last Admin: 04/22/16 06:45 Dose: Not Given Pantoprazole Sodium (Protonix -) 40 mg PO DAILY [facility] Last Admin: 04/22/16 09:44 Dose: 40 mg - Objective Vital Signs: Vital Signs Temperature 98 F 04/22/16 10:00 Pulse Rate 80 04/22/16 10:00 Respiratory Rate 20 04/22/16 10:00 Blood Pressure 116/82 04/22/16 10:00 O2 Sat by Pulse Oximetry (%) 96 04/21/16 20:53 Constitutional: Yes: Well Nourished, Calm Eyes: Yes: WNL HENT: Yes: WNL Neck: Yes: WNL Cardiovascular: Yes: Pulse Irregular, S1, S2 Respiratory: Yes: Rales (bibasilar crackles) Gastrointestinal: Yes: Normal Bowel Sounds, Soft Extremities: Yes: WNL Edema: Yes Labs: CBC, BMP 04/22/16 05:35 04/22/16 05:35 INR, PTT INR 1.37 (0.82-1.09) H D 04/16/16 06:00 Assessment/Plan s/p Septic Shock of unclear etiology ? Pneumonia Atrial Fibrillation with RVR Acute on Chronic Renal Failure improving Lactic Acidosis Elevated LFTs likely ischemic injury improving +Troponins r/o GI Bleed Hypernatremia improved COPD - monitor urine output, creatinine - aspiration precautions - inhaled bronchodilators - protonix - monitor H/H,LFTS - DVT/GI prophylaxis - anticoagulation - PT DR MENDOZA
[2016-04-22] MEDS: BUDESONIDE/FORMETEROL FUMARATE 80/4.5 mcg INHALER IH SCH ×2 (10:50→21:35)
[2016-04-22] MEDS: FUROSEMIDE 20 MG TABLET (FP) PO SCH (10:50)
--- NOTE | 2016-04-22 12:49 | PN ---
Progress Note, Physician History of Present Illness: Pt seen and examined at bedside. She is awake and appears comfortable. She complains of weakness. - Current Medication List Current Medications: Active Medications Albuterol/Ipratropium (Duoneb -) 1 amp NEB QIDR [facility] Last Admin: 04/22/16 07:02 Dose: 1 amp Apixaban (Eliquis -) 2.5 mg PO BID [facility] Last Admin: 04/22/16 09:44 Dose: 2.5 mg Budesonide/Formoterol Fumarate (Symbicort 80/4.5mcg -) 2 puff IH BID [facility] Last Admin: 04/22/16 10:50 Dose: 2 puff Furosemide (Lasix -) 20 mg PO DAILY [facility] Last Admin: 04/22/16 10:50 Dose: 20 mg Guaifenesin (Mucinex -) 1,200 mg PO BID [facility] Last Admin: 04/22/16 09:44 Dose: 1,200 mg Metoprolol Succinate (Toprol Xl -) 150 mg PO BID [facility] Nystatin (Nystatin Oral Suspension -) 500,000 units PO Q6HPO [facility] Last Admin: 04/22/16 12:11 Dose: 500,000 units Pantoprazole Sodium (Protonix -) 40 mg PO DAILY [facility] Last Admin: 04/22/16 09:44 Dose: 40 mg - Objective Vital Signs: Vital Signs Temperature 98 F 04/22/16 10:00 Pulse Rate 80 04/22/16 10:00 Respiratory Rate 20 04/22/16 10:00 Blood Pressure 116/82 04/22/16 10:00 O2 Sat by Pulse Oximetry (%) 96 04/21/16 20:53 Constitutional: Yes: Calm Eyes: Yes: Conjunctiva Clear HENT: Yes: Atraumatic Neck: Yes: Supple Cardiovascular: Yes: S1, S2 Respiratory: Yes: On Nasal O2 Gastrointestinal: Yes: Normal Bowel Sounds, Soft Genitourinary: Yes: WNL Musculoskeletal: Yes: Muscle Weakness Edema: Yes Edema: LLE: 1+, RLE: 1+ Neurological: Yes: Oriented Psychiatric: Yes: Oriented Labs: CBC, BMP 04/22/16 05:35 04/22/16 05:35 INR, PTT INR 1.37 (0.82-1.09) H D 04/16/16 06:00 Assessment/Plan Current Medications Generic Name Dose Route Start Last Admin Trade Name Carolyne PRN Reason Stop Dose Admin Albuterol/Ipratropium 1 amp 04/14/16 12:00 04/22/16 07:02 Duoneb - NEB 1 amp QIDR [facility] Administration Apixaban 2.5 mg 04/20/16 22:00 04/22/16 09:44 Eliquis - PO 2.5 mg BID [facility] Administration Budesonide/Formoterol Fumarate 2 puff 04/12/16 10:00 04/22/16 10:50 Symbicort 80/4.5mcg - IH 2 puff BID [facility] Administration Furosemide 20 mg 04/22/16 10:00 04/22/16 10:50 Lasix - PO 20 mg DAILY [facility] Administration Guaifenesin 1,200 mg 04/16/16 12:15 04/22/16 09:44 Mucinex - PO 1,200 mg BID [facility] Administration Metoprolol Succinate 150 mg 04/22/16 22:00 Toprol Xl - PO BID [facility] Nystatin 500,000 units 04/16/16 18:00 04/22/16 12:11 Nystatin Oral Suspension - PO 500,000 units Q6HPO [facility] Administration Pantoprazole Sodium 40 mg 04/16/16 12:30 04/22/16 09:44 Protonix - PO 40 mg DAILY [facility] Administration Impression 1. NAYAN 2. hyperkalemia 3. sepsis with hypothremia 4. a-fib 5. GI bleed 6. metabolic acidosis - check abg and lactic acid level 7. COPD 8. hyperlipidemia 9. hypernatremia 10. failure to thrive Plan - cont with lasix - check daily weights - repeat labs in am - encourage PO intake - pt/rehab - sodium is improved - cont current meds - will follow Dr Rogers -
--- NOTE | 2016-04-22 17:33 | PN ---
Progress Note, Physician Chief Complaint: Ms Granado is without complaint. No cp, sob, n/v. - Current Medication List Current Medications: Active Medications Albuterol/Ipratropium (Duoneb -) 1 amp NEB QIDR [facility] Last Admin: 04/22/16 11:35 Dose: 1 amp Apixaban (Eliquis -) 2.5 mg PO BID [facility] Last Admin: 04/22/16 09:44 Dose: 2.5 mg Budesonide/Formoterol Fumarate (Symbicort 80/4.5mcg -) 2 puff IH BID [facility] Last Admin: 04/22/16 10:50 Dose: 2 puff Furosemide (Lasix -) 20 mg PO DAILY [facility] Last Admin: 04/22/16 10:50 Dose: 20 mg Guaifenesin (Mucinex -) 1,200 mg PO BID [facility] Last Admin: 04/22/16 09:44 Dose: 1,200 mg Metoprolol Succinate (Toprol Xl -) 150 mg PO BID [facility] Nystatin (Nystatin Oral Suspension -) 500,000 units PO Q6HPO [facility] Last Admin: 04/22/16 17:15 Dose: 500,000 units Pantoprazole Sodium (Protonix -) 40 mg PO DAILY [facility] Last Admin: 04/22/16 09:44 Dose: 40 mg - Objective Vital Signs: Vital Signs Temperature 98.2 F 04/22/16 14:00 Pulse Rate 91 H 04/22/16 14:00 Respiratory Rate 20 04/22/16 14:00 Blood Pressure 107/72 04/22/16 14:00 O2 Sat by Pulse Oximetry (%) 96 04/21/16 20:53 Constitutional: Yes: Well Nourished, No Distress, Calm Cardiovascular: Yes: Pulse Irregular. No: Gallop, Murmur, Rub Respiratory: Yes: Regular, CTA Bilaterally. No: Rales, Rhonchi, Wheezes Gastrointestinal: Yes: Normal Bowel Sounds, Soft. No: Distention, Tenderness Extremities: Yes: WNL Edema: Yes Edema: LLE: 1+, RLE: 1+ Labs: CBC, BMP 04/22/16 05:35 04/22/16 05:35 INR, PTT INR 1.37 (0.82-1.09) H D 04/16/16 06:00 Problem List - Problems (1) Septic shock Code(s): A41.9 - SEPSIS, UNSPECIFIED ORGANISM R65.21 - SEVERE SEPSIS WITH SEPTIC SHOCK (2) Atrial fibrillation with rapid ventricular response Code(s): I48.91 - UNSPECIFIED ATRIAL FIBRILLATION (3) NAYAN (acute kidney injury) Code(s): N17.9 - ACUTE KIDNEY FAILURE, UNSPECIFIED (4) Shock liver Code(s): K75.9 - INFLAMMATORY LIVER DISEASE, UNSPECIFIED (5) Hyperkalemia Code(s): E87.5 - HYPERKALEMIA (6) Hypoglycemia Code(s): E16.2 - HYPOGLYCEMIA, UNSPECIFIED (7) Acidosis Code(s): E87.2 - ACIDOSIS (8) CHF (congestive heart failure) Code(s): I50.9 - HEART FAILURE, UNSPECIFIED (9) COPD (chronic obstructive pulmonary disease) Code(s): J44.9 - CHRONIC OBSTRUCTIVE PULMONARY DISEASE, UNSPECIFIED (10) Elevated troponin Code(s): R79.89 - OTHER SPECIFIED ABNORMAL FINDINGS OF BLOOD CHEMISTRY (11) GI bleed Code(s): K92.2 - GASTROINTESTINAL HEMORRHAGE, UNSPECIFIED Assessment/Plan (1) Septic shock Assessment/Plan: -resolved -unclear source -doing well off antibiotics Code(s): A41.9 - SEPSIS, UNSPECIFIED ORGANISM R65.21 - SEVERE SEPSIS WITH SEPTIC SHOCK (2) Atrial fibrillation with rapid ventricular response Assessment/Plan: -appreciate cardiology assistance -continue toprol -eliquis restarted and no bleeding Code(s): I48.91 - UNSPECIFIED ATRIAL FIBRILLATION (3) NAYAN (acute kidney injury) Assessment/Plan: -at baseline -monitor while here Code(s): N17.9 - ACUTE KIDNEY FAILURE, UNSPECIFIED (4) Shock liver Assessment/Plan: -continue to follow and slightly worsened today -GI following Code(s): K75.9 - INFLAMMATORY LIVER DISEASE, UNSPECIFIED (5) Hyperkalemia Assessment/Plan: -resolved Code(s): E87.5 - HYPERKALEMIA (6) Hypoglycemia Assessment/Plan: -resolved Code(s): E16.2 - HYPOGLYCEMIA, UNSPECIFIED (7) Acidosis Assessment/Plan: -resolved Code(s): E87.2 - ACIDOSIS (8) CHF (congestive heart failure) Assessment/Plan: -patient with BLE edema -continue diuresis per cardiology Code(s): I50.9 - HEART FAILURE, UNSPECIFIED (9) COPD (chronic obstructive pulmonary disease) Assessment/Plan: -continue inhalers Code(s): J44.9 - CHRONIC OBSTRUCTIVE PULMONARY DISEASE, UNSPECIFIED (10) Elevated troponin Assessment/Plan: -stress induced -ECHO reviewed -cardiology following Code(s): R79.89 - OTHER SPECIFIED ABNORMAL FINDINGS OF BLOOD CHEMISTRY (11) GI bleed Assessment/Plan: -oral protonix -continue diet Code(s): K92.2 - GASTROINTESTINAL HEMORRHAGE, UNSPECIFIED (12) Thrush -continue nystatin day 7, will stop
[2016-04-23] MEDS: ALBUTEROL SO4 2.5/IPRATROPIUM 0.5 INH SOL 3 ML VIAL.NEB. NEB SCH ×4 (06:28→23:56)
[2016-04-23 07:08] LABS: BASOPHIL 0.7 % (0-2.0); EOSINOPHIL 0.7 % (0-4.5); MCH 31.7 pg (25.7-33.7); MCHC 32.6 g/dl (32.0-36.0); MEAN CELL VOLUME 97.2 fl (80-96); MEAN PLT VOLUME 8.9 fl (7.5-11.1); NEUTROPHILS 79.2 % (42.8-82.8); PLATELET COUNT 114 K/MM3 (134-434); RDW 16.5 % (11.6-15.6); WHITE BLOOD COUNT 8.2 K/mm3 (4.0-10.0)
[2016-04-23 07:40] LABS: CALCIUM 8.4 mg/dL (8.5-10.1)
[2016-04-23 07:46] LABS: ALBUMIN 2.4 g/dl (3.4-5.0); BILIRUBIN,TOTAL 1.7 mg/dL (0.2-1.0); CREATININE 1.8 mg/dL (0.55-1.02); MAGNESIUM 2.1 mg/dL (1.8-2.4); PHOSPHOROUS 4.7 mg/dL (2.5-4.9); TOT PROT 5.3 g/dl (6.4-8.2)
[2016-04-23] MEDS: METOPROLOL SUCCINATE 100 MG TAB.SR.24H (FP) PO SCH ×2 (09:08→21:52)
[2016-04-23] MEDS: FUROSEMIDE 20 MG TABLET (FP) PO SCH (09:11)
[2016-04-23] MEDS: APIXABAN 2.5 MG TABLET PO SCH ×2 (09:11→21:52)
[2016-04-23] MEDS: BUDESONIDE/FORMETEROL FUMARATE 80/4.5 mcg INHALER IH SCH ×2 (09:11→21:52)
[2016-04-23] MEDS: guaiFENesin 600 MG TABLET.ER (FP) PO SCH ×2 (09:12→21:51)
[2016-04-23] MEDS: PANTOPRAZOLE 40 MG TABLET (FP) PO SCH (09:13)
--- NOTE | 2016-04-23 10:53 | PN ---
Progress Note, Physician History of Present Illness: pulmonary alert,weak,less dyspneic - Current Medication List Current Medications: Active Medications Albuterol/Ipratropium (Duoneb -) 1 amp NEB QIDR [facility] Last Admin: 04/23/16 06:28 Dose: 1 amp Apixaban (Eliquis -) 2.5 mg PO BID [facility] Last Admin: 04/23/16 09:11 Dose: 2.5 mg Budesonide/Formoterol Fumarate (Symbicort 80/4.5mcg -) 2 puff IH BID [facility] Last Admin: 04/23/16 09:11 Dose: 2 puff Furosemide (Lasix -) 20 mg PO DAILY [facility] Last Admin: 04/23/16 09:11 Dose: 20 mg Guaifenesin (Mucinex -) 1,200 mg PO BID [facility] Last Admin: 04/23/16 09:12 Dose: 1,200 mg Metoprolol Succinate (Toprol Xl -) 150 mg PO BID [facility] Last Admin: 04/23/16 09:08 Dose: 150 mg Pantoprazole Sodium (Protonix -) 40 mg PO DAILY [facility] Last Admin: 04/23/16 09:13 Dose: 40 mg - Objective Vital Signs: Vital Signs Temperature 97.9 F 04/23/16 05:46 Pulse Rate 106 H 04/23/16 05:46 Respiratory Rate 18 04/23/16 05:46 Blood Pressure 102/60 04/23/16 05:46 O2 Sat by Pulse Oximetry (%) 95 04/22/16 21:00 Constitutional: Yes: Well Nourished, Calm Eyes: Yes: WNL HENT: Yes: WNL Neck: Yes: WNL Cardiovascular: Yes: Pulse Irregular, S1, S2 Respiratory: Yes: Rhonchi (few rhonchi) Gastrointestinal: Yes: Normal Bowel Sounds, Soft Extremities: Yes: WNL Edema: Yes Labs: CBC, BMP 04/23/16 05:35 04/23/16 05:35 INR, PTT INR 1.37 (0.82-1.09) H D 04/16/16 06:00 Assessment/Plan s/p Septic Shock of unclear etiology ? Pneumonia Atrial Fibrillation with RVR Acute on Chronic Renal Failure improving Lactic Acidosis Elevated LFTs likely ischemic injury improving +Troponins r/o GI Bleed Hypernatremia improved COPD - monitor urine output, creatinine - aspiration precautions - inhaled bronchodilators - protonix - monitor H/H,LFTS - anticoagulation - PT DR MENDOZA
--- NOTE | 2016-04-23 11:48 | PN ---
Progress Note (short form) - Note Progress Note: S: no cp, palps, dizziness, sob. feels general weakness o: Vital Signs Period Temp Pulse Resp BP Sys/Ravi Pulse Ox Last 24 Hr 97.0 F-98.2 F 82-108 18-20 97-110/53-77 95 Constitutional: NAD, on Nasal cannula Eyes: No: Sclera Icterus Respiratory: Yes: bibasilar dullness, weak eff Gastrointestinal: Yes: Normal Bowel Sounds. No: Distention, Hepatomegaly, Palpable Mass, Tenderness Cardiovascular: Yes: Pulse Irregular JVD: no Heart Sounds: Yes: S1, S2. No: Gallop Murmur: 2/6 Systolic Murmur at LSB Extremities: No: Cold, Cyanosis Edema: trace le edema bl Integumentary: No: Jaundice diaphoresis Neurological: Yes: Alert, Oriented (x3) Psychiatric: No: Agitated Current Medications Generic Name Dose Route Start Last Admin Trade Name Freq PRN Reason Stop Dose Admin Albuterol/Ipratropium 1 amp 04/14/16 12:00 04/23/16 06:28 Duoneb - NEB 1 amp QIDR [facility] Administration Apixaban 2.5 mg 04/20/16 22:00 04/23/16 09:11 Eliquis - PO 2.5 mg BID [facility] Administration Budesonide/Formoterol Fumarate 2 puff 04/12/16 10:00 04/23/16 09:11 Symbicort 80/4.5mcg - IH 2 puff BID [facility] Administration Furosemide 20 mg 04/22/16 10:00 04/23/16 09:11 Lasix - PO 20 mg DAILY [facility] Administration Guaifenesin 1,200 mg 04/16/16 12:15 04/23/16 09:12 Mucinex - PO 1,200 mg BID [facility] Administration Metoprolol Succinate 150 mg 04/22/16 22:00 04/23/16 09:08 Toprol Xl - PO 150 mg BID [facility] Administration Pantoprazole Sodium 40 mg 04/16/16 12:30 04/23/16 09:13 Protonix - PO 40 mg DAILY [facility] Administration CBC, BMP 04/23/16 05:35 04/23/16 05:35 EKG 04/11: afib with RVR, [address]/T wave abnromalities difficult to interpret due to baseline artifact. EKG 04/12: afib. LAD. RBBB. Anterior T wave abnormalities. tele: afib, rate 100s head CT: No acute pathology echo 04/12/16: Nl lv/rv, mod GINA. 1+ MAC, mild-mod MR. Severe TR. RVSP 40-50. echo 02/2016: nl lv, rv mod-sev dil, mild-mod dec rv fcn, severe kim, mod mr, dilated ivc, sev tr, mild phtn Echo 2013: nl LV/RV; mod MR/TR; mod pHTN (40-50) MPI 2012: no ischemia, nl EF LHC 2008 (false + mpi): mild, diffuse dz a/p: 89 yo female with afib/flutter, ? MAT, severe copd on chronic steroids, pulm HTN, Mod MR, HTN, venous insufficiency, vertigo here with sepsis c/b GIB, shock liver, NAYAN with hyperkalemia. sepsis: -resolved rapid Afib/flutter (possible PSVT prior)/MAT -VR in low 100s, toprol increased to 150 bid for slightly better rate control, cont to monitor on tele for now -on AC (CHADS 2)--eliquis 2.5 bid for age and borderline wt/renal fxn, plus excessive gingival bleeding on higher dose. presumed cad: - No asa b/c of GIB and on AC. No statin b/c of acute liver injury. pulm HTN (mild, moderate): -? 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 elevated lfts: -likely due to septic shock, lfts improving with ivfs/abx Hyperlipidemia -holding statin as above due to elevated lfts chronic venous ins'y: -cont home po lasix 20 qd
[2016-04-23] MEDS ORDERED: FUROSEMIDE 40 MG TABLET (FP) PO ONE (15:18)
--- NOTE | 2016-04-23 15:18 | PN ---
Progress Note, Physician History of Present Illness: Pt seen and examined at bedside. She is awake and alert. She complains of lower extremity edema. - Current Medication List Current Medications: Active Medications Albuterol/Ipratropium (Duoneb -) 1 amp NEB QIDR [facility] Last Admin: 04/23/16 11:30 Dose: 1 amp Apixaban (Eliquis -) 2.5 mg PO BID [facility] Last Admin: 04/23/16 09:11 Dose: 2.5 mg Budesonide/Formoterol Fumarate (Symbicort 80/4.5mcg -) 2 puff IH BID [facility] Last Admin: 04/23/16 09:11 Dose: 2 puff Furosemide (Lasix -) 20 mg PO DAILY [facility] Last Admin: 04/23/16 09:11 Dose: 20 mg Guaifenesin (Mucinex -) 1,200 mg PO BID [facility] Last Admin: 04/23/16 09:12 Dose: 1,200 mg Metoprolol Succinate (Toprol Xl -) 150 mg PO BID [facility] Last Admin: 04/23/16 09:08 Dose: 150 mg Pantoprazole Sodium (Protonix -) 40 mg PO DAILY [facility] Last Admin: 04/23/16 09:13 Dose: 40 mg - Objective Vital Signs: Vital Signs Temperature 98.3 F 04/23/16 14:00 Pulse Rate 89 04/23/16 14:00 Respiratory Rate 20 04/23/16 14:00 Blood Pressure 139/81 04/23/16 14:00 O2 Sat by Pulse Oximetry (%) 95 04/22/16 21:00 Constitutional: Yes: Calm Eyes: Yes: Conjunctiva Clear HENT: Yes: Atraumatic Neck: Yes: Supple Cardiovascular: Yes: S1, S2 Respiratory: Yes: On Nasal O2 Gastrointestinal: Yes: Soft Musculoskeletal: Yes: Muscle Weakness Edema: Yes Edema: LLE: 2+, RLE: 2+ Neurological: Yes: Oriented Psychiatric: Yes: Oriented Labs: CBC, BMP 04/23/16 05:35 04/23/16 05:35 INR, PTT INR 1.37 (0.82-1.09) H D 04/16/16 06:00 Assessment/Plan Current Medications Generic Name Dose Route Start Last Admin Trade Name Freq PRN Reason Stop Dose Admin Albuterol/Ipratropium 1 amp 04/14/16 12:00 04/23/16 11:30 Duoneb - NEB 1 amp QIDR [facility] Administration Apixaban 2.5 mg 04/20/16 22:00 04/23/16 09:11 Eliquis - PO 2.5 mg BID [facility] Administration Budesonide/Formoterol Fumarate 2 puff 04/12/16 10:00 04/23/16 09:11 Symbicort 80/4.5mcg - IH 2 puff BID [facility] Administration Furosemide 20 mg 04/22/16 10:00 04/23/16 09:11 Lasix - PO 20 mg DAILY [facility] Administration Guaifenesin 1,200 mg 04/16/16 12:15 04/23/16 09:12 Mucinex - PO 1,200 mg BID [facility] Administration Metoprolol Succinate 150 mg 04/22/16 22:00 04/23/16 09:08 Toprol Xl - PO 150 mg BID [facility] Administration Pantoprazole Sodium 40 mg 04/16/16 12:30 04/23/16 09:13 Protonix - PO 40 mg DAILY [facility] Administration Impression 1. NAYAN 2. hyperkalemia 3. sepsis with hypothremia 4. a-fib 5. GI bleed 6. metabolic acidosis - check abg and lactic acid level 7. COPD 8. hyperlipidemia 9. hypernatremia 10. failure to thrive Plan - increase lasix to 40 mg - monitor volume status - repeat labs in am - check daily weights - encourage PO intake - pt/rehab - will follow Dr Rogers -
--- NOTE | 2016-04-23 16:36 | PN ---
Progress Note (short form) - Note Progress Note: Called by nursing staff to removed right TLC. Line removed without difficulty. Pressure held x 5 minutes. No evidence of bleeding, clean pressure dressing and tegaderm applied.
--- NOTE | 2016-04-23 16:50 | PN ---
Progress Note, Physician Chief Complaint: Ms Granado says she is very tired and she is not getting better. No cp but complaining of shortness of breath. no n/v. - Current Medication List Current Medications: Active Medications Albuterol/Ipratropium (Duoneb -) 1 amp NEB [facility]IDR [facility] Last Admin: 04/23/16 11:30 Dose: 1 amp Apixaban (Eliquis -) 2.5 mg PO BID [facility] Last Admin: 04/23/16 09:11 Dose: 2.5 mg Budesonide/Formoterol Fumarate (Symbicort 80/4.5mcg -) 2 puff IH BID [facility] Last Admin: 04/23/16 09:11 Dose: 2 puff Furosemide (Lasix -) 40 mg PO DAILY [facility] Guaifenesin (Mucinex -) 1,200 mg PO BID [facility] Last Admin: 04/23/16 09:12 Dose: 1,200 mg Metoprolol Succinate (Toprol Xl -) 150 mg PO BID [facility] Last Admin: 04/23/16 09:08 Dose: 150 mg Pantoprazole Sodium (Protonix -) 40 mg PO DAILY [facility] Last Admin: 04/23/16 09:13 Dose: 40 mg - Objective Vital Signs: Vital Signs Temperature 98.3 F 04/23/16 14:00 Pulse Rate 89 04/23/16 14:00 Respiratory Rate 20 04/23/16 14:00 Blood Pressure 139/81 04/23/16 14:00 O2 Sat by Pulse Oximetry (%) 95 04/22/16 21:00 Constitutional: Yes: Well Nourished, No Distress, Calm Cardiovascular: Yes: Pulse Irregular. No: Gallop, Murmur, Rub Respiratory: Yes: Regular, CTA Bilaterally. No: Rales, Rhonchi, Wheezes Gastrointestinal: Yes: Normal Bowel Sounds, Soft, Ascites, Distention. No: Tenderness Extremities: Yes: WNL Edema: Yes Edema: LLE: 2+, RLE: 2+ Labs: CBC, BMP 04/23/16 05:35 04/23/16 05:35 INR, PTT INR 1.37 (0.82-1.09) H D 04/16/16 06:00 Problem List - Problems (1) Septic shock Code(s): A41.9 - SEPSIS, UNSPECIFIED ORGANISM R65.21 - SEVERE SEPSIS WITH SEPTIC SHOCK (2) Atrial fibrillation with rapid ventricular response Code(s): I48.91 - UNSPECIFIED ATRIAL FIBRILLATION (3) NAYAN (acute kidney injury) Code(s): N17.9 - ACUTE KIDNEY FAILURE, UNSPECIFIED (4) Shock liver Code(s): K75.9 - INFLAMMATORY LIVER DISEASE, UNSPECIFIED (5) Hyperkalemia Code(s): E87.5 - HYPERKALEMIA (6) Hypoglycemia Code(s): E16.2 - HYPOGLYCEMIA, UNSPECIFIED (7) Acidosis Code(s): E87.2 - ACIDOSIS (8) CHF (congestive heart failure) Code(s): I50.9 - HEART FAILURE, UNSPECIFIED (9) COPD (chronic obstructive pulmonary disease) Code(s): J44.9 - CHRONIC OBSTRUCTIVE PULMONARY DISEASE, UNSPECIFIED (10) Elevated troponin Code(s): R79.89 - OTHER SPECIFIED ABNORMAL FINDINGS OF BLOOD CHEMISTRY (11) GI bleed Code(s): K92.2 - GASTROINTESTINAL HEMORRHAGE, UNSPECIFIED Assessment/Plan (1) Septic shock Assessment/Plan: -resolved -unclear source -doing well off antibiotics Code(s): A41.9 - SEPSIS, UNSPECIFIED ORGANISM R65.21 - SEVERE SEPSIS WITH SEPTIC SHOCK (2) Atrial fibrillation with rapid ventricular response Assessment/Plan: -appreciate cardiology assistance -continue toprol -eliquis restarted and no bleeding Code(s): I48.91 - UNSPECIFIED ATRIAL FIBRILLATION (3) NAYAN (acute kidney injury) Assessment/Plan: -at baseline -case d/w nephrology Code(s): N17.9 - ACUTE KIDNEY FAILURE, UNSPECIFIED (4) Shock liver Assessment/Plan: -worsening still -? if secondary to diuresis -GI following, await recommendations Code(s): K75.9 - INFLAMMATORY LIVER DISEASE, UNSPECIFIED (5) Hyperkalemia Assessment/Plan: -resolved Code(s): E87.5 - HYPERKALEMIA (6) Hypoglycemia Assessment/Plan: -resolved Code(s): E16.2 - HYPOGLYCEMIA, UNSPECIFIED (7) Acidosis Assessment/Plan: -resolved Code(s): E87.2 - ACIDOSIS (8) CHF (congestive heart failure) Assessment/Plan: -patient with BLE edema -continue diuresis per cardiology Code(s): I50.9 - HEART FAILURE, UNSPECIFIED (9) COPD (chronic obstructive pulmonary disease) Assessment/Plan: -continue inhalers Code(s): J44.9 - CHRONIC OBSTRUCTIVE PULMONARY DISEASE, UNSPECIFIED (10) Elevated troponin Assessment/Plan: -stress induced -ECHO reviewed -cardiology following Code(s): R79.89 - OTHER SPECIFIED ABNORMAL FINDINGS OF BLOOD CHEMISTRY (11) GI bleed Assessment/Plan: -oral protonix -continue diet Code(s): K92.2 - GASTROINTESTINAL HEMORRHAGE, UNSPECIFIED (12) Thrush -s/p full treatment with nystatin
[2016-04-24] MEDS: ALBUTEROL SO4 2.5/IPRATROPIUM 0.5 INH SOL 3 ML VIAL.NEB. NEB SCH ×3 (06:00→18:17)
[2016-04-24 07:56] LABS: BASOPHIL 0.7 % (0-2.0); EOSINOPHIL 1.7 % (0-4.5); MCH 31.9 pg (25.7-33.7); MCHC 32.9 g/dl (32.0-36.0); MEAN CELL VOLUME 97.2 fl (80-96); MEAN PLT VOLUME 8.9 fl (7.5-11.1); NEUTROPHILS 78.1 % (42.8-82.8); PLATELET COUNT 126 K/MM3 (134-434); RDW 17.2 % (11.6-15.6); WHITE BLOOD COUNT 7.6 K/mm3 (4.0-10.0)
[2016-04-24 08:44] LABS: CALCIUM 8.5 mg/dL (8.5-10.1); CREATININE 1.8 mg/dL (0.55-1.02); MAGNESIUM 2.1 mg/dL (1.8-2.4)
[2016-04-24 08:53] LABS: ALBUMIN 2.5 g/dl (3.4-5.0); BILIRUBIN,DIRECT 0.8 mg/dL (0.0-0.2); BILIRUBIN,TOTAL 1.4 mg/dL (0.2-1.0); TOT PROT 5.7 g/dl (6.4-8.2)
--- NOTE | 2016-04-24 09:04 | PN ---
Progress Note, Physician Chief Complaint: afib History of Present Illness: very weak legs extremely swollen--for long time now sob not bad, at her baseline she says no palpitations ex cigs - Current Medication List Current Medications: Active Medications Albuterol/Ipratropium (Duoneb -) 1 amp NEB QIDR [facility] Last Admin: 04/24/16 06:00 Dose: 1 amp Apixaban (Eliquis -) 2.5 mg PO BID [facility] Last Admin: 04/23/16 21:52 Dose: 2.5 mg Budesonide/Formoterol Fumarate (Symbicort 80/4.5mcg -) 2 puff IH BID [facility] Last Admin: 04/23/16 21:52 Dose: 2 puff Furosemide (Lasix -) 40 mg PO DAILY [facility] Guaifenesin (Mucinex -) 1,200 mg PO BID [facility] Last Admin: 04/23/16 21:51 Dose: 1,200 mg Metoprolol Succinate (Toprol Xl -) 150 mg PO BID [facility] Last Admin: 04/23/16 21:52 Dose: 150 mg Pantoprazole Sodium (Protonix -) 40 mg PO DAILY [facility] Last Admin: 04/23/16 09:13 Dose: 40 mg - Objective Vital Signs: Vital Signs Temperature 98.2 F 04/24/16 06:00 Pulse Rate 89 04/24/16 06:00 Respiratory Rate 20 04/24/16 06:00 Blood Pressure 124/79 04/24/16 06:00 O2 Sat by Pulse Oximetry (%) 98 04/23/16 21:00 Constitutional: Yes: No Distress, Calm Eyes: No: Sclera Icterus HENT: No: Nasal Congestion Cardiovascular: Yes: Pulse Irregular, S1, S2, Other (PMI non diplaced). No: JVD , Gallop, Murmur Respiratory: Yes: CTA Bilaterally (decr sounds). No: Accessory Muscle Use, Rales, Wheezes Gastrointestinal: Yes: Normal Bowel Sounds, Soft. No: Tenderness Musculoskeletal: Yes: Other (No kyphosis) Extremities: No: Cyanosis Edema: Yes (3+ pretib) Integumentary: No: Jaundice Neurological: Yes: Alert, Oriented (x3) Psychiatric: No: Agitated Labs: CBC, BMP 04/24/16 05:45 04/24/16 05:45 INR, PTT INR 1.37 (0.82-1.09) H D 04/16/16 06:00 - ....Imaging EKG: Other (tele: afib 90s-100s) Assessment/Plan echo 04/12/16: Nl lv/rv, mod GINA. 1+ MAC, mild-mod MR. Severe TR. RVSP 40-50. echo 02/2016: nl lv, rv mod-sev dil, mild-mod dec rv fcn, severe kim, mod mr, dilated ivc, sev tr, mild phtn Echo 2013: nl LV/RV; mod MR/TR; mod pHTN (40-50) MPI 2012: no ischemia, nl EF LHC 2008 (false + mpi): mild, diffuse dz a/p: 89 yo female with afib/flutter, ? MAT, severe copd on chronic steroids, pulm HTN, Mod MR, HTN, venous insufficiency, vertigo here with sepsis c/b GIB, shock liver, NAYAN with hyperkalemia. sepsis: -resolved rapid Afib/flutter (possible PSVT prior)/MAT -mult admits in past with difficult to control AF rates when acute resp problems going on -previously declined AVN ablation/PPM -had s.e.s or hi risk for toxicity from mult agents (see prior notes) -has been maintained on toprol 100 bid as outpt, needed increase to 150 bid in office last year when rapid but syncopized on that dose (though ? was due to increase in lasix then as well) -toprol increased to 150 bid again here for slightly better rate control, cont to monitor on tele for now -will need close f/u of BP and dizzy spells once she becomes more ambulatory after discharge to see if tolerating metopr at this dose -CHADS VASC 3--eliquis held here initially due to active GIB - was seen by GI who felt bleeding was due to combination of AC agent plus shock liver at that time causing acute coagulopathy--AC was held temporarily, bleeding resolved as did shock liver - now back on eliquis 2.5 bid for age and borderline wt/renal fxn, plus excessive gingival bleeding on higher dose. - H/H has been stable--cont AC with close monitoring presumed cad: - No asa b/c of GIB and on AC. No statin b/c of acute liver injury. pulm HTN (mild, moderate): -? 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 elevated lfts: -likely due to septic shock, lfts improving with resolution of sepsis Hyperlipidemia -holding statin as above due to elevated lfts chronic venous ins'y: -legs massively swollen here -lasix 20 qd incr'd to 40 yest--bun/creat stable today -lasix 40 iv test dose today, reassess labs in am -albumin 2.5--doubt this is mostly 3rd spacing, expect she will respond to diuresis
[2016-04-24] MEDS: METOPROLOL SUCCINATE 100 MG TAB.SR.24H (FP) PO SCH ×2 (09:53→23:12)
[2016-04-24] MEDS: PANTOPRAZOLE 40 MG TABLET (FP) PO SCH (09:53)
[2016-04-24] MEDS: BUDESONIDE/FORMETEROL FUMARATE 80/4.5 mcg INHALER IH SCH ×2 (09:53→23:11)
[2016-04-24] MEDS: APIXABAN 2.5 MG TABLET PO SCH ×2 (09:53→23:11)
[2016-04-24] MEDS: FUROSEMIDE 40 MG TABLET (FP) PO SCH (09:53)
[2016-04-24] MEDS: guaiFENesin 600 MG TABLET.ER (FP) PO SCH ×2 (09:53→23:11)
--- NOTE | 2016-04-24 10:41 | PN ---
Progress Note, Physician History of Present Illness: Feeling very weak and tired. Denies shortness of breath. Feeling "cold" at times, no fevers noted. - Current Medication List Current Medications: Active Medications Albuterol/Ipratropium (Duoneb -) 1 amp NEB QIDR [facility] Last Admin: 04/24/16 06:00 Dose: 1 amp Apixaban (Eliquis -) 2.5 mg PO BID [facility] Last Admin: 04/24/16 09:53 Dose: 2.5 mg Budesonide/Formoterol Fumarate (Symbicort 80/4.5mcg -) 2 puff IH BID [facility] Last Admin: 04/24/16 09:53 Dose: 2 puff Furosemide (Lasix -) 40 mg PO DAILY [facility] Last Admin: 04/24/16 09:53 Dose: 40 mg Guaifenesin (Mucinex -) 1,200 mg PO BID [facility] Last Admin: 04/24/16 09:53 Dose: 1,200 mg Metoprolol Succinate (Toprol Xl -) 150 mg PO BID [facility] Last Admin: 04/24/16 09:53 Dose: 150 mg Pantoprazole Sodium (Protonix -) 40 mg PO DAILY [facility] Last Admin: 04/24/16 09:53 Dose: 40 mg - Objective Vital Signs: Vital Signs Temperature 98.2 F 04/24/16 06:00 Pulse Rate 89 04/24/16 06:00 Respiratory Rate 20 04/24/16 06:00 Blood Pressure 124/79 04/24/16 06:00 O2 Sat by Pulse Oximetry (%) 98 04/23/16 21:00 Constitutional: Yes: No Distress, Calm HENT: Yes: Atraumatic, Normocephalic Cardiovascular: Yes: Regular Rate and Rhythm, S1, S2. No: Murmur Respiratory: Yes: Regular, CTA Bilaterally. No: Rales, Rhonchi, Wheezes Gastrointestinal: Yes: Normal Bowel Sounds, Soft. No: Distention, Tenderness Edema: Yes Edema: LLE: 1+, RLE: 1+ Neurological: Yes: Alert, Oriented Labs: CBC, BMP 04/24/16 05:45 04/24/16 05:45 INR, PTT INR 1.37 (0.82-1.09) H D 04/16/16 06:00 Assessment/Plan Current Active Problems Acidosis (Acute) Atrial fibrillation with rapid ventricular response (Acute) Dehydration (Acute) Elevated troponin (Acute) Failure to thrive in adult (Acute) GI bleed (Acute) Hyperkalemia (Acute) Hypoglycemia (Acute) Liver failure (Acute) Palliative care status (Acute) Shock liver (Acute) -could not tolerate MRI abdomen yesterday (to try again today) -follow LFT's, slight improvement today -follow creatinine (slightly elevated creatinine today from yesterday)
--- NOTE | 2016-04-24 10:55 | PN ---
Progress Note, Physician History of Present Illness: PULMONARY ALERT,VERY WEAK,+LOWER EXT DISCOMFORT. - Current Medication List Current Medications: Active Medications Albuterol/Ipratropium (Duoneb -) 1 amp NEB QIDR [facility] Last Admin: 04/24/16 06:00 Dose: 1 amp Apixaban (Eliquis -) 2.5 mg PO BID [facility] Last Admin: 04/24/16 09:53 Dose: 2.5 mg Budesonide/Formoterol Fumarate (Symbicort 80/4.5mcg -) 2 puff IH BID [facility] Last Admin: 04/24/16 09:53 Dose: 2 puff Furosemide (Lasix -) 40 mg PO DAILY [facility] Last Admin: 04/24/16 09:53 Dose: 40 mg Guaifenesin (Mucinex -) 1,200 mg PO BID [facility] Last Admin: 04/24/16 09:53 Dose: 1,200 mg Metoprolol Succinate (Toprol Xl -) 150 mg PO BID [facility] Last Admin: 04/24/16 09:53 Dose: 150 mg Pantoprazole Sodium (Protonix -) 40 mg PO DAILY [facility] Last Admin: 04/24/16 09:53 Dose: 40 mg - Objective Vital Signs: Vital Signs Temperature 98.2 F 04/24/16 06:00 Pulse Rate 89 04/24/16 06:00 Respiratory Rate 20 04/24/16 06:00 Blood Pressure 124/79 04/24/16 06:00 O2 Sat by Pulse Oximetry (%) 98 04/23/16 21:00 Constitutional: Yes: Well Nourished, Calm Eyes: Yes: WNL HENT: Yes: WNL Neck: Yes: WNL Cardiovascular: Yes: Pulse Irregular, S1, S2 Respiratory: Yes: Diminished Gastrointestinal: Yes: WNL Extremities: Yes: WNL, Cool Edema: Yes Labs: CBC, BMP 04/24/16 05:45 04/24/16 05:45 INR, PTT INR 1.37 (0.82-1.09) H D 04/16/16 06:00 Assessment/Plan s/p Septic Shock of unclear etiology ? Pneumonia Atrial Fibrillation with RVR Acute on Chronic Renal Failure improving Lactic Acidosis Elevated LFTs likely ischemic injury improving +Troponins r/o GI Bleed Hypernatremia improved COPD - monitor urine output, creatinine - aspiration precautions - inhaled bronchodilators - protonix - monitor H/H,LFTS - anticoagulation - PT DR MENDOZA
[2016-04-24] MEDS: FUROSEMIDE 40 MG/4 ML INJECTABLE VIAL IVPUSH ONE ×2 (12:35→12:45)
--- NOTE | 2016-04-24 13:07 | PN ---
Progress Note (short form) - Note Progress Note: RENAL Pt awake and alert Last Vital Signs Temp Pulse Resp BP Pulse Ox 98.2 F 89 20 124/79 98 04/24/16 06:00 04/24/16 06:00 04/24/16 06:00 04/24/16 06:00 04/23/16 21:00 lungs clear cvs s1s2 rr abd soft ext + edema neuro a+ox3 Current Medications Generic Name Dose Route Start Last Admin Trade Name Carolyne PRN Reason Stop Dose Admin Albuterol/Ipratropium 1 amp 04/14/16 12:00 04/24/16 11:59 Duoneb - NEB 1 amp QIDR [facility] Administration Apixaban 2.5 mg 04/20/16 22:00 04/24/16 09:53 Eliquis - PO 2.5 mg BID [facility] Administration Budesonide/Formoterol Fumarate 2 puff 04/12/16 10:00 04/24/16 09:53 Symbicort 80/4.5mcg - IH 2 puff BID [facility] Administration Furosemide 40 mg 04/24/16 10:00 04/24/16 09:53 Lasix - PO 40 mg DAILY [facility] Administration Guaifenesin 1,200 mg 04/16/16 12:15 04/24/16 09:53 Mucinex - PO 1,200 mg BID [facility] Administration Metoprolol Succinate 150 mg 04/22/16 22:00 04/24/16 09:53 Toprol Xl - PO 150 mg BID [facility] Administration Pantoprazole Sodium 40 mg 04/16/16 12:30 04/24/16 09:53 Protonix - PO 40 mg DAILY [facility] Administration CBC, BMP 04/24/16 05:45 04/24/16 05:45 IMPRESSION 1. NAYAN 2. hyperkalemia 3. s/psepsis with hypothremia 4. a-fib 5. GI bleed 6. metabolic acidosis - 7. COPD 8. hyperlipidemia 9. hypernatremia 10. failure to thrive 11. transaminitis Plan - continue lasix to 40 mg - monitor volume status - repeat labs in am - check daily weights - encourage PO intake - pt/rehab MV
[2016-04-25] MEDS: ALBUTEROL SO4 2.5/IPRATROPIUM 0.5 INH SOL 3 ML VIAL.NEB. NEB SCH ×4 (00:04→18:20)
[2016-04-25 07:41] LABS: BASOPHIL 0.5 % (0-2.0); MCH 31.6 pg (25.7-33.7); MCHC 32.5 g/dl (32.0-36.0); MEAN CELL VOLUME 97.4 fl (80-96); MEAN PLT VOLUME 8.7 fl (7.5-11.1); NEUTROPHILS 80.3 % (42.8-82.8); PLATELET COUNT 118 K/MM3 (134-434); WHITE BLOOD COUNT 6.6 K/mm3 (4.0-10.0)
[2016-04-25 08:26] LABS: ALBUMIN 2.4 g/dl (3.4-5.0); CALCIUM 8.2 mg/dL (8.5-10.1)
[2016-04-25 08:30] LABS: BILIRUBIN,DIRECT 0.8 mg/dL (0.0-0.2); BILIRUBIN,TOTAL 1.2 mg/dL (0.2-1.0); CREATININE 1.8 mg/dL (0.55-1.02); TOT PROT 5.3 g/dl (6.4-8.2)
[2016-04-25] MEDS ORDERED: PT OWN MED DRAWER 7, Y5N ONE (09:26)
[2016-04-25] MEDS: APIXABAN 2.5 MG TABLET PO SCH ×2 (09:28→23:00)
[2016-04-25] MEDS: PANTOPRAZOLE 40 MG TABLET (FP) PO SCH (09:29)
[2016-04-25] MEDS: BUDESONIDE/FORMETEROL FUMARATE 80/4.5 mcg INHALER IH SCH ×2 (09:29→22:47)
[2016-04-25] MEDS: guaiFENesin 600 MG TABLET.ER (FP) PO SCH ×2 (09:29→22:47)
[2016-04-25] MEDS: FUROSEMIDE 40 MG TABLET (FP) PO SCH (09:29)
[2016-04-25] MEDS: METOPROLOL SUCCINATE 100 MG TAB.SR.24H (FP) PO SCH ×2 (09:30→22:47)
--- NOTE | 2016-04-25 09:58 | PN ---
Progress Note, Physician History of Present Illness: Continues to feel poorly overall, with no energy. Denies chest or abd pain. - Current Medication List Current Medications: Active Medications Albuterol/Ipratropium (Duoneb -) 1 amp NEB QIDR [facility] Last Admin: 04/25/16 05:27 Dose: 1 amp Apixaban (Eliquis -) 2.5 mg PO BID [facility] Last Admin: 04/25/16 09:28 Dose: 2.5 mg Budesonide/Formoterol Fumarate (Symbicort 80/4.5mcg -) 2 puff IH BID [facility] Last Admin: 04/25/16 09:29 Dose: 2 puff Furosemide (Lasix -) 40 mg PO DAILY [facility] Last Admin: 04/25/16 09:29 Dose: 40 mg Guaifenesin (Mucinex -) 1,200 mg PO BID [facility] Last Admin: 04/25/16 09:29 Dose: 1,200 mg Metoprolol Succinate (Toprol Xl -) 150 mg PO BID [facility] Last Admin: 04/25/16 09:30 Dose: 150 mg Pantoprazole Sodium (Protonix -) 40 mg PO DAILY [facility] Last Admin: 04/25/16 09:29 Dose: 40 mg - Objective Vital Signs: Vital Signs Temperature 97.4 F L 04/25/16 09:00 Pulse Rate 90 04/25/16 09:00 Respiratory Rate 18 04/25/16 09:00 Blood Pressure 119/89 04/25/16 09:00 O2 Sat by Pulse Oximetry (%) 98 04/23/16 21:00 Constitutional: Yes: No Distress, Calm Neck: Yes: Supple, Trachea Midline Cardiovascular: Yes: Regular Rate and Rhythm, S1, S2. No: Murmur Respiratory: Yes: Regular, CTA Bilaterally. No: Rales, Rhonchi, Wheezes Gastrointestinal: Yes: Normal Bowel Sounds, Soft. No: Distention, Tenderness Edema: No Neurological: Yes: Alert, Oriented Labs: CBC, BMP 04/25/16 05:20 04/25/16 05:20 INR, PTT INR 1.37 (0.82-1.09) H D 04/16/16 06:00 Assessment/Plan Current Active Problems Acidosis (Acute) Atrial fibrillation with rapid ventricular response (Acute) Dehydration (Acute) Elevated troponin (Acute) Failure to thrive in adult (Acute) GI bleed (Acute) Hyperkalemia (Acute) Hypoglycemia (Acute) Liver failure (Acute) Palliative care status (Acute) Shock liver (Acute) -LFT's improving, Creatinine the same -cont current treatment -will check other vitamin and iron levels to see if any other source for the decreased energy (likely more from recent sepsis syndrome)
--- NOTE | 2016-04-25 10:21 | PN ---
Progress Note, Physician Chief Complaint: afib History of Present Illness: remains very weak; sob stable at her baseline legs very swollen no cp, palpit - Current Medication List Current Medications: Active Medications Albuterol/Ipratropium (Duoneb -) 1 amp NEB QIDR [facility] Last Admin: 04/25/16 05:27 Dose: 1 amp Apixaban (Eliquis -) 2.5 mg PO BID [facility] Last Admin: 04/25/16 09:28 Dose: 2.5 mg Budesonide/Formoterol Fumarate (Symbicort 80/4.5mcg -) 2 puff IH BID [facility] Last Admin: 04/25/16 09:29 Dose: 2 puff Furosemide (Lasix -) 40 mg PO DAILY [facility] Last Admin: 04/25/16 09:29 Dose: 40 mg Guaifenesin (Mucinex -) 1,200 mg PO BID [facility] Last Admin: 04/25/16 09:29 Dose: 1,200 mg Metoprolol Succinate (Toprol Xl -) 150 mg PO BID [facility] Last Admin: 04/25/16 09:30 Dose: 150 mg Pantoprazole Sodium (Protonix -) 40 mg PO DAILY [facility] Last Admin: 04/25/16 09:29 Dose: 40 mg - Objective Vital Signs: Vital Signs Temperature 97.4 F L 04/25/16 09:00 Pulse Rate 90 04/25/16 09:00 Respiratory Rate 18 04/25/16 09:00 Blood Pressure 119/89 04/25/16 09:00 O2 Sat by Pulse Oximetry (%) 98 04/23/16 21:00 Constitutional: Yes: Well Nourished, No Distress, Calm Cardiovascular: Yes: Pulse Irregular, S1, S2. No: Gallop, Murmur Respiratory: Yes: Regular, CTA Bilaterally. No: Accessory Muscle Use Extremities: No: Cold Edema: Yes (3+ pretib) Neurological: Yes: Alert, Oriented Psychiatric: No: Agitated Labs: CBC, BMP 04/25/16 05:20 04/25/16 05:20 INR, PTT INR 1.37 (0.82-1.09) H D 04/16/16 06:00 - ....Imaging EKG: Other (tele: afib 100s) Assessment/Plan echo 04/12/16: Nl lv/rv, mod GINA. 1+ MAC, mild-mod MR. Severe TR. RVSP 40-50. echo 02/2016: nl lv, rv mod-sev dil, mild-mod dec rv fcn, severe kim, mod mr, dilated ivc, sev tr, mild phtn Echo 2013: nl LV/RV; mod MR/TR; mod pHTN (40-50) MPI 2012: no ischemia, nl EF LHC 2008 (false + mpi): mild, diffuse dz a/p: 89 yo female with afib/flutter, ? MAT, severe copd on chronic steroids, pulm HTN, Mod MR, HTN, venous insufficiency, vertigo here with sepsis c/b GIB, shock liver, NAYAN with hyperkalemia. sepsis: -resolved rapid Afib/flutter (possible PSVT prior)/MAT -mult admits in past with difficult to control AF rates when acute resp problems going on -previously declined AVN ablation/PPM -had s.e.s or hi risk for toxicity from mult agents (see prior notes) -has been maintained on toprol 100 bid as outpt, needed increase to 150 bid in office last year when rapid but syncopized on that dose (though ? was due to increase in lasix then as well) -toprol increased to 150 bid again here for slightly better rate control, cont to monitor on tele for now -will need close f/u of BP and dizzy spells once she becomes more ambulatory after discharge to see if tolerating metopr at this dose -CHADS VASC 3--eliquis held here initially due to active GIB - was seen by GI who felt bleeding was due to combination of AC agent plus shock liver at that time causing acute coagulopathy--AC was held temporarily, bleeding resolved as did shock liver - now back on eliquis 2.5 bid for age and borderline wt/renal fxn, plus excessive gingival bleeding on higher dose. - H/H has been stable--cont AC with close monitoring presumed cad: - No asa b/c of GIB and on AC. No statin b/c of acute liver injury. pulm HTN (mild, moderate): -? 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 elevated lfts: -likely due to septic shock, lfts continue to improve with resolution of sepsis Hyperlipidemia -holding statin as above due to elevated lfts chronic venous ins'y: -legs remains very swollen -not on steroids -bun up slightly, creat stable after lasix 40 iv yest -declines stockings -cont leg elevation -lasix 40 iv qd--monitor daily BMPs--if stable, suspect she may need higher dose lasix NO NEED FOR ONGOING TELE MONITORING
--- NOTE | 2016-04-25 10:29 | PN ---
Progress Note, Physician History of Present Illness: PULMONARY ALERT,NO CHANGE,VERY WEAK,-RESP DISTRESS - Current Medication List Current Medications: Active Medications Albuterol/Ipratropium (Duoneb -) 1 amp NEB QIDR [facility] Last Admin: 04/25/16 05:27 Dose: 1 amp Apixaban (Eliquis -) 2.5 mg PO BID [facility] Last Admin: 04/25/16 09:28 Dose: 2.5 mg Budesonide/Formoterol Fumarate (Symbicort 80/4.5mcg -) 2 puff IH BID [facility] Last Admin: 04/25/16 09:29 Dose: 2 puff Furosemide (Lasix -) 40 mg PO DAILY [facility] Last Admin: 04/25/16 09:29 Dose: 40 mg Furosemide (Lasix Injection -) 40 mg IVPUSH DAILY [facility] Guaifenesin (Mucinex -) 1,200 mg PO BID [facility] Last Admin: 04/25/16 09:29 Dose: 1,200 mg Metoprolol Succinate (Toprol Xl -) 150 mg PO BID [facility] Last Admin: 04/25/16 09:30 Dose: 150 mg Pantoprazole Sodium (Protonix -) 40 mg PO DAILY [facility] Last Admin: 04/25/16 09:29 Dose: 40 mg - Objective Vital Signs: Vital Signs Temperature 97.4 F L 04/25/16 09:00 Pulse Rate 90 04/25/16 09:00 Respiratory Rate 18 04/25/16 09:00 Blood Pressure 119/89 04/25/16 09:00 O2 Sat by Pulse Oximetry (%) 98 04/23/16 21:00 Constitutional: Yes: Calm, Thin Eyes: Yes: WNL HENT: Yes: WNL Neck: Yes: WNL Cardiovascular: Yes: Pulse Irregular, S1, S2 Respiratory: Yes: Diminished Gastrointestinal: Yes: Normal Bowel Sounds, Soft Extremities: Yes: Cool Edema: Yes Labs: CBC, BMP 04/25/16 05:20 04/25/16 05:20 INR, PTT INR 1.37 (0.82-1.09) H D 04/16/16 06:00 Assessment/Plan s/p Septic Shock of unclear etiology ? Pneumonia Atrial Fibrillation with RVR Acute on Chronic Renal Failure improving Lactic Acidosis Elevated LFTs likely ischemic injury improving +Troponins r/o GI Bleed Hypernatremia improved COPD - monitor urine output, creatinine - aspiration precautions - inhaled bronchodilators - protonix - monitor H/H,LFTS - anticoagulation - PT - lasix DR MENDOZA
--- NOTE | 2016-04-25 11:44 | PN ---
Progress Note (short form) - Note Progress Note: RENAL Pt awake and alert yelling at nursing staff Last Vital Signs Temp Pulse Resp BP Pulse Ox 97.4 F L 90 18 119/89 98 04/25/16 09:00 04/25/16 09:00 04/25/16 09:00 04/25/16 09:00 04/23/16 21:00 lungs clear cvs s1s2 rr abd soft ext + edema neuro a+ox3 Current Medications Generic Name Dose Route Start Last Admin Trade Name Carolyne PRN Reason Stop Dose Admin Albuterol/Ipratropium 1 amp 04/14/16 12:00 04/25/16 05:27 Duoneb - NEB 1 amp QIDR [facility] Administration Apixaban 2.5 mg 04/20/16 22:00 04/25/16 09:28 Eliquis - PO 2.5 mg BID [facility] Administration Budesonide/Formoterol Fumarate 2 puff 04/12/16 10:00 04/25/16 09:29 Symbicort 80/4.5mcg - IH 2 puff BID [facility] Administration Furosemide 40 mg 04/25/16 10:30 Lasix Injection - IVPUSH DAILY [facility] Guaifenesin 1,200 mg 04/16/16 12:15 04/25/16 09:29 Mucinex - PO 1,200 mg BID [facility] Administration Metoprolol Succinate 150 mg 04/22/16 22:00 04/25/16 09:30 Toprol Xl - PO 150 mg BID [facility] Administration Pantoprazole Sodium 40 mg 04/16/16 12:30 04/25/16 09:29 Protonix - PO 40 mg DAILY [facility] Administration CBC, BMP 04/25/16 05:20 04/25/16 05:20 IMPRESSION 1. NAYAN 2. hyperkalemia 3. s/psepsis with hypothremia 4. a-fib 5. GI bleed 6. metabolic acidosis - 7. COPD 8. hyperlipidemia 9. hypernatremia 10. failure to thrive 11. transaminitis Plan - continue lasix to 40 mg - monitor volume status - repeat labs in am - check daily weights - encourage PO intake - pt/rehab MV
[2016-04-25] MEDS: FUROSEMIDE 40 MG/4 ML INJECTABLE VIAL IVPUSH SCH (11:48)
[2016-04-26] MEDS: ALBUTEROL SO4 2.5/IPRATROPIUM 0.5 INH SOL 3 ML VIAL.NEB. NEB SCH ×5 (06:17→23:52)
[2016-04-26 08:12] LABS: BASOPHIL 1.1 % (0-2.0); EOSINOPHIL 0.8 % (0-4.5); MCH 31.5 pg (25.7-33.7); MCHC 32.1 g/dl (32.0-36.0); MEAN CELL VOLUME 98.1 fl (80-96); MEAN PLT VOLUME 8.7 fl (7.5-11.1); NEUTROPHILS 79.8 % (42.8-82.8); PLATELET COUNT 135 K/MM3 (134-434); RDW 17.1 % (11.6-15.6); WHITE BLOOD COUNT 6.4 K/mm3 (4.0-10.0)
[2016-04-26 10:20] LABS: ALBUMIN 2.9 g/dl (3.4-5.0); BILIRUBIN,DIRECT 1.2 mg/dL (0.0-0.2); BILIRUBIN,TOTAL 2.1 mg/dL (0.2-1.0); CALCIUM 9.1 mg/dL (8.5-10.1); CREATININE 1.9 mg/dL (0.55-1.02); TOT PROT 6.3 g/dl (6.4-8.2)
[2016-04-26 10:58] LABS: FERRITIN 85.399 ng/ml (6.9-282.5)
[2016-04-26] MEDS ORDERED: PT OWN MED DRAWER 7, Y5N ONE (11:02)
[2016-04-26] MEDS: PANTOPRAZOLE 40 MG TABLET (FP) PO SCH (11:19)
[2016-04-26] MEDS: guaiFENesin 600 MG TABLET.ER (FP) PO SCH ×2 (11:19→22:53)
[2016-04-26] MEDS: APIXABAN 2.5 MG TABLET PO SCH ×2 (11:20→22:53)
[2016-04-26] MEDS: METOPROLOL SUCCINATE 100 MG TAB.SR.24H (FP) PO SCH ×2 (11:20→22:53)
[2016-04-26] MEDS: FUROSEMIDE 40 MG/4 ML INJECTABLE VIAL IVPUSH SCH (11:21)
[2016-04-26] MEDS: BUDESONIDE/FORMETEROL FUMARATE 80/4.5 mcg INHALER IH SCH ×2 (11:23→22:53)
--- NOTE | 2016-04-26 11:29 | PN ---
Progress Note (short form) - Note Progress Note: PULMONARY Denies shortness of breath or chest pain. Wants to go home. Last Vital Signs Temp Pulse Resp BP Pulse Ox 97.4 F L 87 18 129/82 97 04/26/16 06:07 04/26/16 06:07 04/26/16 06:07 04/26/16 06:07 04/25/16 22:00 Gen: NAD at rest Heart: RRR Lung: bibasilar rales Abd: soft, nontender Ext: + edema CBC, BMP 04/26/16 07:45 04/26/16 07:45 Active Medications Albuterol/Ipratropium (Duoneb -) 1 amp NEB QIDR [facility] Last Admin: 04/26/16 06:17 Dose: 1 amp Apixaban (Eliquis -) 2.5 mg PO BID [facility] Last Admin: 04/25/16 23:00 Dose: 2.5 mg Budesonide/Formoterol Fumarate (Symbicort 80/4.5mcg -) 2 puff IH BID [facility] Last Admin: 04/25/16 22:47 Dose: 2 puff Furosemide (Lasix Injection -) 40 mg IVPUSH DAILY [facility] Last Admin: 04/25/16 11:48 Dose: 40 mg Guaifenesin (Mucinex -) 1,200 mg PO BID [facility] Last Admin: 04/25/16 22:47 Dose: 1,200 mg Metoprolol Succinate (Toprol Xl -) 150 mg PO BID [facility] Last Admin: 04/25/16 22:47 Dose: 150 mg Pantoprazole Sodium (Protonix -) 40 mg PO DAILY [facility] Last Admin: 04/25/16 09:29 Dose: 40 mg A/P r/o Pneumonia Atrial Fibrillation Acute on Chronic Renal Failure +Troponins r/o GI Bleed COPD - s/p empiric antibiotics - lasix - monitor urine output, creatinine - rate controlled - continue anticoagulation - inhaled bronchodilators as needed - DVT/GI prophylaxis
--- NOTE | 2016-04-26 12:21 | PN ---
Progress Note, Physician History of Present Illness: Pt seen and examined at bedside She is awake and alert. She is now off of oxygen. She complains of fatigue and decreased energy. - Current Medication List Current Medications: Active Medications Albuterol/Ipratropium (Duoneb -) 1 amp NEB QIDR [facility] Last Admin: 04/26/16 10:50 Dose: 1 amp Apixaban (Eliquis -) 2.5 mg PO BID [facility] Last Admin: 04/26/16 11:20 Dose: 2.5 mg Budesonide/Formoterol Fumarate (Symbicort 80/4.5mcg -) 2 puff IH BID [facility] Last Admin: 04/26/16 11:23 Dose: 2 puff Furosemide (Lasix Injection -) 40 mg IVPUSH DAILY [facility] Last Admin: 04/26/16 11:21 Dose: 40 mg Guaifenesin (Mucinex -) 1,200 mg PO BID [facility] Last Admin: 04/26/16 11:19 Dose: 1,200 mg Metoprolol Succinate (Toprol Xl -) 150 mg PO BID [facility] Last Admin: 04/26/16 11:20 Dose: 150 mg Pantoprazole Sodium (Protonix -) 40 mg PO DAILY [facility] Last Admin: 04/26/16 11:19 Dose: 40 mg - Objective Vital Signs: Vital Signs Temperature 97.4 F L 04/26/16 06:07 Pulse Rate 87 04/26/16 06:07 Respiratory Rate 18 04/26/16 06:07 Blood Pressure 129/82 04/26/16 06:07 O2 Sat by Pulse Oximetry (%) 97 04/25/16 22:00 Constitutional: Yes: Calm Eyes: Yes: Conjunctiva Clear Cardiovascular: Yes: S1, S2 Respiratory: Yes: CTA Bilaterally Gastrointestinal: Yes: Soft Genitourinary: Yes: WNL Musculoskeletal: Yes: Muscle Weakness Edema: Yes Edema: LLE: 2+, RLE: 2+ Integumentary: Yes: Other (blister on leg) Neurological: Yes: Oriented Psychiatric: Yes: Oriented Labs: CBC, BMP 04/26/16 07:45 04/26/16 07:45 INR, PTT INR 1.37 (0.82-1.09) H D 04/16/16 06:00 Assessment/Plan Current Medications Generic Name Dose Route Start Last Admin Trade Name Freq PRN Reason Stop Dose Admin Albuterol/Ipratropium 1 amp 04/14/16 12:00 04/26/16 10:50 Duoneb - NEB 1 amp QIDR [facility] Administration Apixaban 2.5 mg 04/20/16 22:00 04/26/16 11:20 Eliquis - PO 2.5 mg BID [facility] Administration Budesonide/Formoterol Fumarate 2 puff 04/12/16 10:00 04/26/16 11:23 Symbicort 80/4.5mcg - IH 2 puff BID [facility] Administration Furosemide 40 mg 04/25/16 10:30 04/26/16 11:21 Lasix Injection - IVPUSH 40 mg DAILY [facility] Administration Guaifenesin 1,200 mg 04/16/16 12:15 04/26/16 11:19 Mucinex - PO 1,200 mg BID [facility] Administration Metoprolol Succinate 150 mg 04/22/16 22:00 04/26/16 11:20 Toprol Xl - PO 150 mg BID [facility] Administration Pantoprazole Sodium 40 mg 04/16/16 12:30 04/26/16 11:19 Protonix - PO 40 mg DAILY [facility] Administration Impression 1. NAYAN 2. hyperkalemia 3. sepsis with hypothremia 4. a-fib 5. GI bleed 6. metabolic acidosis - check abg and lactic acid level 7. COPD 8. hyperlipidemia 9. hypernatremia 10. failure to thrive Plan - agree with IV lasix - may have to settle for higher creatinine in order to keep pt euvolemic - pt/rehab - monitor weights - monitor volume status - repeat labs in am - encourage PO intake - fluid restrict, pt says she is drinking "alot" but does not want to eat - will follow Dr Rogers -
--- NOTE | 2016-04-26 15:27 | PN ---
Progress Note (short form) - Note Progress Note: Chief Complaint: afib History of Present Illness: switched to iv lasix yesterday. sob stable at her baseline legs very swollen no cp, palpit Current Medications Albuterol/Ipratropium (Duoneb -) 1 amp NEB QIDR [facility] Last Admin: 04/26/16 10:50 Dose: 1 amp Apixaban (Eliquis -) 2.5 mg PO BID [facility] Last Admin: 04/26/16 11:20 Dose: 2.5 mg Budesonide/Formoterol Fumarate (Symbicort 80/4.5mcg -) 2 puff IH BID [facility] Last Admin: 04/26/16 11:23 Dose: 2 puff Furosemide (Lasix Injection -) 40 mg IVPUSH DAILY [facility] Last Admin: 04/26/16 11:21 Dose: 40 mg Guaifenesin (Mucinex -) 1,200 mg PO BID [facility] Last Admin: 04/26/16 11:19 Dose: 1,200 mg Metoprolol Succinate (Toprol Xl -) 150 mg PO BID [facility] Last Admin: 04/26/16 11:20 Dose: 150 mg Pantoprazole Sodium (Protonix -) 40 mg PO DAILY [facility] Last Admin: 04/26/16 11:19 Dose: 40 mg Vital Signs - 24 hr 04/25/16 04/25/16 04/25/16 18:00 19:41 22:00 Temperature 97.6 F 97 F L 97.7 F Pulse Rate 98 H 81 89 Respiratory 20 20 18 Rate Blood Pressure 130/103 151/72 111/89 O2 Sat by Pulse 97 Oximetry (%) 04/26/16 04/26/16 06:07 10:00 Temperature 97.4 F L 96.4 F L Pulse Rate 87 101 H Respiratory 18 18 Rate Blood Pressure 129/82 93/58 O2 Sat by Pulse Oximetry (%) Intake & Output 04/24/16 04/25/16 04/26/16 04/27/16 07:59 07:59 07:59 07:59 Intake Total 440 520 15 Balance 440 520 15 Weight 188 lb 12.8 oz 155 lb 3.2 oz Constitutional: Yes: Well Nourished, No Distress, Calm Cardiovascular: Yes: Pulse Irregular, tachycardic, S1, S2. No: Gallop, Murmur Respiratory: Yes: Regular, CTA Bilaterally. No: Accessory Muscle Use Extremities: No: Cold Edema: Yes (3+ pretib to upper thigh) Neurological: Yes: Alert, Oriented Psychiatric: No: Agitated Labs: CBC, BMP 04/26/16 07:45 04/26/16 07:45 Laboratory Tests 04/25/16 04/26/16 05:20 07:45 Total Bilirubin 1.2 H 2.1 H D Direct Bilirubin 0.8 H 1.2 H D AST 52 H D 47 H ALT 117 H 113 H Alkaline Phosphatase 314 H Albumin 2.9 L D - ....Imaging EKG: Other (prior tele: afib 100s). No longer on tele Assessment/Plan echo 04/12/16: Nl lv/rv, mod GINA. 1+ MAC, mild-mod MR. Severe TR. RVSP 40-50. echo 02/2016: nl lv, rv mod-sev dil, mild-mod dec rv fcn, severe kim, mod mr, dilated ivc, sev tr, mild phtn Echo 2013: nl LV/RV; mod MR/TR; mod pHTN (40-50) MPI 2012: no ischemia, nl EF LHC 2008 (false + mpi): mild, diffuse dz a/p: 89 yo female with afib/flutter, ? MAT, severe copd on chronic steroids, pulm HTN, Mod MR, HTN, venous insufficiency, vertigo here with sepsis c/b GIB, shock liver, NAYAN with hyperkalemia. sepsis: -resolved rapid Afib/flutter (possible PSVT prior)/MAT -mult admits in past with difficult to control AF rates when acute resp problems going on -previously declined AVN ablation/PPM -had s.e.s or hi risk for toxicity from mult agents (see prior notes) -has been maintained on toprol 100 bid as outpt, needed increase to 150 bid in office last year when rapid but syncopized on that dose (though ? was due to increase in lasix then as well) -will need close f/u of BP and dizzy spells once she becomes more ambulatory after discharge to see if tolerating metopr at this dose -CHADS VASC 3--eliquis held here initially due to active GIB. Was seen by GI who felt bleeding was due to combination of AC agent plus shock liver at that time causing acute coagulopathy--AC was held temporarily, bleeding resolved as did shock liver. Now back on eliquis 2.5 bid for age and borderline wt/renal fxn, plus excessive gingival bleeding on higher dose. H/H has been stable - 04/26: toprol had been increased to 150 bid here for slightly better rate control. Today with worsened hypotension. HR not significantly better, will decrease dose back to 100 mg bid. presumed cad: - No asa b/c of GIB and on AC. No statin b/c of acute liver injury. pulm HTN (mild, moderate): -? 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 elevated lfts: -likely due to septic shock, lfts continue to improve with resolution of sepsis , but today worsening Hyperlipidemia -holding statin as above due to elevated lfts chronic venous ins'y: - s/p IVF for sepsis -not on steroids -declines stockings -cont leg elevation - 04/26 Legs remain very swollen s/p lasix 40 iv yest. Today with slightly worse hypotension. Con't to monitor. No significant improvement in renal or liver function. Will repeat echocardiogram and abdominal u/s. Con't lasix 40 mg IV daily for now. Discussed with renal and pmd.
--- NOTE | 2016-04-26 18:01 | PN ---
Progress Note, Physician Chief Complaint: Ms Granado still says she is tired. No new complaints. - Current Medication List Current Medications: Active Medications Albuterol/Ipratropium (Duoneb -) 1 amp NEB QIDR [facility] Last Admin: 04/26/16 14:15 Dose: 1 amp Apixaban (Eliquis -) 2.5 mg PO BID [facility] Last Admin: 04/26/16 11:20 Dose: 2.5 mg Budesonide/Formoterol Fumarate (Symbicort 80/4.5mcg -) 2 puff IH BID [facility] Last Admin: 04/26/16 11:23 Dose: 2 puff Furosemide (Lasix Injection -) 40 mg IVPUSH DAILY [facility] Last Admin: 04/26/16 11:21 Dose: 40 mg Guaifenesin (Mucinex -) 1,200 mg PO BID [facility] Last Admin: 04/26/16 11:19 Dose: 1,200 mg Metoprolol Succinate (Toprol Xl -) 100 mg PO BID [facility] Pantoprazole Sodium (Protonix -) 40 mg PO DAILY [facility] Last Admin: 04/26/16 11:19 Dose: 40 mg - Objective Vital Signs: Vital Signs Temperature 96.4 F L 04/26/16 10:00 Pulse Rate 101 H 04/26/16 10:00 Respiratory Rate 18 04/26/16 10:00 Blood Pressure 93/58 04/26/16 10:00 O2 Sat by Pulse Oximetry (%) 97 04/25/16 22:00 Constitutional: Yes: No Distress, Calm Cardiovascular: Yes: Pulse Irregular. No: Gallop, Murmur, Rub Respiratory: Yes: Regular, CTA Bilaterally. No: Rales, Rhonchi, Wheezes Gastrointestinal: Yes: Normal Bowel Sounds, Soft. No: Distention, Tenderness Extremities: Yes: Cyanosis, Erythema Edema: Yes Edema: LLE: 2+, RLE: 2+ Labs: CBC, BMP 04/26/16 07:45 04/26/16 07:45 INR, PTT INR 1.37 (0.82-1.09) H D 04/16/16 06:00 Problem List - Problems (1) Septic shock Code(s): A41.9 - SEPSIS, UNSPECIFIED ORGANISM R65.21 - SEVERE SEPSIS WITH SEPTIC SHOCK (2) Atrial fibrillation with rapid ventricular response Code(s): I48.91 - UNSPECIFIED ATRIAL FIBRILLATION (3) NAYAN (acute kidney injury) Code(s): N17.9 - ACUTE KIDNEY FAILURE, UNSPECIFIED (4) Shock liver Code(s): K75.9 - INFLAMMATORY LIVER DISEASE, UNSPECIFIED (5) Hyperkalemia Code(s): E87.5 - HYPERKALEMIA (6) Hypoglycemia Code(s): E16.2 - HYPOGLYCEMIA, UNSPECIFIED (7) Acidosis Code(s): E87.2 - ACIDOSIS (8) CHF (congestive heart failure) Code(s): I50.9 - HEART FAILURE, UNSPECIFIED (9) COPD (chronic obstructive pulmonary disease) Code(s): J44.9 - CHRONIC OBSTRUCTIVE PULMONARY DISEASE, UNSPECIFIED (10) Elevated troponin Code(s): R79.89 - OTHER SPECIFIED ABNORMAL FINDINGS OF BLOOD CHEMISTRY (11) GI bleed Code(s): K92.2 - GASTROINTESTINAL HEMORRHAGE, UNSPECIFIED Assessment/Plan (1) Septic shock Assessment/Plan: -resolved -unclear source -doing well off antibiotics Code(s): A41.9 - SEPSIS, UNSPECIFIED ORGANISM R65.21 - SEVERE SEPSIS WITH SEPTIC SHOCK (2) Atrial fibrillation with rapid ventricular response Assessment/Plan: -appreciate cardiology assistance -continue toprol -eliquis restarted and no bleeding Code(s): I48.91 - UNSPECIFIED ATRIAL FIBRILLATION (3) NAYAN (acute kidney injury) Assessment/Plan: -at baseline -case d/w nephrology Code(s): N17.9 - ACUTE KIDNEY FAILURE, UNSPECIFIED (4) Shock liver Assessment/Plan: -continues to worsen with treatment of CHF -case d/w daughter -considering hospice Code(s): K75.9 - INFLAMMATORY LIVER DISEASE, UNSPECIFIED (5) Hyperkalemia Assessment/Plan: -resolved Code(s): E87.5 - HYPERKALEMIA (6) Hypoglycemia Assessment/Plan: -resolved Code(s): E16.2 - HYPOGLYCEMIA, UNSPECIFIED (7) Acidosis Assessment/Plan: -resolved Code(s): E87.2 - ACIDOSIS (8) CHF (congestive heart failure) Assessment/Plan: -patient with BLE edema -continue diuresis per cardiology Code(s): I50.9 - HEART FAILURE, UNSPECIFIED (9) COPD (chronic obstructive pulmonary disease) Assessment/Plan: -continue inhalers Code(s): J44.9 - CHRONIC OBSTRUCTIVE PULMONARY DISEASE, UNSPECIFIED (10) Elevated troponin Assessment/Plan: -stress induced -ECHO reviewed -cardiology following Code(s): R79.89 - OTHER SPECIFIED ABNORMAL FINDINGS OF BLOOD CHEMISTRY (11) GI bleed Assessment/Plan: -oral protonix -continue diet Code(s): K92.2 - GASTROINTESTINAL HEMORRHAGE, UNSPECIFIED (12) Thrush -s/p full treatment with nystatin
[2016-04-26] MEDS ORDERED: INSULIN (NOVOLOG) ASPART 100 UNITS/ML 10ML VIAL ONE (22:51)
[2016-04-27 06:07] LABS: SERUM IRON 30 ug/dL (27-139); TOTAL IRON BINDING CAPACITY 307 ug/dL (250-450); UIBC 277 ug/dL (118-369)
[2016-04-27] MEDS: ALBUTEROL SO4 2.5/IPRATROPIUM 0.5 INH SOL 3 ML VIAL.NEB. NEB SCH ×4 (06:32→23:00)
[2016-04-27 07:38] LABS: BASOPHIL 0.5 % (0-2.0); EOSINOPHIL 0.9 % (0-4.5); MCH 31.4 pg (25.7-33.7); MEAN CELL VOLUME 98.1 fl (80-96); MEAN PLT VOLUME 9.4 fl (7.5-11.1); NEUTROPHILS 79.2 % (42.8-82.8); PLATELET COUNT 138 K/MM3 (134-434); RDW 17.1 % (11.6-15.6); WHITE BLOOD COUNT 6.2 K/mm3 (4.0-10.0)
[2016-04-27 09:01] LABS: ALBUMIN 2.4 g/dl (3.4-5.0); BILIRUBIN,DIRECT 0.8 mg/dL (0.0-0.2); BILIRUBIN,TOTAL 1.3 mg/dL (0.2-1.0); CALCIUM 8.6 mg/dL (8.5-10.1); PHOSPHOROUS 4.6 mg/dL (2.5-4.9); TOT PROT 5.3 g/dl (6.4-8.2)
--- NOTE | 2016-04-27 10:43 | PN ---
Progress Note (short form) - Note Progress Note: PULMONARY Confused but denies shortness of breath or chest pain. Last Vital Signs Temp Pulse Resp BP Pulse Ox 97.7 F 79 20 108/57 98 04/27/16 06:00 04/27/16 06:00 04/27/16 06:00 04/27/16 06:00 04/26/16 21:00 Gen: NAD at rest Heart: RRR Lung: bibasilar rales Abd: soft, nontender Ext: + edema CBC, BMP 04/27/16 07:00 04/27/16 07:20 Active Medications Albuterol/Ipratropium (Duoneb -) 1 amp NEB QIDR [facility] Last Admin: 04/27/16 06:32 Dose: 1 amp Apixaban (Eliquis -) 2.5 mg PO BID [facility] Last Admin: 04/26/16 22:53 Dose: 2.5 mg Budesonide/Formoterol Fumarate (Symbicort 80/4.5mcg -) 2 puff IH BID [facility] Last Admin: 04/26/16 22:53 Dose: 2 puff Furosemide (Lasix Injection -) 40 mg IVPUSH DAILY [facility] Last Admin: 04/26/16 11:21 Dose: 40 mg Guaifenesin (Mucinex -) 1,200 mg PO BID [facility] Last Admin: 04/26/16 22:53 Dose: 1,200 mg Metoprolol Succinate (Toprol Xl -) 100 mg PO BID [facility] Last Admin: 04/26/16 22:53 Dose: 100 mg Pantoprazole Sodium (Protonix -) 40 mg PO DAILY [facility] Last Admin: 04/26/16 11:19 Dose: 40 mg A/P r/o Pneumonia Atrial Fibrillation Acute on Chronic Renal Failure +Troponins r/o GI Bleed COPD - s/p empiric antibiotics - lasix - monitor urine output, creatinine - rate controlled - continue anticoagulation - inhaled bronchodilators as needed - DVT/GI prophylaxis - agree with hospice eval
--- NOTE | 2016-04-27 12:30 | PN ---
Progress Note, Physician History of Present Illness: Pt seen and examined at bedside. She is awake. She still complains of weakness and lower extremity edema. - Current Medication List Current Medications: Active Medications Albuterol/Ipratropium (Duoneb -) 1 amp NEB QIDR [facility] Last Admin: 04/27/16 11:05 Dose: 1 amp Apixaban (Eliquis -) 2.5 mg PO BID [facility] Last Admin: 04/26/16 22:53 Dose: 2.5 mg Budesonide/Formoterol Fumarate (Symbicort 80/4.5mcg -) 2 puff IH BID [facility] Last Admin: 04/26/16 22:53 Dose: 2 puff Furosemide (Lasix Injection -) 40 mg IVPUSH DAILY [facility] Last Admin: 04/26/16 11:21 Dose: 40 mg Guaifenesin (Mucinex -) 1,200 mg PO BID [facility] Last Admin: 04/26/16 22:53 Dose: 1,200 mg Metoprolol Succinate (Toprol Xl -) 100 mg PO BID [facility] Last Admin: 04/26/16 22:53 Dose: 100 mg Pantoprazole Sodium (Protonix -) 40 mg PO DAILY [facility] Last Admin: 04/26/16 11:19 Dose: 40 mg - Objective Vital Signs: Vital Signs Temperature 97.7 F 04/27/16 06:00 Pulse Rate 79 04/27/16 06:00 Respiratory Rate 20 04/27/16 06:00 Blood Pressure 108/57 04/27/16 06:00 O2 Sat by Pulse Oximetry (%) 98 04/26/16 21:00 Constitutional: Yes: Calm Eyes: Yes: Conjunctiva Clear Cardiovascular: Yes: S1, S2 Respiratory: Yes: Diminished, On Nasal O2 Gastrointestinal: Yes: Soft Genitourinary: Yes: WNL Musculoskeletal: Yes: Muscle Weakness Edema: Yes Edema: LLE: 2+, RLE: 2+ Neurological: Yes: Oriented Psychiatric: Yes: Oriented Labs: CBC, BMP 04/27/16 07:00 04/27/16 07:20 INR, PTT INR 1.37 (0.82-1.09) H D 04/16/16 06:00 Assessment/Plan Current Medications Generic Name Dose Route Start Last Admin Trade Name Freq PRN Reason Stop Dose Admin Albuterol/Ipratropium 1 amp 04/14/16 12:00 04/27/16 11:05 Duoneb - NEB 1 amp QIDR [facility] Administration Apixaban 2.5 mg 04/20/16 22:00 04/26/16 22:53 Eliquis - PO 2.5 mg BID [facility] Administration Budesonide/Formoterol Fumarate 2 puff 04/12/16 10:00 04/26/16 22:53 Symbicort 80/4.5mcg - IH 2 puff BID [facility] Administration Furosemide 40 mg 04/25/16 10:30 04/26/16 11:21 Lasix Injection - IVPUSH 40 mg DAILY [facility] Administration Guaifenesin 1,200 mg 04/16/16 12:15 04/26/16 22:53 Mucinex - PO 1,200 mg BID [facility] Administration Metoprolol Succinate 100 mg 04/26/16 22:00 04/26/16 22:53 Toprol Xl - PO 100 mg BID [facility] Administration Pantoprazole Sodium 40 mg 04/16/16 12:30 04/26/16 11:19 Protonix - PO 40 mg DAILY [facility] Administration Impression 1. NAYAN 2. hyperkalemia 3. sepsis with hypothremia 4. a-fib 5. GI bleed 6. metabolic acidosis - check abg and lactic acid level 7. COPD 8. hyperlipidemia 9. hypernatremia 10. 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
[2016-04-27] MEDS ORDERED: PT OWN MED DRAWER 7, Y5N ONE ×2 (13:17→20:49)
[2016-04-27] MEDS: APIXABAN 2.5 MG TABLET PO SCH ×2 (13:19→22:07)
[2016-04-27] MEDS: BUDESONIDE/FORMETEROL FUMARATE 80/4.5 mcg INHALER IH SCH ×2 (13:20→22:08)
[2016-04-27] MEDS: METOPROLOL SUCCINATE 100 MG TAB.SR.24H (FP) PO SCH ×2 (13:20→22:09)
[2016-04-27] MEDS: FUROSEMIDE 40 MG/4 ML INJECTABLE VIAL IVPUSH SCH (13:20)
[2016-04-27] MEDS: PANTOPRAZOLE 40 MG TABLET (FP) PO SCH (13:20)
[2016-04-27] MEDS: guaiFENesin 600 MG TABLET.ER (FP) PO SCH ×2 (13:20→22:08)
--- NOTE | 2016-04-27 17:07 | PN ---
Progress Note, Physician Chief Complaint: Ms Granado is lethargic today but arousable. Mainly complains of fatigue. - Current Medication List Current Medications: Active Medications Albuterol/Ipratropium (Duoneb -) 1 amp NEB QIDR [facility] Last Admin: 04/27/16 11:05 Dose: 1 amp Apixaban (Eliquis -) 2.5 mg PO BID [facility] Last Admin: 04/27/16 13:19 Dose: 2.5 mg Budesonide/Formoterol Fumarate (Symbicort 80/4.5mcg -) 2 puff IH BID [facility] Last Admin: 04/27/16 13:20 Dose: 2 puff Furosemide (Lasix Injection -) 40 mg IVPUSH DAILY [facility] Last Admin: 04/27/16 13:20 Dose: 40 mg Guaifenesin (Mucinex -) 1,200 mg PO BID [facility] Last Admin: 04/27/16 13:20 Dose: 1,200 mg Metoprolol Succinate (Toprol Xl -) 100 mg PO BID [facility] Last Admin: 04/27/16 13:20 Dose: 100 mg Pantoprazole Sodium (Protonix -) 40 mg PO DAILY [facility] Last Admin: 04/27/16 13:20 Dose: 40 mg - Objective Vital Signs: Vital Signs Temperature 97.7 F 04/27/16 06:00 Pulse Rate 79 04/27/16 06:00 Respiratory Rate 20 04/27/16 06:00 Blood Pressure 108/57 04/27/16 06:00 O2 Sat by Pulse Oximetry (%) 98 04/26/16 21:00 Constitutional: Yes: No Distress, Calm Cardiovascular: Yes: Pulse Irregular. No: Gallop, Murmur, Rub Respiratory: Yes: Regular, CTA Bilaterally. No: Rales, Rhonchi, Wheezes Gastrointestinal: Yes: Normal Bowel Sounds, Soft. No: Distention, Tenderness Extremities: Yes: Cyanosis Edema: LLE: 2+, RLE: 2+ Labs: CBC, BMP 04/27/16 07:00 04/27/16 07:20 INR, PTT INR 1.37 (0.82-1.09) H D 04/16/16 06:00 Problem List - Problems (1) Septic shock Code(s): A41.9 - SEPSIS, UNSPECIFIED ORGANISM R65.21 - SEVERE SEPSIS WITH SEPTIC SHOCK (2) Atrial fibrillation with rapid ventricular response Code(s): I48.91 - UNSPECIFIED ATRIAL FIBRILLATION (3) NAYAN (acute kidney injury) Code(s): N17.9 - ACUTE KIDNEY FAILURE, UNSPECIFIED (4) Shock liver Code(s): K75.9 - INFLAMMATORY LIVER DISEASE, UNSPECIFIED (5) Hyperkalemia Code(s): E87.5 - HYPERKALEMIA (6) Hypoglycemia Code(s): E16.2 - HYPOGLYCEMIA, UNSPECIFIED (7) Acidosis Code(s): E87.2 - ACIDOSIS (8) CHF (congestive heart failure) Code(s): I50.9 - HEART FAILURE, UNSPECIFIED (9) COPD (chronic obstructive pulmonary disease) Code(s): J44.9 - CHRONIC OBSTRUCTIVE PULMONARY DISEASE, UNSPECIFIED (10) Elevated troponin Code(s): R79.89 - OTHER SPECIFIED ABNORMAL FINDINGS OF BLOOD CHEMISTRY (11) GI bleed Code(s): K92.2 - GASTROINTESTINAL HEMORRHAGE, UNSPECIFIED Assessment/Plan (1) Septic shock Code(s): A41.9 - SEPSIS, UNSPECIFIED ORGANISM R65.21 - SEVERE SEPSIS WITH SEPTIC SHOCK (2) Atrial fibrillation with rapid ventricular response Code(s): I48.91 - UNSPECIFIED ATRIAL FIBRILLATION (3) NAYAN (acute kidney injury) Code(s): N17.9 - ACUTE KIDNEY FAILURE, UNSPECIFIED (4) Shock liver Code(s): K75.9 - INFLAMMATORY LIVER DISEASE, UNSPECIFIED (5) Hyperkalemia Code(s): E87.5 - HYPERKALEMIA (6) Hypoglycemia Code(s): E16.2 - HYPOGLYCEMIA, UNSPECIFIED (7) Acidosis Code(s): E87.2 - ACIDOSIS (8) CHF (congestive heart failure) Code(s): I50.9 - HEART FAILURE, UNSPECIFIED (9) COPD (chronic obstructive pulmonary disease) Code(s): J44.9 - CHRONIC OBSTRUCTIVE PULMONARY DISEASE, UNSPECIFIED (10) Elevated troponin Code(s): R79.89 - OTHER SPECIFIED ABNORMAL FINDINGS OF BLOOD CHEMISTRY (11) GI bleed Code(s): K92.2 - GASTROINTESTINAL HEMORRHAGE, UNSPECIFIED (12) Thrush Plan -case d/w daughter yesterday -evaluating for hospice -hepatic function improved -renal function slightly worsened today -continue diuresis -may need to accept higher creatinine per nephrology to make euvolemic -continue current management
[2016-04-27] MEDS ORDERED: MAG HYDROX/AL HYDROX/SIMETH 30 ML UNIT-DOSE CUP PO ONE (20:15)
[2016-04-28] MEDS: ALBUTEROL SO4 2.5/IPRATROPIUM 0.5 INH SOL 3 ML VIAL.NEB. NEB SCH ×3 (06:45→17:27)
[2016-04-28 07:26] LABS: BASOPHIL 0.4 % (0-2.0); EOSINOPHIL 0.6 % (0-4.5); MCH 31.5 pg (25.7-33.7); MCHC 32.2 g/dl (32.0-36.0); MEAN CELL VOLUME 97.6 fl (80-96); MEAN PLT VOLUME 8.9 fl (7.5-11.1); NEUTROPHILS 80.4 % (42.8-82.8); PLATELET COUNT 160 K/MM3 (134-434); RDW 17.5 % (11.6-15.6); WHITE BLOOD COUNT 6.7 K/mm3 (4.0-10.0)
[2016-04-28 08:36] LABS: CALCIUM 8.5 mg/dL (8.5-10.1); CREATININE 1.8 mg/dL (0.55-1.02); MAGNESIUM 2.1 mg/dL (1.8-2.4)
[2016-04-28 08:59] LABS: ALBUMIN 2.7 g/dl (3.4-5.0); BILIRUBIN,DIRECT 0.8 mg/dL (0.0-0.2)
[2016-04-28 09:01] LABS: BILIRUBIN,TOTAL 1.3 mg/dL (0.2-1.0); TOT PROT 5.9 g/dl (6.4-8.2)
--- NOTE | 2016-04-28 11:52 | PN ---
Progress Note (short form) - Note Progress Note: S: no cp, palps, dizziness, sob. feels general weakness o: Vital Signs Period Temp Pulse Resp BP Sys/Ravi Pulse Ox Last 24 Hr 97.9 F-98.2 F 77-102 20-20 97-165/54-89 93 Constitutional: NAD, on Nasal cannula Eyes: No: Sclera Icterus Respiratory: Yes: bibasilar dullness, weak eff Gastrointestinal: Yes: Normal Bowel Sounds. No: Distention, Hepatomegaly, Palpable Mass, Tenderness Cardiovascular: Yes: Pulse Irregular JVD: no Heart Sounds: Yes: S1, S2. No: Gallop Murmur: 2/6 Systolic Murmur at LSB Extremities: No: Cold, Cyanosis Edema: 1+le edema bl Integumentary: No: Jaundice diaphoresis Neurological: Yes: Alert,appropriate Psychiatric: No: Agitated Current Medications Generic Name Dose Route Start Last Admin Trade Name Freq PRN Reason Stop Dose Admin Albuterol/Ipratropium 1 amp 04/14/16 12:00 04/28/16 11:07 Duoneb - NEB 1 amp QIDR [facility] Administration Apixaban 2.5 mg 04/20/16 22:00 04/27/16 22:07 Eliquis - PO 2.5 mg BID [facility] Administration Budesonide/Formoterol Fumarate 2 puff 04/12/16 10:00 04/27/16 22:08 Symbicort 80/4.5mcg - IH 2 puff BID [facility] Administration Furosemide 40 mg 04/25/16 10:30 04/27/16 13:20 Lasix Injection - IVPUSH 40 mg DAILY [facility] Administration Guaifenesin 1,200 mg 04/16/16 12:15 04/27/16 22:08 Mucinex - PO 1,200 mg BID [facility] Administration Metoprolol Succinate 100 mg 04/26/16 22:00 04/27/16 22:09 Toprol Xl - PO 100 mg BID [facility] Administration Pantoprazole Sodium 40 mg 04/16/16 12:30 04/27/16 13:20 Protonix - PO 40 mg DAILY [facility] Administration CBC, BMP 04/28/16 06:00 04/28/16 06:00 EKG 04/11: afib with RVR, [address]/T wave abnromalities difficult to interpret due to baseline artifact. EKG 04/12: afib. LAD. RBBB. Anterior T wave abnormalities. head CT: No acute pathology echo 04/27/16: nl lv/rv, kim, mod mr, mod-sev tr, rvsp 30-40 echo 04/12/16: Nl lv/rv, mod GINA. 1+ MAC, mild-mod MR. Severe TR. RVSP 40-50. echo 02/2016: nl lv, rv mod-sev dil, mild-mod dec rv fcn, severe kim, mod mr, dilated ivc, sev tr, mild phtn Echo 2013: nl LV/RV; mod MR/TR; mod pHTN (40-50) MPI 2012: no ischemia, nl EF LHC 2008 (false + mpi): mild, diffuse dz a/p: 89 yo female with afib/flutter, ? MAT, severe copd on chronic steroids, pulm HTN, Mod MR, HTN, venous insufficiency, vertigo here with sepsis c/b GIB, shock liver, NAYAN with hyperkalemia. sepsis: -resolved rapid Afib/flutter (possible PSVT prior)/MAT -mult admits in past with difficult to control AF rates when acute resp problems going on -previously declined AVN ablation/PPM -had s.e.s or hi risk for toxicity from mult agents (see prior notes) -cont toprol 100 bid, unable to tolerate higher doses due to low bp -will need close f/u of BP and dizzy spells once she becomes more ambulatory after discharge to see if tolerating metopr at this dose -CHADS VASC 3--eliquis held here initially due to active GIB. Was seen by GI who felt bleeding was due to combination of AC agent plus shock liver at that time causing acute coagulopathy--AC was held temporarily, bleeding resolved as did shock liver. Now back on eliquis 2.5 bid for age and borderline wt/renal fxn, plus excessive gingival bleeding on higher dose. H/H has been stable presumed cad: - No asa b/c of GIB and on AC. No statin b/c of acute liver injury. pulm HTN (mild, moderate): -? 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 elevated lfts: -likely due to sepsis Hyperlipidemia -holding statin as above due to elevated lfts chronic venous ins'y: - s/p IVF for sepsis, now with worse le edema. Cont lasix 40 iv qd as doing, cr stable.
--- NOTE | 2016-04-28 13:05 | PN ---
Progress Note, Physician History of Present Illness: pulmoary alert,oob-chair,comfortable,nad - Current Medication List Current Medications: Active Medications Albuterol/Ipratropium (Duoneb -) 1 amp NEB QIDR [facility] Last Admin: 04/28/16 11:07 Dose: 1 amp Apixaban (Eliquis -) 2.5 mg PO BID [facility] Last Admin: 04/27/16 22:07 Dose: 2.5 mg Budesonide/Formoterol Fumarate (Symbicort 80/4.5mcg -) 2 puff IH BID [facility] Last Admin: 04/27/16 22:08 Dose: 2 puff Furosemide (Lasix Injection -) 40 mg IVPUSH DAILY [facility] Last Admin: 04/27/16 13:20 Dose: 40 mg Guaifenesin (Mucinex -) 1,200 mg PO BID [facility] Last Admin: 04/27/16 22:08 Dose: 1,200 mg Metoprolol Succinate (Toprol Xl -) 100 mg PO BID [facility] Last Admin: 04/27/16 22:09 Dose: 100 mg Pantoprazole Sodium (Protonix -) 40 mg PO DAILY [facility] Last Admin: 04/27/16 13:20 Dose: 40 mg - Objective Vital Signs: Vital Signs Temperature 97.9 F 04/28/16 06:00 Pulse Rate 87 04/28/16 11:06 Respiratory Rate 20 04/28/16 06:00 Blood Pressure 97/89 04/28/16 06:00 O2 Sat by Pulse Oximetry (%) 93 L 04/28/16 11:06 Constitutional: Yes: Calm, Thin Eyes: Yes: WNL HENT: Yes: WNL Neck: Yes: WNL Cardiovascular: Yes: S1, S2 Respiratory: Yes: Diminished Gastrointestinal: Yes: WNL Extremities: Yes: Cool Edema: Yes Labs: CBC, BMP 04/28/16 06:00 04/28/16 06:00 INR, PTT INR 1.37 (0.82-1.09) H D 04/16/16 06:00 Assessment/Plan s/p Septic Shock of unclear etiology ? Pneumonia Atrial Fibrillation with RVR Acute on Chronic Renal Failure improving Lactic Acidosis Elevated LFTs likely ischemic injury improving +Troponins r/o GI Bleed Hypernatremia improved COPD - monitor urine output, creatinine - aspiration precautions - inhaled bronchodilators - protonix - monitor H/H,LFTS - anticoagulation - PT DR MENDOZA
[2016-04-28] MEDS: guaiFENesin 600 MG TABLET.ER (FP) PO SCH (13:09)
[2016-04-28] MEDS: APIXABAN 2.5 MG TABLET PO SCH (13:10)
[2016-04-28] MEDS: BUDESONIDE/FORMETEROL FUMARATE 80/4.5 mcg INHALER IH SCH (13:10)
[2016-04-28] MEDS: FUROSEMIDE 40 MG/4 ML INJECTABLE VIAL IVPUSH SCH (13:10)
[2016-04-28] MEDS: PANTOPRAZOLE 40 MG TABLET (FP) PO SCH (13:10)
[2016-04-28] MEDS: METOPROLOL SUCCINATE 100 MG TAB.SR.24H (FP) PO SCH (13:11)
--- NOTE | 2016-04-28 14:27 | DS ---
Physical Examination Vital Signs: Vital Signs Temperature 97.9 F 04/28/16 06:00 Pulse Rate 87 04/28/16 11:06 Respiratory Rate 20 04/28/16 06:00 Blood Pressure 97/89 04/28/16 06:00 O2 Sat by Pulse Oximetry (%) 93 L 04/28/16 11:06 Labs: CBC, BMP 04/28/16 06:00 04/28/16 06:00 Discharge Summary Reason For Visit: A-FIB DEHYDRATION FAILURE TO THRIVE Current Active Problems Acidosis (Acute) Atrial fibrillation with rapid ventricular response (Acute) Dehydration (Acute) Elevated troponin (Acute) Failure to thrive in adult (Acute) GI bleed (Acute) Hyperkalemia (Acute) Hypoglycemia (Acute) Liver failure (Acute) Palliative care status (Acute) Shock liver (Acute) Condition: Guarded - Instructions Diet, Activity, Other Instructions: diet per patient wishes. Up with assistance Referrals: Sergo Ruvalcaba MD [Primary Care Provider] - Disposition: [facility] - Home Medications Comprehensive Discharge Medication List: Ambulatory Orders Salmeterol/Fluticasone [Advair 250Mcg/50Mcg -] 1 inh PO BID 03/13/14 Apixaban [Eliquis] 2.5 mg PO BID #0 04/23/14 Acetaminophen [Tylenol .Regular Strength -] 650 mg PO Q4H PRN #0 tablet Albuterol 0.083% Nebulizer Dara [Ventolin 0.083% Nebulizer Soln -] 1 amp NEB Q4H PRN #0 amp 02/26/16 Tiotropium [place] [Spiriva] 1 inh PO DAILY #1 inh 04/02/16 Furosemide Injection [Lasix Injection -] 40 mg IVPUSH DAILY vial 04/28/16 Furosemide [Lasix] 40 mg PO DAILY #30 tablet 04/28/16 Guaifenesin [Mucinex -] 1,200 mg PO BID tablet.er 04/28/16 Metoprolol Succinate [Toprol XL -] 100 mg PO BID tab.sr.24h 04/28/16
[2016-04-28 17:55] VITALS: BP 121/79; PULSE 84; TEMP 97.2
--- NOTE | 2016-04-28 18:12 | PN ---
Progress Note, Physician History of Present Illness: Pt seen and examined at bedside. She is awake. She denies pain. She does complain of weakness. She has no appetite. - Current Medication List Current Medications: Active Medications Albuterol/Ipratropium (Duoneb -) 1 amp NEB QIDR [facility] Last Admin: 04/28/16 17:27 Dose: 1 amp Apixaban (Eliquis -) 2.5 mg PO BID [facility] Last Admin: 04/28/16 13:10 Dose: 2.5 mg Budesonide/Formoterol Fumarate (Symbicort 80/4.5mcg -) 2 puff IH BID [facility] Last Admin: 04/28/16 13:10 Dose: 2 puff Furosemide (Lasix Injection -) 40 mg IVPUSH DAILY [facility] Last Admin: 04/28/16 13:10 Dose: 40 mg Guaifenesin (Mucinex -) 1,200 mg PO BID [facility] Last Admin: 04/28/16 13:09 Dose: 1,200 mg Metoprolol Succinate (Toprol Xl -) 100 mg PO BID [facility] Last Admin: 04/28/16 13:11 Dose: 100 mg Pantoprazole Sodium (Protonix -) 40 mg PO DAILY [facility] Last Admin: 04/28/16 13:10 Dose: 40 mg - Objective Vital Signs: Vital Signs Temperature 97.2 F L 04/28/16 17:50 Pulse Rate 84 04/28/16 17:50 Respiratory Rate 20 04/28/16 17:50 Blood Pressure 121/79 04/28/16 17:50 O2 Sat by Pulse Oximetry (%) 93 L 04/28/16 11:06 Constitutional: Yes: Calm Eyes: Yes: Conjunctiva Clear HENT: Yes: Atraumatic Cardiovascular: Yes: S1, S2 Respiratory: Yes: On Nasal O2 Gastrointestinal: Yes: Soft Genitourinary: Yes: WNL Musculoskeletal: Yes: Muscle Weakness Edema: Yes Edema: LLE: 2+, RLE: 2+ Neurological: Yes: Oriented Labs: CBC, BMP 04/28/16 06:00 04/28/16 06:00 INR, PTT INR 1.37 (0.82-1.09) H D 04/16/16 06:00 Assessment/Plan Current Medications Generic Name Dose Route Start Last Admin Trade Name Freq PRN Reason Stop Dose Admin Albuterol/Ipratropium 1 amp 04/14/16 12:00 04/28/16 17:27 Duoneb - NEB 1 amp QIDR [facility] Administration Apixaban 2.5 mg 04/20/16 22:00 04/28/16 13:10 Eliquis - PO 2.5 mg BID [facility] Administration Budesonide/Formoterol Fumarate 2 puff 04/12/16 10:00 04/28/16 13:10 Symbicort 80/4.5mcg - IH 2 puff BID [facility] Administration Furosemide 40 mg 04/25/16 10:30 04/28/16 13:10 Lasix Injection - IVPUSH 40 mg DAILY [facility] Administration Guaifenesin 1,200 mg 04/16/16 12:15 04/28/16 13:09 Mucinex - PO 1,200 mg BID [facility] Administration Metoprolol Succinate 100 mg 04/26/16 22:00 04/28/16 13:11 Toprol Xl - PO 100 mg BID [facility] Administration Pantoprazole Sodium 40 mg 04/16/16 12:30 04/28/16 13:10 Protonix - PO 40 mg DAILY [facility] Administration Impression 1. NAYAN 2. hyperkalemia 3. sepsis with hypothremia 4. a-fib 5. GI bleed 6. metabolic acidosis - check abg and lactic acid level 7. COPD 8. hyperlipidemia 9. hypernatremia 10. failure to thrive Plan - renal function is stabilizing - possible discharge [facility] care - cont lasix for now - encourage PO intake - echo reviewed - may have to settle for higher creatinine in order to keep pt euvolemic - pt/rehab - cxr reviewed - monitor weights - will follow Dr Rogers -
== END 2016-04-28 19:08 | DRG 871 ==
LOC: JER 13:47 → JERBED 17:30 → UNDOADMIN 17:30 → JERBED 23:25 → JICU 04-12 13:23 → J4W 04-14 15:18 → J7W 04-25 19:38
PROVIDERS: ADMIT Internal Medicine; ATTEND Internal Medicine
PROC: 05HM33Z Insertion of Infusion Device into Right Internal Jugular Vein, Percutaneous Approach (ICD-10-PCS; principal; 2016-04-12)
PROC: B543ZZA Ultrasonography of Right Jugular Veins, Guidance (ICD-10-PCS; 2016-04-12)
PROC: 30233K1 Transfusion of Nonautologous Frozen Plasma into Peripheral Vein, Percutaneous Approach (ICD-10-PCS; 2016-04-12)
DX: A41.9 Sepsis, unspecified organism (principal); R65.21 Severe sepsis with septic shock; K72.00 Acute and subacute hepatic failure without coma; G92 Toxic encephalopathy; N17.0 Acute kidney failure with tubular necrosis; E87.2 Acidosis; K92.2 Gastrointestinal hemorrhage, unspecified; B37.0 Candidal stomatitis; E86.0 Dehydration; R62.7 Adult failure to thrive; I48.91 Unspecified atrial fibrillation; Z79.01 Long term (current) use of anticoagulants; F03.90 Unspecified dementia, unspecified severity, without behavioral disturbance, psychotic disturbance, mood disturbance, and anxiety; Z66 Do not resuscitate; I10 Essential (primary) hypertension; E78.5 Hyperlipidemia, unspecified; J44.9 Chronic obstructive pulmonary disease, unspecified; E16.2 Hypoglycemia, unspecified; I50.9 Heart failure, unspecified; R68.0 Hypothermia, not associated with low environmental temperature; Z51.5 Encounter for palliative care; I27.2 Other secondary pulmonary hypertension; I34.0 Nonrheumatic mitral (valve) insufficiency; I87.2 Venous insufficiency (chronic) (peripheral); I25.10 Atherosclerotic heart disease of native coronary artery without angina pectoris
CPT/HCPCS: 36415; 36430; 36600; 70450-TC; 71010-TC; 76700-TC; 76705-TC; 80048; 80053; 80076; 80162; 80307; 81003; 81015; 82140; 82436; 82533; 82550; 82570; 82607; 82728; 82803; 83540; 83550; 83605; 83735; 84100; 84133; 84300; 84484; 85025; 85027; 85610; 85730; 86704; 86706; 86708; 86803; 86850; 86900; 86901; 87040; 87086; 87340; 93005; 93010; 93306-TC; 93976; 94640; 97116-GP; 97161-GP; 99285-25; G0480; P9017